=== PATIENT | female | born 1970 | race Two or more races ===

== ENCOUNTER 2022-12-15 08:29 | Outpatient (REF) | payer OTHER, SELFPAY ==
--- NOTE | ~2022-12-15 | XR_ITS ---
EXAMINATION: XR ankle RT min 3V, XR ankle LT min 3V CLINICAL INFORMATION: Reason for Exam M25.571 - Pain in right ankle and joints of right foot COMPARISON: None. TECHNIQUE: AP, lateral, and oblique views of the bilateral ankles XR/XR ankle LT min 3V FINDINGS/IMPRESSION: * No acute fracture or dislocation. * Joint spaces are maintained without significant degenerative change. * No soft tissue abnormality.
--- NOTE | ~2022-12-15 | XR_ITS ---
EXAMINATION: XR ankle RT min 3V, XR ankle LT min 3V CLINICAL INFORMATION: Reason for Exam M25.571 - Pain in right ankle and joints of right foot COMPARISON: None. TECHNIQUE: AP, lateral, and oblique views of the bilateral ankles XR/XR ankle RT min 3V FINDINGS/IMPRESSION: * No acute fracture or dislocation. * Joint spaces are maintained without significant degenerative change. * No soft tissue abnormality.
== END 2022-12-15 08:30 | disposition home or self-care (01) ==
LOC: HO.HMGCX 08:29
PROVIDERS: PCP Internal Medicine; Visit Provider Internal Medicine
DX: M25.571 Pain in right ankle and joints of right foot (principal); M25.572 Pain in left ankle and joints of left foot
CPT/HCPCS: 73610

== ENCOUNTER 2023-06-12 07:43 | Outpatient (REF) | payer OTHER, SELFPAY ==
[2023-06-12 13:55] LABS: MANUAL DIFF FLAG NO
[2023-06-12 14:10] LABS: Basophils Absolute Auto 0.1 X10*3/uL (0.0-0.2); Basophils Percent Auto 0.5 % (0-2); Eosinophils Absolute Auto 0.6 X10*3/uL (0.0-0.4); Eosinophils Percent Auto 6.5 % (0-4); Hematocrit 48.1 % (37.0-47.0); Hemoglobin 15.8 g/dl (12.0-16.0); Imm Gran Abs Auto 0.03 X10*3/uL (0.00-0.03); Imm Gran Pct Auto 0.3 % (0.0-0.4); Lymphocytes Absolute Auto 3.3 X10*3/uL (1.2-4.9); Lymphocytes Percent Auto 34.2 % (20-40); Mean Corpuscular HGB Conc 32.8 g/dl (31.0-35.0); Mean Corpuscular Volume 91.4 fL (80.0-98.0); Mean Platelet Volume 10.7 fL (9.4-12.3); Monocytes Absolute Auto 0.5 X10*3/uL (0.1-1.2); Monocytes Percent Auto 5.1 % (2-11); Neutrophils Absolute Auto 5.1 x10*3/uL (2.0-8.3); Neutrophils Percent Auto 53.4 % (45-73); Platelet Count 264 X10*3/uL (160-400); Red Blood Count 5.26 X10*6/uL (4.20-5.50); Red Cell Distribution Width 13.1 % (11.0-16.0); White Blood Count 9.6 X10*3/uL (4.8-10.8)
[2023-06-12 14:38] LABS: Alanine Aminotransferase 32 U/L (0-31); Albumin Level 4.1 g/dL (3.5-5.0); Alkaline Phosphatase 70 U/L (39-117); Anion Gap 12 (12-20); Aspartate Amino Transferase 20 U/L (5-31); Bilirubin Total 0.3 mg/dL (0.0-1.0); Blood Urea Nitrogen 10 mg/dL (9-16); Calcium 9.6 mg/dL (8.4-10.2); Carbon Dioxide 24 mmol/L (22-29); Chloride 106 mmol/L (96-108); Cholesterol 195 mg/dL; Estimated Glomerular Filt Rate > 60; Glucose Fasting 90 mg/dL (60-99); HDL Cholesterol 36 mg/dL; LDL Cholesterol Calculated 121 mg/dl; Sodium 138 mmol/L (135-145); Total Protein 7.3 g/dL (6.5-8.0); Triglycerides 194 mg/dL
[2023-06-12 14:42] LABS: TSH reflex Free T4 1.33 uIU/mL (0.32-4.0); Vitamin D 25-OH Total 37.1 ng/mL (>30)
== END 2023-06-12 07:44 | disposition home or self-care (01) ==
LOC: HO.HMGCLDS 07:43
PROVIDERS: PCP Internal Medicine; Visit Provider Internal Medicine
DX: Z00.00 Encounter for general adult medical examination without abnormal findings (principal); I10 Essential (primary) hypertension
CPT/HCPCS: 36415; 80053; 80061; 82306; 84443; 85025

== ENCOUNTER 2023-06-15 10:15 | Outpatient (AMB) | payer OTHER, SELFPAY ==
[2023-06-15 10:16] VITALS: BP 128/70; PULSE 85; O2SAT 98; BMI 31.4
--- NOTE | 2023-06-15 10:16 | MHC.PC.OV ---
Vital Signs 06/15/23 10:16 Height 5 ft 1 in Weight 166 lb 4 oz BMI 31.4 BP 128/70 Blood Pressure Location Lt brachial Position Sitting Pulse 85 Pulse Source Pulse Oximeter Pulse Oximetry (%) 98 Oxygen Delivery Method Room Air Intake Visit Reasons: 6 month follow up Allergies No Known Allergies Allergy (Verified 06/15/23 10:16) Medication List - Last Reconciled 06/15/23 by Valeria Horowitz MD ferrous gluconate 324 mg PO QAM fluticasone propionate 50 mcg/actuation 1 spray intranasal DAILY gabapentin 300 - 600 mg PO BEDTIME lisinopril 20 mg PO DAILY Tobacco use date assessed: 06/15/23 Dental Screening Dental Screen Date: 06/15/23 Did you have a dental visit in the last 12 months?: No Did you have a dental problem in the last 6 months where you did not have access to dental care?: No Was dental information given to patient?: No HPI 6 month follow up HPI Details Pt presents for HTN, stable on Lisinopril. Pt c/o chronic bilateral shoulder pain and neck pain and tightness. She tried physical therapy multiple times and had right shoulder surgery by [facility] in the past but never fully recovered. Patient also had multiple cortisone injections in both shoulders without significant relief. She would like to go back to the orthopedics. PFSH Family History Maternal Grandmother Mental health disorder Social History Household Members: Other Household Members Other:: on disability for shoulder injury , lives with a partner, 1 daughter, Housing: Apartment Patient Tobacco Use Status: Current everyday Tobacco user e-Cigarette/Vaping Use: Never Used 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al status: unemployed Cognitive needs: No Hearing needs: No Vision needs: Yes Questionnaire Thrive Questionnaire Date Thrive assessed: 12/15/22 AUDIT C Alcohol Use Questionnaire (AUDIT-C) 1. How often do you have a drink containing alcohol?: Never 3. How often do you have six or more drinks on one occasion?: Never Total Score: 0 Score Reviewed/Action Taken: Yes DORIS-7 AMB Questionnaire DORIS-7 Date DORIS - 7 assessed: 12/15/22 Source: Developed by Drs. Karri Plata, PerlaCarroll Brown and colleagues, with an educational manpreet from [employer]. Review of Systems Const All systems reviewed & are unremarkable except as noted in HPI and below Reports no additional complaints Eyes Reports no additional complaints ENT Reports no additional complaints Card Reports no additional complaints Resp Reports no additional complaints GI Reports no additional complaints Reports no additional complaints Physical exam (Primary Care) Vital Signs: Last Vital Signs Pulse 85 06/15/23 10:16 BP 128/70 06/15/23 10:16 Pulse Ox 98 06/15/23 10:16 Oxygen Delivery Method Room Air 06/15/23 10:16 BMI result Body Mass Index 31.4 Tobacco/Smoking Status: Tobacco use Status Tobacco use date assessed 06/15/23 06/15/23 10:18 Patient Tobacco Use Status Current everyday Tobacco 06/15/23 10:18 e-Cigarette/Vaping Use Never Used 06/15/23 10:18 Thrive Assessment: Date of Thrive Assessment Date Thrive assessed 12/15/22 06/15/23 10:18 Const General: no acute distress HENMT Ears: hearing grossly normal bilaterally Face and sinus: Yes normal facial exam Resp Effort & Inspection: normal respiratory effort Auscultation: clear to auscultation bilaterally Cardio Rhythm: regular rhythm Heart sounds: S1 normal heart sound present and S2 normal heart sound present GI Inspection: Yes normal to inspection Palpation (GI): Soft to palpation Percussion: Yes normal to percussion Auscultation: normal bowel sounds Assessment and Plan Assessment & Plan (1) Carpal tunnel syndrome on both sides: Code(s): G56.03 - Carpal tunnel syndrome, bilateral upper limbs Plan: Follow-up with [facility] (2) Shoulder pain, bilateral: Code(s): M25.511 - Pain in right shoulder; M25.512 - Pain in left shoulder Plan: F/U with [facility] (3) HTN (hypertension): Code(s): I10 - Essential (primary) hypertension Plan: cont Lisinopril Orders: Orders MM screening mammo BI Today Z12.31 - Encounter for screening mammogram for malignant neoplasm of breast Referrals Gastroenterology Referral Z00.00 - Encounter for general adult medical examination without abnormal findings Orthopedics Referral G56.03 - Carpal tunnel syndrome, bilateral upper limbs, M25.511 - Pain in right shoulder, M25.512 - Pain in left shoulder Coding Level of Care Code Est Pt Level 4 (13512) Diagnoses Carpal tunnel syndrome on both sides G56.03 Shoulder pain, bilateral M25.511; M25.512 HTN (hypertension) I10
== END 2023-06-15 10:52 | disposition home or self-care (01) ==
PROVIDERS: PCP Internal Medicine; Visit Provider Internal Medicine
DX: G56.03 Carpal tunnel syndrome, bilateral upper limbs (principal); M25.511 Pain in right shoulder; M25.512 Pain in left shoulder; I10 Essential (primary) hypertension
CPT/HCPCS: 99214

== ENCOUNTER 2023-08-03 06:49 | Outpatient (REF) | payer OTHER, MEDICAID, SELFPAY ==
--- NOTE | ~2023-08-03 | XR_ITS ---
EXAMINATION: XR SHOULDER, RIGHT XR SHOULDER, LEFT CLINICAL INFORMATION: Bilateral shoulder pain. COMPARISON: None. TECHNIQUE: AP, scapular Y, and axillary views of the right and left shoulder. FINDINGS: Right Shoulder: No acute fracture or dislocation. Small acromioclavicular marginal osteophytes. Mild glenohumeral joint space narrowing with tiny marginal osteophytes. Benign-appearing probable degenerative cyst within the proximal humerus. No concerning lytic or blastic osseous lesion. No abnormal soft tissue calcification. Left Shoulder: No acute fracture or dislocation. No significant joint space narrowing or marginal osteophytes. No osseous erosion. Lobulated calcification adjacent to the greater tuberosity measuring up to 1.5 cm, consistent with distal infraspinatus calcific tendinitis. XR/XR shoulder LT min 2V IMPRESSION: RIGHT SHOULDER: Mild glenohumeral and acromioclavicular osteoarthritis. LEFT SHOULDER: Distal infraspinatus calcific tendinitis.
--- NOTE | ~2023-08-03 | XR_ITS ---
EXAMINATION: XR SHOULDER, RIGHT XR SHOULDER, LEFT CLINICAL INFORMATION: Bilateral shoulder pain. COMPARISON: None. TECHNIQUE: AP, scapular Y, and axillary views of the right and left shoulder. FINDINGS: Right Shoulder: No acute fracture or dislocation. Small acromioclavicular marginal osteophytes. Mild glenohumeral joint space narrowing with tiny marginal osteophytes. Benign-appearing probable degenerative cyst within the proximal humerus. No concerning lytic or blastic osseous lesion. No abnormal soft tissue calcification. Left Shoulder: No acute fracture or dislocation. No significant joint space narrowing or marginal osteophytes. No osseous erosion. Lobulated calcification adjacent to the greater tuberosity measuring up to 1.5 cm, consistent with distal infraspinatus calcific tendinitis. XR/XR shoulder RT min 2V IMPRESSION: RIGHT SHOULDER: Mild glenohumeral and acromioclavicular osteoarthritis. LEFT SHOULDER: Distal infraspinatus calcific tendinitis.
== END 2023-08-03 06:50 | disposition home or self-care (01) ==
LOC: HO.HOSX 06:49
PROVIDERS: Visit Provider Physician Assistant
DX: M75.32 Calcific tendinitis of left shoulder (principal); M25.511 Pain in right shoulder
CPT/HCPCS: 20610; 73030; J1040

== ENCOUNTER 2023-08-03 10:51 | Outpatient (AMB) | payer OTHER, MEDICAID, SELFPAY ==
--- NOTE | 2023-08-03 11:14 | A.OFFVIS_ITS ---
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 She states the pain started in 2019. She states the right is worse than the left. She uses both ice and heat to help with the pain but it does not provide relief. She is taking Aleve daily to help with the pain. 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 She states she has bilateral shoulder pain which is worse at her right shoulder and radiates to her neck. Her pain is aggravated with driving, ROM and frequently drops items. She also c/o numbness and tingling in her hands. She finds no relief with ice and heat treatment. She is taking Aleve daily to help with her pain. She has not had any injury in the past. She has a history of right shoulder surgery in 2019 and CTS. She does not have a history of diabetes. [facility] Family History Maternal Grandmother Mental health disorder Social History Household Members: Other Household Members Other:: on disability for shoulder injury , lives with a partner, 1 daughter, Housing: Apartment Patient Tobacco Use Status: Current everyday Tobacco user e-Cigarette/Vaping Use: Never Used 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al status: unemployed Cognitive needs: No Hearing needs: No Vision needs: Yes Review of Systems Const All systems reviewed & are unremarkable except as noted in HPI and below Physical Exam Const General: cooperative, healthy appearing, comfortable, no acute distress, well developed and alert Orientation/consciousness: patient oriented x3 HEENT Head: Yes normal to inspection, Yes normocephalic and Yes atraumatic Eyes General: appearance normal, both eyes and all related structures Resp Effort & Inspection: normal respiratory effort and able to speak in complete sentences Cardio Rate: regular rate Peripheral pulses: Peripheral pulses 2+ throughout GI Palpation (GI): Soft to palpation Skin Lesions: no lesions Rashes: no rashes Neuro General: patient oriented x3 Extrem Other: Left shoulder normal to inspection. Tenderness over the bicipital groove and along the deltoid region of the shoulder. Forward flexion to 175, external rotation to 90, internal rotation to S1. 5/5 RTC strength. Positive Denny and cross body abduction. NVI. Office Procedures Joint Injection/Drain Joint Injection/Drain Primary Site: left shoulder Prep: site was prepped using aseptic technique, ethochloride spray was applied and injection warnings given Injected: 80 mg of, DepoMedrol, with 8 mL of, 1% plain lidocaine and in the subcromial space Approach Used: posterolateral Procedure: The patient tolerated the procedure well and there was some relief with the local anesthesia Coding 13124 - Glenohumeral/Tronchanteric Bursa/Intraarticular Procedure code (CPT) selection complete Results Reviewed Results Reviewed: 08/03/23 11:39 Lidocaine HCl 2 % MPF [Xylocaine 2 % MPF] 5 ml .ROUTE .STK-MED ONE methylPREDNISolone acetate [DEPO-MedroL] 80 mg .ROUTE .STK-MED ONE Xrays were obtained in the office today and personally reviewed by me of both shoulders shoulder calcific tendonitis left and post surgical changes on the right Assessment & Plan Assessment & Plan (1) Calcific tendonitis of left shoulder: Code(s): M75.32 - Calcific tendinitis of left shoulder Plan We discussed options today which include steroid injection. They did consent to move forward with the left shoulder injection, which was tolerated well. I recommended rest, ice and elevation and OTC anti-inflammatories PRN for discomfort. She was also given a referral to physical therapy for her right shoulder. If symptoms persist or worsens over the next 6-8 weeks, patient will contact the office, otherwise follow-up as needed. Orders: Orders XR shoulder LT min 2V Today M25.512 - Pain in left shoulder XR shoulder RT min 2V Today M25.511 - Pain in right shoulder PT Evaluation and Treatment Today M75.32 - Calcific tendinitis of left shoulder Patient Instructions: Scribed for Ta-Colleen Carson PA-C, by dulce maria Bailey scribe, on 08/03/2023 at 11:00 AM Laci GILLESPIE PA-C, have personally reviewed and agree with the information entered by the travis. Coding Level of Care Code New Pt Level 3 (56594) Diagnoses Calcific tendonitis of left shoulder M75.32 CPT Codes Coding - Joint 7: 41022 - Glenohumeral/Tronchanteric Bursa/Intraarticular ([id number])
== END 2023-08-03 11:52 | disposition home or self-care (01) ==
PROVIDERS: PCP Internal Medicine; Visit Provider Physician Assistant
DX: M75.32 Calcific tendinitis of left shoulder (principal)
CPT/HCPCS: 20610; 99204

== ENCOUNTER 2023-08-17 11:29 | Outpatient (AMB) | payer OTHER, MEDICAID, SELFPAY ==
[2023-08-17 11:34] VITALS: BMI 31.4
--- NOTE | 2023-08-17 11:34 | MHC.OFFVIS ---
Intake Vital Signs 08/17/23 11:34 Height 5 ft 1 in Weight 166 lb BMI 31.4 Intake Visit Reasons: ov- Right shoulder MRI review Intake Note: Camila is a 52 year old right hand dominant female who presents today for a follow up of her right shoulder. She had an MRI done with [facility] which is scanned to her chart. States she continues to have pain. Patient mentioned she will be starting P.T for her left shoulder on 08/26/23. Allergies No Known Allergies Allergy (Verified 08/17/23 11:38) HPI ov- Right shoulder MRI review HPI Details Camila is a 52 year old woman who presents for an MRI review of her right shoulder pain. She has a hx of right SAD at [facility] in 2020. She complains of pain with daily activity, as well as limited ROM. Her pain is worse with overhead activities & at night, and she feels limited by this. She says this pain radiates into her neck occasionally and has been present since her surgery. She reports multiple rounds of PT and injections for her right shoulder, which was somewhat helpful. She says her pain is so bad at night that she tends to sleep in her Lazy-boy chair. She finds some relief from NSAIDs and denies any other pain medication. She says she is so limited she has been modifying her activities and getting help from friends and family for some activities, including cooking. She has left calcific tendinitis, received a steroid injection on 08/03/23 by MOLLY Carson, and was sent for PT. She continues to have pain but says her injection was somewhat helpful. She has a hx of carpal tunnel syndrome and reports numbness in her hands. She also complains of numbness in her arms as well. 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 Cognitive needs: No Hearing needs: No Vision needs: Yes Review of Systems Const All systems reviewed & are unremarkable except as noted in HPI and below Physical Exam Vital Signs: BMI result Body Mass Index 31.4 Const General: no acute distress, alert and awake Orientation/consciousness: patient oriented x3 HEENT Head: Yes normocephalic and Yes atraumatic Eyes EOM: EOMs intact bilaterally Resp Effort & Inspection: normal respiratory effort and able to speak in complete sentences Cardio Jugular venous distension: no JVD Skin General skin exam: turgor normal Rashes: no rashes Neuro General: patient oriented x3 Psych Appearance: grossly normal Affect: normal affect Attitude: cooperative Results Reviewed Results Reviewed: I personally reviewed relevant MR images Supraspinatus tendinopathy with linear intrasubstance partial tear Post-op change compatible with interval biceps tenodesis, subacromial decompression/distal clavicular excision and subscapularis repair Assessment & Plan Assessment & Plan (1) History of arthroscopy of right shoulder: Code(s): Z98.890 - Other specified postprocedural states Plan: This is a 52 year old woman with right shoulder pain, with a hx of SAD, DOS: 10/2022 at [facility]. She has pain with daily activity, worse with overhead activity and at night. She says her pain has been present since her surgery, and she found limited relief from PT and injections in the past. I discussed her diagnosis and treatment options. I recommend a right shoulder with possible RTC repair and/or biceps tenodesis. I discussed the risks, benefits, and alternatives including, but not limited to, the risk of pain, infection, stiffness, need for further surgery as well as potential medical complications such as blood clots, pulmonary embolism and cardiac complications. I discussed the recovery timeline and process as well as the importance of PT. Camila is a good candidate for this surgery, and she wishes to proceed with this decision. She will speak with Arlin to schedule this procedure. (2) Calcific tendonitis of left shoulder: Code(s): M75.32 - Calcific tendinitis of left shoulder Plan: Injected on 08/03/23 by MOLLY Carson and sent for PT. Continues to have some pain. Plan Scribed for Terell Galvan MD by Venkatesh Stafford medical genetics director, on 08/17/23 at 11:45 AM, EST. Coding Level of Care Code Est Pt Level 4 (35572) Diagnoses History of arthroscopy of right shoulder Z98.890 Calcific tendonitis of left shoulder M75.32
== END 2023-08-17 11:53 | disposition home or self-care (01) ==
PROVIDERS: PCP Internal Medicine; Visit Provider Orthopaedic Surgery
DX: M25.511 Pain in right shoulder (principal); M75.32 Calcific tendinitis of left shoulder
CPT/HCPCS: 99214

== ENCOUNTER → 2023-08-17 11:29 | Outpatient (BNVA) | payer OTHER, MEDICAID, SELFPAY | PROVIDERS: PCP Internal Medicine; Visit Provider Orthopaedic Surgery | DX: M75.32 Calcific tendinitis of left shoulder (principal); Z98.890 Other specified postprocedural states | CPT/HCPCS: 99212 ==

== ENCOUNTER 2023-09-14 15:00 | Outpatient (RCR) | payer OTHER, MEDICAID, SELFPAY ==
[2023-08-26 08:15] VITALS: BP 131/63; PULSE 75
--- NOTE | 2023-08-26 09:19 | MHC.PT.EP ---
[facility] [place] Office [place] Office [place] Office [address] Cheryl Brito [address] [phone] F: [phone] F: [phone] F: [phone] F: [phone] Physical Therapy Plan of Care Date of Evaluation: 08/26/23 Date of Surgery: NA Diagnosis: Calcific tendinitis of L shoulder Assessment: Camila is a 52 year old female who is referred to PT for calcific tendinitis of L shoulder . She reports of having L shoulder pain for 4 years following a work injury. She injured B shoulder while pulling a heavy box however only her R shoulder pain was addressed. She still has pain in R shoulder and is scheduled for an arthroscopic procedure on 09/16 however she is here for L shoulder pain. On PT examination she presented with TTP over L shoulder anterior and posterior joint line, L UT, L bicep and supra tendon and B medial border of scapula, 6-9/10 pain at rest and with movements, decreased B shoulder ROM, decreased B shoulder and scap strength and altered posture. She lives with her partner and needs assistance for all ADLS due to pain. She is currently unemployed. She would benefit from skilled PT to address the aforementioned impairments and improve tolerance to functional activities. Frequency and Duration: The patient will be seen 2/week for 6 weeks. Short Term Goals: 1. Pt will have 50% decrease in pain which will enable her to sleep through the night in 2 weeks. 2. Pt will be able to move L shoulder through full plane of motion without pain which will enable her to use L UE for dressing in 3 weeks. Artillery Maintenance Supervisor Goals: 1. Pt will demonstrate an increase in muscle strength by 1 grade which will enable her to perform all ADLS using L UE in 5 weeks. 2. Pt will be independent with HEP for symptom management and maintenance following d/c in 6 weeks. Treatment Plan: Modalities to reduce pain, spasms and effusion. Manual therapy to restore motion and function. Therapeutic exercise to improve strength and flexibility. Neuromuscular re-education for posture and balance. Therapeutic activities to return to functional activities of daily living. Electronically signed by: Romelia Santiago PT DPT Please sign and return to therapist. Thank you for your referral.
--- NOTE | 2023-09-23 10:48 | MHC.PT.DC ---
[facility] [place] Office [place] Office [place] Office [address] [phone] F: [phone] F: [phone] F: [phone] F: [phone] Physical Therapy Discharge Report Diagnosis: Calcific tendinitis of L shoulder Date of Surgery: NA Date of Evaluation: 08/26/23 Date of Discharge: 09/23/23 Treatments to Date: 3 Cancellations to Date: 1 No Shows to Date: 1 Discharge Status: Patient Elected to Stop Discharge Summary: Camila completed 3 PT visits. She is being d/c from PT for L shoulder calcific tendinitis as she had rotator cuff repair surgery for R shoulder 1 week back. She is going to start PT for R shoulder next week and is limited in doing exercises for L shoulder at this time. She is therefore d/c from PT. Camila in agreement with this plan. Electronically signed by: Romelia Santiago PT DPT Please sign and return to therapist. Thank you for your referral.
== END 2023-09-23 10:48 | disposition home or self-care (01) ==
LOC: HO.PT 15:00
PROVIDERS: PCP Internal Medicine; Visit Provider Physician Assistant
DX: M75.32 Calcific tendinitis of left shoulder (principal)
CPT/HCPCS: 97110; 97161

== ENCOUNTER 2023-09-16 07:43 | Day surgery (SDC) | payer OTHER, MEDICAID, SELFPAY ==
[2023-09-11 12:58] VITALS: BMI 31.4
--- NOTE | 2023-09-15 09:58 | HO.ANESPROP2 ---
HPI - Anesthesia Eval Consult details Narrative: 52yo F for Right Shoulder Arthroscopy, possible rotator cuff repair, possible bicep tenodesis PMFSH Active Problems Active Problems: All Active Problems (Updated 09/11/23 @ 12:53 by Chandrika Johnson RN) History of arthroscopy of right shoulder (Acute) Calcific tendonitis of left shoulder (Acute) Abnormal mammogram of right breast (Acute) Carpal tunnel syndrome on both sides (Acute) Shoulder pain, bilateral (Acute) Chronic ankle pain, bilateral (Acute) Annual physical exam (Acute) Hx of screening mammography (Acute) Normal pelvic exam (Acute) H/O shoulder surgery (Acute) Restless legs syndrome (RLS) (Acute) HTN (hypertension) (Acute) Past Medical History Medical History Carpal tunnel syndrome RLS (restless legs syndrome) HTN (hypertension) Family History Family History Maternal Grandmother Mental health disorder Surgical History Surgical History (Updated 09/22/23 @ 12:46 by Natividad Morris) History of arthroscopy of right shoulder Social History Social History Household Members: Other Household Members Other:: on disability for shoulder injury , lives with a partner, 1 daughter, Housing: Apartment Patient Tobacco Use Status: Current everyday Tobacco user Cigarettes Per Day: 8 Years Smoked: 20 e-Cigarette/Vaping Use: Never Used 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al status: unemployed 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 Cognitive needs: No Hearing needs: No Vision needs: Yes Meds Allergies Allergy/AdvReac Type Severity Reaction Status Date / Time No Known Allergies Allergy Verified 08/17/23 11:38 Home Medications Medication Instructions Recorded Confirmed Last Taken Type fluticasone propionate 50 1 spray intranasal DAILY 12/15/22 09/11/23 Unknown History mcg/actuation nasal spray,suspension Exam Exam Date and Time: September 15, 2023 0958 Height,Weight and Vital Signs: Height 5 ft 1 in Weight 75.296 kg Pertinent Lab Results Pertinent Lab Results: Laboratory Tests 06/12/23 07:48 WBC 9.6 Hgb 15.8 Hct 48.1 H Plt Count 264 Sodium 138 Potassium 4.0 Chloride 106 Carbon Dioxide 24 BUN 10 Creatinine 0.72 Assessment and Plan Assessment Anesthesia Assessment: Chart Reviewed
[2023-09-16 08:15] VITALS: BP 138/65; PULSE 75; RESP 18; TEMP 36.1; O2SAT 96
[2023-09-16] MEDS: Lactated Ringers 1,000 ML 100 ML IVCONT (08:21)
--- NOTE | 2023-09-16 09:21 | MHC.SHP ---
Pre-Procedural Eval Section A Date of Service: 09/16/23 The patient is an INPATIENT: No Changes since office visit: No Cold of Flu in the past 2 weeks, No New Medical Problems, No Changes in Medication and No Patient answered all questions The History & Physical has been completed within 30 days and I have reviewed it.: Yes Section B Chief Complaint: Calcific tendinitis of left shoulder Allergies: Allergies Allergy/AdvReac Type Severity Reaction Status Date / Time No Known Allergies Allergy Verified 08/17/23 11:38 Plan I have reviewed the history and physical and performed a pertinent physical examination on my patient. No changes have occurred unless specified. Time Spent With Patient Time: Total time managing care of this patient today ____ minutes.
--- NOTE | 2023-09-16 10:46 | PM.OP ---
Brief Operative Note Date of Service: 09/16/23 Pre-op diagnosis: right rtc tear Post-op diagnosis: same Procedure: Right rtc repair Implants: Licea and nephew helacoil x3 Surgeon: Terell Galvan MD Anesthesia: GETA and regional Was an Digital Asset Specialist used for this Procedure?: Yes Digital Asset Specialist: Patience Monge Estimated blood loss (mL): 10 IV fluids (mL): 850 Pathology: none sent Condition: stable Disposition: PACU
[2023-09-16 11:02] VITALS: BP 155/76; PULSE 100; RESP 24; TEMP 36.6; O2SAT 96
[2023-09-16 11:07] VITALS: BP 145/75; PULSE 92; RESP 22; O2SAT 99
[2023-09-16 11:10] VITALS: BP 145/72; PULSE 87; RESP 20; O2SAT 93
[2023-09-16 11:15] VITALS: BP 145/74; PULSE 85; RESP 20; O2SAT 94
[2023-09-16 11:30] VITALS: BP 145/74; PULSE 88; RESP 18; TEMP 36.1; O2SAT 94
--- NOTE | 2023-09-21 09:28 | P.OP_ITS ---
Operative Note Operative Note Date of Service: 09/16/23 Narrative: Date of Service: 09/16/23 Pre-op diagnosis: right rtc tear Post-op diagnosis: same Procedure: Right rtc repair Implants: Licea and nephew helacoil x3 Surgeon: Terell Galvan MD Anesthesia: GETA and regional Was an Can Filling And Closing Machine Tender used for this Procedure?: Yes Can Filling And Closing Machine Tender: Patience Monge Estimated blood loss (mL): 10 IV fluids (mL): 850 Pathology: none sent Condition: stable Disposition: PACU Procedure in detail: Patient was brought to the operating room and placed the the beach chair position. All bony prominences were well padded and the limb was prepped and draped in standard sterile fashion. A time out was called to identify proper site, proper procedure and proper surgeon. IV antibiotics per weight were administered. I began by making a posterolateral stab incision with a 15 blade. A blunt trochar was placed into the glenohumeral joint and I insufflated the joint with saline and a 30 degree arthroscope was placed. I established an outside- in anterior portal just distal to the biceps tendon. I then began my inspection of the glenohumeral joint. There was a degenerative SLAP tear at the biceps anchor ( Type 1). There were minimal cartilage changes at the inferior glenoid without humeral head changes. There was an undersurface RTC tear. The subcapularis was intact. I debrided the loose cartilage of the glenoid and the degenerative labral tearing. I then removed the trochar and entered the subacromial space. A direct lateral portal was then established and I performed a bursectomy. The cuff was then examined. There was a bursal sided tear that was high grade and given the undersurface tearing of the supraspinatus. I debrided the tear and it was essentially full thickness. I placed one medial row double loaded anchors after using a tap just adjacent to the articular cartilage and then brought the suture limbs (4) through the medial cuff. I added two looped sutures and then debrided the bare area down to bleeding bone and, using a cross bridge configuration, brought 3 limbs to each of two lateral 5.0 anchors. This re- approximated the cuff anatomy anatomically. Once I was satisfied with the repair final images were captured and I removed all instrumentation. Portals were closed with nylon. Patient was placed in an abduction sling, extubated and brought to the recovery room in stable condition. There were no known complications.
== END 2023-09-16 12:06 | disposition home or self-care (01) ==
PROVIDERS: PCP Internal Medicine; Visit Provider Orthopaedic Surgery
PROC: (CPT 29805; principal; 2023-09-16 09:40)
DX: M75.31 Calcific tendinitis of right shoulder (principal); I10 Essential (primary) hypertension; F17.200 Nicotine dependence, unspecified, uncomplicated
CPT/HCPCS: 29827; 29822; 29826; C1713; J0131; J0171; J0690; J1100; J2371; J2405; J2795

== ENCOUNTER → 2023-09-16 07:43 | Outpatient (BNV) | payer OTHER, MEDICAID, SELFPAY | PROVIDERS: PCP Internal Medicine; Visit Provider Orthopaedic Surgery | DX: M75.101 Unspecified rotator cuff tear or rupture of right shoulder, not specified as traumatic (principal) | CPT/HCPCS: 29822; 29826; 29827 ==

== ENCOUNTER 2023-09-22 12:23 | Outpatient (AMB) | payer OTHER, MEDICAID, SELFPAY ==
--- NOTE | 2023-09-22 12:24 | A.OFFVIS_ITS ---
Intake Intake Visit Reasons: PO-Rt Shld 09/16 NE Intake Note: Camila is a 52 year old right hand dominant female who presents today for a post op appointment s/p right shlder 09/16/23 NE. Patient is doing well just having some discomfort. Allergies No Known Allergies Allergy (Verified 08/17/23 11:38) HPI PO-Rt Shld 09/16 NE HPI Details 52-year-old right hand dominant female w honorio presents in the office today 6 days status post right rotator cuff repair, which was performed on 09/16/[address] Galvan. [facility] Medical History Carpal tunnel syndrome RLS (restless legs syndrome) HTN (hypertension) Surgical History (Updated 09/22/23 @ 12:46 by Natividad Morris) History of arthroscopy of right shoulder Family History Maternal Grandmother Mental health disorder Social History Household Members: Other Household Members Other:: on disability for shoulder injury , lives with a partner, 1 daughter, Housing: Apartment Patient Tobacco Use Status: Current everyday Tobacco user Cigarettes Per Day: 8 Years Smoked: 20 e-Cigarette/Vaping Use: Never Used 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al status: unemployed 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 No surrounding erythema or drainage. No signs of infection. Sutures intact. Forward flexion and abduction to 45 degrees. External rotation to neutral. NVI. Assessment & Plan Assessment & Plan (1) S/P rotator cuff repair: Comment: right shoulder, 09/16/2023 NE Code(s): Z98.890 - Other specified postprocedural states Plan Ms. Forte is a 52-year-old right hand dominant female who presents in the office today 6 days status post right rotator cuff repair, which was performed on 09/16/[address] Galvan. Sutures were removed and steri-stripes were applied while in the office today. She will be referred to physical therapy to work on right shoulder status post rotator cuff repair with patch. The patient is scheduled to begin physical therapy tomorrow, 09/23/2023, for the left shoulder. However, we will defer treatment for the left shoulder at this time in order for her to move forward with right shoulder treatment. Follow up will be in 4 weeks, or sooner if needed. Patient Instructions: Scribed for Patience Monge PA-C by Natividad Morris medical assembler, on 09/22/2023 at 12:24 pm, EST. Coding Level of Care Code Global (29580) Diagnoses S/P rotator cuff repair Z98.890
== END 2023-09-22 13:03 | disposition home or self-care (01) ==
PROVIDERS: PCP Internal Medicine; Visit Provider Physician Assistant
DX: Z98.890 Other specified postprocedural states (principal)
CPT/HCPCS: 99024

== ENCOUNTER → 2023-09-22 12:23 | Outpatient (BNVA) | payer OTHER, MEDICAID, SELFPAY | PROVIDERS: PCP Internal Medicine; Visit Provider Physician Assistant ==

== ENCOUNTER 2023-11-03 10:00 | Outpatient (AMB) | payer OTHER, MEDICAID, SELFPAY ==
--- NOTE | 2023-11-03 10:11 | A.OFFVIS_ITS ---
Intake Intake Visit Reasons: PO-Rt Shld 09/16 NE Intake Note: Camila is a 53 year old right hand dominant female who presents today for a post op appointment s/p right shoulder 09/16/23 NE. Patient reports she is doing well but a bit sore. Allergies No Known Allergies Allergy (Verified 11/03/23 10:15) HPI PO-Rt Shld 09/16 NE HPI Details Camila is a 53 year old right hand dominant woman who presents S/P right shoulder RTC repair, DOS: 09/16/[address] Galvan. She says she is doing well but has some residual soreness. She is seen today wearing her sling correctly. She has been attending PT as ordered. She complains of some ongoing neck pain which may be related to wearing her sling. [facility] Medical History Carpal tunnel syndrome RLS (restless legs syndrome) HTN (hypertension) Surgical History (Updated 09/22/23 @ 12:46 by Natividad Morris) History of arthroscopy of right shoulder Family History Maternal Grandmother Mental health disorder Social History Household Members: Other Household Members Other:: on disability for shoulder injury , lives with a partner, 1 daughter, Housing: Apartment Patient Tobacco Use Status: Current everyday Tobacco user Cigarettes Per Day: 8 Years Smoked: 20 e-Cigarette/Vaping Use: Never Used 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al status: unemployed 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 Cognitive needs: No Hearing needs: No Vision needs: Yes Review of Systems Const All systems reviewed & are unremarkable except as noted in HPI and below Physical Exam Const General: cooperative, healthy appearing and no acute distress Orientation/consciousness: patient oriented x3 HEENT Head: Yes normocephalic and Yes atraumatic Eyes EOM: EOMs intact bilaterally Resp Effort & Inspection: normal respiratory effort and able to speak in complete sentences Cardio Jugular venous distension: no JVD Rate: regular rate Peripheral pulses: Peripheral pulses 2+ throughout GI Palpation (GI): Soft to palpation Skin General skin exam: turgor normal Lesions: no lesions Rashes: no rashes Neuro General: patient oriented x3 Extrem Other: Right shoulder: Incision site is C/D/I, completely healed with no evidence of infection. No surrounding erythema or edema. Forward flexion to 70 degrees, Abduction to 60 degrees, External rotation to 45 degrees. NVI. Psych Appearance: grossly normal Affect: normal affect Attitude: cooperative Assessment & Plan Assessment & Plan (1) S/P rotator cuff repair: Comment: right shoulder, 09/16/2023 NE Code(s): Z98.890 - Other specified postprocedural states Plan aCmila is a 53 year old right hand dominant woman who presents S/P right shoulder RTC repair, DOS: 09/16/[address] Galvan. She says she is doing well but has some residual soreness. She is seen today wearing her sling correctly. She has been attending PT as ordered. She complains of some ongoing neck pain which may be related to wearing her sling. She will discontinue her sling at this time and continue with Physical therapy as ordered. She is able to resume driving at this time as long as she can demonstrate good control and is not taking any narcotic medication. Follow up will be in [address] Galvan, velmaer prn. Patient Instructions: Scribed for Patience Monge PA-C by Venkatesh Stafford, medical field representative, on 11/03/23 at 10:35 AM EST. Coding Level of Care Code Global (91390) Diagnoses S/P rotator cuff repair Z98.890
== END 2023-11-03 10:47 | disposition home or self-care (01) ==
PROVIDERS: PCP Internal Medicine; Visit Provider Physician Assistant
DX: Z98.890 Other specified postprocedural states (principal)
CPT/HCPCS: 99024

== ENCOUNTER → 2023-11-03 10:00 | Outpatient (BNVA) | payer OTHER, MEDICAID, SELFPAY | PROVIDERS: PCP Internal Medicine; Visit Provider Physician Assistant | DX: Z98.890 Other specified postprocedural states (principal) | CPT/HCPCS: 99212 ==

== ENCOUNTER 2023-11-12 11:00 | Outpatient (RCR) | payer OTHER, MEDICAID, SELFPAY ==
--- NOTE | 2023-09-30 11:05 | MHC.PT.EP ---
[facility] [place] Office [place] Office [place] Office [address] [phone] F: [phone] F: [phone] F: [phone] F: [phone] Physical Therapy Plan of Care Date of Evaluation: 09/30/23 Date of Surgery: 09/16/23 Diagnosis: S/P RIGHT SUPRASPINATUS ROTATOR CUFF REPAIR WITH HEALICOIL 09/16/23 ORTHO F/U ON 10/31/23 Assessment: 52 YO FEMALE REF TO PT S/P Rt ARTHROSCOPIC RTC REPAIR (SUPRASPINATUS) ON 09/16/23 (NE)-> SHE HAS A H/O PREVIOUS Rt RTC REPAIR IN 2019 (OFF-SITE). THE Pt IS Rt HAND DOMINANT AND SHE IS ON DISABILITY FROM HER INITIAL Rt SH INJURY IN 10/2019. SHE HAS POST-OP DISCOMFORT IN Rt SH, LIMITED ROM, DECR POSTURE, AND SCAP/ Rt UE STRENGTH DEFICITS. FUNCTIONALLY, THE Pt IS LIMITED WITH ADLs DUE TO Rt SH POST-OP IMMOBILIZATION. THE Pt IS MOTIVATED FOR HER POST-OP PT AND TO GRADUALLY RESUME HER ADLs. THE Pt IS A GOOD PT CANDIDATE TO GUIDE HER ALONG HER POST-OP Rt RTC REPAIR. Frequency and Duration: The patient will be seen 2 x WK x 10 WKS Short Term Goals: *Pt INDEP SELF-CORRECT POSTURE *DECREASE Rt SH PAIN TO A 2-3/10 *INITIATE AND INCR ROM Rt SH PER ADVANCED CEU PROTOCOL *MAINTAIN INTEG OF Rt RTC REPAIR Halfway Goals: *Pt INDEP W HEP AND SELF-SX MGMT TECHN *Pt GRADUALLY RESUME ADLs (PER PROTOCOL) AND FUNCT INDEP EVIDENT W IMPROVED SPADI SCORE ( AT EVAL 128/130) *Pt DEMON FULL AROM Rt SH *RESTORE Rt SH GIRDLE STRENGTH Treatment Plan: Modalities to reduce pain, spasms and effusion. Manual therapy to restore motion and function. Therapeutic exercise to improve strength and flexibility. Neuromuscular re-education for posture and balance. Therapeutic activities to return to functional activities of daily living. Electronically signed by: MIGUELANGEL RIBEIRO,PT Please sign and return to therapist. Thank you for your referral.
--- NOTE | 2024-01-26 11:55 | MHC.PT.DC ---
[facility] [place] Office [place] Office [place] Office [address] Cheryl Brito [address] [phone] F: [phone] F: [phone] F: [phone] F: [phone] Physical Therapy Discharge Report Diagnosis: S/P RIGHT SUPRASPINATUS ROTATOR CUFF REPAIR WITH HELICOIL 09/16/23 ORTHO F/U ON 10/31/23 Date of Surgery: 09/16/23 Date of Evaluation: 09/30/23 Date of Discharge: 01/26/24 Treatments to Date: 10 Cancellations to Date: 0 No Shows to Date: 0 Discharge Status: Improved Function Patient Elected to Stop Discharge Summary: THE Pt WAS PROGRESSING NICELY IN HER POST -OP COURSE, 8 WKS POST-OP. SHE DISCHARGED HERSELF FROM PT DUE TO LEAVING FOR [place] TO CARE FOR HER MOTHER. SHE IS D/C AT THIS TIME; SHE DID NOT MEET HER PT GOALS. Electronically signed by: MIGUELANGEL RIBEIRO,PT Please sign and return to therapist. Thank you for your referral.
== END 2024-01-26 11:55 | disposition home or self-care (01) ==
LOC: HO.PT 11:00
PROVIDERS: PCP Internal Medicine; Visit Provider Physician Assistant
DX: Z98.890 Other specified postprocedural states (principal)
CPT/HCPCS: 97110; 97140; 97162

== ENCOUNTER 2023-12-14 10:27 | Outpatient (AMB) | payer OTHER, MEDICAID, SELFPAY ==
--- NOTE | 2023-12-14 10:28 | MHC.OFFVIS ---
Intake Intake Visit Reasons: PO-Rt Shld 09/16/23 NE Intake Note: Camila is a 53 year old right hand dominant female who presents today for a post op appointment s/p right shoulder 09/16/23 NE. Patient reports that she is doing well, she does continue to have pain with certain movements. overall has no concerns Allergies No Known Allergies Allergy (Verified 11/03/23 10:15) HPI PO-Rt Shld 09/16/23 NE HPI Details Camila is a 53 year old right hand dominant woman who presents ~3 months S/P right shoulder RTC repair. She says she is doing well, and has been attending PT. She continues to have some pain with certain activities or motions, but overall has no complaints today and is happy with the results of her surgery. [facility] Medical History Carpal tunnel syndrome RLS (restless legs syndrome) HTN (hypertension) Surgical History (Updated 09/22/23 @ 12:46 by Natividad Morris) History of arthroscopy of right shoulder Family History Maternal Grandmother Mental health disorder Social History Household Members: Other Household Members Other:: on disability for shoulder injury , lives with a partner, 1 daughter, Housing: Apartment Patient Tobacco Use Status: Current everyday Tobacco user Cigarettes Per Day: 8 Years Smoked: 20 e-Cigarette/Vaping Use: Never Used 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al status: unemployed 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 Cognitive needs: No Hearing needs: No Vision needs: Yes Review of Systems Const All systems reviewed & are unremarkable except as noted in HPI and below Physical Exam Const General: no acute distress, alert and awake Orientation/consciousness: patient oriented x3 HEENT Head: Yes normocephalic and Yes atraumatic Eyes EOM: EOMs intact bilaterally Resp Effort & Inspection: normal respiratory effort and able to speak in complete sentences Cardio Jugular venous distension: no JVD Skin General skin exam: turgor normal Rashes: no rashes Neuro General: patient oriented x3 Extrem Other: 30/90/130/S1 portals c/d/i 4+/5 EC Psych Appearance: grossly normal Affect: normal affect Attitude: cooperative Assessment & Plan Assessment & Plan (1) S/P rotator cuff repair: Comment: right shoulder, 09/16/2023 NE Code(s): Z98.890 - Other specified postprocedural states Plan: Doing well 3 mo s/p RTC repair No heavy lifting f/u as needed Plan Prepared for Terell Galvan MD by Venkatesh Stafford, medical billing manager, on 12/14/23 at 10:33 AM, EST. Coding Level of Care Code Global (73730) Diagnoses S/P rotator cuff repair Z98.890
== END 2023-12-14 10:49 | disposition home or self-care (01) ==
PROVIDERS: PCP Internal Medicine; Visit Provider Orthopaedic Surgery
DX: Z98.890 Other specified postprocedural states (principal)
CPT/HCPCS: 99024

== ENCOUNTER → 2023-12-14 10:27 | Outpatient (BNVA) | payer OTHER, MEDICAID, SELFPAY | PROVIDERS: PCP Internal Medicine; Visit Provider Orthopaedic Surgery | DX: Z98.890 Other specified postprocedural states (principal) | CPT/HCPCS: 99212 ==

== ENCOUNTER 2023-12-16 10:11 | Outpatient (AMB) | payer OTHER, SELFPAY ==
--- NOTE | 2023-12-16 10:57 | MHC.PC.OV ---
Vital Signs 12/16/23 10:58 Height 5 ft 1 in Weight 174 lb BMI 32.9 BP 118/74 Blood Pressure Location Lt brachial Position Sitting Pulse 83 Pulse Source Pulse Oximeter Pulse Oximetry (%) 97 Oxygen Delivery Method Room Air Intake Visit Reasons: Annual PE Intake Note: Pt is here today for PE. Allergies No Known Allergies Allergy (Verified 12/16/23 11:00) Medication List - Last Reconciled 12/16/23 by Valeria Horowitz MD ferrous gluconate 324 mg PO QAM fluticasone propionate 50 mcg/actuation 1 spray intranasal DAILY gabapentin 600 mg PO BEDTIME lisinopril 20 mg PO DAILY Tobacco use date assessed: 12/16/23 Dental Screening Dental Screen Date: 12/16/23 Did you have a dental visit in the last 12 months?: No Did you have a dental problem in the last 6 months where you did not have access to dental care?: No Was dental information given to patient?: Patient declined HPI Annual PE HPI Details Pt presents for PE. Pt c/o episodes of intermediate lightheadedness when changing change in head position when standing at the sink in the kitchen. patient denies positional vertigo, nausea, vomiting, change in balance, headaches, change in vision. 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 Cognitive needs: No Hearing needs: No Vision needs: Yes Questionnaire Thrive Questionnaire Date Thrive assessed: 12/15/22 I am a: Patient What is your living situation today?: I have a place to live, but I am worried about losing it in the future Within the past 12 months, did the food you bought not last and you didn't have the money to get more?: Sometimes True Within the past 12 months, did you worry whether your food would run out before you got money to buy more?: Sometimes True Please select the resources that you would like help with: None THRIVE Score: 3 AUDIT C Alcohol Use Questionnaire (AUDIT-C) 1. How often do you have a drink containing alcohol?: Never 3. How often do you have six or more drinks on one occasion?: Never Total Score: 0 DORIS-7 AMB Questionnaire DORIS-7 Date DORIS - 7 assessed: 12/15/22 Feeling nervous, anxious, or on edge: 2 = More than half the days Not being able to stop or control worryin = Nearly every day Worrying too much about different things: 3 = Nearly every day Trouble relaxin = More than half the days Being so restless that it is hard to sit still: 2 = More than half the days Becoming easily annoyed or irritable: 2 = More than half the days Feeling afraid as if something awful might happen: 3 = Nearly every day Total DORIS-7 score (0-4 normal; 5-9 mild; 10-14 moderate; 15-21 severe): 17 Source: Developed by Drs. Karri Plata, Perla Xie, Carroll Guevara and colleagues, with an educational manpreet from [employer]. Review of Systems Const All systems reviewed & are unremarkable except as noted in HPI and below Reports no additional complaints Eyes Reports no additional complaints ENT Reports no additional complaints Card Reports no additional complaints Resp Reports no additional complaints GI Reports no additional complaints Reports no additional complaints Physical exam (Primary Care) Vital Signs: Last Vital Signs Pulse 83 12/16/23 10:58 BP 118/74 12/16/23 10:58 Pulse Ox 97 12/16/23 10:58 Oxygen Delivery Method Room Air 12/16/23 10:58 BMI result Body Mass Index 32.9 Tobacco/Smoking Status: Tobacco use Status Tobacco use date assessed 12/16/23 12/16/23 11:03 Patient Tobacco Use Status Former Tobacco user (3 12/16/23 11:03 months ago) e-Cigarette/Vaping Use Never Used 12/16/23 10:57 Thrive Assessment: Date of Thrive Assessment Date Thrive assessed 12/15/22 12/16/23 10:57 Const General: no acute distress HENMT Head: Yes normal to inspection Ears: hearing grossly normal bilaterally General nose exam: Normal external nose present Mouth: Normal oral and palatal mucosa present Throat: Yes posterior oropharynx normal Eyes General: appearance normal, both eyes and all related structures Neck Neck: Yes no lymphadenopathy and Yes supple Chest Breast/axilla inspection: normal inspection of the breasts Breast/axilla palpation: normal palpation of the breasts and normal palpation of the axillae Resp Effort & Inspection: normal respiratory effort Auscultation: clear to auscultation bilaterally Cardio Rhythm: regular rhythm Heart sounds: S1 normal heart sound present and S2 normal heart sound present GI Inspection: Yes normal to inspection Palpation (GI): Soft to palpation Percussion: Yes normal to percussion Auscultation: normal bowel sounds Assessment and Plan Assessment & Plan (1) Annual physical exam: Code(s): Z00.00 - Encounter for general adult medical examination without abnormal findings Plan: Well-balanced diet regular physical activity weight loss discussed with the patient. Patient declined colonoscopy will have Cologuard. She is up-to-date with mammogram and Pap smear was done today. Patient follow-up in 6 months (2) HTN (hypertension): Code(s): I10 - Essential (primary) hypertension Plan: Continue lisinopril (3) Restless legs syndrome (RLS): Comment: f/u [facility] sleep medicinie Code(s): G25.81 - Restless legs syndrome Plan: Patient has been on gabapentin and iron supplement check CBC and iron count Orders: Orders Comprehensive Met. Panel Today I10 - Essential (primary) hypertension IRON PROFILE Today G25.81 - Restless legs syndrome Complete Blood Count Auto Diff Today G25.81 - Restless legs syndrome Pap Smear Today Z00.00 - Encounter for general adult medical examination without abnormal findings Referrals Gastroenterology Referral Z00.00 - Encounter for general adult medical examination without abnormal findings Dermatology Referral Z00.00 - Encounter for general adult medical examination without abnormal findings Coding Level of Care Code Est Pt Prev Care 40-64y(80524) Diagnoses Annual physical exam Z00.00 HTN (hypertension) I10 Restless legs syndrome (RLS) G25.81
[2023-12-16 10:58] VITALS: BP 118/74; PULSE 83; O2SAT 97; BMI 32.9
== END 2023-12-16 11:36 | disposition home or self-care (01) ==
PROVIDERS: PCP Internal Medicine; Visit Provider Internal Medicine
DX: Z00.00 Encounter for general adult medical examination without abnormal findings (principal); I10 Essential (primary) hypertension; G25.81 Restless legs syndrome
CPT/HCPCS: 99396

== ENCOUNTER 2023-12-16 11:39 | Outpatient (REF) | payer OTHER, MEDICAID, SELFPAY ==
[2023-12-16 13:44] LABS: MANUAL DIFF FLAG NO
[2023-12-16 14:10] LABS: Alanine Aminotransferase 32 U/L (0-31); Albumin Level 4.1 g/dL (3.5-5.0); Alkaline Phosphatase 65 U/L (39-117); Anion Gap 10 (12-20); Aspartate Amino Transferase 18 U/L (5-31); Bilirubin Total 0.3 mg/dL (0.0-1.0); Blood Urea Nitrogen 9 mg/dL (9-16); Carbon Dioxide 26 mmol/L (22-29); Chloride 106 mmol/L (96-108); Estimated Glomerular Filt Rate > 60; Glucose Random 98 mg/dL (60-115); Iron 121 mcg/dL (30-160); Percent Iron Saturation 40 % (15-50); Potassium 3.9 mmol/L (3.3-5.1); Sodium 138 mmol/L (135-145); Total Iron Binding Capacity 302 mcg/dL (228-428); Total Protein 7.2 g/dL (6.5-8.0); Unsaturated Iron Binding 181 ug/dL
[2023-12-16 14:16] LABS: Basophils Percent Auto 0.6 % (0-2); Eosinophils Absolute Auto 0.6 X10*3/uL (0.0-0.4); Eosinophils Percent Auto 8.9 % (0-4); Hematocrit 46.4 % (37.0-47.0); Hemoglobin 15.8 g/dl (12.0-16.0); Imm Gran Abs Auto 0.01 X10*3/uL (0.00-0.03); Imm Gran Pct Auto 0.2 % (0.0-0.4); Lymphocytes Absolute Auto 1.8 X10*3/uL (1.2-4.9); Lymphocytes Percent Auto 28.5 % (20-40); Mean Corpuscular HGB Conc 34.1 g/dl (31.0-35.0); Mean Platelet Volume 10.9 fL (9.4-12.3); Monocytes Absolute Auto 0.5 X10*3/uL (0.1-1.2); Monocytes Percent Auto 7.8 % (2-11); Neutrophils Absolute Auto 3.5 x10*3/uL (2.0-8.3); Platelet Count 237 X10*3/uL (160-400); Red Blood Count 5.27 X10*6/uL (4.20-5.50); Red Cell Distribution Width 12.5 % (11.0-16.0); White Blood Count 6.4 X10*3/uL (4.8-10.8)
== END 2023-12-16 11:40 | disposition home or self-care (01) ==
LOC: HO.HMGCLDS 11:39
PROVIDERS: PCP Internal Medicine; Visit Provider Internal Medicine
DX: G25.81 Restless legs syndrome (principal); I10 Essential (primary) hypertension
CPT/HCPCS: 36415; 80053; 83540; 85025

== ENCOUNTER 2023-12-16 11:44 | Outpatient (REF) | payer OTHER, MEDICAID, SELFPAY ==
[2023-12-19 06:43] LABS: HPV mRNA E6/E7 Not Detected (Not Detected)
== END 2023-12-16 11:45 | disposition home or self-care (01) ==
LOC: HO.LNP 11:44
PROVIDERS: Visit Provider Internal Medicine
DX: Z01.419 Encounter for gynecological examination (general) (routine) without abnormal findings (principal); Z11.51 Encounter for screening for human papillomavirus (HPV)
CPT/HCPCS: 87624; 88142

== ENCOUNTER 2024-01-25 12:43 | Outpatient (AMB) | payer OTHER, MEDICAID, SELFPAY ==
--- NOTE | 2024-01-25 12:47 | A.OFFVIS_ITS ---
Intake Intake Visit Reasons: ov- Rt Shld 09/16/23 NE having pain Intake Note: Camila is a 53 year old right hand dominant female who presents today for a follow appointment s/p right shoulder 09/16/23 NE. Patient reports that she has had pain in the anterior aspect of the right shoulder. Her pain also radiates up the neck. Allergies No Known Allergies Allergy (Verified 01/25/24 12:49) HPI ov- Rt Shld 09/16/23 NE having pain HPI Details Camila is a 53 year old right hand dominant woman who presents ~4 1/2 months S/P right shoulder RTC repair. She complains of some pain in the front of her shoulder, which occasionally radiates up into her neck. Her postoperative course was interrupted and she has not been as diligent with PT as she had hoped. There were family issues that forced her to travel. She would like to restart physical therapy. 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 Cognitive needs: No Hearing needs: No Vision needs: Yes Review of Systems Const All systems reviewed & are unremarkable except as noted in HPI and below Physical Exam Const General: no acute distress, alert and awake Orientation/consciousness: patient oriented x3 HEENT Head: Yes normocephalic and Yes atraumatic Eyes EOM: EOMs intact bilaterally Resp Effort & Inspection: normal respiratory effort and able to speak in complete sentences Cardio Jugular venous distension: no JVD Skin General skin exam: turgor normal Rashes: no rashes Neuro General: patient oriented x3 Extrem Other: There is pain with resisted abduction and scapular recruitment in the mid arc of abduction. Her external rotation is 35 degrees. Her portals are clean dry and intact. Psych Appearance: grossly normal Affect: normal affect Attitude: cooperative Assessment & Plan Assessment & Plan (1) S/P rotator cuff repair: Comment: right shoulder, 09/16/2023 NE Code(s): Z98.890 - Other specified postprocedural states Plan: 53-year-old woman now almost 5 months status post right shoulder rotator cuff repair. She has not been doing her physical therapy and this was interrupted postoperatively. Nevertheless she seems to be doing okay. I restarted physical therapy. She will return to see me in 3 months. Plan Prepared for Terell Galvan MD by Venkatesh Stafford, medical officer psychiatry, on 01/25/24 at 12:50 PM, EST. Orders: Orders PT Evaluation and Treatment 01/25/24 Z98.890 - Other specified postprocedural states Coding Level of Care Code Est Pt Level 3 (99069) Diagnoses S/P rotator cuff repair Z98.890
== END 2024-01-25 13:20 | disposition home or self-care (01) ==
PROVIDERS: PCP Internal Medicine; Visit Provider Orthopaedic Surgery
DX: Z47.89 Encounter for other orthopedic aftercare (principal); M75.32 Calcific tendinitis of left shoulder
CPT/HCPCS: 99213

== ENCOUNTER → 2024-01-25 12:43 | Outpatient (BNVA) | payer OTHER, MEDICAID, SELFPAY | PROVIDERS: PCP Internal Medicine; Visit Provider Orthopaedic Surgery | DX: M25.511 Pain in right shoulder (principal); Z98.890 Other specified postprocedural states | CPT/HCPCS: 99212 ==

== ENCOUNTER 2024-02-02 09:07 | Outpatient (AMB) | payer OTHER, MEDICAID, SELFPAY ==
[2024-02-02 09:10] VITALS: BMI 32.9
--- NOTE | 2024-02-02 09:10 | MHC.OFFVIS ---
Intake Vital Signs 02/02/24 09:10 Height 5 ft 1 in Weight 174 lb BMI 32.9 Intake Visit Reasons: new prob- Bilateral hand pain Intake Note: [place] 53 yr old right hand dominant female who presents today for a new problem visit for bilateral hand numbness. States her left hand is numb all the time, however has that comes and goes in her right. Patient reports her numbness is mainly on her palm of the left hand and for her right hand her numbness is on her IF and MF. She states that her numbness started back in 2019. Patient has tried cortisone injections in the past with no relief. Allergies No Known Allergies Allergy (Verified 02/02/24 09:11) HPI new prob- Bilateral hand pain HPI Details Camila is a 53 year old right hand dominant woman who presents with complaints of bilateral hand numbness, L>R. She complains of constant numbness in the thumb, index, and middle fingers bilaterally, with no numbness in the small fingers. She also says her left middle finger occasionally gets stuck down, but this is rare and not bothersome She reports having numbness since 2019, and no relief from steroid injections in the past. She completed a NCS done in 2019, which she brought in today. [facility] Medical History (Updated 02/02/24 @ 09:31 by Venkatesh Stafford) Carpal tunnel syndrome RLS (restless legs syndrome) HTN (hypertension) Surgical History History of arthroscopy of right shoulder Family History Maternal Grandmother Mental health disorder Social History (Updated 02/02/24 @ 09:15 by Nora Salinas) Household Members: Other Household Members Other:: on disability for shoulder injury , lives with a partner, 1 daughter, Housing: Apartment Patient Tobacco Use Status: Former Tobacco user (3 months ago) Cigarettes Per Day: 8 Years Smoked: 20 e-Cigarette/Vaping Use: Never Used 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al status: disabled 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 Cognitive needs: No Hearing needs: No Vision needs: Yes Review of Systems Const All systems reviewed & are unremarkable except as noted in HPI and below Physical Exam Vital Signs: BMI result Body Mass Index 32.9 Const General: cooperative, healthy appearing and no acute distress Orientation/consciousness: patient oriented x3 HEENT Head: Yes normocephalic and Yes atraumatic Eyes EOM: EOMs intact bilaterally Resp Effort & Inspection: normal respiratory effort and able to speak in complete sentences Cardio Jugular venous distension: no JVD Skin General skin exam: turgor normal Rashes: no rashes Neuro General: patient oriented x3 Extrem Other: Evaluation of Bilateral Upper Extremity: The patient is alert, oriented, and in no acute distress Neuro: Dense numbness in the median nerve distribution bilaterally. Normal sensation in the ulnar nerve distribution bilaterally. No thenar or intrinsic wasting Good APB muscle belly firing and good finger cross Vascular: Cap refill brisk ROM: She can make a fist and extend all his digits Skin: No lacerations or abrasions. General: No Ecchymosis. No Erythema or evidence of infection. Bilateral Nerve Conduction Study: Impression: Moderate right carpal tunnel syndrome Mild left carpal tunnel syndrome No evidence of bilateral ulnar neuropathy or cervical radiculopathy 07/28/2019 Chuy Perdomo M.D Please see the scanned report for additional details. Psych Appearance: grossly normal Affect: normal affect Attitude: cooperative Assessment & Plan Assessment & Plan (1) Carpal tunnel syndrome of left wrist: Code(s): G56.02 - Carpal tunnel syndrome, left upper limb (2) Carpal tunnel syndrome of right wrist: Code(s): G56.01 - Carpal tunnel syndrome, right upper limb Plan Assessment & Plan: 1. Left carpal tunnel syndrome, mild With dense numbness 2. Right carpal tunnel syndrome, moderate With dense numbness I educated her about this condition I discussed operative and non-operative treatment options The patient would like to proceed with surgery, beginning with the left hand The risks and benefits of operative treatment were discussed with the patient and the patient wishes to proceed with surgery. These risks include, but are not limited to risk of damage to blood vessels, nerves, tendons, infection, recurrence, incomplete relief of preoperative symptoms, persistent pain, possible need for further surgery and the risks associated with regional blocks and anesthesia. The plan is to take the patient to the operating room sometime in the next few weeks for the following procedures: 1. Left carpal tunnel release, under local All of the preoperative paperwork including the consent was reviewed today. All the patient's questions were answered. The patient understands that they will be contacted by our assistant professor of surgery soon to schedule this procedure She denies Diabetes, blood thinners, asthma, heart, lung, kidney issues We can discuss treatment for her right side when she has recovered. Scribed for Rosalind Thompson MD by Venkatesh Stafford, medical accounts receivable specialist, on 02/02/24 at 9:30 AM, EST. Orders: Orders NE nerve conduction velocity Today R20.0 - Anesthesia of skin, R20.2 - Paresthesia of skin Coding Level of Care Code New Pt Level 4 (16030) Diagnoses Carpal tunnel syndrome of left wrist G56.02 Carpal tunnel syndrome of right wrist G56.01
== END 2024-02-02 09:38 | disposition home or self-care (01) ==
PROVIDERS: PCP Internal Medicine; Visit Provider Orthopaedic Surgery
DX: G56.03 Carpal tunnel syndrome, bilateral upper limbs (principal)
CPT/HCPCS: 99204; 99214

== ENCOUNTER → 2024-02-02 09:07 | Outpatient (BNVA) | payer OTHER, MEDICAID, SELFPAY | PROVIDERS: PCP Internal Medicine; Visit Provider Orthopaedic Surgery | DX: G56.03 Carpal tunnel syndrome, bilateral upper limbs (principal) | CPT/HCPCS: 99202 ==

== ENCOUNTER 2024-02-18 13:03 | Outpatient (REF) | payer OTHER, MEDICAID, SELFPAY ==
--- NOTE | 2024-02-18 13:06 | EMG_ITS ---
Chief complaint: Bilateral hand numbness, left worse than right Reason for referral: Evaluate for Carpal Tunnel Syndrome Referred by: Dr. Thompson Procedure done: Bilateral upper extremities NCS/EMG Precautions and/or limitations: None The limb temperature was monitored continuously and remained between 32-36 degrees C during the performance of the NCS. Nerve Conduction Studies Anti Sensory Summary Table ?Stim Site NR Onset (ms) Norm Onset (ms) Peak (ms) Norm Peak (ms) O-P Amp (?V) Norm O-P Amp Site1 Site2 Delta-0 (ms) Dist (cm) Parish (m/s) Norm Parish (m/s) Left Median Anti Sensory (2nd Digit) Wrist ? 2.9 4.0 <3.6 13.4 >10 Wrist 2nd Digit 2.9 14.0 48 Right Median Anti Sensory (2nd Digit) Wrist ? 3.0 3.7 <3.6 19.5 >10 Wrist 2nd Digit 3.0 14.0 47 Left Ulnar Anti Sensory (5th Digit) Wrist ? 2.1 2.8 <3.7 21.8 >15.0 Wrist 5th Digit 2.1 14.0 67 Right Ulnar Anti Sensory (5th Digit) Wrist ? 1.5 2.8 <3.7 16.1 >15.0 Wrist 5th Digit 1.5 14.0 93 Motor Summary Table ?Stim Site NR Onset (ms) Norm Onset (ms) O-P Amp (mV) Norm O-P Amp iAmp (mV) Amp (1st) (%) Site1 Site2 Delta-0 (ms) Dist (cm) Parish (m/s) Norm Parish (m/s) Left Median Motor (Abd Poll Brev) Wrist ? 4.1 <3.9 4.5 >4.5 5.1 100.0 Elbow Wrist 3.7 20.0 54 >45 Elbow ? 7.8 3.3 4.2 73.3 Right Median Motor (Abd Poll Brev) Wrist ? 3.6 <3.9 7.9 >4.5 9.0 100.0 Elbow Wrist 3.7 18.0 49 >45 Elbow ? 7.3 7.5 8.6 94.9 Left Ulnar Motor (Abd Dig Minimi) Wrist ? 2.6 <3.0 7.3 >5 9.9 100.0 B Elbow Wrist 2.7 16.5 61 >45 B Elbow ? 5.3 8.3 11.5 113.7 A Elbow B Elbow 1.3 10.0 77 >45 A Elbow ? 6.6 7.9 11.0 108.2 Right Ulnar Motor (Abd Dig Minimi) Wrist ? 2.8 <3.0 9.4 >5 11.6 100.0 B Elbow Wrist 2.5 16.0 64 >45 B Elbow ? 5.3 8.6 10.7 91.5 A Elbow B Elbow 1.3 10.0 77 >45 A Elbow ? 6.6 8.0 9.2 85.1 Comparison Summary Table ?Stim Site NR Peak (ms) Norm Peak (ms) P-T Amp (?V) Site1 Site2 Delta-P (ms) Norm Delta (ms) Right Median/Radial Dig I Comparison (Digit 1 - 10cm) Median ? 3.1 <2.9 84.5 Median Radial 0.9 Radial ? 2.2 <2.8 21.9 EMG ?Side Muscle Nerve Root Ins Act Fibs Psw Amp Dur Poly Recrt Int Pat Comment Right 1stDorInt Ulnar C8-T1 Nml Nml Nml Nml Nml 0 Nml Complete Right FlexCarRad Median C6-7 Nml Nml Nml Nml Nml 0 Nml Complete Right Biceps Musculocut C5-6 Nml Nml Nml Nml Nml 0 Nml Complete Right Triceps Radial C6-7-8 Nml Nml Nml Nml Nml 0 Nml Complete Right Deltoid Axillary C5-6 Nml Nml Nml Nml Nml 0 Nml Complete Left 1stDorInt Ulnar C8-T1 Nml Nml Nml Nml Nml 0 Nml Complete Left FlexCarRad Median C6-7 Nml Nml Nml Nml Nml 0 Nml Complete Left Biceps Musculocut C5-6 Nml Nml Nml Nml Nml 0 Nml Complete Left Triceps Radial C6-7-8 Nml Nml Nml Nml Nml 0 Nml Complete Left Deltoid Axillary C5-6 Nml Nml Nml Nml Nml 0 Nml Complete FINDINGS: Left median motor nerve showed prolonged distal latency, normal amplitude and normal conduction velocity. Bilateral median sensory nerves showed prolonged peak latency. Significant interlatency difference seen between right median and radial sensory nerves. All other nerves tested were within normal. Concentric needle EMG was performed in selected muscles of the bilateral upper extremities. Study did not reveal signs of electric abnormalities as shown in the table below. IMPRESSION: 1. This is an abnormal study. 2. There is electrodiagnostic evidence for left moderate-severe and right mild median neuropathy at the wrist, consistent with carpal tunnel syndrome. 3. There is no electrodiagnostic evidence for ulnar neuropathy, brachial plexopathy, or cervical radiculopathy. Thank you for your kind referral. Sandra Roblse MD, JAMILAH Board Certified, [place] Board of [employer] Medicine and Rehabilitation (ABPMR) Board Certified, [place] Board of Electrodiagnostic Medicine (ABEM) CODIN [id number] x 2 MTDD
== END 2024-02-18 13:04 | disposition home or self-care (01) ==
LOC: HO.NEURO 13:03
PROVIDERS: PCP Internal Medicine; Visit Provider Orthopaedic Surgery
DX: R20.0 Anesthesia of skin (principal); R20.2 Paresthesia of skin
CPT/HCPCS: 95886; 95911

== ENCOUNTER → 2024-02-18 13:06 | Outpatient (BNV) | payer OTHER, MEDICAID, SELFPAY | PROVIDERS: PCP Internal Medicine; Visit Provider Physical Medicine & Rehabilitation | DX: G56.03 Carpal tunnel syndrome, bilateral upper limbs (principal); G56.13 Other lesions of median nerve, bilateral upper limbs | CPT/HCPCS: 95886; 95911 ==

== ENCOUNTER 2024-03-04 10:10 | Outpatient (AMB) | payer OTHER, MEDICAID, SELFPAY ==
--- NOTE | 2024-03-04 10:30 | A.OFFVIS_ITS ---
Intake Vital Signs 03/04/24 10:35 Height 5 ft 1 in Weight 173 lb BMI 32.7 Intake Visit Reasons: OV-Rt Shld 09/16/23 NE-follow up Intake Note: Camila is a 53 year old female who presents today for a follow up her right shoulder s/p Right Shoulder RTC Repair 09/16/23. Patient reports she has 7 out 10 pain level, pain increases with activity. She is taking Motrin for pain which gives her mild relief. Allergies No Known Allergies Allergy (Verified 03/04/24 10:37) HPI OV-Rt Shld 09/16/23 NE-follow up HPI Details Camila is a 53 year old female who presents today for a follow up her right shoulder s/p Right Shoulder RTC Repair 09/16/23. Patient reports she has 7 out 10 pain level, pain increases with activity. She is taking Motrin for pain which gives her mild relief. 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 She is improving but still with discomfort. Continue HEP. F/u 3 months. Coding Level of Care Code Est Pt Level 3 (73757) Diagnoses S/P rotator cuff repair Z98.890
[2024-03-04 10:35] VITALS: BMI 32.7
== END 2024-03-04 10:56 | disposition home or self-care (01) ==
PROVIDERS: PCP Internal Medicine; Visit Provider Orthopaedic Surgery
DX: M75.101 Unspecified rotator cuff tear or rupture of right shoulder, not specified as traumatic (principal)
CPT/HCPCS: 99212

== ENCOUNTER → 2024-03-04 10:10 | Outpatient (BNVA) | payer OTHER, MEDICAID, SELFPAY | PROVIDERS: PCP Internal Medicine; Visit Provider Orthopaedic Surgery | DX: Z98.890 Other specified postprocedural states (principal) | CPT/HCPCS: 99212 ==

== ENCOUNTER 2024-04-04 08:04 | Day surgery (SDC) | payer OTHER, SELFPAY ==
[2024-04-04 08:40] VITALS: BP 146/65; PULSE 71
[2024-04-04 08:46] VITALS: BP 146/75; PULSE 71; RESP 18; TEMP 36.3; O2SAT 98; BMI 32.9
--- NOTE | 2024-04-04 09:25 | MHC.SHP ---
Pre-Procedural Eval Section A - 24 Hr Update-Section A only Date of Service: 04/04/24 The patient is an INPATIENT: No Changes since office visit: No Cold of Flu in the past 2 weeks, No New Medical Problems, No Changes in Medication and No Patient answered all questions The patient has been examined within 24 hours of the surgical procedure. The History & Physical has been completed within 30 days and I have reviewed it.: Yes Section B - Complete if H&P > 30 days Chief Complaint: Carpal tunnel syndrome, left upper limb Allergies: Allergies Allergy/AdvReac Type Severity Reaction Status Date / Time No Known Allergies Allergy Verified 03/04/24 10:37 Exam Exam Comment: Left carpal tunnel syndrome Plan Diagnosis/Plan: Unchanged I have reviewed the history and physical and performed a pertinent physical examination on my patient. No changes have occurred unless specified. Time Spent With Patient Time: Total time managing care of this patient today ____ minutes.
--- NOTE | 2024-04-04 09:26 | W.PM.OPN ---
Operative Note Operative Note Date of Service: 04/04/24 Narrative: Preop diagnosis: 1. Left Carpal tunnel syndrome Postop diagnosis: same Procedure: 1. Left Carpal tunnel release Surgeon: Rosalind Thompson MD Anesthesia: local block using 1% lidocaine with epinephrine Findings: Thickened transverse carpal ligament. EBL: Less than 5 mL Specimens: None Complications: None Disposition: Brought to recovery room in stable condition Plan: Follow-up for 10-14 days for wound check and suture removal Indications: The patient is 53 years old, with left carpal tunnel syndrome that has been unresponsive to nonoperative management. The risks and benefits of operative treatment including but not limited to risk of damage to blood vessels, nerves, tendons, infection, persistent pain, persistent symptoms, or possible need for additional surgery were discussed with the patient and the patient wishes to proceed with surgery. Procedure: Once consent was obtained a local block was performed using a combination of 1% lidocaine with epinephrine. The patient was then brought back to the operating suite and placed on the operative table in supine position. The left upper extremity was prepped and draped in a standard surgical fashion. Once assured that we had a good block, a 2.0 cm longitudinal incision was made centered over the carpal tunnel. The incision was made through the skin to the subcutaneous tissues using a #15 blade. Dissection was made down to the level of the transverse carpal ligament with care being taken to protect the palmar cutaneous nerve. Once the transverse carpal ligament was clearly visualized, a longitudinal incision was made in the transverse carpal ligament 1st using a #15 blade, then using tenotomy scissors under direct visualization. Care was taken to look for and protect the motor branch of the median nerve when seen in this area. Once satisfied with our carpal tunnel release the wound was copiously irrigated with normal saline and hemostasis was obtained with a brief period of local pressure. The skin edges were reapproximated with some 5.0 nylon suture material and a sterile dressing was applied. The patient appears to have tolerated the procedure well and with no complications. All digits were well vascularized at the conclusion of the case.
[2024-04-04 10:16] VITALS: BP 136/71; PULSE 75; RESP 16; O2SAT 95
== END 2024-04-04 10:18 | disposition home or self-care (01) ==
PROVIDERS: PCP Internal Medicine; Visit Provider Orthopaedic Surgery
PROC: (CPT 64721; principal; 2024-04-04 08:50)
DX: G56.02 Carpal tunnel syndrome, left upper limb (principal); R20.0 Anesthesia of skin; R20.2 Paresthesia of skin; G25.81 Restless legs syndrome; I10 Essential (primary) hypertension; Z87.891 Personal history of nicotine dependence
CPT/HCPCS: 64721; J0171

== ENCOUNTER → 2024-04-04 08:04 | Outpatient (BNV) | payer OTHER, SELFPAY | PROVIDERS: PCP Internal Medicine; Visit Provider Orthopaedic Surgery | DX: G56.02 Carpal tunnel syndrome, left upper limb (principal) | CPT/HCPCS: 64721 ==

== ENCOUNTER 2024-04-14 12:13 | Outpatient (AMB) | payer OTHER, SELFPAY ==
[2024-04-14 12:22] VITALS: BP 149/79; PULSE 83; BMI 32.5
--- NOTE | 2024-04-14 12:22 | A.OFFVIS_ITS ---
Vital Signs 04/14/24 12:22 Height 5 ft 1 in Weight 171 lb 15.369 oz BMI 32.5 BP 149/79 H Blood Pressure Location Lt brachial Position Sitting Pulse 83 Intake Visit Reasons: Colonoscopy Screening Intake Note: Patient in office today as a new patient for colonoscopy screening. CC: Patient states that about a year ago she began to have trouble with BMs. Per patient she sometimes is constipated and other times diarrhea. She reports that last Thursday she saw blood when she wiped after BM. 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 She has a good appetite Sleeps well- no AMELIA- 31y/o brother- colostopmy- perforated divertic Mother and brother- 50s colon polyps No respiratory or cardiac issue- No N/V/D abdominal pain- fever or chills PFSH Medical History Carpal tunnel syndrome RLS (restless legs syndrome) HTN (hypertension) Surgical History History of arthroscopy of right shoulder Family History Maternal Grandmother Mental health disorder Sister Diverticulitis Brother Colon polyp Brother S/P colostomy History of colostomy reversal Father Lung cancer Liver cancer Cancer of kidney Social History Household Members: Other Household Members Other:: on disability for shoulder injury , lives with a partner, 1 daughter, Housing: Apartment Patient Tobacco Use Status: Former Tobacco user Cigarettes Per Day: 8 Years Smoked: 20 e-Cigarette/Vaping Use: Never Used 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al status: disabled 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 Cognitive needs: No Hearing needs: No Vision needs: Yes Review of Systems Const All systems reviewed & are unremarkable except as noted in HPI and below Card Denies chest pain and Denies dyspnea Resp Denies dyspnea GI Denies abdominal pain, Denies nausea and Denies vomiting Physical Exam Vital Signs: Last Vital Signs Pulse 83 04/14/24 12:22 BP 149/79 H 04/14/24 12:22 BMI result Body Mass Index 32.5 Const General: cooperative, healthy appearing, comfortable and no acute distress Orientation/consciousness: patient oriented x3 Limitations: no limitations Eyes Sclerae: sclerae normal Resp Effort & Inspection: normal respiratory effort and able to speak in complete sentences Auscultation: clear to auscultation bilaterally, no rhonchi and no wheezes Cardio Rate: regular rate Rhythm: regular rhythm Heart sounds: S1 normal heart sound present and S2 normal heart sound present GI Palpation (GI): Soft to palpation and nontender Auscultation: normal bowel sounds Neuro General: patient oriented x3 Extrem General: Yes full ROM Psych Appearance: grossly normal Mental Status: mental status grossly normal Speech and movement: Normal speech and movement present Affect: normal affect Attitude: cooperative Thought process: Normal thought process present Thought content: Normal thought content present Assessment & Plan Assessment & Plan (1) Encounter for screening colonoscopy: Comment: Discussed procedure, rare risks need for escorted due to anesthesia If no polyps, Due to family history may likely follow-up 5 years Code(s): Z12.11 - Encounter for screening for malignant neoplasm of colon Category: Medical Plan: colonoscopy (2) Other family history of colon polyps: Comment: mother and brother-50s Code(s): Z83.718 - Other family history of colon polyps Category: Medical Plan: colon Plan Index screening colonoscopy Orders: Orders Colonoscopy - GI Use Only Today Z12.11 - Encounter for screening for malignant neoplasm of colon Medications: New psyllium husk (Metamucil) mix into at least 8 oz of water or juice before administering 1 tbsp PO DAILY 660 grams 5RF 30 days bisacodyl (Dulcolax (bisacodyl)) Day before procedure @ 12 noon Take 4 tablets by mouth followed by large glass of water 20 mg (4 x 5 mg) PO ONCE PRN 4 tabs 0RF colonoscopy prep 1 day Z12.11 - Encounter for screening for malignant neoplasm of colon polyethylene glycol 3350 (Miralax) Take as directed by mouth the day before your procedure. 238 grams PO ONCE PRN 238 grams 0RF laxative effect 1 day Patient Instructions: 53-year-old female family history of colon polyps Alternating stool pattern-recommend increase fiber Trial of Metamucil index screening colonoscopy MG prep, reviewed, literature given Encouraged to call questions or concerns Coding Level of Care Code New Pt Level 3 (40376) Diagnoses Encounter for screening colonoscopy Z12.11 Other family history of colon polyps Z83.718 Time Spent (min) 30
== END 2024-04-14 13:01 | disposition home or self-care (01) ==
PROVIDERS: PCP Internal Medicine; Visit Provider Physician Assistant
DX: Z12.11 Encounter for screening for malignant neoplasm of colon (principal); Z83.718 Family history of other colon polyps; Z01.818 Encounter for other preprocedural examination
CPT/HCPCS: 99203

== ENCOUNTER → 2024-04-14 12:13 | Outpatient (BNVA) | payer OTHER, SELFPAY | PROVIDERS: PCP Internal Medicine; Visit Provider Physician Assistant | DX: Z12.11 Encounter for screening for malignant neoplasm of colon (principal); Z83.718 Family history of other colon polyps | CPT/HCPCS: 99202 ==

== ENCOUNTER 2024-04-19 12:51 | Outpatient (AMB) | payer MEDICAID, SELFPAY ==
--- NOTE | 2024-04-19 13:12 | A.OFFVIS_ITS ---
Vital Signs 04/19/24 13:13 Height 5 ft 1 in Weight 171 lb BMI 32.3 Intake Visit Reasons: PO LT CTR 04/04/24 AR Intake Note: Camila 53 yr old female presents today for her PO LT CTR 04/04/24 AR. States symptoms has not improved. Patient expresses still having pain in her palm and in her volar aspect of her writs. Sutures removed and steri strips applied. Allergies No Known Allergies Allergy (Verified 04/19/24 13:25) HPI HPI PO LT CTR 04/04/24 AR: Details: Camila is a 53 year old right hand dominant woman who returns S/P left carpal tunnel release, DOS: 04/04/24. She says she continues to have numbness, no change following surgery. She c omplains of pain in her palm & wrist as well. She does say her nighttime symptoms have improved and she is able to sleep more comfortably. She also has dense numbness in the median nerve distribution of her right hand. [facility] Medical History Carpal tunnel syndrome RLS (restless legs syndrome) HTN (hypertension) Surgical History History of arthroscopy of right shoulder Family History Maternal Grandmother Mental health disorder Sister Diverticulitis Brother Colon polyp Brother S/P colostomy History of colostomy reversal Father Lung cancer Liver cancer Cancer of kidney Social History Household Members: Other Household Members Other:: on disability for shoulder injury , lives with a partner, 1 daughter, Housing: Apartment Patient Tobacco Use Status: Former Tobacco user Cigarettes Per Day: 8 Years Smoked: 20 e-Cigarette/Vaping Use: Never Used 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al status: disabled 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 Sutures removed and Steri-Strips applied After working on ROM exercises in clinic, she could make a fist and extend all her digits. Dense numbness in the median nerve distribution. Normal sensation in the ulnar nerve distribution Cap refill is brisk Bilateral Nerve Conduction Study: Impression: Moderate right carpal tunnel syndrome Mild left carpal tunnel syndrome No evidence of bilateral ulnar neuropathy or cervical radiculopathy 07/28/2019 Chuy Perdomo M.D Please see the scanned report for additional details. Psych Appearance: grossly normal Affect: normal affect Attitude: cooperative Assessment & Plan Assessment & Plan (1) Carpal tunnel syndrome of left wrist: Code(s): G56.02 - Carpal tunnel syndrome, left upper limb Category: Medical (2) Carpal tunnel syndrome of right wrist: Code(s): G56.01 - Carpal tunnel syndrome, right upper limb Category: Medical Plan Assessment & Plan: 1. Left carpal tunnel syndrome, S/P release DOS: 04/04/24 Pre-operatively with dense numbness Now with dense numbness, unchanged from prior, but relief from her nighttime symptoms The patient appears to be doing well post-operatively I educated her about the post-operative course I discussed activity modifications, she is to lift nothing heavier than a cellphone for the next two weeks She will perform gentle ROM exercises at home, 20X daily every hour. She should avoid any underwater activities for the next 5 days She should gently massage about the incision site to reduce the risk of hypersensitivity 2. Right carpal tunnel syndrome, moderate With dense numbness I educated her about this condition I discussed operative and non-operative treatment options The patient would like to proceed with surgery The risks and benefits of operative treatment were discussed with the patient and the patient wishes to proceed with surgery. These risks include, but are not limited to risk of damage to blood vessels, nerves, tendons, infection, re currence, incomplete relief of preoperative symptoms, persistent pain, possible need for further surgery and the risks associated with regional blocks and anesthesia. The plan is to take the patient to the operating room sometime in the next few weeks for the following procedures: 1. Right carpal tunnel release, under local All of the preoperative paperwork including the consent was reviewed today. All the patient's questions were answered. The patient understands that they will be contacted by our surgery nurse soon to schedule this procedure She denies Diabetes, blood thinners, asthma, heart, lung, kidney issues Scribed for Rosalind Thompson MD by Venkatesh Stafford, biomedical service engineer, on 04/19/24 at 2:05 PM, EST. Scribe Plan - Not visible on output: Scribed for Rosalind Thompson MD by Venkatesh Stafford biomedical service engineer, on [ ] at [ ], EST. Coding Level of Care Code Est Pt Level 4 (16521) Diagnoses Carpal tunnel syndrome of left wrist G56.02 Carpal tunnel syndrome of right wrist G56.01
[2024-04-19 13:13] VITALS: BMI 32.3
== END 2024-04-19 14:11 | disposition home or self-care (01) ==
PROVIDERS: PCP Internal Medicine; Visit Provider Orthopaedic Surgery
DX: G56.03 Carpal tunnel syndrome, bilateral upper limbs (principal)
CPT/HCPCS: 99024

== ENCOUNTER → 2024-04-19 12:51 | Outpatient (BNVA) | payer OTHER, SELFPAY | PROVIDERS: PCP Internal Medicine; Visit Provider Orthopaedic Surgery | DX: Z47.89 Encounter for other orthopedic aftercare (principal); G56.01 Carpal tunnel syndrome, right upper limb; Z86.69 Personal history of other diseases of the nervous system and sense organs | CPT/HCPCS: 99212 ==

== ENCOUNTER 2024-05-03 09:00 | Outpatient (RCR) | payer MEDICAID, OTHER, SELFPAY ==
--- NOTE | 2024-02-17 10:00 | MHC.PT.EP ---
[facility] [place] Office [place] Office [place] Office [address] Rhonda Brito [address] [phone] F: [phone] F: [phone] F: [phone] F: [phone] Physical Therapy Plan of Care Date of Evaluation: 02/17/24 Date of Surgery: 09/16/23 Diagnosis: Right Rotator Cuff Repair - Resume PT. Large rotator cuff repair, ROM and gentle resistance as tolerated Assessment: Patient is a 53 year old R handed female who presents with s/s consistent with R shoulder R rotator cuff repair, R shoulder pain. She does not work at this time and is severely limited by R shoulder pain, but also L shoulder pain and b/l CTS. Current impairments include pain, posture, ROM, strength, activity tolerance and functional mobility. Functional limitations include decreased ability to reach, lift, sleep, dress, bathe, cook, clean, and perform overhead activities. Patient is motivated with good rehab potential. Skilled PT will address impairments and functional limitations in order to achieve goals. Frequency and Duration: The patient will be seen 2x/week for 5 weeks Short Term Goals: I with HEP -2 weeks ER 45 - 3 weeks Flexion and abd 120 - 3 weeks Shelter Goals: AROM WNL - 6 weeks STrength 4/5 grossly - 6 weeks SPADI 60/130 or better - 6 weeks Able to cook with max pain 2/10 - 6 weeks Treatment Plan: Modalities to reduce pain, spasms and effusion. Manual therapy to restore motion and function. Therapeutic exercise to improve strength and flexibility. Neuromuscular re-education for posture and balance. Therapeutic activities to return to functional activities of daily living. Electronically signed by: Juarez Dillon, PT Please sign and return to therapist. Thank you for your referral.
--- NOTE | 2024-09-01 09:46 | MHC.PT.EP ---
[facility] [place] Office [place] Office [place] Office [address] Rhonda [address]o [address] [phone] F: [phone] F: [phone] F: [phone] F: [phone] Physical Therapy Plan of Care Date of Evaluation: 02/17/24 Date of Surgery: 09/16/23 Diagnosis: Right Rotator Cuff Repair - Resume PT. Large rotator cuff repair, ROM and gentle resistance as tolerated Assessment: Patient is a 53 year old R handed female who presents with s/s consistent with R shoulder R rotator cuff repair, R shoulder pain. She does not work at this time and is severely limited by R shoulder pain, but also L shoulder pain and b/l CTS. Current impairments include pain, posture, ROM, strength, activity tolerance and functional mobility. Functional limitations include decreased ability to reach, lift, sleep, dress, bathe, cook, clean, and perform overhead activities. Patient is motivated with good rehab potential. Skilled PT will address impairments and functional limitations in order to achieve goals. Frequency and Duration: The patient will be seen 2x/week for 5 weeks Short Term Goals: I with HEP -2 weeks ER 45 - 3 weeks Flexion and abd 120 - 3 weeks Mcc Goals: AROM WNL - 6 weeks STrength 4/5 grossly - 6 weeks SPADI 60/130 or better - 6 weeks Able to cook with max pain 2/10 - 6 weeks Treatment Plan: Modalities to reduce pain, spasms and effusion. Manual therapy to restore motion and function. Therapeutic exercise to improve strength and flexibility. Neuromuscular re-education for posture and balance. Therapeutic activities to return to functional activities of daily living. Electronically signed by: Juarez Dillon, PT Please sign and return to therapist. Thank you for your referral.
== END 2024-09-01 09:46 | disposition home or self-care (01) ==
LOC: HO.PTCHIC 09:00
PROVIDERS: PCP Internal Medicine; Visit Provider Orthopaedic Surgery
DX: Z98.890 Other specified postprocedural states (principal)
CPT/HCPCS: 97110; 97140; 97162

== ENCOUNTER 2024-06-16 09:13 | Outpatient (AMB) | payer OTHER, MEDICAID, SELFPAY ==
--- NOTE | 2024-06-16 09:22 | MHC.OFFVIS ---
Intake Visit Reasons: OV-Rt Shld RTC Repair 09/16/23 NE-follow up Intake Note: Camila is a 53 year old female who presents today for a follow up her right shoulder S/P Right Shoulder RTC Repair 09/16/23. Patient reports she is having stabbing pain on the anterior and posterior aspect of her right shoulder that radiates to her collar bone and the posterior aspect of her neck. She expresses she completed PT on May 03, she says it went well but PT told her she needs to work more on her strength. She continues doing home exercises but not as often due to her continued pain. She is taking ibuprofen 3 times a day and expresses mild relief. Allergies No Known Allergies Allergy (Verified 06/16/24 09:27) HPI HPI OV-Rt Shld RTC Repair 09/16/23 NE-follow up: Details: Camila is a 53 year old female who presents today for a follow up her right shoulder S/P Right Shoulder RTC Repair 09/16/23. Patient reports she is having stabbing pain on the anterior and posterior aspect of her right shoulder that radiates to her collar bone and the posterior aspect of her neck. She expresses she completed PT on May 03, she says it went well but PT told her she needs to work more on her strength. She continues doing home exercises but not as often due to her continued pain. She is taking ibuprofen 3 times a day and expresses mild relief. [facility] Medical History Carpal tunnel syndrome RLS (restless legs syndrome) HTN (hypertension) Surgical History History of arthroscopy of right shoulder Family History Maternal Grandmother Mental health disorder Sister Diverticulitis Brother Colon polyp Brother S/P colostomy History of colostomy reversal Father Lung cancer Liver cancer Cancer of kidney Social History Household Members: Other Household Members Other:: on disability for shoulder injury , lives with a partner, 1 daughter, Housing: Apartment Patient Tobacco Use Status: Former Tobacco user Cigarettes Per Day: 8 Years Smoked: 20 e-Cigarette/Vaping Use: Never Used 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al status: disabled 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 Site was prepped using aseptic technique. Patient tolerated the procedure well. Primary Site: left shoulder Approach Used: posterolateral Coding - Large joint Procedure code (CPT) selection complete Assessment & Plan Assessment & Plan (1) S/P rotator cuff repair: Comment: right shoulder, 09/16/2023 NE Code(s): Z98.890 - Other specified postprocedural states Category: Surgical Plan: Progressing slowly but RTC strong Cont HEP F/u 3 mo (2) Calcific tendonitis of left shoulder: Code(s): M75.32 - Calcific tendinitis of left shoulder Category: Medical Plan: Injected left shoulder today. Coding Level of Care Code Est Pt Level 4 (35268) Diagnoses S/P rotator cuff repair Z98.890 Calcific tendonitis of left shoulder M75.32 CPT Codes Coding - Large joint: - Large joint ([id number])
== END 2024-06-16 10:05 | disposition home or self-care (01) ==
PROVIDERS: PCP Internal Medicine; Visit Provider Orthopaedic Surgery
DX: M75.32 Calcific tendinitis of left shoulder (principal); Z98.890 Other specified postprocedural states
CPT/HCPCS: 20610; 99214

== ENCOUNTER → 2024-06-16 09:13 | Outpatient (BNVA) | payer OTHER, SELFPAY | PROVIDERS: PCP Internal Medicine; Visit Provider Orthopaedic Surgery | DX: M75.32 Calcific tendinitis of left shoulder (principal); Z98.890 Other specified postprocedural states | CPT/HCPCS: 20610; 99212; J0665; J1100 ==

== ENCOUNTER 2024-06-17 10:12 | Outpatient (AMB) | payer OTHER, SELFPAY ==
--- NOTE | 2024-06-17 10:24 | A.OFFPC_ITS ---
Vital Signs 06/17/24 10:25 Height 5 ft 1 in Weight 168 lb BMI 31.7 BP 124/76 Blood Pressure Location Lt brachial Position Sitting Pulse 80 Pulse Source Pulse Oximeter Pulse Oximetry (%) 97 Oxygen Delivery Method Room Air Intake Visit Reasons: 6 Month F/U Intake Note: Pt is here today for 6 months follow up visit. Allergies No Known Allergies Allergy (Verified 06/17/24 10:25) Medication List - Last Reconciled 06/17/24 by Valeria Horowitz MD bisacodyl (Dulcolax (bisacodyl)) 20 mg (4 x 5 mg) PO ONCE PRN 1 day gabapentin 600 mg PO BEDTIME ibuprofen 800 mg PO TID PRN lisinopril 20 mg PO DAILY polyethylene glycol 3350 (Miralax) 238 grams PO ONCE PRN 1 day psyllium husk (Metamucil) 1 tbsp PO DAILY 30 days trazodone 50 mg PO BEDTIME PRN Tobacco use date assessed: 06/17/24 Dental Screening Dental Screen Date: 06/17/24 Did you have a dental visit in the last 12 months?: No Did you have a dental problem in the last 6 months where you did not have access to dental care?: No Was dental information given to patient?: Patient declined HPI 6 Month F/U HPI Details Pt presents for the follow-up of hypertension controlled on lisinopril. She complains of chronic generalized body pain neck shoulders and lower back. Patient reports L side back pain since fell down 6 month. The pain is worse when patient is walking or sitting for long time. She occasionally has a pain radiating to left lower extremity. Patient denies weakness or numbness in extremities change in bowel bladder function. Pt c/o feeling depressed and sad for 1 year. She has had financial difficulty because she is not able to work. Patient reports chronic insomnia controlled on trazodone and gabapentin. [facility] Medical History Carpal tunnel syndrome RLS (restless legs syndrome) HTN (hypertension) Surgical History (Updated 06/17/24 @ 10:29 by Gayla Hernandez [facility]) History of carpal tunnel surgery History of arthroscopy of right shoulder Family History Maternal Grandmother Mental health disorder Sister Diverticulitis Brother Colon polyp Brother S/P colostomy History of colostomy reversal Father Lung cancer Liver cancer Cancer of kidney Social History Household Members: Other Household Members Other:: on disability for shoulder injury , lives with a partner, 1 daughter, Housing: Apartment Patient Tobacco Use Status: Former Tobacco user Cigarettes Per Day: 8 Years Smoked: 20 e-Cigarette/Vaping Use: Never Used service: No 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al status: disabled 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 1. Little interest or pleasure in doing things: nearly every day 2. Feeling down, depressed, or hopeless: nearly every day 3. Trouble falling or staying asleep, or sleeping too much: more than half the days 4. Feeling tired or having little energy: nearly every day 5. Poor appetite or overeating: nearly every day 6. Feeling bad about yourself - or that you are a failure or have let yourself or your family down: more than half the days 7. Trouble concentrating on things, such as reading the newspaper or watching television: more than half the days 8. Moving or speaking so slowly that other people could have noticed. Or the opposite - being so fidgety or restless that you have been moving around a lot more than usual: nearly every day 9. Thoughts that you would be better off or of hurting yourself in some way: more than half the days Total score: 23 Depression Screening Interpretation: Positive (Patient is referred to counseling and Zoloft 50 mg will be started) Depression Screening Follow-up: New Medication prescribed and Community Mental Health Worker F/U Depression Screening Done: Yes 78145 - PHQ-9 Billing: Yes Source: Developed by Drs. Karri Plata, Perla Xie, Carroll Guevara and colleagues, with an educational manpreet from [employer]. Thrive Questionnaire Date Thrive assessed: 06/17/24 I am a: Patient What is your living situation today?: I have a steady place to live Within the past 12 months, did the food you bought not last and you didn't have the money to get more?: Sometimes True Within the past 12 months, did you worry whether your food would run out before you got money to buy more?: Often true Do you have trouble paying for medicines?: No Do you have trouble getting transportation to medical appointments?: No Do you have trouble paying your heating and electricity bill?: No Do you have trouble taking care of your child, family member or friend?: No Do you have trouble with day-to-day activities such as bathing, preparing meals, shopping, managing finances, etc.?: Yes Are you currently unemployed and looking for a job?: Yes Are you interested in more education?: No Please select the resources that you would like help with: Housing/Senior Living Currently or been in a relationship where the following occur: I choose not to answer THRIVE Score: 2 AUDIT C Alcohol Use Questionnaire (AUDIT-C) 1. How often do you have a drink containing alcohol?: Never 3. How often do you have six or more drinks on one occasion?: Never Total Score: 0 DORIS-7 AMB Questionnaire DORIS-7 Date DORIS - 7 assessed: 06/17/24 Feeling nervous, anxious, or on edge: 3 = Nearly every day Not being able to stop or control worryin = Nearly every day Worrying too much about different things: 3 = Nearly every day Trouble relaxin = Nearly every day Being so restless that it is hard to sit still: 3 = Nearly every day Becoming easily annoyed or irritable: 1 = Several days Feeling afraid as if something awful might happen: 3 = Nearly every day Total DORIS-7 score (0-4 normal; 5-9 mild; 10-14 moderate; 15-21 severe): 19 Source: Developed by Drs. Karri Plata, Perla Xie, Carroll Guevara and colleagues, with an educational manpreet from [employer]. DORIS-7 Assessment Billing DORIS-7 Assessment Tool: DORIS-7 Assessment 79060 Review of Systems Const All systems reviewed & are unremarkable except as noted in HPI and below Eyes Reports no additional complaints ENT Reports no additional complaints Card Reports no additional complaints Resp Reports no additional complaints GI Reports no additional complaints Reports no additional complaints Physical exam (Primary Care) Vital Signs: Last Vital Signs Pulse 80 06/17/24 10:25 BP 124/76 06/17/24 10:25 Pulse Ox 97 06/17/24 10:25 Oxygen Delivery Method Room Air 06/17/24 10:25 BMI result Body Mass Index 31.7 Tobacco/Smoking Status: Tobacco use Status Tobacco use date assessed 06/17/24 06/17/24 10:32 Patient Tobacco Use Status Former Tobacco user 06/17/24 10:25 e-Cigarette/Vaping Use Never Used 06/17/24 10:25 PHQ-9: PHQ-9 Score PHQ-9: Total score 23 06/17/24 10:32 Depression Screening Interpretation: Positive (Patient is referred to counseling and Zoloft 50 mg will be started) Depression Screening Follow-up: New Medication prescribed and Community Mental Health Worker F/U Thrive Assessment: Date of Thrive Assessment Date Thrive assessed 06/17/24 06/17/24 10:32 Currently or been in a relationship where the following occur: I choose not to answer Const General: no acute distress HENMT Head: Yes normal to inspection Mouth: Normal oral and palatal mucosa present Eyes General: appearance normal, both eyes and all related structures Resp Effort & Inspection: normal respiratory effort Auscultation: clear to auscultation bilaterally Cardio Rhythm: regular rhythm Heart sounds: S1 normal heart sound present and S2 normal heart sound present GI Inspection: Yes normal to inspection Palpation (GI): Soft to palpation Percussion: Yes normal to percussion Auscultation: normal bowel sounds Back/Spine/Pelvis Other: Paraspinal tenderness lower lumbar region left more than right, left lower leg rising 90 degrees bilaterally, dependent reflexes 2+ bilaterally Assessment and Plan Assessment & Plan (1) Lower back pain: Code(s): M54.50 - Low back pain, unspecified Plan: Check x-ray of the lumbar spine and referred to physical therapy (2) HTN (hypertension): Code(s): I10 - Essential (primary) hypertension Plan: Continue lisinopril (3) Annual physical exam: Code(s): Z00.00 - Encounter for general adult medical examination without abnormal findings (4) Anxiety and depression: Code(s): F41.9 - Anxiety disorder, unspecified; F32.A - Depression, unspecified Plan: Patient is referred to counseling and Zoloft 25 mg for 1st week then increase to 50 mg daily will be started. Patient will follow-up in 2 months. She is aware of resources including 24 hour crisis center (5) Chronic pain: Code(s): G89.29 - Other chronic pain Plan: Continue gabapentin, stress management discussed with the patient Orders: Orders Comprehensive Patterson. Panel Fast Today I10 - Essential (primary) hypertension, M54.50 - Low back pain, unspecified, Z00.00 - Encounter for general adult medical examination without abnormal findings Complete Blood Count Auto Diff Today I10 - Essential (primary) hypertension, M54.50 - Low back pain, unspecified, Z00.00 - Encounter for general adult medical examination without abnormal findings XR lumbar spine 2-3V Today I10 - Essential (primary) hypertension, M54.50 - Low back pain, unspecified, Z00.00 - Encounter for general adult medical examination without abnormal findings Lipid Panel Today I10 - Essential (primary) hypertension, M54.50 - Low back pain, unspecified, Z00.00 - Encounter for general adult medical examination without abnormal findings TSH reflex Free T4 Today I10 - Essential (primary) hypertension, M54.50 - Low back pain, unspecified, Z00.00 - Encounter for general adult medical examination without abnormal findings PT Evaluation and Treatment Today M54.50 - Low back pain, unspecified Medications: New sertraline 1/2 tabl for 1 week, then 1 tabl qd 50 mg PO DAILY 30 tabs 1RF Coding Level of Care Code Est Pt Level 4 (63261) Diagnoses Lower back pain M54.50 HTN (hypertension) I10 Annual physical exam Z00.00 Anxiety and depression F41.9; F32.A Chronic pain G89.29 Additional Codes DORIS-7 Assessment Billing - DORIS-7 Assessment Tool: DORIS-7 Assessment 86137 ([id number])
[2024-06-17 10:25] VITALS: BP 124/76; PULSE 80; O2SAT 97; BMI 31.7
== END 2024-06-17 11:45 | disposition home or self-care (01) ==
PROVIDERS: PCP Internal Medicine; Visit Provider Internal Medicine
DX: M54.50 Low back pain, unspecified (principal); I10 Essential (primary) hypertension; F41.9 Anxiety disorder, unspecified; F32.A Depression, unspecified; G89.29 Other chronic pain
CPT/HCPCS: 96127; 99214

== ENCOUNTER 2024-06-17 11:48 | Outpatient (REF) | payer OTHER, SELFPAY ==
--- NOTE | ~2024-06-17 | XR_ITS ---
EXAMINATION: XR LUMBOSACRAL SPINE CLINICAL INFORMATION: Low back pain. COMPARISON: Radiograph lumbar spine 06/21/2021. TECHNIQUE: Three views of the lumbosacral spine. FINDINGS: No evidence of acute compression deformity or subluxation. Mild intervertebral disc height loss of facet arthropathy at L5-S1, increased compared to 2020. SI joints are symmetric. No significant paraspinal soft tissue abnormality. A few pelvic phleboliths are seen. XR/XR lumbar spine 2-3V IMPRESSION: 1. No acute compression deformity or subluxation. 2. Mild lumbar spondylosis at L5-S1, increased compared to 2020.
[2024-06-17 13:07] LABS: MANUAL DIFF FLAG NO
[2024-06-17 13:14] LABS: Basophils Percent Auto 0.4 % (0-2); Eosinophils Absolute Auto 0.3 X10*3/uL (0.0-0.4); Eosinophils Percent Auto 3.3 % (0-4); Hematocrit 47.1 % (37.0-47.0); Hemoglobin 16.2 g/dl (12.0-16.0); Imm Gran Abs Auto 0.03 X10*3/uL (0.00-0.03); Imm Gran Pct Auto 0.3 % (0.0-0.4); Lymphocytes Absolute Auto 3.3 X10*3/uL (1.2-4.9); Lymphocytes Percent Auto 34.3 % (20-40); Mean Corpuscular HGB Conc 34.4 g/dl (31.0-35.0); Mean Corpuscular Hemoglobin 30.7 pg (27.0-33.0); Mean Corpuscular Volume 89.4 fL (80.0-98.0); Mean Platelet Volume 10.2 fL (9.4-12.3); Monocytes Absolute Auto 0.5 X10*3/uL (0.1-1.2); Monocytes Percent Auto 5.4 % (2-11); Neutrophils Absolute Auto 5.3 x10*3/uL (2.0-8.3); Neutrophils Percent Auto 56.3 % (45-73); Platelet Count 261 X10*3/uL (160-400); Red Blood Count 5.27 X10*6/uL (4.20-5.50); Red Cell Distribution Width 12.6 % (11.0-16.0); White Blood Count 9.5 X10*3/uL (4.8-10.8)
[2024-06-17 13:38] LABS: Alanine Aminotransferase 31 U/L (0-31); Albumin Level 4.6 g/dL (3.5-5.0); Alkaline Phosphatase 82 U/L (39-117); Anion Gap 14 (12-20); Aspartate Amino Transferase 19 U/L (5-31); Bilirubin Total 0.3 mg/dL (0.0-1.0); Blood Urea Nitrogen 11 mg/dL (9-16); Calcium 10.1 mg/dL (8.4-10.2); Carbon Dioxide 27 mmol/L (22-29); Chloride 106 mmol/L (96-108); Cholesterol 172 mg/dL (<200); Estimated Glomerular Filt Rate > 60; Glucose Fasting 93 mg/dL (60-99); HDL Cholesterol 35 mg/dL (>40); LDL Cholesterol Calculated 109 mg/dL (<100); Potassium 4.5 mmol/L (3.3-5.1); Sodium 142 mmol/L (135-145); Total Protein 7.7 g/dL (6.5-8.0); Triglycerides 141 mg/dL (<150)
[2024-06-17 13:44] LABS: TSH reflex Free T4 0.44 uIU/mL (0.32-4.0)
== END 2024-06-17 11:49 | disposition home or self-care (01) ==
LOC: HO.HMGCX 11:48
PROVIDERS: PCP Internal Medicine; Visit Provider Internal Medicine
DX: M54.50 Low back pain, unspecified (principal); I10 Essential (primary) hypertension; Z00.00 Encounter for general adult medical examination without abnormal findings
CPT/HCPCS: 36415; 72100; 80053; 80061; 84443; 85025

== ENCOUNTER 2024-06-23 11:13 | Day surgery (SDC) | payer OTHER, SELFPAY ==
[2024-06-23 11:48] VITALS: BMI 31.7
[2024-06-23 11:51] VITALS: BP 120/51; PULSE 88; RESP 16; TEMP 36.6; O2SAT 94
--- NOTE | 2024-06-23 13:29 | MHC.SHP ---
Pre-Procedural Eval Section A - 24 Hr Update-Section A only Date of Service: 06/23/24 The patient is an INPATIENT: No Changes since office visit: No Cold of Flu in the past 2 weeks, No New Medical Problems, No Changes in Medication and No Patient answered all questions The patient has been examined within 24 hours of the surgical procedure. The History & Physical has been completed within 30 days and I have reviewed it.: Yes Section B - Complete if H&P > 30 days Chief Complaint: Carpal tunnel syndrome, right upper limb Allergies: Allergies Allergy/AdvReac Type Severity Reaction Status Date / Time No Known Allergies Allergy Verified 06/17/24 10:25 Plan I have reviewed the history and physical and performed a pertinent physical examination on my patient. No changes have occurred unless specified. Time Spent With Patient Time: Total time managing care of this patient today ____ minutes.
--- NOTE | 2024-06-23 13:30 | W.PM.OPN ---
Operative Note Operative Note Date of Service: 06/23/24 Narrative: Preop diagnosis: 1. Right Carpal tunnel syndrome Postop diagnosis: same Procedure: 1. Right Carpal tunnel release Surgeon: Rosalind Thompson MD Anesthesia: local block using 1% lidocaine with epinephrine Findings: Thickened transverse carpal ligament. EBL: Less than 5 mL Specimens: None Complications: None Disposition: Brought to recovery room in stable condition Plan: Follow-up for 10-14 days for wound check and suture removal Indications: The patient is 53 years old, with right carpal tunnel syndrome that has been unresponsive to nonoperative management. The risks and benefits of operative treatment including but not limited to risk of damage to blood vessels, nerves, tendons, infection, persistent pain, persistent symptoms, or possible need for additional surgery were discussed with the patient and the patient wishes to proceed with surgery. Procedure: Once consent was obtained a local block was performed using a combination of 1% lidocaine with epinephrine. The patient was then brought back to the operating suite and placed on the operative table in supine position. The right upper extremity was prepped and draped in a standard surgical fashion. Once assured that we had a good block, a 2.0 cm longitudinal incision was made centered over the carpal tunnel. The incision was made through the skin to the subcutaneous tissues using a #15 blade. Dissection was made down to the level of the transverse carpal ligament with care being taken to protect the palmar cutaneous nerve. Once the transverse carpal ligament was clearly visualized, a longitudinal incision was made in the transverse carpal ligament 1st using a #15 blade, then using tenotomy scissors under direct visualization. Care was taken to look for and protect the motor branch of the median nerve when seen in this area. Once satisfied with our carpal tunnel release the wound was copiously irrigated with normal saline and hemostasis was obtained with a brief period of local pressure. The skin edges were reapproximated with some 5.0 nylon suture material and a sterile dressing was applied. The patient appears to have tolerated the procedure well and with no complications. All digits were well vascularized at the conclusion of the case.
[2024-06-23 14:12] VITALS: BP 106/62; PULSE 76; RESP 16; O2SAT 95
== END 2024-06-23 14:13 | disposition home or self-care (01) ==
PROVIDERS: PCP Internal Medicine; Visit Provider Orthopaedic Surgery
PROC: (CPT 64721; principal; 2024-06-23 12:50)
DX: G56.01 Carpal tunnel syndrome, right upper limb (principal); R20.0 Anesthesia of skin; I10 Essential (primary) hypertension; G25.81 Restless legs syndrome; Z98.890 Other specified postprocedural states; Z87.891 Personal history of nicotine dependence
CPT/HCPCS: 64721; J0171

== ENCOUNTER → 2024-06-23 11:13 | Outpatient (BNV) | payer OTHER, SELFPAY | PROVIDERS: PCP Internal Medicine; Visit Provider Orthopaedic Surgery | DX: G56.01 Carpal tunnel syndrome, right upper limb (principal) | CPT/HCPCS: 64721 ==

== ENCOUNTER 2024-07-06 14:22 | Outpatient (AMB) | payer MEDICAID, SELFPAY ==
--- NOTE | 2024-07-06 14:33 | MHC.OFFVIS ---
Vital Signs 07/06/24 14:37 Height 5 ft 1 in Weight 168 lb BMI 31.7 Handedness Right Intake Visit Reasons: PO RT CTR 06/23/24 AR Intake Note: Camila is a 53 year old right hand dominant female who presents today post operatively s/p Right Carpal Tunnel Release w/ AR DOS: 06/23/24. Patient expresses her 1st, 2nd, and 3rd digits are currently still numb, her 3rd occasional gets caught and she is unable to straighten unless she massages it. She expresses she has soreness around the incision site and she is covering it up when she leaves the house. She has also refrained from lifting with her right hand. Sutures removed and steri strips have been applied Allergies No Known Allergies Allergy (Verified 07/06/24 14:37) HPI HPI PO RT CTR 06/23/24 AR: Details: Patient is a 53-year-old female who presents for postoperative evaluation of right carpal tunnel release, DOS 06/23/[address] Thompson. The patient reports that she is still experiencing numbness in the median nerve distribution of the right hand, and then she experiences some tightness of the right middle finger, and she states that she occasionally needs to massage the finger to be able to extend it fully. Patient reports that she has been adhering to the 2 lb weight limit given to her postoperatively. No other acute complaints or concerns at this time. [facility] Medical History Carpal tunnel syndrome RLS (restless legs syndrome) HTN (hypertension) Surgical History (Updated 06/17/24 @ 10:29 by Gayla Hernandez [facility]) History of carpal tunnel surgery History of arthroscopy of right shoulder Family History Maternal Grandmother Mental health disorder Sister Diverticulitis Brother Colon polyp Brother S/P colostomy History of colostomy reversal Father Lung cancer Liver cancer Cancer of kidney Social History Household Members: Other Household Members Other:: on disability for shoulder injury , lives with a partner, 1 daughter, Housing: Apartment Patient Tobacco Use Status: Former Tobacco user Cigarettes Per Day: 8 Years Smoked: 20 e-Cigarette/Vaping Use: Never Used service: No 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al status: disabled 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 Normal sensation to all other digits in the right hand today. No thenar or intrinsic wasting. Good APB muscle firing and good finger cross. Vascular: Capillary refill brisk. ROM: Patient can make a fist and extend all their digits. Skin: Well-healing incision site over the right volar wrist Very mild erythema surrounding the sutures. General: No ecchymosis. No evidence of infection. No visible or palpable locking or catching of the right middle finger with multiple testing attempts No tenderness to palpation over the A1 saman of the right middle Assessment & Plan Assessment & Plan (1) Carpal tunnel syndrome of right wrist: Code(s): G56.01 - Carpal tunnel syndrome, right upper limb Category: Medical Plan 1. Right carpal tunnel syndrome status post carpal tunnel release DOS 06/23/2024 Patient is still experiencing dense numbness at this time, densely numb preoperatively Patient is recovering well postoperatively Patient is educated about the typical recovery course Patient is educated that, because she was experiencing dense numbness prior to surgery, there is an increased likelihood that she will not regain normal sensation of the median nerve distribution of her right hand Patient is educated that she may regain some sensation to this area, even if it is not full, but this can take weeks to months. Patient is amenable to this Sutures removed today, Steri-Strips in place Patient is counseled that she can remove the Steri-Strips in 5 days if they have not fallen off on their own, and at that time she can begin submerge in activities such as pools, lakes, or cleaning dishes Patient does not need acute follow-up with us, but can follow-up p.r.n. with any acute concerns. 2. cramping of right middle finger No visible or palpable locking or catching with multiple testing attempts in the office today No tenderness over the A1 saman of the right middle finger At this time, clinical suspicion for trigger finger in the right middle finger is quite low Patient is educated that she should continue with [id number] exercises in order to combat potential stiffness in his finger If patient does notice any visible or palpable locking and catching, and she is educated that she should follow up with us in the office for discussion of further treatment options Patient is amenable to this plan Patient will follow-up p.r.n. with any acute concerns Coding Level of Care Code Global (08931) Diagnoses Carpal tunnel syndrome of right wrist G56.01
[2024-07-06 14:37] VITALS: BMI 31.7
== END 2024-07-06 15:17 | disposition home or self-care (01) ==
PROVIDERS: PCP Internal Medicine
DX: G56.01 Carpal tunnel syndrome, right upper limb (principal)
CPT/HCPCS: 99024

== ENCOUNTER → 2024-07-06 14:22 | Outpatient (BNVA) | payer MEDICAID, SELFPAY | PROVIDERS: PCP Internal Medicine | DX: R20.0 Anesthesia of skin (principal); Z09 Encounter for follow-up examination after completed treatment for conditions other than malignant neoplasm; Z86.69 Personal history of other diseases of the nervous system and sense organs; Z98.890 Other specified postprocedural states | CPT/HCPCS: 99212 ==

== ENCOUNTER 2024-08-19 11:02 | Outpatient (AMB) | payer OTHER, SELFPAY ==
[2024-08-19 11:08] VITALS: BP 120/68; PULSE 88; O2SAT 97; BMI 30.8
--- NOTE | 2024-08-19 11:08 | MHC.PC.OV ---
Vital Signs 08/19/24 11:08 Height 5 ft 1 in Weight 163 lb BMI 30.8 BP 120/68 Blood Pressure Location Lt brachial Position Sitting Pulse 88 Pulse Source Pulse Oximeter Pulse Oximetry (%) 97 Oxygen Delivery Method Room Air Intake Visit Reasons: 2 months follow up Intake Note: Pt is here today for 2 months follow up visit. Allergies No Known Allergies Allergy (Verified 08/19/24 11:23) Tobacco use date assessed: 06/17/24 Dental Screening Dental Screen Date: 06/17/24 HPI 2 months follow up HPI Details Patient presents for the follow-up of hypertension. For chronic anxiety with depression started counseling with the good results. She has been tolerating sertraline well but would like to increase the dose of med. Patient has started physical therapy for chronic sciatica and has been feeling better. She continues to take gabapentin and ibuprofen as needed PFSH Medical History Carpal tunnel syndrome RLS (restless legs syndrome) HTN (hypertension) Surgical History History of carpal tunnel surgery History of arthroscopy of right shoulder Family History Maternal Grandmother Mental health disorder Sister Diverticulitis Brother Colon polyp Brother S/P colostomy History of colostomy reversal Father Lung cancer Liver cancer Cancer of kidney Social History Household Members: Other Household Members Other:: on disability for shoulder injury , lives with a partner, 1 daughter, Housing: Apartment Patient Tobacco Use Status: Former Tobacco user Cigarettes Per Day: 8 Years Smoked: 20 e-Cigarette/Vaping Use: Never Used service: No 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al status: disabled 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 1. Little interest or pleasure in doing things: nearly every day 2. Feeling down, depressed, or hopeless: nearly every day 3. Trouble falling or staying asleep, or sleeping too much: nearly every day 4. Feeling tired or having little energy: more than half the days 5. Poor appetite or overeating: nearly every day 6. Feeling bad about yourself - or that you are a failure or have let yourself or your family down: nearly every day 7. Trouble concentrating on things, such as reading the newspaper or watching television: more than half the days 8. Moving or speaking so slowly that other people could have noticed. Or the opposite - being so fidgety or restless that you have been moving around a lot more than usual: nearly every day 9. Thoughts that you would be better off or of hurting yourself in some way: several days Total score: 23 Depression Screening Interpretation: Positive Depression Screening Done: Yes Source: Developed by Drs. Karri Plata, Perla Xie, Carroll Guevara and colleagues, with an educational manpreet from [employer]. Thrive Questionnaire Date Thrive assessed: 06/10/24 I am a: Patient What is your living situation today?: I have a steady place to live Within the past 12 months, did the food you bought not last and you didn't have the money to get more?: Sometimes True Within the past 12 months, did you worry whether your food would run out before you got money to buy more?: Often true Do you have trouble paying for medicines?: No Do you have trouble getting transportation to medical appointments?: No Do you have trouble paying your heating and electricity bill?: No Do you have trouble taking care of your child, family member or friend?: No Do you have trouble with day-to-day activities such as bathing, preparing meals, shopping, managing finances, etc.?: Yes Are you currently unemployed and looking for a job?: Yes Are you interested in more education?: No Please select the resources that you would like help with: None Currently or been in a relationship where the following occur: I choose not to answer THRIVE Score: 2 AUDIT C Alcohol Use Questionnaire (AUDIT-C) 2. How many drinks containing alcohol do you have on a typical day when you are drinking?: 1 or 2 3. How often do you have six or more drinks on one occasion?: Never Total Score: 0 DORIS-7 AMB Questionnaire DORIS-7 Date DORIS - 7 assessed: 08/19/24 Feeling nervous, anxious, or on edge: 3 = Nearly every day Not being able to stop or control worryin = More than half the days Worrying too much about different things: 2 = More than half the days Trouble relaxin = More than half the days Being so restless that it is hard to sit still: 3 = Nearly every day Becoming easily annoyed or irritable: 2 = More than half the days Feeling afraid as if something awful might happen: 2 = More than half the days Total DORIS-7 score (0-4 normal; 5-9 mild; 10-14 moderate; 15-21 severe): 16 Source: Developed by Drs. Karri Plata, Perla Xie, Carroll Guevara and colleagues, with an educational manpreet from [employer]. Review of Systems Const All systems reviewed & are unremarkable except as noted in HPI and below Eyes Reports no additional complaints ENT Reports no additional complaints Card Reports no additional complaints Resp Reports no additional complaints GI Reports no additional complaints Reports no additional complaints Physical exam (Primary Care) Vital Signs: Last Vital Signs Pulse 88 08/19/24 11:08 BP 120/68 08/19/24 11:08 Pulse Ox 97 08/19/24 11:08 Oxygen Delivery Method Room Air 08/19/24 11:08 BMI result Body Mass Index 30.8 Tobacco/Smoking Status: Tobacco use Status Tobacco use date assessed 06/17/24 08/19/24 11:12 Patient Tobacco Use Status Former Tobacco user 08/19/24 11:12 e-Cigarette/Vaping Use Never Used 08/19/24 11:12 Depression Screening Interpretation: Positive Thrive Assessment: Date of Thrive Assessment Date Thrive assessed 06/10/24 08/19/24 11:12 Currently or been in a relationship where the following occur: I choose not to answer Const General: no acute distress HENMT Mouth: Normal oral and palatal mucosa present Neck Neck: Yes no lymphadenopathy and Yes supple Resp Effort & Inspection: normal respiratory effort Auscultation: clear to auscultation bilaterally Cardio Rhythm: regular rhythm Heart sounds: S1 normal heart sound present and S2 normal heart sound present GI Inspection: Yes normal to inspection Palpation (GI): Soft to palpation Percussion: Yes normal to percussion Assessment and Plan Assessment & Plan (1) Chronic pain: Code(s): G89.29 - Other chronic pain Plan: Continue gabapentin and ibuprofen (2) Anxiety and depression: Code(s): F41.9 - Anxiety disorder, unspecified; F32.A - Depression, unspecified Plan: Continue counseling increase sertraline to 100 mg (3) HTN (hypertension): Code(s): I10 - Essential (primary) hypertension Plan: Continue lisinopril, return for physical in December Medications: New sertraline 100 mg PO DAILY 90 tabs 3RF Discontinued sertraline 1/2 tabl for 1 week, then 1 tabl qd Discontinued Reason: Doctor's Order 50 mg PO DAILY 30 tabs 1RF Coding Level of Care Code Est Pt Level 4 (15014) Diagnoses Chronic pain G89.29 Anxiety and depression F41.9; F32.A HTN (hypertension) I10
== END 2024-08-19 11:55 | disposition home or self-care (01) ==
PROVIDERS: PCP Internal Medicine; Visit Provider Internal Medicine
DX: G89.29 Other chronic pain (principal); F41.9 Anxiety disorder, unspecified; F32.A Depression, unspecified; I10 Essential (primary) hypertension

== ENCOUNTER → 2024-08-19 11:02 | Outpatient (BNVA) | payer OTHER, SELFPAY | PROVIDERS: PCP Internal Medicine; Visit Provider Internal Medicine | DX: G89.29 Other chronic pain (principal); I10 Essential (primary) hypertension; F41.9 Anxiety disorder, unspecified; F32.A Depression, unspecified | CPT/HCPCS: 99212 ==

== ENCOUNTER 2024-09-23 09:00 | Outpatient (RCR) | payer OTHER, SELFPAY ==
--- NOTE | 2024-07-29 11:14 | MHC.PT.EP ---
[facility] [place] Office [place] Office [place] Office [address] Cheryl Brito [address] [phone] F: [phone] F: [phone] F: [phone] F: [phone] Physical Therapy Plan of Care Date of Evaluation: 07/29/24 Date of Surgery: Diagnosis: low back pain Assessment: Patient is a 53 year old R handed female who presents with s/s consistent with low back pain. She does not currently work but does enjoy staying active. She has multiple locations of pain that impact her function currently. Patient past medical history incudes carpal tunnel surgery b/l, rotator cuff surgery. Current impairments include pain, posture, ROM, flexibility, strength, activity tolerance and functional mobility. Functional limitations include decreased ability to walk, stand, transfer, negotiate stairs, bend, lift, carry, push and pull. Patient is motivated with good rehab potential. Skilled PT will address impairments and functional limitations in order to achieve goals. Frequency and Duration: The patient will be seen 2x/week for 5 weeks Short Term Goals: I with HEP - 2 weeks AROM rotation 50% b/l - 3 weeks TTP piriformis absent - 3 weeks Correction Goals: s/s centralized - 5 weeks Max pain with ADLs 2/10 - 5 weeks Oswestry 30% or better - 5 weeks Hip strength 4/5 grossly - 5 weeks Treatment Plan: Modalities to reduce pain, spasms and effusion. Manual therapy to restore motion and function. Therapeutic exercise to improve strength and flexibility. Neuromuscular re-education for posture and balance. Therapeutic activities to return to functional activities of daily living. Electronically signed by: Juarez Dillon, PT Please sign and return to therapist. Thank you for your referral.
--- NOTE | 2024-12-21 09:17 | MHC.PT.DC ---
[facility] [place] Office [place] Office [place] Office [address] Cheryl Brito [address] [phone] F: [phone] F: [phone] F: [phone] F: [phone] Physical Therapy Discharge Report Diagnosis: low back pain Date of Surgery: Date of Evaluation: 07/29/24 Date of Discharge: 09/23/24 Treatments to Date: 14 Cancellations to Date: No Shows to Date: Discharge Status: Independent with HEP Discharge Summary: 09/23/24: we reviewed HeP and I encouraged pt to continue with pain free portion of HEP. however, pt has been unable to find sustained relief from s/s. we will d/c to HEP at this time. 09/20/24: pt s/s stable. responds well to manual intervention. reviewed HEP. we will plan to d/c to HEP Nv. 09/16/24: pt progressing slowly. comes in with significant pain each visit. unsure if she has been able to utilize HEP to manage s/s. Pt notes multiple locations of pain that all have been impacting functional mobility and likely have an impact on ceiling for functional improvement. 09/06; Pt I with HEP and feels stretches loosen the muscles. Pt wishes to cont due to feeling relief and progressing with decreased sensirtity, tightness and pain. 09/01; Pt has 2 remaining visits before DC. Pt noted decreased hip pain after stretches. 08/31/24: responding well with LAD. continue to progress as tolerated with strength and ROM to manage s/s. updated HEP as needed. 08/26/24: added LAD to manage R LE discomfort. good response. demo of stair LAD and encouraged to try at home to manage groin/hip pain. 08/18/24: pt is having reduced s/s at end of PT and for sometime after but often returns with painful gait and s/s returned. 08/16/: pt with multi-location pain today. we were able to complete above program without adverse reactions and slight reduction in low back discomfort. 08/11; Pt fatigued after hip abd in s/l. Pt SI improving. 08/09/24: pt progressing slowly. sore over weekend but tolerable. continued with therex and STM for R piriformis and glute discomfort. assess response and progress as tolerated. 08/04; Py sarum R rot. Hip weakness. TP tender with STM R glut, piriformis muscles. Patient is a 53 year old R handed female who presents with s/s consistent with low back pain. She does not currently work but does enjoy staying active. She has multiple locations of pain that impact her function currently. Patient past medical history incudes carpal tunnel surgery b/l, rotator cuff surgery. Current impairments include pain, posture, ROM, flexibility, strength, activity tolerance and functional mobility. Functional limitations include decreased ability to walk, stand, transfer, negotiate stairs, bend, lift, carry, push and pull. Patient is motivated with good rehab potential. Skilled PT will address impairments and functional limitations in order to achieve goals. Electronically signed by: Juarez Dillon, PT Please sign and return to therapist. Thank you for your referral.
== END 2024-12-21 09:17 | disposition home or self-care (01) ==
LOC: HO.PTCHIC 09:00
PROVIDERS: PCP Internal Medicine; Visit Provider Internal Medicine
DX: M54.50 Low back pain, unspecified (principal)
CPT/HCPCS: 97110; 97140; 97162

== ENCOUNTER 2024-09-30 10:38 | Outpatient (AMB) | payer OTHER, SELFPAY ==
--- NOTE | 2024-09-30 10:46 | A.OFFVIS_ITS ---
Vital Signs 09/30/24 10:52 Height 5 ft 1 in Weight 163 lb BMI 30.8 Intake Visit Reasons: OV-Rt Shld 09/16/23 NE-follow up Intake Note: Camila a 53 year old male who presents today for a follow up of right shoulder s/p right shoulder on 09/16/23 NE. Patient reports pain in her shoulder that radiates into her neck. Limited ROM and no strength in her hands with gripping items. She feels electrical shock with coughing in her neck. She finished PT for lower back. States having an electrical shock in her feet making it difficult for stair use. Allergies No Known Allergies Allergy (Verified 09/30/24 11:03) Medication List - Last Reconciled 10/03/24 by Laci Carson PA-C bisacodyl (Dulcolax (bisacodyl)) 20 mg (4 x 5 mg) PO ONCE PRN 1 day gabapentin 600 mg PO BEDTIME ibuprofen 800 mg PO TID PRN lisinopril 20 mg PO DAILY polyethylene glycol 3350 (Miralax) 238 grams PO ONCE PRN 1 day psyllium husk (Metamucil) 1 tbsp PO DAILY 30 days sertraline 100 mg PO DAILY trazodone 50 mg PO BEDTIME PRN HPI HPI OV-Rt Shld 09/16/23 NE-follow up: Details: 53-year-old female who returns to the office today for a follow-up of right shoulder , 09/16/[address] Galvan. She continues to have pain and electrical shock sensation in her shoulder that radiates into her neck. Her pain is aggravated with raising her arm. She also experiences limited ROM and weakness in her hand with gripping items. She feels electrical shock sensation in her neck with coughing. She has completed physical therapy for her lower back. [facility] Medical History Carpal tunnel syndrome RLS (restless legs syndrome) HTN (hypertension) Surgical History History of carpal tunnel surgery History of arthroscopy of right shoulder Family History Maternal Grandmother Mental health disorder Sister Diverticulitis Brother Colon polyp Brother S/P colostomy History of colostomy reversal Father Lung cancer Liver cancer Cancer of kidney Social History Household Members: Other Household Members Other:: on disability for shoulder injury , lives with a partner, 1 daughter, Housing: Apartment Patient Tobacco Use Status: Former Tobacco user Cigarettes Per Day: 8 Years Smoked: 20 e-Cigarette/Vaping Use: Never Used service: No 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al status: disabled 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 Tenderness over the bicipital groove and along the deltoid region of the shoulder. Forward flexion to 100, external rotation to 90, internal rotation to S1. Pain with RTC strength. Negative Denny and cross body abduction. NVI. ? Assessment & Plan Assessment & Plan (1) History of arthroscopy of right shoulder: Code(s): Z98.890 - Other specified postprocedural states Category: Surgical (2) Myofascial pain on right side: Code(s): M79.18 - Myalgia, other site Category: Medical Plan We discussed options today which include continued therapy exercises and referral to physiatry for further evaluation of her surgical discomfort. I did entertain the option of repeat MRI of the right shoulder which she would like to hold off at this time. If she has concerns she can contact us to discuss this further, otherwise follow-up as needed for right shoulder. Patient Instructions: Scribed for Laci Carson PA-C, by Abhinav Morales esthetician and manager medical spa, on 09/30/2024 at 10:45 AM EST.? I, Laci Carson PA-C, have personally reviewed and agree with the information entered by the scribe. Coding Level of Care Code Est Pt Level 3 (39160) Complex EM visit Add On G2211 Diagnoses History of arthroscopy of right shoulder Z98.890 Myofascial pain on right side M79.18
[2024-09-30 10:52] VITALS: BMI 30.8
== END 2024-09-30 11:47 | disposition home or self-care (01) ==
PROVIDERS: PCP Internal Medicine; Visit Provider Physician Assistant
DX: M25.511 Pain in right shoulder (principal); M79.18 Myalgia, other site
CPT/HCPCS: 99213; G2211

== ENCOUNTER → 2024-09-30 10:38 | Outpatient (BNVA) | payer OTHER, SELFPAY | PROVIDERS: PCP Internal Medicine; Visit Provider Physician Assistant | DX: M79.18 Myalgia, other site (principal); Z98.890 Other specified postprocedural states | CPT/HCPCS: 99212 ==

== ENCOUNTER 2024-10-07 11:43 | Day surgery (SDC) | payer OTHER, SELFPAY ==
[2024-10-05 10:50] VITALS: BMI 32.3
--- NOTE | 2024-10-05 14:20 | P.CONAN_ITS ---
Documented by User: Areli Catalan NP 10/05/24 14:20 HPI - Anesthesia Eval Consult details Narrative: 53yo F for Colonoscopy PMFSH Active Problems Active Problems: All Active Problems Myofascial pain on right side (Acute) Osteoarthritis (Acute) Chronic pain (Acute) Anxiety and depression (Acute) Lower back pain (Acute) Other family history of colon polyps (Acute) Encounter for screening colonoscopy (Acute) Carpal tunnel syndrome of right wrist (Acute) Carpal tunnel syndrome of left wrist (Acute) S/P rotator cuff repair (Acute) History of arthroscopy of right shoulder (Acute) Calcific tendonitis of left shoulder (Acute) Abnormal mammogram of right breast (Acute) Carpal tunnel syndrome on both sides (Acute) Shoulder pain, bilateral (Acute) Chronic ankle pain, bilateral (Acute) Annual physical exam (Acute) Hx of screening mammography (Acute) Normal pelvic exam (Acute) H/O shoulder surgery (Acute) Restless legs syndrome (RLS) (Acute) HTN (hypertension) (Acute) Past Medical History Medical History Carpal tunnel syndrome RLS (restless legs syndrome) HTN (hypertension) Family History Family History Maternal Grandmother Mental health disorder Sister Diverticulitis Brother Colon polyp Brother S/P colostomy History of colostomy reversal Father Lung cancer Liver cancer Cancer of kidney Surgical History Surgical History History of carpal tunnel surgery History of arthroscopy of right shoulder Social History Social History Household Members: Other Household Members Other:: on disability for shoulder injury , lives with a partner, 1 daughter, Housing: Apartment Are you a primary companion caregiver to a significant other at home: No Patient Tobacco Use Status: Former Tobacco user Cigarettes Per Day: 8 Years Smoked: 20 e-Cigarette/Vaping Use: Never Used Use of substances other than those prescribed or required for medical reasons: No Have you been hit, kicked, punched, or otherwise hurt by someone within the past year? 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 Cognitive needs: No Hearing needs: No Vision needs: Yes Meds Allergies Allergy/AdvReac Type Severity Reaction Status Date / Time No Known Allergies Allergy Verified 09/30/24 11:03 Home Medications ?Medication ?Instructions ?Recorded ?Confirmed ?Last Taken ?Type gabapentin 600 mg tablet 600 mg PO BEDTIME 12/16/23 10/03/24 Unknown History trazodone 50 mg tablet 50 mg PO BEDTIME PRN 03/04/24 10/03/24 Unknown History Exam Height,Weight and Vital Signs: Height 5 ft 1 in Weight 77.564 kg Assessment and Plan Assessment Anesthesia Assessment: Chart Reviewed Documented by User: Jolly Jimenez MD 10/07/24 13:10 [facility] Past Medical History Medical History Carpal tunnel syndrome RLS (restless legs syndrome) HTN (hypertension) Family History Family History Maternal Grandmother Mental health disorder Sister Diverticulitis Brother Colon polyp Brother S/P colostomy History of colostomy reversal Father Lung cancer Liver cancer Cancer of kidney Surgical History Surgical History History of carpal tunnel surgery History of arthroscopy of right shoulder History of Problems with Anesthesia: No Social History Social History Household Members: Other Household Members Other:: on disability for shoulder injury , lives with a partner, 1 daughter, Housing: Apartment Are you a primary companion caregiver to a significant other at home: No Patient Tobacco Use Status: Former Tobacco user Cigarettes Per Day: 8 Years Smoked: 20 e-Cigarette/Vaping Use: Never Used Use of substances other than those prescribed or required for medical reasons: No Have you been hit, kicked, punched, or otherwise hurt by someone within the past year? 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 Cognitive needs: No Hearing needs: No Vision needs: Yes Meds Allergies Allergy/AdvReac Type Severity Reaction Status Date / Time No Known Allergies Allergy Verified 09/30/24 11:03 Home Medications ?Medication ?Instructions ?Recorded ?Confirmed ?Last Taken ?Type gabapentin 600 mg tablet 600 mg PO BEDTIME 12/16/23 10/03/24 Unknown History trazodone 50 mg tablet 50 mg PO BEDTIME PRN 03/04/24 10/03/24 Unknown History Exam Airway Mallampati Class: II TM Dist: >3cm Neck ROM: Full Denture: Upper and Lower Loose/Missing/Broken Teeth: Yes, Upper and Lower Heart: RRR Lungs: CTA Assessment and Plan Assessment Anesthesia Assessment: Anesthesia Plan Discussed Final Anesthetic Review History of Problems with Anesthesia: No NPO: Yes ASA Class: I, II, III, IV, V, and Emergency Final Preanesthetic Review: Meds/Allgs Chart Reviewed, Consent Obtained/Reviewed and Anes Risks/Benef Reviewed Patient Risk: Low Procedure Risk: Low Anesthetic Plan Anesthetic Plan: MAC: Disposition: Standard PACU
--- NOTE | 2024-10-07 11:13 | MHC.SHP ---
Pre-Procedural Eval Section A - 24 Hr Update-Section A only Date of Service: 10/07/24 The patient is an INPATIENT: No The patient has been examined within 24 hours of the surgical procedure. The History & Physical has been completed within 30 days and I have reviewed it.: No Section B - Complete if H&P > 30 days Chief Complaint: Colon cancer screening Relevant Family History (Specify if Yes): Yes Relevant Social History: Tobacco Use (Former smoker) Present Medications: see Short Stay Collaborative assessment Medical History: Significant History (Carpal tunnel syndrome RLS (restless legs syndrome) HTN (hypertension)) History of Previous Operations: Relevant previous surgery/procedure and date(s) (History of arthroscopy of right shoulder) Allergies: Allergies Allergy/AdvReac Type Severity Reaction Status Date / Time No Known Allergies Allergy Verified 09/30/24 11:03 Review of Systems Sugical H&P ROS: Negative: Constitution, Cardiovascular, Respiratory and Gastrointestinal Exam Surgical H&P Exam: Normal: Heart, Normal: Lungs, Normal: Extremities and Normal: Abdomen Plan Diagnosis/Plan: Unchanged I have reviewed the history and physical and performed a pertinent physical examination on my patient. No changes have occurred unless specified. Time Spent With Patient Time: Total time managing care of this patient today ____ minutes.
[2024-10-07 11:53] VITALS: BMI 29.5
[2024-10-07 12:18] VITALS: BP 124/71; PULSE 86; RESP 16; TEMP 35.8; O2SAT 97
[2024-10-07] MEDS: Lactated Ringers 1,000 ML 100 ML IVCONT (12:27)
--- NOTE | 2024-10-07 13:18 | P.OPN-COLO_ITS ---
Colonoscopy Operative Note Operative Note Date of Service: 10/07/24 Narrative: COLONOSCOPY TILL CECUM WITH BIOPSIES AND SNARE POLYPECTOMY Pre-op diagnosis: Colon cancer screening (first colonoscopy), family hx of colon polyps Post-op diagnosis:? Colon polyps, Diverticulosis, hemorrhoids Endoscopist:? Angelic Rogers MD Anesthesia:?MAC Consent: Indications for the procedure and potential complications of bleeding, perforation, reaction to medications and missed diagnosis were discussed with the patient and informed consent was obtained. Instrument: Olympus PCF H 190 L variable stiffness pediatric colonoscope Monitoring: Vital signs and clinical assessment, intermittent blood pressure monitoring, continuous EKG monitoring, Pulse oximetry and Carbon Dioxide monitoring were done throughout the procedure. Please see anesthesia flowsheet. Colon withdrawl time was 22 minutes. Procedure: The patient was placed in the left lateral decubitis position and pre-procedure medications were administered. After a digital rectal examination of the ano-rectum, the video colonoscope was inserted into the rectum and advanced through the colon to the cecum. The colonoscope was slowly withdrawn in a retrograde panoramic fashion and the colon mucosa was carefully examined including a retroflexed view of the rectum. Findings and interventions are described below. Procedure Difficulty: without difficulty Findings: Terminal Ileum: Not evaluated Cecum: Normal Ascending Colon: Normal Transverse Colon: Normal Descending Colon: Moderate diverticulosis Sigmoid Colon: A 7-8 mm diminutive appearing - removed with a cold snare. Patchy erythema in the distal sigmoid colon in an area of diverticulosis - random biopsies were obtained Rectum: A 4-5 mm diminutive appearing polyp - biopsy Ano-rectum: Moderate internal hemorrhoids Colon preparation: Good after copious irrigation. [place] Bowel Preparation Scale Right colon; 2 Transverse colon: 2 Left colon; 2 (0 = Unprepared colon segment with mucosa not seen due to solid stool that cannot be cleared. 1 = Portion of mucosa of the colon segment seen, but other areas of the colon segment not well seen due to staining, residual stool and/or opaque liquid. 2 = Minor amount of residual staining, small fragments of stool and/or opaque liquid, but mucosa of colon segment seen well. 3 = Entire mucosa of colon segment seen well with no residual staining, small fragments of stool or opaque liquid) Impression and Post Procedure Diagnosis: Colonoscopy Findings: Two small polyps were removed Moderate diverticulosis seen in the left colon Moderate hemorrhoids on retroflexed exam. Plan: Pt has a FU appointment on 12/29/[address] Rogers Repeat Colonoscopy in 3-5 years if polyps are adenomatous and due to family hx of colon polyps. Above findings were reviewed with the patient and relevant handouts were given and the discharge area. BIOPSIES SHOWED: A. Colon, sigmoid, polypectomy: Inflammatory polyp. B. Colon, sigmoid, biopsy: Colonic mucosa with mild expansion of lamina propria chronic inflammatory cells, vascular congestion, focal hemosiderin deposition and focally denuded surface epithelium. See comment. C. Rectum, polypectomy: Hyperplastic mucosal polyp. Comment (B): The findings are nonspecific and may be sequelae of prior injury; please correlate with clinical and colonoscopic findings. Letter sent advising repeat colon in 5 yrs Pt was placed on the colonoscopy recall list.
[2024-10-07 13:20] VITALS: BP 79/44; PULSE 90; RESP 12; TEMP 36.1; O2SAT 97
[2024-10-07 13:25] VITALS: BP 92/47; PULSE 84; RESP 20; O2SAT 97
[2024-10-07 13:35] VITALS: BP 122/56; PULSE 82; RESP 20; O2SAT 96
[2024-10-07 13:47] VITALS: BP 117/56; PULSE 77; RESP 16; TEMP 36.3; O2SAT 100
== END 2024-10-07 14:00 | disposition home or self-care (01) ==
PROVIDERS: PCP Internal Medicine; Visit Provider Internal Medicine Gastroenterology
PROC: 0DJD8ZZ Inspection of Lower Intestinal Tract, Via Natural or Artificial Opening Endoscopic (ICD-10-PCS; CPT 45378; principal; 2024-10-07 12:50)
DX: Z12.11 Encounter for screening for malignant neoplasm of colon (principal); Z83.718 Family history of other colon polyps; K51.40 Inflammatory polyps of colon without complications; K62.1 Rectal polyp; K57.30 Diverticulosis of large intestine without perforation or abscess without bleeding; I10 Essential (primary) hypertension; G25.81 Restless legs syndrome; Z79.1 Long term (current) use of non-steroidal anti-inflammatories (NSAID); Z79.899 Other long term (current) drug therapy; Z87.891 Personal history of nicotine dependence
CPT/HCPCS: 45385; 45380; 88305; J2003; J2704

== ENCOUNTER → 2024-10-07 11:43 | Outpatient (BNV) | payer OTHER, SELFPAY | PROVIDERS: PCP Internal Medicine; Visit Provider Internal Medicine Gastroenterology | DX: Z12.11 Encounter for screening for malignant neoplasm of colon (principal); Z83.719 Family history of colon polyps, unspecified; K63.5 Polyp of colon; K57.90 Diverticulosis of intestine, part unspecified, without perforation or abscess without bleeding; K62.1 Rectal polyp | CPT/HCPCS: 45380; 45385 ==

== ENCOUNTER 2024-11-24 08:36 | Outpatient (AMB) | payer OTHER, SELFPAY ==
--- NOTE | 2024-11-24 08:38 | A.OFFVIS_ITS ---
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 Patient reports ongoing neck pain for about for 5 years. Hx of PT and Chiropractor with no relief. She states that her pain is worse when she looks to the right and she notices some lights in her eyes, also when she moves her head to quick she tends to get dizzy. Patient mentions she has tried ibuprofen 800mg and gabapentin with no relief. Allergies No Known Allergies Allergy (Verified 11/24/24 08:44) Medication List - Last Reconciled 11/24/24 by Sandra Robles MD gabapentin 600 mg PO BEDTIME ibuprofen 800 mg PO TID PRN lisinopril 20 mg PO DAILY psyllium husk (Metamucil) 1 tbsp PO DAILY 30 days sertraline 100 mg PO DAILY trazodone 50 mg PO BEDTIME PRN HPI Comments Details: I've met her before for EMG last January, now s/p bilateral CTR. She also follows with ortho for shoulder pain, s/p right shoulder on 09/16/23 and also left in the past. Here today for chronic neck pain. Usually right lateral going up to temporal, comes with headache. Worse with car ride, comes with nausea and gastric upset. EVery time looking or bending down. Denies vertigo. When she shaves armpit and look towards that, she would see lights . When she looks back to the rear while driving, she sees light . MRI 2018 - right C5-6 disc protrusion and left C4-5 foraminal narrowing reported (patient showed me image of report on her phone). She brought record from [facility] - diagnosis of fibromyalgia mentioned. Treatment done so far: PT (2020) and chiropractdor Ibuprofen 800mg TID Gabapentin 600mg TID No injections yet She also mentions chronic electric shocks on legs/ankles when she walks. Sometimes leg gets numb. [facility] Medical History Carpal tunnel syndrome RLS (restless legs syndrome) HTN (hypertension) Surgical History History of carpal tunnel surgery History of arthroscopy of right shoulder Family History Maternal Grandmother Mental health disorder Sister Diverticulitis Brother Colon polyp Brother S/P colostomy History of colostomy reversal Father Lung cancer Liver cancer Cancer of kidney Social History Household Members: Other Household Members Other:: on disability for shoulder injury , lives with a partner, 1 daughter, Housing: Apartment Are you a primary health care social worker to a significant other at home: No Patient Tobacco Use Status: Former Tobacco user Cigarettes Per Day: 8 Years Smoked: 20 e-Cigarette/Vaping Use: Never Used service: No 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al status: disabled 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 Patient was appropriately conversant and oriented. Good historian. MSK: Inspection reveals appropriate head and neck positioning. Focal tenderness with trigger points in right upper trapezius, tightness on left upper trapezius, tenderness on right splenius and cervical paraspinals. Cervical ROM was full. Spurling's sign negative. Bilateral shoulder, elbow and wrist ROM WNL. No ligamentous laxity or crepitance. No increased effusion. No specific abnormalities or instability found on inspection and palpation of the spine and extremities. Negative Denny sign. Strength is 5/5 in all muscle groups tested. No increased tone noted. Neurological: Neurologic examination of the upper and lower extremities was nonfocal with intact sensation, muscle stretch reflexes and without focal motor deficits . Lopez?s negative bilaterally. Babinski was down going bilaterally. Clonus was negative. Gait is non-antalgic without loss of balance. Results Reviewed Results Reviewed: I reviewed records from the following: As above Assessment & Plan Assessment & Plan (1) Neck pain: Code(s): M54.2 - Cervicalgia Category: Medical (2) Cervicogenic headache: Code(s): G44.86 - Cervicogenic headache Category: Medical Plan Suspect cervicogenic headaches, coming from myofascial pain, upper trapezius and cervical paraspinals. No signs of cervical radiculopathy or myelopathy on exam. We talked about treatment options including trigger point injections and/or physical therapy. Patient is eager to return to physical therapy, order placed. Trigger point injections we will also be scheduled. If after trigger point injections and myofascial tension is released, but patient continues to have headache, differential diagnosis of migraine as possible. Possible referral to Neurology. Patient has other symptoms affecting lower extremities which I do not think is cervical myelopathy. We will they both more time next visit to further evaluate. She also has chronic lower back pain. History of fibromyalgia. Assessment and plan discussed with patient, and patient was agreeable. All questions were answered thoroughly. Sandra Robles MD, JAMILAH Board Certified, [employer] and [employer] (ABPMR) Board Certified, [employer] Electro[employer]ostic [employer] (ABEM) Orders: Orders PT Evaluation and Treatment Today G44.86 - Cervicogenic headache, M54.2 - Cervicalgia Coding Level of Care Code Est Pt Level 4 (24060) Diagnoses Neck pain M54.2 Cervicogenic headache G44.86
== END 2024-11-24 09:11 | disposition home or self-care (01) ==
PROVIDERS: PCP Internal Medicine; Visit Provider Physical Medicine & Rehabilitation
DX: M54.2 Cervicalgia (principal); G44.86 Cervicogenic headache
CPT/HCPCS: 99213

== ENCOUNTER → 2024-11-24 08:36 | Outpatient (BNVA) | payer OTHER, SELFPAY | PROVIDERS: PCP Internal Medicine; Visit Provider Physical Medicine & Rehabilitation | DX: M54.2 Cervicalgia (principal); G44.86 Cervicogenic headache | CPT/HCPCS: 99212 ==

== ENCOUNTER 2024-12-29 12:56 | Outpatient (REF) | payer OTHER, SELFPAY ==
--- OUTSIDE RECORDS SUMMARY | 2024-12-29 13:52 | XMS_ITS | Clinical Summary ---
Author Organization [facility] Address [address] [place] [address] Care Team Providers Care Administrative Support Associate Name Role Phone Thomas Cardoza Primary Care Provider [phone] Source Comments PLEASE NOTE, if this patient is a minor, it may be UNLAWFUL to discuss sensitive information that is contained in these records (such as FAMILY PLANNING, MENTAL HEALTH or SUBSTANCE ABUSE) with the minor patient's parent or other person without the patient's specific authorization.[facility] Allergies No known active allergies Medications gabapentin (NEURONTIN) 300 mg capsule 2 Active ferrous gluconate (FERGON) 324 mg (38 mg iron) tabletIndications :Low hemoglobin Take 1 Tablet by mouth once daily with breakfast 60 Tablet 2 2 Active fluticasone propionate (FLONASE) 50 mcg/actuation nasal sprayIndications: Nasal congestion Place 1 [place] in both nostrils once daily 16 g 2 2 Active lisinopriL 20 mg tabletIndications :Essential hypertension TAKE 1 TABLET BY MOUTH EVERY DAY 30 Tablet 5 3 Active Active Problems Problem Noted Date Diagnosed Date Spinal stenosis of cervical region Reactive depression Insomnia Full dentures Chronic pain of both shoulders Carpal tunnel syndrome, bilateral Resolved Problems Problem Noted Date Diagnosed Date Resolved Date Viral infection 10/27/2019 06/03/2021 Immunizations Name Administration Dates Next Due Flu, Preservative Free 10/12/2020 PFIZER COVID VACCINE, PURPLE CAP, 12+ ,03/19/2021,02/25/2021,02/25 PNEUMOCOCCAL POLYSACCHARIDE PPV23 07/05/2021 TDAP 02/18/2022 ZOSTER VACCINE, RECOMBINANT (SHINGRIX) Family History Medical History Relation Name Comments Hypertension Brother 1 older brother Liver disease Father Lung Cancer Father Atrial fibrillation Mother Hypertension Mother Relation Name Status Comments Brother 1 older brother Alive Brother 2 younger brother Alive Father Mother Alive Sister Alive Social History Tobacco Use Types Packs/Day Years Used Date Smoking Tobacco: Every Day Cigarettes Smokeless Tobacco: Never Tobacco Cessation:Ready to Q uit: No; Counseling Given: Yes Comments:7 cigs per day Alcohol Use Standard Drinks/Week Comments Never 0 (1 standard drink = 0.6 oz pur e alcohol) Social Connections Answer Date Recorded Connectedness 0 02/18/2022 Financial Resource Strain Answer Date R ecorded Financial Resource Strain 0 2021 Stress Answer Date Recorded Stress 0 02/18/2022 Physical Activity Answer Date Recorded Physical Activity 0 06/03/2021 Food Insecurity Answer Date Recorded Food 0 02/18/2022 Transportation Needs Answer Date Record ed Transportation 0 02/18/2022 Housing Stability Answer Date Recorded Housing 0 02/18/2022 Safety and Environment Answer Date Stefano rded Safety 0 02/18/2022 Utilities Answer Date Recorded Utilities 0 02/18/2022 Employment Answer Date Recorded Stress 0 08/01/2021 Comments No Sex and Gender Information Value Date Recorded Sex Assigned at Female 08/01/2021 9:55 AM PDT Legal Sex Female 9:55 AM PDT Gender Identity Female 08/01/2021 9:55 AM PDT Sexual Orientation Straight 06/03/2021 1: 18 PM PDT Last Filed Vital Signs Vital Sign Reading Time Taken Comments Blood Pressure 136/72 03/18/2022 1:10 PM EDT Pulse 73 03/18/2022 1:10 PM EDT Temperature 36.9 ??C (98.5 ??F) 03/18/2022 1:10 PM ED T Respiratory Rate 18 03/18/2022 1:10 PM EDT Oxygen Saturation 97% 03/18/2022 1:10 PM EDT Inhaled Oxygen Concentration - - Weight 76.2 kg (168 lb) 03/18/2022 1:10 PM EDT Height 154.9 cm (5' 1 ) 03/18/2022 1:10 PM EDT Body Mass Index 31.74 03/18/2022 1:10 PM EDT Plan of Treatment Health Maintenance Due Date Last Done Comments HPV Screening 1971 Imm-Hepatitis B (1 of 3 - 19 + 3-dose series) 1990 CT Colonography 2016 Colonoscopy 2016 Colorectal Cancer Screening 2016 FIT/gFOBT 2016 Fecal DNA 2016 Flexible Sigmoidoscopy 2016 Imm-Zoster, Recombinant (2 of 2) 04/15/2022 02/19/20 22 Depression Monitoring 05/21/2022 02/18/2022, 021 Annual Preventive Care Visit 06/03/2022 06/03/2021 Imm-Pneumococcal (2 of 2 - PCV) 07/05/2022 Tobacco Screening 07/05/2022 07/05/2021 Tobacco Cessation Counseling (#1) 02/18/2023 021 Breast Cancer Screening (Mammogram) 02/28/2023 02/28/2022 Hypertension Screening (#1) 03/18/2023 Diabetes Screening 06/11/2024 06/11/2021, 06/11/2021 [id number] ( season) 2024 09/19/2021, 03/19/2021, 03/19/2021, Additional history exists Imm-Influenza (#1) 2024 10/12/2020 Alcohol and Drug Screen 11/23/2024 02/18/2022, 06/03 Pap Smear 03/18/2025 03/18/2022 Lipid Screening 06/11/2026 06/11/2021, 09/19/2020 Cervical Cancer Screening 03/18/2027 Pap + HPV 03/18/2027 03/18/2022 Imm-DTaP/Tdap/Td (2 - Td or Tdap) 02/19/2032 022 HIV Screening Completed 06/11/2021 Hepatitis C Screening Completed 06/11/2021 Cervical Ablation/Cold-Knife Conization Discontinued Cervical Cryotherapy Discontinued Colposcopy Discontinued Endometrial Biopsy Discontinued Excision/Leep Discontinued HPV Genotyping Discontinued Vaginal Pap Discontinued Vulvoscopy Discontinued Procedures Procedure Name Priority Date/Time Associated Diagnosis Comments THIN PREP IMAGE PAP + HPV RNA E6/E7 W/RFLX HPV 16, 18/45 Routine 03/18/2022 1:58 PM EDT Encounter for Papanicolaou smear for cervical cancer screening REFERRAL FOR MAMMOGRAM Routine 02/28/2022 3:00 AM EDT Encounter for screening mammogram for malignant neoplasm of breast HIV 1/2 AG & AB W/RFLX (4TH GEN) Routine 06/11/2021 10:44 AM EDT Routine adult health maintenance HEPATITIS C AB W/RFLX HCV RNA, QT, RT PCR Routine 06/11/2021 10:44 AM EDT Routine adult health maintenance COMPREHENSIVE METABOLIC PANEL Routine 06/11/2021 10:44 AM EDT Routine adult health maintenance LIPID PANEL Routine 06/11/2021 10:44 AM EDT Routine adult health maintenance from Last 3 Months or Most Recently Relevant to Health Maintenance Results * THIN PREP IMAGE PAP + HPV RNA E6/E7 W/RFLX HPV 16, 18/45 (03/18/2022 1:58 PM EDT) CLINICAL INFORMATION See Note [facility] Comment:None given LMP See Note [facility] Companion Comment:[id number] PREV. PAP [facility] PREV. BX See Note [facility] Comment:NONE GIVEN SOURCE See Note [facility] Comment:Cervix, Endocervix STATEMENT OF ADEQUACY See Note [facility] Comment: Satisfactory for evaluation. Endocervical/transformation zone component present. INTERPRETATION/RESU LT See Note [facility] Comment:Negative for intraep ithelial lesion or malignancy. COMMENT See Note [facility] Comment: This Pap test has been evaluated with computer assisted technology. MATERIALS HANDLING COORDINATOR See Note [facility] QUALIA (formerly known as [employer]) Comment: SL, CT(ASCP) CT screening location: [address] ??[address] COMMENT [facility]ie [facility] HPV MRNA E6/E7 Not Detected Not Detected [facility] Comment: Methodology: Exchange Mechanic-Mediated Amplification This assay detects E6/E7 viral messenger RNA (mRNA) from 14 high-risk HPV types (16,18,31,33,35,39,45,51,52,56,58,59,66,68). The analytical performance characteristics of this assay have been determined by [employer]. The modifications have not been cleared or approved by the FDA. This assay has been validated pursuant to the CLIA regulations and is used for clinical purposes. For additional information, please refer to http://education.[employer]/faq/ZZB686y4 (This link if provided for information/ educational purposes only.) Swab Cervix uteri structure / Unknown 03/18/2022 1:58 PM EDT 03/19/2022 7:25 AM EDT Narrative [facility] - 03/21/2022 2:21 PM EDT EXPLANATORY NOTE: The Pap is a screening test for cervical cancer. It is not a diagnostic test and is subject to false negative and false positive results. It is most reliable when a satisfactory sample, regularly obtained, is submitted with relevant clinical findings and history, and when the Pap result is evaluated along with historic and current clinical information. us Ning Navarrete PA-C LAB - NO BLOOD DRAW Final Re sult [facility] [address] [address], [facility] [address] [address] * REFERRAL FOR MAMMOGRAM (02/28/2022 3:00 AM EDT) 02/28/2022 3:00 AM EDT us Thomas BARNES IM RFL MAMMO Edited Result - Final * HEPATITIS C AB W/RFLX HCV RNA, QT, RT PCR (06/11/2021 10:44 AM EDT) HEPATITIS C ANTIBODY NON-REACT RADHA NON-REACT RADHA [facility] SIGNAL TO CUT-OFF 0.01 <1.00 [facility] Comment: HCV antibody was non-reactive. There is no laboratory evidence of HCV infection. In most cases, no further action is required. However, if recent HCV exposure is suspected, a test for HCV RNA (test code 20811) is suggested. For additional information please refer to http://[employer]/faq/ATM69g5 (This link is being provided for informational/ educational purposes only.) Blood Blood / Unknown 06/11/2021 1 0:44 AM EDT 06/11/2021 10:44 AM EDT Narrative [facility] - 06/12/2021 11:29 AM EDT FASTING:YES Thomas BARNES LAB - BLOOD DRAW Edited Result - Final [facility] [address] [address], [facility] [address] [address] * HIV 1/2 AG & AB W/RFLX (4TH GEN) (06/11/2021 10:44 AM EDT) HIV AG/AB, 4TH GEN NON-REAC TIVE NON-REAC TIVE [facility] Comment: HIV-1 antigen and HIV-1/HIV-2 antibodies were not detected. There is no laboratory evidence of HIV infection. PLEASE NOTE: This information has been disclosed to you from records whose confidentiality may be protected by state law. ??If your state requires such protection, then the state law prohibits you from making any further disclosure of the information without the specific written consent of the person to whom it pertains, or as otherwise permitted by law. A general authorization for the release of medical or other information is NOT sufficient for this purpose. ?? For additional information please refer to http://[employer].[facility]/faq/UJY844 (This link is being provided for informational/ educational purposes only.) The performance of this assay has not been clinically validated in patients less than 2 years old. Blood Blood / Unknown 06/11/2021 1 0:44 AM EDT 06/11/2021 10:44 AM EDT Narrative [employer] [facility] - 06/12/2021 11:29 AM EDT FASTING:YES us Thomas BARNES LAB - BLOOD DRAW Final Result Performing Organization Address City/[facility]/ZIP Co de Phone Number [facility] [address] [address], [facility] [address] [address] * (ABNORMAL) LIPID PANEL (06/11/2021 10:44 AM EDT) [facility] Signature CHOLESTEROL, TOTAL 175 <200 mg/dL [facility] HDL CHOLESTEROL 44 > OR = 40 mg/dL [facility] TRIGLYCERIDES 123 <150 mg/dL [facility] LDL-CHOLESTEROL 108(H) 99 mg/dL (calc) [facility] Comment: Reference range: <100 Desirable range <100 mg/dL for primary prevention; ?? <70 mg/dL for patients with CHD or diabetic patients with > or = 2 CHD risk factors. LDL-C is now calculated using the Mitchell-Julio calculation, which is a validated novel method providing better accuracy than the Friedewald equation in the estimation of LDL-C. Mitchell SS et al. AMR. 2013;310(19): 3132-3484 (http://education.[employer]/faq/ICH031) CHOL/HDLC RATIO 4.0 <5.0 (calc) [facility] NON-HDL CHOLESTEROL 131(H) <130 mg/dL (calc) [facility] Comment: For patients with diabetes plus 1 major ASCVD risk factor, treating to a non-HDL-C goal of <100 mg/dL (LDL-C of <70 mg/dL) is considered a therapeutic option. Blood Blood / Unknown 06/11/2021 1 0:44 AM EDT 06/11/2021 10:44 AM EDT Narrative [facility] [facility] - 06/12/2021 11:29 AM EDT FASTING:YES us Thomas BARNES LAB - BLOOD DRAW Final Result [employer] [facility] [address] [address], [facility] [address] [address] * (ABNORMAL) COMPREHENSIVE METABOLIC PANEL (06/11/2021 10:44 AM EDT) GLUCOSE 78 65 - 99 mg/dL [facility] Comment: ?Fasting reference interval UREA NITROGEN (BUN) 11 7 - 25 mg/dL [facility] CREATININE (blood) 0.57(L) 0.60 - 1.35 mg/dL [facility] GFR ESTIMATED 121 > OR = 60 mL/min/1. 73m2 [facility] EGFR 140 > OR = 60 mL/min/1. 73m2 [facility] BUN/CREATININE RATIO 19 6 - 22 (calc) [facility] SODIUM 138 135 - 146 mmol/L [facility] POTASSIUM 4.4 3.5 - 5.3 mmol/L [facility] CHLORIDE 108 98 - 110 mmol/L [facility] CARBON DIOXIDE 23 20 - 32 mmol/L [facility] CALCIUM 8.9 8.6 - 10.3 mg/dL [facility] PROTEIN, TOTAL 6.7 6.1 - 8.1 g/dL [facility] ALBUMIN 4.1 3.6 - 5.1 g/dL [facility] GLOBULIN 2.6 1.9 - 3.7 g/dL (calc) [facility] ALBUMIN/GLOBULI N RATIO 1.6 1.0 - 2.5 (calc) [facility] BILIRUBIN, TOTAL 0.3 0.2 - 1.2 mg/dL [facility] ALKALINE PHOSPHATASE 81 36 - 130 U/L [facility] AST 12 10 - 40 U/L [facility] ALT 18 9 - 46 U/L [facility] Blood Blood / Unknown 06/11/2021 1 0:44 AM EDT 06/11/2021 10:44 AM EDT Narrative [facility] - 06/12/2021 11:29 AM EDT FASTING:YES Thomas BARNES LAB - BLOOD DRAW Edited Result - Final [facility] 200 [facility] [address] [place] [address], [facility] 200 [facility] [address] [address] from Last 3 Months or Most Recently Relevant to Health Maintenance Insurance [employer] Care Teams Administrative Support Associate Relationship Specialty Start Date End Date Thomas Cardoza PA [address] [place] [address] PCP - General FAMILY MEDICINE PA 11/12/21
--- OUTSIDE RECORDS SUMMARY | 2024-12-29 13:52 | XMS_ITS | Clinical Summary ---
Author Organization [facility] Address [address] [place] [address] Care Team Providers Care Linen Worker Name Role Phone Silvestre Espino Primary Care Provider [phone] Allergies No known active allergies Medications Medication Sig Dispensed Refills Start Date End Date Status traZODone (DESYREL) 50 mg tabletIndications:Ins omnia, unspecified type TAKE 1/2 TABLETS BY MOUTH EVERY NIGHT AT BEDTIME AND IF NOT HELPING, TAKE 1/2 TABLET MORE 30 tablet 1 11/19/2020 Active meloxicam (MOBIC) 15 mg tabletIndications:Chr onic pain of both shoulders TAKE 1 TABLET(15 MG) BY MOUTH 1 TIME EACH DAY 30 tablet 2 12/21/2020 Active Active Problems Problem Noted Date Diagnosed Date Viral illness 10/27/2019 Immunizations Name Administration Dates Next Due Influenza, trivalent (IIV3), split virus (single-dose) PF 10/12/2020 Family History Medical History Relation Comments Cancer Father Heart disease Maternal Grandfather Asthma Mother Hyperlipidemia Mother Hypertension Mother Heart disease Mother's Brother Relation Status Comments Father Maternal Grandfather Maternal Grandmother Mother Alive Mother's Brother Social History Tobacco Use Types Packs/Day Years Used Date Smoking Tobacco: Every Day Cigarettes Smokeless Tobacco: Never Tobacco Cessation:Ready to Q uit: No; Counseling Given: Yes Alcohol Use Standard Drinks/Week Comments Not Currently 0 (1 standard drink = 0.6 oz pur e alcohol) PHQ-2 Answer Date Recorded Patient Health Questionnaire-2 Score 2 10/12/2020 Sex and Gender Information Value Date Recorded Sex Assigned at Not on file Gender Identity Not on file Sexual Orientation Not on file Last Filed Vital Signs Vital Sign Reading Time Taken Comments Blood Pressure 140/81 10/12/2020 9:38 AM EST Pulse 83 10/12/2020 9:38 AM EST Temperature 36.9 ??C (98.4 ??F) 10/12/2020 9:38 AM ES T Respiratory Rate 16 10/12/2020 9:38 AM EST Oxygen Saturation 98% 10/12/2020 9:38 AM EST Inhaled Oxygen Concentration - - Weight 76.6 kg (168 lb 12.8 oz) 10/12/2020 9:38 AM EST Height 154.9 cm (5' 1 ) 10/27/2019 9:28 AM EST Body Mass Index 31.89 10/27/2019 9:28 AM EST Plan of Treatment Health Maintenance Due Date Last Done Comments CT Colonography 1971 Cologuard 1971 Colonoscopy 1971 Colorectal Cancer Screening 1971 FOBT/FIT 1971 Hepatitis C Screening 1971 Sigmoidoscopy 1971 PHQ-9 Depression Screen 1983 Complete Annual HRA 1989 DORIS-7 Anxiety Screen 1989 DTaP,Tdap,and Td Vaccines (1 - Tdap) 1990 Mammogram 01/14/2021 01/14/2019, 01/14/2019 Zoster Vaccines (1 of 2) 2021 Annual Preventive Exam 06/03/2022 , 09/19/2020, 09/19/2020 Cervical Cancer Screening (Pap/HPV) 01/11/202401/11 COVID-19 Vaccine ( season) 2024 Influenza Vaccine (#1) 2024 10/12/2020 RSV Vaccine (SCDM) (1 - 1-do se 75+ series) 2046 Care Teams Linen Worker Relationship Specialty Start Date End Date Silvestre Espino PA [address] [place] [id number] PCP - General Family Medicine 10/27/19
[2024-12-29 14:01] LABS: MANUAL DIFF FLAG NO
[2024-12-29 14:12] LABS: Basophils Absolute Auto 0.1 X10*3/uL (0.0-0.2); Basophils Percent Auto 0.7 % (0-2); Eosinophils Absolute Auto 0.4 X10*3/uL (0.0-0.4); Eosinophils Percent Auto 5.1 % (0-4); Hematocrit 45.8 % (37.0-47.0); Hemoglobin 15.4 g/dl (12.0-16.0); Imm Gran Abs Auto 0.03 X10*3/uL (0.00-0.03); Imm Gran Pct Auto 0.4 % (0.0-0.4); Lymphocytes Absolute Auto 2.1 X10*3/uL (1.2-4.9); Lymphocytes Percent Auto 24.8 % (20-40); Mean Corpuscular HGB Conc 33.6 g/dl (31.0-35.0); Mean Corpuscular Hemoglobin 29.1 pg (27.0-33.0); Mean Corpuscular Volume 86.6 fL (80.0-98.0); Mean Platelet Volume 9.8 fL (9.4-12.3); Monocytes Absolute Auto 0.4 X10*3/uL (0.1-1.2); Monocytes Percent Auto 5.1 % (2-11); Neutrophils Absolute Auto 5.4 x10*3/uL (2.0-8.3); Neutrophils Percent Auto 63.9 % (45-73); Platelet Count 249 X10*3/uL (160-400); Red Blood Count 5.29 X10*6/uL (4.20-5.50); Red Cell Distribution Width 13.3 % (11.0-16.0); White Blood Count 8.4 X10*3/uL (4.8-10.8)
[2024-12-29 14:39] LABS: Alanine Aminotransferase 25 U/L (0-31); Albumin Level 4.2 g/dL (3.5-5.0); Alkaline Phosphatase 88 U/L (39-117); Aspartate Amino Transferase 21 U/L (5-31); Bilirubin Direct < 0.2 mg/dL (0.0-0.5); Bilirubin Total 0.2 mg/dL (0.0-1.0); Lipase 37 U/L (8-78); Total Protein 7.5 g/dL (6.5-8.0)
== END 2024-12-29 12:57 | disposition home or self-care (01) ==
LOC: HO.LAB 12:56
PROVIDERS: PCP Internal Medicine; Visit Provider Internal Medicine Gastroenterology
DX: R10.11 Right upper quadrant pain (principal); Z87.19 Personal history of other diseases of the digestive system; Z98.0 Intestinal bypass and anastomosis status
CPT/HCPCS: 36415; 80076; 83690; 85025; 99212

== ENCOUNTER 2024-12-30 08:21 | Outpatient (AMB) | payer OTHER, SELFPAY ==
--- OUTSIDE RECORDS SUMMARY | 2024-12-30 08:42 | XMS_ITS | Clinical Summary ---
Author Organization [facility] Address [address] [place] [address] Care Team Providers Care Aviation Ordnance Officer Name Role Phone Silvestre Espino Primary Care Provider Allergies No known active allergies Medications Medication [...] 1-do se 75+ series) 2046 Care Teams Aviation Ordnance Officer Relationship Specialty Start Date End Date Silvestre Espino PA [address] [place] [id number] PCP - General Family Medicine 10/27/19
--- OUTSIDE RECORDS SUMMARY | 2024-12-30 08:42 | XMS_ITS | Clinical Summary ---
Author Organization [facility] Address [address] [place] [address] Care Team Providers Care Crutcher Helper Name Role Phone Thomas Cardoza Primary Care Provider [phone] Source Comments PLEASE NOTE, if this patient [...] mcg/actuation nasal sprayIndications: Nasal congestion Place 1 [place] in both nostrils once daily 16 g [...] (#1) 03/18/2023 Diabetes Screening 06/11/2024 06/11/2021, 06/11/2021 [id number] ( season) 2024 09/19/2021, 03/19/2021, 03/19/2021, Additional [...] 1:58 PM EDT) CLINICAL INFORMATION See Note [facility] Comment:None given LMP See Note [facility] Comment:[id number] PREV. PAP [facility] PREV. BX See Note [facility] Comment:NONE GIVEN SOURCE See Note [facility] Comment:Cervix, Endocervix STATEMENT OF ADEQUACY See Note [facility] Comment: Satisfactory for evaluation. Endocervical/transformation zone component present. INTERPRETATION/RESU LT See Note [facility] Comment:Negative for intraep ithelial lesion or malignancy. COMMENT See Note [facility] Comment: This Pap test has been evaluated with computer assisted technology. GAME TRAPPER See Note [facility] Comment: SL, CT(ASCP) CT screening location: [address] ??[address] COMMENT [facility] HPV MRNA E6/E7 Not Detected Not Detected [facility] Comment: Methodology: Spray Machine Loader-Mediated Amplification This assay detects E6/E7 viral messenger RNA (mRNA) from 14 high-risk HPV types (16,18,31,33,35,39,45,51,52,56,58,59,66,68). The analytical performance characteristics of this assay have been determined by [employer]. The modifications have not been cleared or approved by the FDA. This assay has been validated pursuant to the CLIA regulations and is used for clinical purposes. For additional information, please refer to http://education.Greenphire/faq/KUL718l2 (This link if provided for information/ educational purposes only.) Swab Cervix uteri structure / Unknown 03/18/2022 1:58 PM EDT 03/19/2022 7:25 AM EDT Narrative [facility] - 03/21/2022 2:21 PM EDT EXPLANATORY NOTE: [...] - NO BLOOD DRAW Final Re sult [facility] [address] [address], [facility] [address] [address] * REFERRAL FOR MAMMOGRAM (02/28/2022 3:00 AM EDT) 02/28/2022 3:00 AM EDT us Thomas BARNES IM RFL MAMMO Edited Result - Final * HEPATITIS C AB W/RFLX HCV RNA, QT, RT PCR (06/11/2021 10:44 AM EDT) HEPATITIS C ANTIBODY NON-REACT RADHA NON-REACT RADHA [facility] SIGNAL TO CUT-OFF 0.01 <1.00 [facility] Comment: HCV antibody was non-reactive. There is no laboratory evidence of HCV infection. In most cases, no further action is required. However, if recent HCV exposure is suspected, a test for HCV RNA (test code 75199) is suggested. For additional information please refer to http://[employer].Greenphire/faq/NXV38x6 (This link is being provided for informational/ educational purposes only.) Blood Blood / Unknown 06/11/2021 1 0:44 AM EDT 06/11/2021 10:44 AM EDT Narrative [facility] - 06/12/2021 11:29 AM EDT FASTING:YES Thomas BARNES LAB - BLOOD DRAW Edited Result - Final [facility] [address] [address], [facility] [address] [address] * HIV 1/2 AG & AB W/RFLX (4TH GEN) (06/11/2021 10:44 AM EDT) HIV AG/AB, 4TH GEN NON-REAC TIVE NON-REAC TIVE [facility] Comment: HIV-1 antigen and HIV-1/HIV-2 antibodies were [...] ?? For additional information please refer to http://[employer].Sleep Number.MadeiraMadeira/faq/QCY490 (This link is being provided for informational/ educational purposes only.) The performance of this assay has not been clinically validated in patients less than 2 years old. Blood Blood / Unknown 06/11/2021 1 0:44 AM EDT 06/11/2021 10:44 AM EDT Narrative [facility] - 06/12/2021 11:29 AM EDT FASTING:YES us Thomas BARNES [facility] - BLOOD DRAW Final Result Performing Organization Address City/[facility]/ZIP Co de Phone Number [facility] [address] [address], [facility] [address] [address] * (ABNORMAL) LIPID PANEL (06/11/2021 10:44 AM EDT) [facility] Signature CHOLESTEROL, TOTAL 175 <200 mg/dL [facility] HDL CHOLESTEROL 44 > OR = 40 mg/dL [facility] TRIGLYCERIDES 123 <150 mg/dL [facility] LDL-CHOLESTEROL 108(H) 99 mg/dL (calc) [facility] Comment: Reference range: <100 Desirable range <100 mg/dL for primary prevention; ?? <70 mg/dL for patients with CHD or diabetic patients with > or = 2 CHD risk factors. LDL-C is now calculated using the Mitchell-Julio calculation, which is a validated novel method providing better accuracy than the Friedewald equation in the estimation of LDL-C. Mitchell SS et al. MAR. 2013;310(19): 5202-8588 (http://education.dianboom/faq/MUM083) CHOL/HDLC RATIO 4.0 <5.0 (calc) [facility] NON-HDL CHOLESTEROL 131(H) <130 mg/dL (calc) [facility] Comment: For patients with diabetes plus 1 major ASCVD risk factor, treating to a non-HDL-C goal of <100 mg/dL (LDL-C of <70 mg/dL) is considered a therapeutic option. Blood Blood / Unknown 06/11/2021 1 0:44 AM EDT 06/11/2021 10:44 AM EDT Narrative [facility] - 06/12/2021 11:29 AM EDT FASTING:YES us Thomas BARNES [facility] - BLOOD DRAW Final Result [facility] [address] [address], [facility] [address] [address] * (ABNORMAL) COMPREHENSIVE METABOLIC PANEL (06/11/2021 10:44 AM EDT) GLUCOSE 78 65 - 99 mg/dL [facility] Comment: ?Fasting reference interval UREA NITROGEN (BUN) 11 7 - 25 mg/dL [facility] CREATININE (blood) 0.57(L) 0.60 - 1.35 mg/dL [facility] GFR ESTIMATED 121 > OR = 60 mL/min/1. 73m2 [facility] EGFR 140 > OR = 60 mL/min/1. 73m2 [facility] BUN/CREATININE RATIO 19 6 - 22 (calc) [facility] SODIUM 138 135 - 146 mmol/L [facility] POTASSIUM 4.4 3.5 - 5.3 mmol/L [facility] CHLORIDE 108 98 - 110 mmol/L [facility] CARBON DIOXIDE 23 20 - 32 mmol/L [facility] CALCIUM 8.9 8.6 - 10.3 mg/dL [facility] PROTEIN, TOTAL 6.7 6.1 - 8.1 g/dL [facility] ALBUMIN 4.1 3.6 - 5.1 g/dL [facility] GLOBULIN 2.6 1.9 - 3.7 g/dL (calc) [facility] ALBUMIN/GLOBULI N RATIO 1.6 1.0 - 2.5 (calc) [facility] BILIRUBIN, TOTAL 0.3 0.2 - 1.2 mg/dL [facility] ALKALINE PHOSPHATASE 81 36 - 130 U/L [facility] AST 12 10 - 40 U/L [facility] ALT 18 9 - 46 U/L [facility] Blood Blood / Unknown 06/11/2021 1 0:44 AM EDT 06/11/2021 10:44 AM EDT Narrative [facility] - 06/12/2021 11:29 AM EDT FASTING:YES Thomas [facility]ARNES [facility] - BLOOD DRAW Edited Result - Final [facility] [address] [facility] [address] [place] [address], [facility] 200 [facility] [address] [address] from Last 3 Months or Most Recently Relevant to Health Maintenance Insurance [employer] Care Teams Crutcher Helper Relationship Specialty Start Date End Date Thomas Cardoza PA [address] [place] [address] PCP - General [facility] 11/12/21
--- NOTE | 2024-12-30 08:46 | MHC.OFFVIS ---
Intake Visit Reasons: INJ- Trigger point injection #1 Intake Note: Camila is a 54 year old female who presents today for a trigger point injection #1 of upper trapezius and cervical paraspinals Allergies No Known Allergies Allergy (Verified 12/30/24 08:46) HPI Comments Details: Not a lot of change since last visit. Still right-sided pain. [facility] Medical History (Updated 12/29/24 @ 13:28 by Angelic Rogers MD) Carpal tunnel syndrome RLS (restless legs syndrome) HTN (hypertension) Surgical History Hx of colonoscopy History of carpal tunnel surgery History of arthroscopy of right shoulder Family History Maternal Grandmother Mental health disorder Sister Diverticulitis Brother Colon polyp Brother S/P colostomy History of colostomy reversal Father Lung cancer Liver cancer Cancer of kidney Social History Household Members: Other Household Members Other:: on disability for shoulder injury , lives with a partner, 1 daughter, Housing: Apartment Are you a primary wound care center consultant to a significant other at home: No Patient Tobacco Use Status: Former Tobacco user Cigarettes Per Day: 8 Years Smoked: 20 e-Cigarette/Vaping Use: Never Used service: No 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al status: disabled 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 Consent obtained. Trigger points palpated on right upper trapezius. Needling performed with gauge 27 needle, subsequently injecting 1 ml of 2% Lidocaine., total of 2 mL for 2 sites. Patient tolerated procedure well. Post-injection instructions given. [id number]-[id number] Point Injection 1 or 2 sites All charges added?: Procedure code (CPT) selection complete Assessment & Plan Assessment & Plan (1) Cervicogenic headache: Code(s): G44.86 - Cervicogenic headache Category: Medical (2) Myofascial pain on right side: Code(s): M79.18 - Myalgia, other site Category: Medical Plan Next injection next week. Assessment and plan discussed with patient, and patient was agreeable. All questions were answered thoroughly. Sandra Robles MD, JAMILAH Board Certified, [place] Board [employer] Medicine and Rehabilitation (ABPMR) Board Certified, [place] Board of Electrodiagnostic Medicine (ABEM) Orders: Orders AMB Trigger Point Injection Today M79.18 - Myalgia, other site Coding Level of Care Code Procedure Only Diagnoses Cervicogenic headache G44.86 Myofascial pain on right side M79.18 CPT Codes Therapeutic Injection - Ther Injection 1: 23173-Zablozg Point Injection 1 or 2 sites ([id number])
== END 2024-12-30 09:05 | disposition home or self-care (01) ==
PROVIDERS: PCP Internal Medicine; Visit Provider Physical Medicine & Rehabilitation
DX: G44.86 Cervicogenic headache (principal); M79.18 Myalgia, other site
CPT/HCPCS: 20552

== ENCOUNTER 2024-12-30 09:12 | Outpatient (REF) | END 2024-12-30 09:13 | disposition home or self-care (01) | LOC: HO.US 09:12 | DX: R10.11 Right upper quadrant pain (principal) ==

== ENCOUNTER 2024-12-30 13:01 | Outpatient (AMB) | payer OTHER, SELFPAY ==
[2024-12-30 13:18] VITALS: BP 118/70; PULSE 94; RESP 20; TEMP 36.7; O2SAT 95; BMI 31.4
--- NOTE | 2024-12-30 13:18 | MHC.PC.OV ---
Vital Signs 12/30/24 13:18 Height 5 ft 1 in Weight 166 lb BMI 31.4 BP 118/70 Blood Pressure Location Lt brachial Position Sitting Respiration 20 Pulse 94 Pulse Source Pulse Oximeter Temp 98.0 F Temp Source Oral Pulse Oximetry (%) 95 Oxygen Delivery Method Room Air Intake Visit Reasons: Annual PE Intake Note: Pt is here today for PE. Allergies No Known Allergies Allergy (Verified 12/30/24 13:18) Medication List - Last Reconciled 12/30/24 by Valeria Horowitz MD gabapentin 900 mg PO BEDTIME ibuprofen 800 mg PO TID PRN lisinopril 20 mg PO DAILY omeprazole 20 mg PO DAILY 30 days psyllium husk (Metamucil) 1 tbsp PO DAILY 30 days sertraline 100 mg PO DAILY trazodone 50 mg PO BEDTIME PRN Tobacco use date assessed: 12/30/24 Dental Screening Dental Screen Date: 12/30/24 Did you have a dental visit in the last 12 months?: No Did you have a dental problem in the last 6 months where you did not have access to dental care?: No Was dental information given to patient?: Patient declined HPI Annual PE HPI Details Pt presents for PE PFSH Medical History (Updated 12/30/24 @ 13:54 by Valeria Horowitz MD) Carpal tunnel syndrome RLS (restless legs syndrome) HTN (hypertension) Surgical History (Updated 12/30/24 @ 13:52 by Valeria Horowitz MD) Hx of colonoscopy History of carpal tunnel surgery History of arthroscopy of right shoulder Family History Maternal Grandmother Mental health disorder Sister Diverticulitis Brother Colon polyp Brother S/P colostomy History of colostomy reversal Father Lung cancer Liver cancer Cancer of kidney Social History Household Members: Other Household Members Other:: on disability for shoulder injury , lives with a partner, 1 daughter, Housing: Apartment Are you a primary child care aide to a significant other at home: No Patient Tobacco Use Status: Former Tobacco user Cigarettes Per Day: 8 Years Smoked: 20 e-Cigarette/Vaping Use: Never Used service: No 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al status: disabled 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 1. Little interest or pleasure in doing things: more than half the days 2. Feeling down, depressed, or hopeless: nearly every day 3. Trouble falling or staying asleep, or sleeping too much: nearly every day 4. Feeling tired or having little energy: nearly every day 5. Poor appetite or overeating: nearly every day 6. Feeling bad about yourself - or that you are a failure or have let yourself or your family down: more than half the days 7. Trouble concentrating on things, such as reading the newspaper or watching television: more than half the days 8. Moving or speaking so slowly that other people could have noticed. Or the opposite - being so fidgety or restless that you have been moving around a lot more than usual: nearly every day 9. Thoughts that you would be better off or of hurting yourself in some way: not at all Total score: 21 Depression Screening Interpretation: Positive (Patient is established with therapist waiting for new psychiatrist, change sertraline to Cymbalta 12/2024) Depression Screening Follow-up: Existing condition, In treatment and Change in Medication Depression Screening Done: Yes 97549 - PHQ-9 Billing: Yes Source: Developed by Drs. Karri Plata, Perla Xie, Carroll Guevara and colleagues, with an educational manpreet from [employer]. Thrive Questionnaire Date Thrive assessed: 12/30/24 I am a: Patient What is your living situation today?: I have a steady place to live Within the past 12 months, did the food you bought not last and you didn't have the money to get more?: Often true Within the past 12 months, did you worry whether your food would run out before you got money to buy more?: Often true Do you have trouble paying for medicines?: No Do you have trouble getting transportation to medical appointments?: No Do you have trouble paying your heating and electricity bill?: I choose not to answer this question Do you have trouble taking care of your child, family member or friend?: No Do you have trouble with day-to-day activities such as bathing, preparing meals, shopping, managing finances, etc.?: Yes Are you currently unemployed and looking for a job?: No Are you interested in more education?: No Please select the resources that you would like help with: None Currently or been in a relationship where the following occur: No concerns reported THRIVE Score: 2 AUDIT C Alcohol Use Questionnaire (AUDIT-C) 1. How often do you have a drink containing alcohol?: Never 3. How often do you have six or more drinks on one occasion?: Never Total Score: 0 DORIS-7 AMB Questionnaire DORIS-7 Date DORIS - 7 assessed: 12/30/24 Feeling nervous, anxious, or on edge: 3 = Nearly every day Not being able to stop or control worryin = More than half the days Worrying too much about different things: 3 = Nearly every day Trouble relaxin = Nearly every day Being so restless that it is hard to sit still: 2 = More than half the days Becoming easily annoyed or irritable: 2 = More than half the days Feeling afraid as if something awful might happen: 3 = Nearly every day Total DORIS-7 score (0-4 normal; 5-9 mild; 10-14 moderate; 15-21 severe): 18 Source: Developed by Drs. Karri Plata, Perla Xie, Carroll Guevara and colleagues, with an educational manpreet from [employer]. DORIS-7 Assessment Billing DORIS-7 Assessment Tool: DORIS-7 Assessment 05764 Review of Systems Const All systems reviewed & are unremarkable except as noted in HPI and below Eyes Reports no additional complaints ENT Reports no additional complaints Card Reports no additional complaints Resp Reports no additional complaints GI Reports no additional complaints Reports no additional complaints Musc Reports no additional complaints Physical exam (Primary Care) Vital Signs: Last Vital Signs Temp 98.0 F 12/30/24 13:18 Pulse 94 12/30/24 13:18 Resp 20 12/30/24 13:18 BP 118/70 12/30/24 13:18 Pulse Ox 95 12/30/24 13:18 Oxygen Delivery Method Room Air 12/30/24 13:18 BMI result Body Mass Index 31.4 Tobacco/Smoking Status: Tobacco use Status Tobacco use date assessed 12/30/24 12/30/24 13:26 Patient Tobacco Use Status Former Tobacco user 12/30/24 13:26 e-Cigarette/Vaping Use Never Used 12/30/24 13:26 PHQ-9: PHQ-9 Score PHQ-9: Total score 21 12/30/24 13:26 Depression Screening Interpretation: Positive (Patient is established with therapist waiting for new psychiatrist, change sertraline to Cymbalta 12/2024) Depression Screening Follow-up: Existing condition, In treatment and Change in Medication Thrive Assessment: Date of Thrive Assessment Date Thrive assessed 12/30/24 12/30/24 13:26 Currently or been in a relationship where the following occur: No concerns reported Const General: no acute distress HENMT Head: Yes normal to inspection Ears: hearing grossly normal bilaterally Face and sinus: Yes normal facial exam Mouth: Normal oral and palatal mucosa present Eyes General: appearance normal, both eyes and all related structures Neck Neck: Yes supple Resp Effort & Inspection: normal respiratory effort Auscultation: clear to auscultation bilaterally Cardio Rhythm: regular rhythm Heart sounds: S1 normal heart sound present and S2 normal heart sound present GI Inspection: Yes normal to inspection Palpation (GI): Soft to palpation Percussion: Yes normal to percussion Auscultation: normal bowel sounds Coding Level of Care Code Est Pt Prev Care 40-64y(20924) Diagnoses Hx of colonoscopy Z98.890 Anxiety and depression F41.9; F32.A Normal Pap smear Z12.4 Fibromyalgia syndrome M79.7 Annual physical exam Z00.00 Hx of screening mammography Z92.89 HTN (hypertension) I10 Additional Codes DORIS-7 Assessment Billing - DORIS-7 Assessment Tool: DORIS-7 Assessment 32369 ([id number]) PHQ-9 - 28990 - PHQ-9 Billing: Yes ([id number]) Assessment & Plan Assessment & Plan (1) Hx of colonoscopy: Comment: Dr. Rogers, 2 polyps no TA Code(s): Z98.890 - Other specified postprocedural states Category: Surgical Plan: Established with GI (2) Anxiety and depression: Comment: Established with a counselor and waiting for Psychiatry evaluation Code(s): F41.9 - Anxiety disorder, unspecified; F32.A - Depression, unspecified Category: Medical Plan: Patient will taper off Zoloft and will start Cymbalta 20 mg twice a day for the depression anxiety and fibromyalgia. Patient will continue trazodone and will follow-up with therapist and psychiatrist (3) Normal Pap smear: Comment: 11/2023 negative HPV Code(s): Z12.4 - Encounter for screening for malignant neoplasm of cervix Category: Medical Plan: Up-to-date with the Pap (4) Fibromyalgia syndrome: Comment: evaluated by Dr. Starr ATC recommended Cybalta but will not treat pt 10/2024 Code(s): M79.7 - Fibromyalgia Category: Medical Plan: Start Cymbalta as above (5) Annual physical exam: Code(s): Z00.00 - Encounter for general adult medical examination without abnormal findings Category: Medical Plan: Well-balanced diet regular physical activity discussed with the patient she has mammogram at [facility] and is up-to-date with the Pap smear and colonoscopy (6) Hx of screening mammography: Comment: [facility] 06/2024 Code(s): Z92.89 - Personal history of other medical treatment Category: Medical Plan: Established with [facility] (7) HTN (hypertension): Code(s): I10 - Essential (primary) hypertension Category: Medical Plan: Continue lisinopril Medications: New duloxetine (Cymbalta) 20 mg PO BID 180 caps 0RF Discontinued sertraline Discontinued Reason: Doctor's Order 100 mg PO DAILY 90 tabs 3RF
--- OUTSIDE RECORDS SUMMARY | 2024-12-30 13:37 | XMS_ITS | Clinical Summary ---
Author Organization [facility] Address [address] [place] [address] Care Team Providers Care Gang Drill Operator Name Role Phone Silvestre Espino Primary Care Provider [phone] Allergies No known active allergies Medications Medication [...] 1-do se 75+ series) 2046 Care Teams Gang Drill Operator Relationship Specialty Start Date End Date Silvestre Espino PA [address] [place] [id number] PCP - General Family Medicine 10/27/19
--- OUTSIDE RECORDS SUMMARY | 2024-12-30 13:37 | XMS_ITS | Clinical Summary ---
Author Organization [facility] Address [address] [place] [address] Care Team Providers Care International Exchange Coordinator Name Role Phone Thomas Cardoza Primary Care Provider [phone] Source Comments PLEASE NOTE, if this patient [...] mcg/actuation nasal sprayIndications: Nasal congestion Place 1 [place] in both nostrils once daily 16 g [...] (#1) 03/18/2023 Diabetes Screening 06/11/2024 06/11/2021, 06/11/2021 [id number] ( season) 2024 09/19/2021, 03/19/2021, 03/19/2021, Additional [...] 1:58 PM EDT) CLINICAL INFORMATION See Note [employer] Comment:None given LMP See Note [employer] Comment:[id number] PREV. PAP [employer] PREV. BX See Note [employer] Comment:NONE GIVEN SOURCE See Note [employer] Comment:Cervix, Endocervix STATEMENT OF ADEQUACY See Note [employer] Comment: Satisfactory for evaluation. Endocervical/transformation zone component present. INTERPRETATION/RESU LT See Note [employer] Comment:Negative for intraep ithelial lesion or malignancy. COMMENT See Note [employer] Comment: This Pap test has been evaluated with computer assisted technology. PERSONAL PROTECTION SPECIALIST See Note [facility] Comment: SL, CT(ASCP) CT screening location: [address] ??[address] COMMENT [employer] HPV MRNA E6/E7 Not Detected Not Detected [employer] Comment: Methodology: Warehouse Representative-Mediated Amplification This assay detects E6/E7 viral messenger RNA (mRNA) from 14 high-risk HPV types (16,18,31,33,35,39,45,51,52,56,58,59,66,68). The analytical performance characteristics of this assay have been determined by [employer]. The modifications have not been cleared or approved by the FDA. This assay has been validated pursuant to the CLIA regulations and is used for clinical purposes. For additional information, please refer to http://education.US [employer]./faq/ZZM794o1 (This link if provided for information/ educational purposes only.) Swab Cervix uteri structure / Unknown 03/18/2022 1:58 PM EDT 03/19/2022 7:25 AM EDT Narrative [employer] - 03/21/2022 2:21 PM EDT EXPLANATORY NOTE: [...] - NO BLOOD DRAW Final Re sult [facility] [address] [address], [facility] [address] [address] * REFERRAL FOR MAMMOGRAM (02/28/2022 3:00 AM EDT) 02/28/2022 3:00 AM EDT us Thomas BARNES IM RFL MAMMO Edited Result - Final * HEPATITIS C AB W/RFLX HCV RNA, QT, RT PCR (06/11/2021 10:44 AM EDT) HEPATITIS C ANTIBODY NON-REACT RADHA NON-REACT RADHA [employer] SIGNAL TO CUT-OFF 0.01 <1.00 [employer] Comment: HCV antibody was non-reactive. There is no laboratory evidence of HCV infection. In most cases, no further action is required. However, if recent HCV exposure is suspected, a test for HCV RNA (test code 53463) is suggested. For additional information please refer to http://Dynadmic.[employer]./faq/CJT09b8 (This link is being provided for informational/ educational purposes only.) Blood Blood / Unknown 06/11/2021 1 0:44 AM EDT 06/11/2021 10:44 AM EDT Narrative [employer] [facility] - 06/12/2021 11:29 AM EDT FASTING:YES Thomas BARNES LAB - BLOOD DRAW Edited Result - Final [employer] [address] [address], [facility] [address],[place] [address] * HIV 1/2 AG & AB W/RFLX (4TH GEN) (06/11/2021 10:44 AM EDT) HIV AG/AB, 4TH GEN NON-REAC TIVE NON-REAC TIVE [employer] Comment: HIV-1 antigen and HIV-1/HIV-2 antibodies were [...] ?? For additional information please refer to http://Dynadmic.Trampoline Systems.1Energy Systems/faq/SMX896 (This link is being provided for informational/ educational purposes only.) The performance of this assay has not been clinically validated in patients less than 2 years old. Blood Blood / Unknown 06/11/2021 1 0:44 AM EDT 06/11/2021 10:44 AM EDT Narrative [employer] [facility] - 06/12/2021 11:29 AM EDT FASTING:YES us Thomas BARNES LAB - BLOOD DRAW Final Result Performing Organization Address City/[facility]/ZIP Co de Phone Number [facility] [address] [address], [facility] [address],[place] [address] * (ABNORMAL) LIPID PANEL (06/11/2021 10:44 AM EDT) [facility] Signature CHOLESTEROL, TOTAL 175 <200 mg/dL [facility] HDL CHOLESTEROL 44 > OR = 40 mg/dL [facility] [employer] TRIGLYCERIDES 123 <150 mg/dL [facility] LDL-CHOLESTEROL 108(H) 99 mg/dL (calc) [facility] Comment: Reference range: <100 Desirable range <100 mg/dL for primary prevention; ?? <70 mg/dL for patients with CHD or diabetic patients with > or = 2 CHD risk factors. LDL-C is now calculated using the Mitchell-Julio calculation, which is a validated novel method providing better accuracy than the Friedewald equation in the estimation of LDL-C. Mitchell SS et al. MAR. 2013;310(19): 6756-6722 (http://education.Grid2020/faq/QIK123) CHOL/HDLC RATIO 4.0 <5.0 (calc) [employer] [facility] NON-HDL CHOLESTEROL 131(H) <130 mg/dL (calc) [facility] Comment: For patients with diabetes plus 1 major ASCVD risk factor, treating to a non-HDL-C goal of <100 mg/dL (LDL-C of <70 mg/dL) is considered a therapeutic option. Blood Blood / Unknown 06/11/2021 1 0:44 AM EDT 06/11/2021 10:44 AM EDT Narrative [employer] [facility] - 06/12/2021 11:29 AM EDT FASTING:YES us Thomas BARNES LAB - BLOOD DRAW Final Result [employer] [facility] [address] [address], [facility] [address],[place] [address] * (ABNORMAL) COMPREHENSIVE METABOLIC PANEL (06/11/2021 10:44 AM EDT) GLUCOSE 78 65 - 99 mg/dL [facility] Comment: ?Fasting reference interval UREA NITROGEN (BUN) 11 7 - 25 mg/dL [facility] CREATININE (blood) 0.57(L) 0.60 - 1.35 mg/dL [facility] GFR ESTIMATED 121 > OR = 60 mL/min/1. 73m2 [facility] EGFR 140 > OR = 60 mL/min/1. 73m2 [facility] BUN/CREATININE RATIO 19 6 - 22 (calc) [facility] SODIUM 138 135 - 146 mmol/L [facility] POTASSIUM 4.4 3.5 - 5.3 mmol/L [facility] CHLORIDE 108 98 - 110 mmol/L [facility] CARBON DIOXIDE 23 20 - 32 mmol/L [facility] CALCIUM 8.9 8.6 - 10.3 mg/dL [facility] PROTEIN, TOTAL 6.7 6.1 - 8.1 g/dL [facility] ALBUMIN 4.1 3.6 - 5.1 g/dL [facility] GLOBULIN 2.6 1.9 - 3.7 g/dL (calc) [facility] ALBUMIN/GLOBULI N RATIO 1.6 1.0 - 2.5 (calc) [facility] BILIRUBIN, TOTAL 0.3 0.2 - 1.2 mg/dL [facility] ALKALINE PHOSPHATASE 81 36 - 130 U/L [facility] AST 12 10 - 40 U/L [facility] ALT 18 9 - 46 U/L [facility] Blood Blood / Unknown 06/11/2021 1 0:44 AM EDT 06/11/2021 10:44 AM EDT Narrative [employer] [facility] - 06/12/2021 11:29 AM EDT FASTING:YES Thomas BARNES LAB - BLOOD DRAW Edited Result - Final [facility] 200 [facility] [address] [place] [address], [employer] [facility] 200 [facility] [address],[place] [address] from Last 3 Months or Most Recently Relevant to Health Maintenance Insurance [employer] Care Teams International Exchange Coordinator Relationship Specialty Start Date End Date Thomas Cadroza PA [address] [place] [address] PCP - General FAMILY MEDICINE PA 11/12/21
== END 2024-12-30 13:55 | disposition home or self-care (01) ==
PROVIDERS: PCP Internal Medicine; Visit Provider Internal Medicine
DX: Z00.00 Encounter for general adult medical examination without abnormal findings (principal); Z98.890 Other specified postprocedural states; F41.9 Anxiety disorder, unspecified; F32.A Depression, unspecified; Z12.4 Encounter for screening for malignant neoplasm of cervix; M79.7 Fibromyalgia; Z92.89 Personal history of other medical treatment; I10 Essential (primary) hypertension

== ENCOUNTER 2025-01-17 08:52 | Outpatient (REF) | payer OTHER, SELFPAY ==
--- NOTE | ~2025-01-17 | XR_ITS ---
EXAMINATION: XR HIP 2 OR MORE VIEWS RIGHT, XR HIP 2 OR MORE VIEWS LEFT HISTORY: M25.551 - Pain in right hip COMPARISON: There are no prior studies for comparison. FINDINGS: Two views of each hip are submitted. Osseous mineralization is normal. There is no fracture or dislocation. The joint space is maintained. There is mild sclerosis of the iliac sides of the bilateral sacroiliac joints. The soft tissues are unremarkable. XR/XR hip LT min 2V IMPRESSION: Mild sclerosis of the iliac sides of the bilateral sacroiliac joints. Otherwise unremarkable examination of the bilateral hips. Electronically signed by: Karri Moran MD 01/18/2025 07:25 AM JAIME
--- NOTE | ~2025-01-17 | XR_ITS ---
EXAMINATION: XR HIP 2 OR MORE VIEWS RIGHT, XR HIP 2 OR MORE VIEWS LEFT HISTORY: M25.551 - Pain in right hip COMPARISON: There are no prior studies for comparison. FINDINGS: Two views of each hip are submitted. Osseous mineralization is normal. There is no fracture or dislocation. The joint space is maintained. There is mild sclerosis of the iliac sides of the bilateral sacroiliac joints. The soft tissues are unremarkable. XR/XR hip RT min 2V IMPRESSION: Mild sclerosis of the iliac sides of the bilateral sacroiliac joints. Otherwise unremarkable examination of the bilateral hips. Electronically signed by: Karri Moran MD 01/18/2025 07:25 AM JAIME
--- OUTSIDE RECORDS SUMMARY | 2025-01-17 10:26 | XMS_ITS | Clinical Summary ---
Author Organization [facility] Address [address] [place] [address] Care Team Providers Care Chemical Operations Specialist Name Role Phone Thomas Cardoza Primary Care Provider [phone] Source Comments PLEASE NOTE, if this patient [...] mcg/actuation nasal sprayIndications: Nasal congestion Place 1 [place] in both nostrils once daily 16 g [...] (#1) 03/18/2023 Diabetes Screening 06/11/2024 06/11/2021, 06/11/2021 [id number] ( season) 2024 09/19/2021, 03/19/2021, 03/19/2021, Additional [...] 1:58 PM EDT) CLINICAL INFORMATION See Note [employer] Comment:None given LMP See Note [employer] Comment:[id number] PREV. PAP [employer] PREV. BX See Note [employer] Comment:NONE GIVEN SOURCE See Note [employer] Comment:Cervix, Endocervix STATEMENT OF ADEQUACY See Note [employer] Comment: Satisfactory for evaluation. Endocervical/transformation zone component present. INTERPRETATION/RESU LT See Note [employer] Comment:Negative for intraep ithelial lesion or malignancy. COMMENT See Note [employer] Comment: This Pap test has been evaluated with computer assisted technology. MEDICAL RECORD RETRIEVAL SPECIALIST See Note [facility] [employer] Comment: SL, CT(ASCP) CT screening location: [address] ??[address] COMMENT [employer] HPV MRNA E6/E7 Not Detected Not Detected [employer] Comment: Methodology: Bricklayer Helper-Mediated Amplification This assay detects E6/E7 viral messenger RNA (mRNA) from 14 high-risk HPV types (16,18,31,33,35,39,45,51,52,56,58,59,66,68). The analytical performance characteristics of this assay have been determined by [employer]. The modifications have not been cleared or approved by the FDA. This assay has been validated pursuant to the CLIA regulations and is used for clinical purposes. For additional information, please refer to http://education.Unbound/faq/NFH356v8 (This link if provided for information/ educational purposes only.) Swab Cervix uteri structure / Unknown 03/18/2022 1:58 PM EDT 03/19/2022 7:25 AM EDT Narrative [facility] - 03/21/2022 2:21 PM EDT EXPLANATORY NOTE: [...] - NO BLOOD DRAW Final Re sult [facility] [address] [address], [facility] [address] [address] * REFERRAL FOR MAMMOGRAM (02/28/2022 3:00 AM EDT) 02/28/2022 3:00 AM EDT us Thomas BARNES IM RFL MAMMO Edited Result - Final * HEPATITIS C AB W/RFLX HCV RNA, QT, RT PCR (06/11/2021 10:44 AM EDT) HEPATITIS C ANTIBODY NON-REACT RADHA NON-REACT RADHA [employer] SIGNAL TO CUT-OFF 0.01 <1.00 [employer] Comment: HCV antibody was non-reactive. There is no laboratory evidence of HCV infection. In most cases, no further action is required. However, if recent HCV exposure is suspected, a test for HCV RNA (test code 76836) is suggested. For additional information please refer to http://Baokim.Unbound/faq/HJP69v7 (This link is being provided for informational/ educational purposes only.) Blood Blood / Unknown 06/11/2021 1 0:44 AM EDT 06/11/2021 10:44 AM EDT Narrative [facility] - 06/12/2021 11:29 AM EDT FASTING:YES Thomas BARNES LAB - BLOOD DRAW Edited Result - Final [facility] [address] [address], [facility] [address],[place] [address] * HIV 1/2 AG & AB W/RFLX (4TH GEN) (06/11/2021 10:44 AM EDT) HIV AG/AB, 4TH GEN NON-REAC TIVE NON-REAC TIVE [employer] Comment: HIV-1 antigen and HIV-1/HIV-2 antibodies were [...] ?? For additional information please refer to http://Baokim.Dizmo.Nubleer Media/faq/FQH765 (This link is being provided for informational/ educational purposes only.) The performance of this assay has not been clinically validated in patients less than 2 years old. Blood Blood / Unknown 06/11/2021 1 0:44 AM EDT 06/11/2021 10:44 AM EDT Narrative [facility] - 06/12/2021 11:29 AM EDT FASTING:YES us Thomas BARNES LAB - BLOOD DRAW Final Result Performing Organization Address City/[facility]/ZIP Co de Phone Number [facility] [address] [address], [facility] [address],[place] [address] * (ABNORMAL) LIPID PANEL (06/11/2021 10:44 AM EDT) [facility] Signature CHOLESTEROL, TOTAL 175 <200 mg/dL [facility] HDL CHOLESTEROL 44 > OR = 40 mg/dL [facility] TRIGLYCERIDES 123 <150 mg/dL [facility] LDL-CHOLESTEROL 108(H) 99 mg/dL (calc) [facility] Comment: Reference range: <100 Desirable range <100 mg/dL for primary prevention; ?? <70 mg/dL for patients with CHD or diabetic patients with > or = 2 CHD risk factors. LDL-C is now calculated using the Mitchell-Julio calculation, which is a validated novel method providing better accuracy than the Friedewald equation in the estimation of LDL-C. Mitchell SS et al. MAR. 2013;310(19): 2807-6874 (http://education.GoldenSUN/faq/HTS614) CHOL/HDLC RATIO 4.0 <5.0 (calc) [facility] NON-HDL CHOLESTEROL 131(H) <130 mg/dL (calc) [facility] Comment: For patients with diabetes plus 1 major ASCVD risk factor, treating to a non-HDL-C goal of <100 mg/dL (LDL-C of <70 mg/dL) is considered a therapeutic option. Blood Blood / Unknown 06/11/2021 1 0:44 AM EDT 06/11/2021 10:44 AM EDT Narrative [facility] - 06/12/2021 11:29 AM EDT FASTING:YES us Thomas BARNES LAB - BLOOD DRAW Final Result [facility] [address] [address], [facility] [address],[place] [address] * (ABNORMAL) COMPREHENSIVE METABOLIC PANEL (06/11/2021 10:44 AM EDT) GLUCOSE 78 65 - 99 mg/dL [facility] Comment: ?Fasting reference interval UREA NITROGEN (BUN) 11 7 - 25 mg/dL [facility] CREATININE (blood) 0.57(L) 0.60 - 1.35 mg/dL [facility] GFR ESTIMATED 121 > OR = 60 mL/min/1. 73m2 [facility] EGFR 140 > OR = 60 mL/min/1. 73m2 [facility] BUN/CREATININE RATIO 19 6 - 22 (calc) [facility] SODIUM 138 135 - 146 mmol/L [facility] POTASSIUM 4.4 3.5 - 5.3 mmol/L [facility] CHLORIDE 108 98 - 110 mmol/L [facility] CARBON DIOXIDE 23 20 - 32 mmol/L [facility] CALCIUM 8.9 8.6 - 10.3 mg/dL [facility] PROTEIN, TOTAL 6.7 6.1 - 8.1 g/dL [facility] ALBUMIN 4.1 3.6 - 5.1 g/dL [facility] GLOBULIN 2.6 1.9 - 3.7 g/dL (calc) [facility] ALBUMIN/GLOBULI N RATIO 1.6 1.0 - 2.5 (calc) [facility] BILIRUBIN, TOTAL 0.3 0.2 - 1.2 mg/dL [facility] ALKALINE PHOSPHATASE 81 36 - 130 U/L [facility] AST 12 10 - 40 U/L [facility] ALT 18 9 - 46 U/L [facility] Blood Blood / Unknown 06/11/2021 1 0:44 AM EDT 06/11/2021 10:44 AM EDT Narrative [facility] - 06/12/2021 11:29 AM EDT FASTING:YES Thomas BARNES LAB - BLOOD DRAW Edited Result - Final [facility] 200 [facility] [address] [place] [address], [facility] 200 [facility] [address],[place] [address] from Last 3 Months or Most Recently Relevant to Health Maintenance Insurance [employer] Care Teams Chemical Operations Specialist Relationship Specialty Start Date End Date Thomas Cardoza PA [address] [place] [address] PCP - General FAMILY MEDICINE PA 11/12/21
--- OUTSIDE RECORDS SUMMARY | 2025-01-17 10:26 | XMS_ITS | Clinical Summary ---
Author Organization [facility] Address [address] [place] [address] Care Team Providers Care Magistrate Name Role Phone Silvestre Espino Primary Care Provider [phone] Allergies No known active allergies Medications traZODone [...] 75+ series) 2046 Insurance [employer] Care Teams Magistrate Relationship Specialty Start Date End Date Silvestre Espino PA [address] [place] [address] PCP - General Family Medicine 10/27/19
== END 2025-01-17 08:53 | disposition home or self-care (01) ==
LOC: HO.HOSX 08:52
PROVIDERS: PCP Internal Medicine; Visit Provider Physical Medicine & Rehabilitation
DX: M25.551 Pain in right hip (principal); M47.816 Spondylosis without myelopathy or radiculopathy, lumbar region; M54.16 Radiculopathy, lumbar region; M16.12 Unilateral primary osteoarthritis, left hip; R20.0 Anesthesia of skin
CPT/HCPCS: 73502; 99212

== ENCOUNTER 2025-01-17 08:52 | Outpatient (AMB) | payer OTHER, SELFPAY ==
--- NOTE | 2025-01-17 08:58 | A.OFFVIS_ITS ---
Vital Signs 01/17/25 09:04 Height 5 ft 1 in Intake Visit Reasons: New prob- B/L leg numbness Intake Note: [place] 54 yr old female presents today for a new problem visit for bilateral leg pain. State she is having numbness in her lower extremity since 2021. She denies injury. Both sides feel the same. Patient has tried ice, heat stretching, exercise with no improvement. She has not yet tried physical therapy. She has not had an EMG. Degreasing Wheel Operator Required: No Allergies No Known Allergies Allergy (Verified 01/17/25 09:03) Medication List - Last Reconciled 01/17/25 by Jazmyn Collins, RN duloxetine (Cymbalta) 20 mg PO BID gabapentin 900 mg PO BEDTIME ibuprofen 800 mg PO TID PRN lisinopril 20 mg PO DAILY omeprazole 20 mg PO DAILY 30 days psyllium husk (Metamucil) 1 tbsp PO DAILY 30 days trazodone 50 mg PO BEDTIME PRN HPI Comments Details: I've seen Camila for cervicalgia/myofascial pain. Here to discuss a different problem. Back pain for 2 years, without inciting injury. Midline/sacral/coccyx area, radating down to left thigh (left worse than right). Electrical shock on left lower leg and ankle. Both legs get stuck when walking and stairs. Both feet numbness, left worse than right. Non diabetic. Admits to groin pain with flexion of hips/legs. No bladder/bowel incontinence. Frequency urinary at night. Previous lumbar xrays 2023 as below. Treatment done so far: Chiropractor 2020 PT for lower back July-September 2024 Continued home exercises taught by PT [facility] Medical History (Updated 01/17/25 @ 09:24 by Sandra Robles MD) Carpal tunnel syndrome RLS (restless legs syndrome) HTN (hypertension) Surgical History (Updated 12/30/24 @ 13:52 by Valeria Horowitz MD) Hx of colonoscopy History of carpal tunnel surgery History of arthroscopy of right shoulder Family History Maternal Grandmother Mental health disorder Sister Diverticulitis Brother Colon polyp Brother S/P colostomy History of colostomy reversal Father Lung cancer Liver cancer Cancer of kidney Social History Household Members: Other Household Members Other:: on disability for shoulder injury , lives with a partner, 1 daughter, Housing: Apartment Are you a primary senior caregiver to a significant other at home: No Patient Tobacco Use Status: Former Tobacco user Cigarettes Per Day: 8 Years Smoked: 20 e-Cigarette/Vaping Use: Never Used service: No 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al status: disabled 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 Patient was appropriately conversant and oriented. Good historian. MSK: No specific abnormalities found on inspection of the spine and all extremities. No pain with palpation over the lumbar area. Tender on both SI joints. GT nontender. Lumbar ROM was full. Bilateral hip, knee and ankle ROM WNL. No ligamentous laxity or crepitance. No increased effusion. Slump sit positive left. FABERE test positive hip pain bilateral. Strength is 5/5 in all muscle groups tested. No increased tone noted. Neurological: Neurologic examination of the upper and lower extremities was nonfocal with intact sensation, muscle stretch reflexes and without focal motor deficits . Lopez?s negative bilaterally. Babinski was down going bilaterally. Clonus was negative. Gait is non-antalgic without loss of balance. Results Reviewed Results Reviewed: I independently reviewed the results of the following: Decreased disc space L5-S1 on lumbar x-ray done few months ago. Ordering Physician: Valeria Horowitz MD Date of Service: 06/17/24 Procedure(s): XR lumbar spine 2-3V Accession Number(s): [id number] cc: Valeria Horowitz MD~ EXAMINATION: XR LUMBOSACRAL SPINE CLINICAL INFORMATION: Low back pain. COMPARISON: Radiograph lumbar spine 06/21/2021. TECHNIQUE: Three views of the lumbosacral spine. FINDINGS: No evidence of acute compression deformity or subluxation. Mild intervertebral disc height loss of facet arthropathy at L5-S1, increased compared to 2020. SI joints are symmetric. No significant paraspinal soft tissue abnormality. A few pelvic phleboliths are seen. XR/XR lumbar spine 2-3V IMPRESSION: 1. No acute compression deformity or subluxation. 2. Mild lumbar spondylosis at L5-S1, increased compared to 2020. Assessment & Plan Assessment & Plan (1) Lumbar spondylosis: Code(s): M47.816 - Spondylosis without myelopathy or radiculopathy, lumbar region Category: Medical (2) Lumbar radiculitis: Code(s): M54.16 - Radiculopathy, lumbar region Category: Medical (3) Bilateral leg numbness: Code(s): R20.0 - Anesthesia of skin Category: Medical (4) Lumbar spondylosis: Code(s): M47.816 - Spondylosis without myelopathy or radiculopathy, lumbar region Category: Medical (5) Lumbar radiculitis: Code(s): M54.16 - Radiculopathy, lumbar region Category: Medical Plan Chronic lower back pain with possibly left side radiculopathy symptoms. Patient had undergone adequate conservative management including 3 months of physical therapy less than 6 months ago without improvement of condition. It would be reasonable to obtain further imaging such as MRI. An MRI would help rule out any serious condition, guide treatment and assess prognosis for recovery. Specifically ruling out L5-S1 lumbar stenosis or nerve impingement. Additional workup ordered: Hip x-rays to rule out hip DJD. EMG to rule out neuropathy versus radiculopathy. Assessment and plan discussed with patient, and patient was agreeable. All questions were answered thoroughly. Follow up after MRI for review. Sandra Robles MD, JAMILAH Board Certified, [place] Board of Physical Medicine and Rehabilitation (ABPMR) Board Certified, [place] Board of Electrodiagnostic Medicine (ABEM) Orders: Orders XR hip RT min 2V Today M25.551 - Pain in right hip, M47.816 - Spondylosis without myelopathy or radiculopathy, lumbar region, M54.16 - Radiculopathy, lumbar region MR lumbar spine wo con Today M47.816 - Spondylosis without myelopathy or radiculopathy, lumbar region, M54.16 - Radiculopathy, lumbar region, R20.0 - Anesthesia of skin NE electromyogram (EMG) Today M47.816 - Spondylosis without myelopathy or radiculopathy, lumbar region, M54.16 - Radiculopathy, lumbar region NE nerve conduction velocity Today M47.816 - Spondylosis without myelopathy or radiculopathy, lumbar region, M54.16 - Radiculopathy, lumbar region, R20.0 - Anesthesia of skin XR hip LT min 2V Today M16.12 - Unilateral primary osteoarthritis, left hip, M47.816 - Spondylosis without myelopathy or radiculopathy, lumbar region, M54.16 - Radiculopathy, lumbar region Coding Level of Care Code Est Pt Level 4 (41534) Diagnoses Lumbar spondylosis M47.816 Lumbar radiculitis M54.16 Bilateral leg numbness R20.0
--- OUTSIDE RECORDS SUMMARY | 2025-01-17 09:32 | XMS_ITS | Clinical Summary ---
Author Organization [facility] Address [address] [place] [address] Care Team Providers Care Issuing Operator Name Role Phone Thomas Cardoza Primary Care Provider [phone] Source Comments PLEASE NOTE, if this patient [...] mcg/actuation nasal sprayIndications: Nasal congestion Place 1 [place] in both nostrils once daily 16 g [...] (#1) 03/18/2023 Diabetes Screening 06/11/2024 06/11/2021, 06/11/2021 [id number] ( season) 2024 09/19/2021, 03/19/2021, 03/19/2021, Additional [...] 1:58 PM EDT) CLINICAL INFORMATION See Note [employer] Comment:None given LMP See Note [employer] Comment:[id number] PREV. PAP [employer] PREV. BX See Note [employer] Comment:NONE GIVEN SOURCE See Note [employer] Comment:Cervix, Endocervix STATEMENT OF ADEQUACY See Note [employer] Comment: Satisfactory for evaluation. Endocervical/transformation zone component present. INTERPRETATION/RESU LT See Note [employer] Comment:Negative for intraep ithelial lesion or malignancy. COMMENT See Note [employer] Comment: This Pap test has been evaluated with computer assisted technology. PLANNER/SCHEDULER See Note [facility] Comment: SL, CT(ASCP) CT screening location: [address] ??[address] COMMENT [employer] HPV MRNA E6/E7 Not Detected Not Detected [employer] Comment: Methodology: Beer Cooler-Mediated Amplification This assay detects E6/E7 viral messenger RNA (mRNA) from 14 high-risk HPV types (16,18,31,33,35,39,45,51,52,56,58,59,66,68). The analytical performance characteristics of this assay have been determined by [employer]. The modifications have not been cleared or approved by the FDA. This assay has been validated pursuant to the CLIA regulations and is used for clinical purposes. For additional information, please refer to http://education.On Center Software/faq/MIP638r9 (This link if provided for information/ educational purposes only.) Swab Cervix uteri structure / Unknown 03/18/2022 1:58 PM EDT 03/19/2022 7:25 AM EDT Narrative [employer] - 03/21/2022 2:21 PM EDT EXPLANATORY NOTE: [...] - NO BLOOD DRAW Final Re sult [facility] [address] [address], [facility] [address] [address] * REFERRAL FOR MAMMOGRAM (02/28/2022 3:00 AM EDT) 02/28/2022 3:00 AM EDT us Thomas BARNES IM RFL MAMMO Edited Result - Final * HEPATITIS C AB W/RFLX HCV RNA, QT, RT PCR (06/11/2021 10:44 AM EDT) HEPATITIS C ANTIBODY NON-REACT RADHA NON-REACT RADHA [employer] SIGNAL TO CUT-OFF 0.01 <1.00 [employer] Comment: HCV antibody was non-reactive. There is no laboratory evidence of HCV infection. In most cases, no further action is required. However, if recent HCV exposure is suspected, a test for HCV RNA (test code 44553) is suggested. For additional information please refer to http://Think Through Learning.[employer] Center [employer]/faq/NML51b3 (This link is being provided for informational/ educational purposes only.) Blood Blood / Unknown 06/11/2021 1 0:44 AM EDT 06/11/2021 10:44 AM EDT Narrative [facility] - 06/12/2021 11:29 AM EDT FASTING:YES Thomas BARNES LAB - BLOOD DRAW Edited Result - Final [employer] [address] [address], [facility] [address] [address] * HIV 1/2 AG & AB W/RFLX (4TH GEN) (06/11/2021 10:44 AM EDT) HIV AG/AB, 4TH GEN NON-REAC TIVE NON-REAC TIVE [employer] Comment: HIV-1 antigen and HIV-1/HIV-2 antibodies were [...] ?? For additional information please refer to http://Think Through Learning.Gehry Technologies.TrackBill/faq/BQB399 (This link is being provided for informational/ educational purposes only.) The performance of this assay has not been clinically validated in patients less than 2 years old. Blood Blood / Unknown 06/11/2021 1 0:44 AM EDT 06/11/2021 10:44 AM EDT Narrative [facility] - 06/12/2021 11:29 AM EDT FASTING:YES us Thomas BARNES LAB - BLOOD DRAW Final Result Performing Organization Address City/[facility] [address]/ZIP Co de Phone Number [facility] [address] [address], [facility] [address] [address] * (ABNORMAL) LIPID PANEL (06/11/2021 10:44 AM EDT) [facility] Signature CHOLESTEROL, TOTAL 175 <200 mg/dL [facility] HDL CHOLESTEROL 44 > OR = 40 mg/dL [facility] TRIGLYCERIDES 123 <150 mg/dL [facility] LDL-CHOLESTEROL 108(H) 99 mg/dL (calc) [facility] Comment: Reference range: <100 Desirable range <100 mg/dL for primary prevention; ?? <70 mg/dL for patients with CHD or diabetic patients with > or = 2 CHD risk factors. LDL-C is now calculated using the Mitchell-Julio calculation, which is a validated novel method providing better accuracy than the Friedewald equation in the estimation of LDL-C. Mitchell SS et al. MAR. 2013;310(19): 4244-7559 (http://education.Run2Sport/faq/VIF502) CHOL/HDLC RATIO 4.0 <5.0 (calc) [facility] NON-HDL CHOLESTEROL 131(H) <130 mg/dL (calc) [facility] Comment: For patients with diabetes plus 1 major ASCVD risk factor, treating to a non-HDL-C goal of <100 mg/dL (LDL-C of <70 mg/dL) is considered a therapeutic option. Blood Blood / Unknown 06/11/2021 1 0:44 AM EDT 06/11/2021 10:44 AM EDT Narrative [facility] - 06/12/2021 11:29 AM EDT FASTING:YES us Thomas BARNES LAB - BLOOD DRAW Final Result [facility] [address] [address], [facility] [address],[place] [address] * (ABNORMAL) COMPREHENSIVE METABOLIC PANEL (06/11/2021 10:44 AM EDT) GLUCOSE 78 65 - 99 mg/dL [facility] Comment: ?Fasting reference interval UREA NITROGEN (BUN) 11 7 - 25 mg/dL [facility] CREATININE (blood) 0.57(L) 0.60 - 1.35 mg/dL [facility] GFR ESTIMATED 121 > OR = 60 mL/min/1. 73m2 [facility] EGFR 140 > OR = 60 mL/min/1. 73m2 [facility] BUN/CREATININE RATIO 19 6 - 22 (calc) [facility] SODIUM 138 135 - 146 mmol/L [facility] POTASSIUM 4.4 3.5 - 5.3 mmol/L [facility] CHLORIDE 108 98 - 110 mmol/L [facility] CARBON DIOXIDE 23 20 - 32 mmol/L [facility] CALCIUM 8.9 8.6 - 10.3 mg/dL [facility] PROTEIN, TOTAL 6.7 6.1 - 8.1 g/dL [facility] ALBUMIN 4.1 3.6 - 5.1 g/dL [facility] GLOBULIN 2.6 1.9 - 3.7 g/dL (calc) [facility] ALBUMIN/GLOBULI N RATIO 1.6 1.0 - 2.5 (calc) [facility] BILIRUBIN, TOTAL 0.3 0.2 - 1.2 mg/dL [facility] ALKALINE PHOSPHATASE 81 36 - 130 U/L [facility] AST 12 10 - 40 U/L [facility] ALT 18 9 - 46 U/L [facility] Blood Blood / Unknown 06/11/2021 1 0:44 AM EDT 06/11/2021 10:44 AM EDT Narrative [facility] - 06/12/2021 11:29 AM EDT FASTING:YES Thomas BARNES LAB - BLOOD DRAW Edited Result - Final [facility] 200 [facility] [address] [place] [address], [employer] [facility] 200 [facility] [address] [address] from Last 3 Months or Most Recently Relevant to Health Maintenance Insurance [employer] Care Teams Issuing Operator Relationship Specialty Start Date End Date Thomas Cardoza PA [address] [place] [address] PCP - General FAMILY MEDICINE PA 11/12/21
--- OUTSIDE RECORDS SUMMARY | 2025-01-17 09:32 | XMS_ITS | Clinical Summary ---
Author Organization [facility] Address [address] [place] [address] Care Team Providers Care Loftsman Name Role Phone Silvestre Espino Primary Care Provider [phone] Allergies No known active allergies Medications traZODone (DESYREL) 50 mg tabletIndication s:Insomnia, unspecified type TAKE 1/2 TABLETS BY MOUTH EVERY NIGHT AT BEDTIME AND IF NOT HELPING, TAKE 1/2 TABLET MORE 30 tablet 1 11/19/2020 Active meloxicam (MOBIC) 15 mg tabletIndication s:Chronic pain of both shoulders TAKE 1 TABLET(15 [...] Recorded Patient Health Questionnaire-2 Score 2 10/12/2020 Comments Unknown Sex and Gender Information Value Date Recorded Sex Assigned at Not on file Legal Sex Female 1:27 PM MST Gender Identity Not on file Sexual Orientation [...] DTaP,Tdap,and Td Vaccines (1 - Tdap) 1990 Pneumococcal Vaccine: 50+ Ye ars (1 of 2 - PCV) 1990 Mammogram 01/14/2021 01/14/2019, 01/14/2019 Zoster Vaccines (1 of 2) 2021 Annual Preventive Exam 06/03/2022 , 09/19/2020, 09/19/2020 Cervical Cancer Screening (Pap/HPV) 01/11/202401/11 COVID-19 Vaccine ( - season) 2024 Influenza Vaccine (#1) 2024 10/12/2020 RSV Vaccine (SCDM) (1 - 1-do se 75+ series) 2046 Insurance [employer] Care Teams Loftsman Relationship Specialty Start Date End Date Silvestre Espino PA [address] [place] [id number] PCP - General Family Medicine 10/27/19
== END 2025-01-17 09:35 | disposition home or self-care (01) ==
PROVIDERS: PCP Internal Medicine; Visit Provider Physical Medicine & Rehabilitation
DX: M47.816 Spondylosis without myelopathy or radiculopathy, lumbar region (principal); M54.16 Radiculopathy, lumbar region; R20.0 Anesthesia of skin
CPT/HCPCS: 99214

== ENCOUNTER → 2025-01-17 09:24 | Outpatient (BNV) | payer OTHER, SELFPAY | PROVIDERS: PCP Internal Medicine; Visit Provider Radiology Diagnostic Radiology | DX: M25.551 Pain in right hip (principal) | CPT/HCPCS: 73502 ==

== ENCOUNTER 2025-01-20 08:51 | Outpatient (AMB) | payer OTHER, SELFPAY ==
[2025-01-20 09:04] VITALS: BMI 31.4
--- NOTE | 2025-01-20 09:04 | A.OFFVIS_ITS ---
Vital Signs 01/20/25 09:04 Height 5 ft 1 in Weight 166 lb BMI 31.4 Intake Visit Reasons: trigger point inj #2 Intake Note: Camila is a 54 year old female who presents today for a trigger point injection #2 of upper trapezius. Guest Services Attendant Required: No Allergies No Known Allergies Allergy (Verified 01/20/25 09:08) HPI Comments Details: Good results from 1st trigger point injection. [facility] Medical History (Updated 01/17/25 @ 09:24 by Sandra Robles MD) Carpal tunnel syndrome RLS (restless legs syndrome) HTN (hypertension) Surgical History Hx of colonoscopy History of carpal tunnel surgery History of arthroscopy of right shoulder Family History Maternal Grandmother Mental health disorder Sister Diverticulitis Brother Colon polyp Brother S/P colostomy History of colostomy reversal Father Lung cancer Liver cancer Cancer of kidney Social History Household Members: Other Household Members Other:: on disability for shoulder injury , lives with a partner, 1 daughter, Housing: Apartment Are you a primary geriatric care manager to a significant other at home: No Patient Tobacco Use Status: Former Tobacco user Cigarettes Per Day: 8 Years Smoked: 20 e-Cigarette/Vaping Use: Never Used service: No 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al status: disabled 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 Consent obtained. Two trigger points palpated on right upper trapezius. Needling performed with gauge 27 needle, subsequently injecting 1 ml of 2% Lidocaine., total of 2 mL. Patient tolerated procedure well. Post-injection instructions given. [id number] Point Injection 1 or 2 sites All charges added?: Procedure code (CPT) selection complete Assessment & Plan Assessment & Plan (1) Cervicogenic headache: Code(s): G44.86 - Cervicogenic headache Category: Medical (2) Myofascial pain on right side: Code(s): M79.18 - Myalgia, other site Category: Medical Plan Pain and headache improving since 1st injection. Patient tolerated procedure today. Third injection to be scheduled. Assessment and plan discussed with patient, and patient was agreeable. All questions were answered thoroughly. Sandra Robles MD, JAMILAH Board Certified, [place] Board of Physical Medicine and Rehabilitation (ABPMR) Board Certified, [place] Board of Electrodiagnostic Medicine (ABEM) Orders: Orders AMB Trigger Point Injection Today M79.18 - Myalgia, other site Coding Level of Care Code Procedure Only Diagnoses Cervicogenic headache G44.86 Myofascial pain on right side M79.18 CPT Codes Therapeutic Injection - Ther Injection 1: [id number] Point Injection 1 or 2 sites ([id number])
--- OUTSIDE RECORDS SUMMARY | 2025-01-20 09:13 | XMS_ITS | Clinical Summary ---
Author Organization [facility] Address [address] [place] [address] Care Team Providers Care Director Financial Planning Name Role Phone Thomas Cardoza Primary Care Provider [phone] Source Comments PLEASE NOTE, if this patient [...] mcg/actuation nasal sprayIndications: Nasal congestion Place 1 [place] in both nostrils once daily 16 g [...] (#1) 03/18/2023 Diabetes Screening 06/11/2024 06/11/2021, 06/11/2021 [id number] ( season) 2024 09/19/2021, 03/19/2021, 03/19/2021, Additional [...] 1:58 PM EDT) CLINICAL INFORMATION See Note [employer] Comment:None given LMP See Note [employer] Comment:[id number] PREV. PAP [employer] [employer] PREV. BX See Note [employer] Comment:NONE GIVEN SOURCE See Note [employer] Comment:Cervix, Endocervix STATEMENT OF ADEQUACY See Note [employer] Comment: Satisfactory for evaluation. Endocervical/transformation zone component present. INTERPRETATION/RESU LT See Note [employer] Comment:Negative for intraep ithelial lesion or malignancy. COMMENT See Note [employer] [employer] Comment: This Pap test has been evaluated with computer assisted technology. QUARRYMAN See Note [facility] [employer] Comment: SL, CT(ASCP) CT screening location: [address] ??[address] COMMENT [facility] HPV MRNA E6/E7 Not Detected Not Detected [facility] Comment: Methodology: Animal Daycare Provider-Mediated Amplification This assay detects E6/E7 viral messenger RNA (mRNA) from 14 high-risk HPV types (16,18,31,33,35,39,45,51,52,56,58,59,66,68). The analytical performance characteristics of this assay have been determined by [employer]. The modifications have not been cleared or approved by the FDA. This assay has been validated pursuant to the CLIA regulations and is used for clinical purposes. For additional information, please refer to http://education.Soundsupply/faq/ELK885n9 (This link if provided for information/ educational purposes only.) Swab Cervix uteri structure / Unknown 03/18/2022 1:58 PM EDT 03/19/2022 7:25 AM EDT Narrative [facility] - 03/21/2022 2:21 PM EDT EXPLANATORY NOTE: [...] - NO BLOOD DRAW Final Re sult [facility] [address] [address], [facility] [address],[place] [address] * REFERRAL FOR MAMMOGRAM (02/28/2022 3:00 AM EDT) 02/28/2022 3:00 AM EDT us Thomas BARNES IM RFL MAMMO Edited Result - Final * HEPATITIS C AB W/RFLX HCV RNA, QT, RT PCR (06/11/2021 10:44 AM EDT) HEPATITIS C ANTIBODY NON-REACT RADHA NON-REACT RADHA [facility] SIGNAL TO CUT-OFF 0.01 <1.00 [facility] Comment: HCV antibody was non-reactive. There is no laboratory evidence of HCV infection. In most cases, no further action is required. However, if recent HCV exposure is suspected, a test for HCV RNA (test code 49246) is suggested. For additional information please refer to http://Tamir Biotechnology.Soundsupply/faq/GSG65f5 (This link is being provided for informational/ educational purposes only.) Blood Blood / Unknown 06/11/2021 1 0:44 AM EDT 06/11/2021 10:44 AM EDT Narrative [facility] - 06/12/2021 11:29 AM EDT FASTING:YES Thomas BARNES LAB - BLOOD DRAW Edited Result - Final [facility] [address] [address], [facility] [address],[place] [address] * HIV 1/2 AG & AB W/RFLX (4TH GEN) (06/11/2021 10:44 AM EDT) HIV AG/AB, 4TH GEN NON-REAC TIVE NON-REAC TIVE [facility] Comment: HIV-1 antigen and HIV-1/HIV-2 antibodies were [...] ?? For additional information please refer to http://Tamir Biotechnology.Applauze.Jymob/faq/EDJ270 (This link is being provided for informational/ educational purposes only.) The performance of this assay has not been clinically validated in patients less than 2 years old. Blood Blood / Unknown 06/11/2021 1 0:44 AM EDT 06/11/2021 10:44 AM EDT Narrative [facility] - 06/12/2021 11:29 AM EDT FASTING:YES us Thomas BARNES LAB - BLOOD DRAW Final Result Performing Organization Address City/[facility]/ZIP Co de Phone Number [facility] [address] [address], [facility] [address],[place] [address] * (ABNORMAL) LIPID PANEL (06/11/2021 10:44 AM EDT) [facility] Signature CHOLESTEROL, TOTAL 175 <200 mg/dL [facility] HDL CHOLESTEROL 44 > OR = 40 mg/dL [facility] TRIGLYCERIDES 123 <150 mg/dL [facility] LDL-CHOLESTEROL 108(H) 99 mg/dL (calc) [facility] Comment: Reference range: <100 Desirable range <100 mg/dL for primary prevention; ?? <70 mg/dL for patients with CHD or diabetic patients with > or = 2 CHD risk factors. LDL-C is now calculated using the Mitchell-Julio calculation, which is a validated novel method providing better accuracy than the Friedewald equation in the estimation of LDL-C. Mitchell SS et al. MAR. 2013;310(19): 2123-3170 (http://education.Unravel Data Systems/faq/VVW914) CHOL/HDLC RATIO 4.0 <5.0 (calc) [employer] [facility] NON-HDL CHOLESTEROL 131(H) <130 mg/dL (calc) [facility] Comment: For patients with diabetes plus 1 major ASCVD risk factor, treating to a non-HDL-C goal of <100 mg/dL (LDL-C of <70 mg/dL) is considered a therapeutic option. Blood Blood / Unknown 06/11/2021 1 0:44 AM EDT 06/11/2021 10:44 AM EDT Narrative [facility] - 06/12/2021 11:29 AM EDT FASTING:YES us Thomas BARNES LAB - BLOOD DRAW Final Result [facility] [address] [address], [facility] [address],[place] [address] * (ABNORMAL) COMPREHENSIVE METABOLIC PANEL (06/11/2021 10:44 AM EDT) GLUCOSE 78 65 - 99 mg/dL [facility] Comment: ?Fasting reference interval UREA NITROGEN (BUN) 11 7 - 25 mg/dL [facility] CREATININE (blood) 0.57(L) 0.60 - 1.35 mg/dL [facility] GFR ESTIMATED 121 > OR = 60 mL/min/1. 73m2 [facility] EGFR 140 > OR = 60 mL/min/1. 73m2 [facility] BUN/CREATININE RATIO 19 6 - 22 (calc) [facility] SODIUM 138 135 - 146 mmol/L [facility] POTASSIUM 4.4 3.5 - 5.3 mmol/L [facility] CHLORIDE 108 98 - 110 mmol/L [facility] CARBON DIOXIDE 23 20 - 32 mmol/L [facility] CALCIUM 8.9 8.6 - 10.3 mg/dL [facility] PROTEIN, TOTAL 6.7 6.1 - 8.1 g/dL [facility] ALBUMIN 4.1 3.6 - 5.1 g/dL [facility] GLOBULIN 2.6 1.9 - 3.7 g/dL (calc) [facility] ALBUMIN/GLOBULI N RATIO 1.6 1.0 - 2.5 (calc) [facility] BILIRUBIN, TOTAL 0.3 0.2 - 1.2 mg/dL [facility] ALKALINE PHOSPHATASE 81 36 - 130 U/L [facility] AST 12 10 - 40 U/L [facility] ALT 18 9 - 46 U/L [facility] Blood Blood / Unknown 06/11/2021 1 0:44 AM EDT 06/11/2021 10:44 AM EDT Narrative [facility] - 06/12/2021 11:29 AM EDT FASTING:YES Thomas BARNES LAB - BLOOD DRAW Edited Result - Final [facility] 200 [facility] [address] [place] [address], [facility] 200 [facility] [address],[place] [address] from Last 3 Months or Most Recently Relevant to Health Maintenance Insurance [employer] Care Teams Director Financial Planning Relationship Specialty Start Date End Date Thomas Cardoza PA [address] [place] [address] PCP - General FAMILY MEDICINE PA 11/12/21
--- OUTSIDE RECORDS SUMMARY | 2025-01-20 09:13 | XMS_ITS | Clinical Summary ---
Author Organization [facility] Address [address] [place] [address] Care Team Providers Care Cut And Cover Line Worker Name Role Phone Silvestre Espino Primary Care Provider [phone] Allergies No known active allergies Medications traZODone [...] 75+ series) 2046 Insurance [employer] Care Teams Cut And Cover Line Worker Relationship Specialty Start Date End Date Silvestre Espino PA [address] [place] [address] PCP - General Family Medicine 10/27/19
== END 2025-01-20 09:16 | disposition home or self-care (01) ==
PROVIDERS: PCP Internal Medicine; Visit Provider Physical Medicine & Rehabilitation
DX: G44.86 Cervicogenic headache (principal); M79.18 Myalgia, other site; M79.605 Pain in left leg; M54.50 Low back pain, unspecified
CPT/HCPCS: 20552; 95886; 95909

== ENCOUNTER 2025-01-20 15:07 | Outpatient (REF) | payer OTHER, SELFPAY ==
--- NOTE | 2025-01-20 15:10 | EMG_ITS ---
Chief complaint: Lower back pain, radiating left more than right leg Reason for referral: Evaluate for radiculopathy Procedure done: Bilateral lower extremity NCS/EMG Precautions and/or limitations: None The limb temperature was monitored continuously and remained between 32-36 degrees C during the performance of the NCS. Nerve Conduction Studies Anti Sensory Summary Table ?Stim Site NR Onset (ms) Norm Onset (ms) Peak (ms) Norm Peak (ms) O-P Amp (?V) Norm O-P Amp Site1 Site2 Delta-0 (ms) Dist (cm) Parish (m/s) Norm Parish (m/s) Left Sural Anti Sensory (Lat Mall) Calf ? 3.4 3.9 <4.0 16.2 >5.0 Calf Lat Mall 3.4 14.0 41 Right Sural Anti Sensory (Lat Mall) Calf ? 2.5 3.6 <4.0 16.9 >5.0 Calf Lat Mall 2.5 14.0 56 Motor Summary Table ?Stim Site NR Onset (ms) Norm Onset (ms) O-P Amp (mV) Norm O-P Amp iAmp (mV) Amp (1st) (%) Site1 Site2 Delta-0 (ms) Dist (cm) Parish (m/s) Norm Parish (m/s) Left Peroneal Motor (Ext Dig Brev) Ankle ? 4.4 <4.0 5.8 >2.5 8.3 100.0 Ankle Ext Dig Brev 4.4 0.0 B Fib ? 10.6 5.6 7.9 96.6 B Fib Ankle 6.2 29.5 48 >40 Poplt ? 11.1 5.8 8.0 100.0 Poplt B Fib 0.5 3.5 70 >40 Right Peroneal Motor (Ext Dig Brev) Ankle ? 3.8 <4.0 6.3 >2.5 8.0 100.0 Ankle Ext Dig Brev 3.8 0.0 B Fib ? 10.7 6.0 7.6 95.2 B Fib Ankle 6.9 31.0 45 >40 Poplt ? 11.3 5.9 7.6 93.7 Poplt B Fib 0.6 4.0 67 >40 Left Tibial Motor (Abd Millard Brev) Ankle ? 3.9 <5 4.3 >2.5 6.7 100.0 Ankle Abd Millard Brev 3.9 0.0 Knee ? 12.8 14.3 17.2 332.6 Knee Ankle 8.9 34.0 38 >40 Right Tibial Motor (Abd Millard Brev) Ankle ? 4.7 <5 8.9 >2.5 13.2 100.0 Ankle Abd Millard Brev 4.7 0.0 Knee ? 11.2 7.7 11.2 86.5 Knee Ankle 6.5 33.0 51 >40 EMG ?Side Muscle Nerve Root Ins Act Fibs Psw Amp Dur Poly Recrt Int Pat Comment Left AbdHallucis MedPlantar S1-2 Nml Nml Nml Nml Nml 0 Nml Complete Left AntTibialis Dp Br Peron L4-5 Nml Nml Nml Nml Nml 0 Nml Complete Left PostTibialis Tibial L5, S1 Nml Nml Nml Nml Nml 0 Nml Complete Left MedGastroc Tibial S1-2 Nml Nml Nml Nml Nml 0 Nml Complete Left VastusMed Femoral L2-4 Nml Nml Nml Nml Nml 0 Nml Complete Paraspinal EMG ?Side Muscle Nerve Root Ins Act Fibs Psw Comment Left Lumbar Upper Rami Nml Nml Nml Left Lumbar Mid Rami Nml Nml Nml Left Lumbar Lower Rami Nml Nml Nml FINDINGS: Left peroneal nerve showed prolonged distal latency, normal amplitude and normal conduction velocity. No conduction block across fibular neck. Left tibial nerve showed normal distal latency, smaller amplitude distally and slow conduction velocity. All other nerves tested were within normal. Concentric needle EMG was performed in selected muscles of the left lower extremity and lumbar paraspinals. Study did not reveal signs of electric abnormalities as shown in the table above. IMPRESSION: 1. Can not completely rule out a left L5-S1 radiculopathy. 2. There is no electrodiagnostic evidence for peripheral neuropathy. CLINICAL COMMENT: Patient is scheduled for lumbar MRI tomorrow. Thank you for your kind referral. Sandra Robles MD, JAMILAH Board Certified, [place] Board of Physical Medicine and Rehabilitation (ABPMR) Board Certified, [place] Board of Electrodiagnostic Medicine (ABEM) CODIN [address] MTDD
--- OUTSIDE RECORDS SUMMARY | 2025-01-20 17:16 | XMS_ITS | Clinical Summary ---
Author Organization [facility] Address [address] [place] [address] Care Team Providers Care Wood Stock Blank Handler Name Role Phone Silvestre Espino Primary Care Provider [phone] Allergies No known active allergies Medications traZODone [...] 75+ series) 2046 Insurance [employer] Care Teams Wood Stock Blank Handler Relationship Specialty Start Date End Date Silvestre Espino PA [address] [place] [id number] PCP - General Family Medicine 10/27/19
--- OUTSIDE RECORDS SUMMARY | 2025-01-20 17:16 | XMS_ITS | Clinical Summary ---
Author Organization [facility] Address [address] [place] [address] Care Team Providers Care Marriage Therapist Name Role Phone Thomas Cardoza Primary Care Provider [phone] Source Comments PLEASE NOTE, if this patient [...] mcg/actuation nasal sprayIndications: Nasal congestion Place 1 Excello in both nostrils once daily 16 g [...] (#1) 03/18/2023 Diabetes Screening 06/11/2024 06/11/2021, 06/11/2021 [id number] ( season) 2024 09/19/2021, 03/19/2021, 03/19/2021, Additional [...] 1:58 PM EDT) CLINICAL INFORMATION See Note [facility] Comment:None given LMP See Note [facility] Comment:[id number] PREV. PAP [facility] PREV. BX See Note [facility] Comment:NONE GIVEN SOURCE See Note [facility] Comment:Cervix, Endocervix STATEMENT OF ADEQUACY See Note [facility] Comment: Satisfactory for evaluation. Endocervical/transformation zone component present. INTERPRETATION/RESU LT See Note [facility] Comment:Negative for intraep ithelial lesion or malignancy. COMMENT See Note [facility] Comment: This Pap test has been evaluated with computer assisted technology. PHARMACIST TECHNICIAN See Note [facility] [employer] Comment: SL, CT(ASCP) CT screening location: [address] ??[address] COMMENT [facility] HPV MRNA E6/E7 Not Detected Not Detected [facility] Comment: Methodology: [employer]-Mediated Amplification This assay detects E6/E7 viral messenger RNA (mRNA) from 14 high-risk HPV types (16,18,31,33,35,39,45,51,52,56,58,59,66,68). The analytical performance characteristics of this assay have been determined by [employer]. The modifications have not been cleared or approved by the FDA. This assay has been validated pursuant to the CLIA regulations and is used for clinical purposes. For additional information, please refer to http://education.CASTT/faq/AAE605e2 (This link if provided for information/ educational purposes only.) Swab Cervix uteri structure / Unknown 03/18/2022 1:58 PM EDT 03/19/2022 7:25 AM EDT Narrative [facility] - 03/21/2022 2:21 PM EDT EXPLANATORY NOTE: [...] - NO BLOOD DRAW Final Re sult [facility] [address] [address], [facility] [address] [address] * REFERRAL FOR MAMMOGRAM (02/28/2022 3:00 AM EDT) 02/28/2022 3:00 AM EDT us Thomas BARNES IM RFL MAMMO Edited Result - Final * HEPATITIS C AB W/RFLX HCV RNA, QT, RT PCR (06/11/2021 10:44 AM EDT) HEPATITIS C ANTIBODY NON-REACT RADHA NON-REACT RADHA [facility] SIGNAL TO CUT-OFF 0.01 <1.00 [facility] Comment: HCV antibody was non-reactive. There is no laboratory evidence of HCV infection. In most cases, no further action is required. However, if recent HCV exposure is suspected, a test for HCV RNA (test code 94704) is suggested. For additional information please refer to http://CatchThatBus.CASTT/faq/OJJ78e0 (This link is being provided for informational/ educational purposes only.) Blood Blood / Unknown 06/11/2021 1 0:44 AM EDT 06/11/2021 10:44 AM EDT Narrative [facility] - 06/12/2021 11:29 AM EDT FASTING:YES Thomas BARNES LAB - BLOOD DRAW Edited Result - Final [facility] [address] [address], [facility] [address] [address] * HIV 1/2 AG & AB W/RFLX (4TH GEN) (06/11/2021 10:44 AM EDT) HIV AG/AB, 4TH GEN NON-REAC TIVE NON-REAC TIVE [facility] Comment: HIV-1 antigen and HIV-1/HIV-2 antibodies were [...] ?? For additional information please refer to http://CatchThatBus.Suda.[facility]/faq/QKX665 (This link is being provided for informational/ educational purposes only.) The performance of this assay has not been clinically validated in patients less than 2 years old. Blood Blood / Unknown 06/11/2021 1 0:44 AM EDT 06/11/2021 10:44 AM EDT Narrative [facility] - 06/12/2021 11:29 AM EDT FASTING:YES us Thomas BARNES LAB - BLOOD DRAW Final Result Performing Organization Address City/[facility]/ZIP Co de Phone Number [facility] [employer] [facility] [address] [address], [facility] [address] [address] * (ABNORMAL) LIPID PANEL (06/11/2021 10:44 AM EDT) [facility] Signature CHOLESTEROL, TOTAL 175 <200 mg/dL [facility] HDL CHOLESTEROL 44 > OR = 40 mg/dL [facility] TRIGLYCERIDES 123 <150 mg/dL [facility] LDL-CHOLESTEROL 108(H) 99 mg/dL (calc) [facility] Comment: Reference range: <100 Desirable range <100 mg/dL for primary prevention; ?? <70 mg/dL for patients with CHD or diabetic patients with > or = 2 CHD risk factors. LDL-C is now calculated using the Mitchell-Julio calculation, which is a validated novel method providing better accuracy than the Friedewald equation in the estimation of LDL-C. Mitchell SS et al. MAR. 2013;310(19): 9788-3198 (http://education.HighGround/faq/EEK677) CHOL/HDLC RATIO 4.0 <5.0 (calc) [facility] NON-HDL CHOLESTEROL 131(H) <130 mg/dL (calc) [facility] Comment: For patients with diabetes plus 1 major ASCVD risk factor, treating to a non-HDL-C goal of <100 mg/dL (LDL-C of <70 mg/dL) is considered a therapeutic option. Blood Blood / Unknown 06/11/2021 1 0:44 AM EDT 06/11/2021 10:44 AM EDT Narrative [facility] - 06/12/2021 11:29 AM EDT FASTING:YES us Thomas BARNES LAB - BLOOD DRAW Final Result [facility] [address] [address], [facility] [address] [address] * (ABNORMAL) COMPREHENSIVE METABOLIC PANEL (06/11/2021 10:44 AM EDT) GLUCOSE 78 65 - 99 mg/dL [facility] Comment: ?Fasting reference interval UREA NITROGEN (BUN) 11 7 - 25 mg/dL [facility] CREATININE (blood) 0.57(L) 0.60 - 1.35 mg/dL [facility] GFR ESTIMATED 121 > OR = 60 mL/min/1. 73m2 [facility] EGFR 140 > OR = 60 mL/min/1. 73m2 [facility] BUN/CREATININE RATIO 19 6 - 22 (calc) [facility] SODIUM 138 135 - 146 mmol/L [facility] POTASSIUM 4.4 3.5 - 5.3 mmol/L [facility] CHLORIDE 108 98 - 110 mmol/L [facility] CARBON DIOXIDE 23 20 - 32 mmol/L [facility] CALCIUM 8.9 8.6 - 10.3 mg/dL [facility] PROTEIN, TOTAL 6.7 6.1 - 8.1 g/dL [facility] ALBUMIN 4.1 3.6 - 5.1 g/dL [facility] GLOBULIN 2.6 1.9 - 3.7 g/dL (calc) [facility] ALBUMIN/GLOBULI N RATIO 1.6 1.0 - 2.5 (calc) [facility] BILIRUBIN, TOTAL 0.3 0.2 - 1.2 mg/dL [facility] ALKALINE PHOSPHATASE 81 36 - 130 U/L [facility] AST 12 10 - 40 U/L [facility] ALT 18 9 - 46 U/L [facility] Blood Blood / Unknown 06/11/2021 1 0:44 AM EDT 06/11/2021 10:44 AM EDT Narrative [facility] - 06/12/2021 11:29 AM EDT FASTING:YES Thomas BARNES LAB - BLOOD DRAW Edited Result - Final [facility] 200 [facility] [address] [place] [address], [facility] 200 [facility] [address] [address] from Last 3 Months or Most Recently Relevant to Health Maintenance Insurance [employer] Care Teams Marriage Therapist Relationship Specialty Start Date End Date Thomas Cardoza PA [address] [place] [address] PCP - General FAMILY MEDICINE PA 11/12/21
== END 2025-01-20 15:08 | disposition home or self-care (01) ==
LOC: HO.NEURO 15:07
PROVIDERS: PCP Internal Medicine; Visit Provider Physical Medicine & Rehabilitation
DX: M47.816 Spondylosis without myelopathy or radiculopathy, lumbar region (principal); M54.16 Radiculopathy, lumbar region; R20.0 Anesthesia of skin
CPT/HCPCS: 95886; 95909

== ENCOUNTER 2025-01-21 19:17 | Outpatient (REF) | payer OTHER, SELFPAY ==
--- NOTE | ~2025-01-21 | MR_ITS ---
.EXAMINATION: MR LUMBAR SPINE WITHOUT CONTRAST CLINICAL INFORMATION: Radiculopathy, lumbar region. COMPARISON: None available. TECHNIQUE: MRI of the lumbar spine was obtained using routine sequences without contrast. FINDINGS: Last rib-bearing vertebra labeled T12. Bone marrow inhomogeneity. No bone marrow STIR signal abnormality. Disc desiccation at L4-5 and L5-S1. Hyperintense T2 signal in the posterior intervertebral discs L4-5 and L5-S1 likely annular fissure. There is normal alignment. Conus medullaris ends at superior endplate of L1 with normal signal. T12-L1: No disc herniation. No neuroforamina stenosis. L1-2: Broad-based disc bulging. No central spinal canal or neuroforamina stenosis. L2-3: No disc bulging. No compression upon neural elements. L3-4: Broad-based disc bulging. Facet joint hypertrophy. Reduced diameter of the neural foramina. No central spinal canal stenosis. L4-5: Broad-based central disc herniation and facet joint hypertrophy encroaching the L5 nerve root on the lateral recesses causing bilateral neuroforamina stenosis encroaching the L4 exiting nerve roots. Hypertrophy of the ligamentum flavum. Reduced AP diameter of the thecal sac. L5-S1: Central herniated disc abutting the S1 nerve roots on the lateral recesses. Facet joint hypertrophy. Bilateral neuroforamina narrowing encroaching the L4 exiting nerve roots. Fatty atrophy of the lumbar muscles at L5-S1. No prevertebral compartment hematoma, mass or fluid collection. 3 cm exophytic cystic lesion in the parapelvic left kidney. 5.5 cm hypointense T2 STIR and isointense T1 lesion in the uterus.. MR/MR lumbar spine wo con IMPRESSION: Central broad-based disc herniation herniated disc at L4-5 and spondylosis encroaching the L5 and L4 nerve roots. Central disc herniation L5-S1 encroaching the S1 nerve roots and to a lesser extent L5 secondary to spondylosis of the facet joints. 3 cm cyst, left kidney. Bone marrow inhomogeneity suggesting osteopenia versus osteoporosis versus calcium metabolic disorder. Probable 5.5 cm uterine fibroid. Electronically signed by: Warren Vinson MD 01/23/2025 11:20 AM [facility]
== END 2025-01-21 19:18 | disposition home or self-care (01) ==
LOC: HO.MRI 19:17
PROVIDERS: PCP Internal Medicine; Visit Provider Physical Medicine & Rehabilitation
DX: M54.16 Radiculopathy, lumbar region (principal); M47.816 Spondylosis without myelopathy or radiculopathy, lumbar region; R20.0 Anesthesia of skin
CPT/HCPCS: 72148

== ENCOUNTER → 2025-01-21 19:28 | Outpatient (BNV) | payer OTHER, SELFPAY | PROVIDERS: PCP Internal Medicine; Visit Provider Radiology Diagnostic Radiology | DX: M51.26 Other intervertebral disc displacement, lumbar region (principal); M47.816 Spondylosis without myelopathy or radiculopathy, lumbar region; M51.27 Other intervertebral disc displacement, lumbosacral region | CPT/HCPCS: 72148 ==

== ENCOUNTER 2025-01-25 11:00 | Outpatient (RCR) | payer OTHER, SELFPAY ==
--- NOTE | 2024-12-20 14:18 | MHC.PT.EP ---
[facility] [place] Office [place] Office [place] Office [address] Cheryl Brito [address] [phone] F: [phone] F: [phone] F: [phone] F: [phone] Physical Therapy Plan of Care Date of Evaluation: 12/20/24 Date of Surgery: Diagnosis: cervicalgia Assessment: Patient is a 54 year old R handed male who presents with s/s consistent with cervicalgia, neck pain. She is disabled and is fairly sedentary during the day but wants to be more active if her body allows. Patient past medical history includes rotator cuff surgery, carpal tunnel surgery on both sides and she notes she has fibromyalgia as well. Current impairments include pain, posture, ROM, strength, activity tolerance and functional mobility. Functional limitations include decreased ability to drive, turn head, sleep, lift, carry, push, and pull. Patient is motivated with good rehab potential. Skilled PT will address impairments and functional limitations in order to achieve goals. Frequency and Duration: The patient will be seen 2x/week for 5 weeks Short Term Goals: I with HEP -2 weeks Max pain with ADLs 4/10 - 3 weeks AROM rotation to 60 b/l - 3 weeks [employer] Goals: NPDI 30% or better - 5 weeks AROM rotation 64 degrees b/l - 5 weeks Max pain with ADLs 2/10 - 5 weeks Treatment Plan: Modalities to reduce pain, spasms and effusion. Manual therapy to restore motion and function. Therapeutic exercise to improve strength and flexibility. Neuromuscular re-education for posture and balance. Therapeutic activities to return to functional activities of daily living. Electronically signed by: Juarez Dillon, PT Please sign and return to therapist. Thank you for your referral.
--- NOTE | 2025-06-02 06:43 | MHC.PT.DC ---
[facility] [place] Office [place] Office [place] Office [address] Cheryl Brito [address] [phone] F: [phone] F: [phone] F: [phone] F: [phone] Physical Therapy Discharge Report Diagnosis: cervicalgia Date of Surgery: Date of Evaluation: 12/20/24 Date of Discharge: Treatments to Date: 6 Cancellations to Date: No Shows to Date: Discharge Status: Recommend MD Follow-up Discharge Summary: 01/25/25: pt activity tolerance is improving but slowly. limited by pain often and comfortable postures continue to be limited. 01/18/25: we are typically able to reduce s/s in PT. however, pt typically returns with increased tissue tension and ROLDAN. 01/12/25: pt limited by ROLDAN. she has low activity tolerance and multiple location limitations making progress complicated at this time. 01/02/25: progressing with skilled PT for posture, ROM, reducing pain. assess response and progress as tolerated. 12/27/24: added postural ex today which patient noted it just hurt. When asked if it was related to normal muscle utilization she did not answer. We will attempt to progress as tolerated. Patient is a 54 year old R handed male who presents with s/s consistent with cervicalgia, neck pain. She is disabled and is fairly sedentary during the day but wants to be more active if her body allows. Patient past medical history includes rotator cuff surgery, carpal tunnel surgery on both sides and she notes she has fibromyalgia as well. Current impairments include pain, posture, ROM, strength, activity tolerance and functional mobility. Functional limitations include decreased ability to drive, turn head, sleep, lift, carry, push, and pull. Patient is motivated with good rehab potential. Skilled PT will address impairments and functional limitations in order to achieve goals. Electronically signed by: Juarez Dillon, PT Please sign and return to therapist. Thank you for your referral.
== END 2025-06-02 06:43 | disposition home or self-care (01) ==
LOC: HO.PTCHIC 11:00
PROVIDERS: PCP Internal Medicine; Visit Provider Physical Medicine & Rehabilitation
DX: M54.2 Cervicalgia (principal); G44.86 Cervicogenic headache
CPT/HCPCS: 97110; 97140; 97162

== ENCOUNTER 2025-01-26 11:18 | Outpatient (AMB) | payer OTHER, SELFPAY ==
--- NOTE | 2025-01-26 11:25 | MHC.OFFVIS ---
Vital Signs 01/26/25 11:26 Height 5 ft 1 in Weight 166 lb BMI 31.4 Intake Visit Reasons: OV f/u & Trigger point Inj Intake Note: Camila is a 54 year old female who presents today for a follow and trigger point injection #3 of upper trapezius. Allergies No Known Allergies Allergy (Verified 01/26/25 11:32) Medication List - Last Reconciled 01/26/25 by Sandra Robles MD duloxetine (Cymbalta) 20 mg PO BID gabapentin 900 mg PO BEDTIME ibuprofen 800 mg PO TID PRN lisinopril 20 mg PO DAILY omeprazole 20 mg PO DAILY 30 days psyllium husk (Metamucil) 1 tbsp PO DAILY 30 days trazodone 50 mg PO BEDTIME PRN HPI Comments Details: I've seen Camila for cervicalgia/myofascial pain. Here for 3rd trigger point injection to trapezius. We are also going to discuss lumbar MRI findings. Back pain for 2 years, without inciting injury. Midline/sacral/coccyx area, radiating to legs, shifts in severity, sometimes left sometimes right. Electrical shock on left lower leg and ankle. Both legs get stuck when walking and stairs. Both feet numbness, left worse than right. Non diabetic. Admits to groin pain with flexion of hips/legs. No bladder/bowel incontinence. Frequency urinary at night. Treatment done so far: Chiropractor 2020 PT for lower back July-September 2024, 14 sessions. Ongoing PT now for cervicalgia/neck pain. [facility] Medical History (Updated 01/26/25 @ 11:48 by Sandra Robles MD) Carpal tunnel syndrome RLS (restless legs syndrome) HTN (hypertension) Surgical History Hx of colonoscopy History of carpal tunnel surgery History of arthroscopy of right shoulder Family History Maternal Grandmother Mental health disorder Sister Diverticulitis Brother Colon polyp Brother S/P colostomy History of colostomy reversal Father Lung cancer Liver cancer Cancer of kidney Social History Household Members: Other Household Members Other:: on disability for shoulder injury , lives with a partner, 1 daughter, Housing: Apartment Are you a primary day care attendant to a significant other at home: No Patient Tobacco Use Status: Former Tobacco user Cigarettes Per Day: 8 Years Smoked: 20 e-Cigarette/Vaping Use: Never Used service: No 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al status: disabled 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 Patient was appropriately conversant and oriented. Good historian. MSK: No specific abnormalities found on inspection of the spine and all extremities. Right upper trapezius improved but more trigger points on left now. No pain with palpation over the lumbar area. Tender on both SI joints. GT nontender. Lumbar ROM was full. Bilateral hip, knee and ankle ROM WNL. No ligamentous laxity or crepitance. No increased effusion. Slump sit positive left. FABERE test positive hip pain bilateral. Strength is 5/5 in all muscle groups tested. No increased tone noted. Neurological: Neurologic examination of the upper and lower extremities was nonfocal with intact sensation, muscle stretch reflexes and without focal motor deficits . Lopez?s negative bilaterally. Babinski was down going bilaterally. Clonus was negative. Gait is antalgic without loss of balance. Office Procedures Therapeutic Injection Therapeutic Injection Details: Trigger point injection, bilateral upper trapezius. Consent obtained. Trigger points palpated on left upper trapezius. Less tender in right upper trapezius. Needling performed with gauge 27 needle, subsequently injecting 1 ml of 2% Lidocaine., total of 3 mL divided into 3 sites. Patient tolerated procedure well. Post-injection instructions given. [id number] Point Injection 3 or more All charges added?: Procedure code (CPT) selection complete Results Reviewed Results Reviewed: Ordering Physician: Sandra Jacques Date of Service: 01/21/25 Procedure(s): MR lumbar spine wo con Accession Number(s): [id number] cc: Valeria Horowitz MD; Sandra Jacques~ .EXAMINATION: MR LUMBAR SPINE WITHOUT CONTRAST CLINICAL INFORMATION: Radiculopathy, lumbar region. COMPARISON: None available. TECHNIQUE: MRI of the lumbar spine was obtained using routine sequences without contrast. FINDINGS: Last rib-bearing vertebra labeled T12. Bone marrow inhomogeneity. No bone marrow STIR signal abnormality. Disc desiccation at L4-5 and L5-S1. Hyperintense T2 signal in the posterior intervertebral discs L4-5 and L5-S1 likely annular fissure. There is normal alignment. Conus medullaris ends at superior endplate of L1 with normal signal. T12-L1: No disc herniation. No neuroforamina stenosis. L1-2: Broad-based disc bulging. No central spinal canal or neuroforamina stenosis. L2-3: No disc bulging. No compression upon neural elements. L3-4: Broad-based disc bulging. Facet joint hypertrophy. Reduced diameter of the neural foramina. No central spinal canal stenosis. L4-5: Broad-based central disc herniation and facet joint hypertrophy encroaching the L5 nerve root on the lateral recesses causing bilateral neuroforamina stenosis encroaching the L4 exiting nerve roots. Hypertrophy of the ligamentum flavum. Reduced AP diameter of the thecal sac. L5-S1: Central herniated disc abutting the S1 nerve roots on the lateral recesses. Facet joint hypertrophy. Bilateral neuroforamina narrowing encroaching the L4 exiting nerve roots. Fatty atrophy of the lumbar muscles at L5-S1. No prevertebral compartment hematoma, mass or fluid collection. 3 cm exophytic cystic lesion in the parapelvic left kidney. 5.5 cm hypointense T2 STIR and isointense T1 lesion in the uterus.. MR/MR lumbar spine wo con IMPRESSION: Central broad-based disc herniation herniated disc at L4-5 and spondylosis encroaching the L5 and L4 nerve roots. Central disc herniation L5-S1 encroaching the S1 nerve roots and to a lesser extent L5 secondary to spondylosis of the facet joints. 3 cm cyst, left kidney. Bone marrow inhomogeneity suggesting osteopenia versus osteoporosis versus calcium metabolic disorder. Probable 5.5 cm uterine fibroid. Electronically signed by: Warren Vinson MD 01/23/2025 11:20 AM EST Ordering Physician: Valeria Horowitz MD Date of Service: 06/17/24 Procedure(s): XR lumbar spine 2-3V Accession Number(s): [id number] cc: Valeria Horowitz MD~ EXAMINATION: XR LUMBOSACRAL SPINE CLINICAL INFORMATION: Low back pain. COMPARISON: Radiograph lumbar spine 06/21/2021. TECHNIQUE: Three views of the lumbosacral spine. FINDINGS: No evidence of acute compression deformity or subluxation. Mild intervertebral disc height loss of facet arthropathy at L5-S1, increased compared to 2020. SI joints are symmetric. No significant paraspinal soft tissue abnormality. A few pelvic phleboliths are seen. XR/XR lumbar spine 2-3V IMPRESSION: 1. No acute compression deformity or subluxation. 2. Mild lumbar spondylosis at L5-S1, increased compared to 2020. Assessment & Plan Assessment & Plan (1) Lumbar disc herniation: Code(s): M51.26 - Other intervertebral disc displacement, lumbar region Category: Medical (2) Lumbar radiculitis: Code(s): M54.16 - Radiculopathy, lumbar region Category: Medical (3) Myofascial pain: Code(s): M79.18 - Myalgia, other site Category: Medical Plan 1. lumbar MRI shows central disc herniation at L4-5 and L5-S1. Reviewed images with patient. Would recommend trial of lumbar epidural injection, L5-S1, interlaminar. Will need to refer patient to Pain Management for procedure. Patient eager to proceed. 2. Tolerated trigger point injection today. Right upper trapezius improved. Injection to left upper trapezius today and another one scheduled for next week. To discuss incident findings on MRI with patient when I see her again. Assessment and plan discussed with patient, and patient was agreeable. All questions were answered thoroughly. Sandra Robles MD, JAMILAH Board Certified, [place] [employer] and Rehabilitation (ABPMR) Board Certified, [place] Board of Electrodiagnostic Medicine (ABEM) Orders: Orders AMB Trigger Point Injection Today M79.18 - Myalgia, other site Referrals Pain Management Referral M51.26 - Other intervertebral disc displacement, lumbar region, M54.16 - Radiculopathy, lumbar region, M79.18 - Myalgia, other site Coding Level of Care Code Est Pt Level 4 (62678) Diagnoses Lumbar disc herniation M51.26 Lumbar radiculitis M54.16 Myofascial pain M79.18 CPT Codes Therapeutic Injection - Ther Injection 2: [id number] Point Injection 3 or more ([id number])
[2025-01-26 11:26] VITALS: BMI 31.4
--- OUTSIDE RECORDS SUMMARY | 2025-01-26 13:54 | XMS_ITS | Clinical Summary ---
Author Organization [facility] Address [address] [place] [address] Care Team Providers Care Pattern Cleaner Name Role Phone Silvestre Espino Primary Care Provider [phone] Allergies No known active allergies Medications traZODone [...] 75+ series) 2046 Insurance [employer] Care Teams Pattern Cleaner Relationship Specialty Start Date End Date Silvestre Espino PA [address] [place] [address] PCP - General Family Medicine 10/27/19
--- OUTSIDE RECORDS SUMMARY | 2025-01-26 13:54 | XMS_ITS | Clinical Summary ---
Author Organization [facility] Address [address] [place] [address] Care Team Providers Care General Adjuster Name Role Phone Thomas Cardoza Primary Care Provider [phone] Source Comments PLEASE NOTE, if this patient [...] mcg/actuation nasal sprayIndications: Nasal congestion Place 1 [place] in both nostrils once daily 16 g [...] (#1) 03/18/2023 Diabetes Screening 06/11/2024 06/11/2021, 06/11/2021 [id number] ( season) 2024 09/19/2021, 03/19/2021, 03/19/2021, Additional [...] 1:58 PM EDT) CLINICAL INFORMATION See Note [facility] Comment:None given LMP See Note [facility] Comment:[id number] PREV. PAP [facility] PREV. BX See Note [facility] Comment:NONE GIVEN SOURCE See Note [facility] Comment:Cervix, Endocervix STATEMENT OF ADEQUACY See Note [facility] Comment: Satisfactory for evaluation. Endocervical/transformation zone component present. INTERPRETATION/RESU LT See Note [facility] Comment:Negative for intraep ithelial lesion or malignancy. COMMENT See Note [facility] Comment: This Pap test has been evaluated with computer assisted technology. ESTIMATOR AND DRAFTER See Note [facility]LY [facility], [facility] [employer] Comment: SL, CT(ASCP) CT screening location: [address] ??[address] COMMENT [facility] HPV MRNA E6/E7 Not Detected Not Detected [facility] Comment: Methodology: Precipitator Supervisor-Mediated Amplification This assay detects E6/E7 viral messenger RNA (mRNA) from 14 high-risk HPV types (16,18,31,33,35,39,45,51,52,56,58,59,66,68). The analytical performance characteristics of this assay have been determined by [employer]. The modifications have not been cleared or approved by the FDA. This assay has been validated pursuant to the CLIA regulations and is used for clinical purposes. For additional information, please refer to http://education.Five Delta/faq/PMZ265h9 (This link if provided for information/ educational purposes only.) Swab Cervix uteri structure / Unknown 03/18/2022 1:58 PM EDT 03/19/2022 7:25 AM EDT Narrative [facility] - 03/21/2022 2:21 PM EDT EXPLANATORY NOTE: [...] - NO BLOOD DRAW Final Re sult [facility] [address] [address], [facility] [address] [address] * REFERRAL FOR MAMMOGRAM (02/28/2022 3:00 AM EDT) 02/28/2022 3:00 AM EDT us Thomas BARNES IM RFL MAMMO Edited Result - Final * HEPATITIS C AB W/RFLX HCV RNA, QT, RT PCR (06/11/2021 10:44 AM EDT) HEPATITIS C ANTIBODY NON-REACT RADHA NON-REACT RADHA [facility] SIGNAL TO CUT-OFF 0.01 <1.00 [employer] Comment: HCV antibody was non-reactive. There is no laboratory evidence of HCV infection. In most cases, no further action is required. However, if recent HCV exposure is suspected, a test for HCV RNA (test code 31315) is suggested. For additional information please refer to http://SeeChange [employer].Five Delta/faq/RWQ40z4 (This link is being provided for informational/ educational purposes only.) Blood Blood / Unknown 06/11/2021 1 0:44 AM EDT 06/11/2021 10:44 AM EDT Narrative [facility] - 06/12/2021 11:29 AM EDT FASTING:YES Thomas BARNES LAB - BLOOD DRAW Edited Result - Final [facility] [address] [address], [facility] [address],[place] [address] * HIV 1/2 AG & AB W/RFLX (4TH GEN) (06/11/2021 10:44 AM EDT) HIV AG/AB, 4TH GEN NON-REAC TIVE NON-REAC TIVE [facility] Comment: HIV-1 antigen and HIV-1/HIV-2 antibodies were [...] ?? For additional information please refer to http://[facility].[place].Divas Diamond/faq/FNC803 (This link is being provided for informational/ educational purposes only.) The performance of this assay has not been clinically validated in patients less than 2 years old. Blood Blood / Unknown 06/11/2021 1 0:44 AM EDT 06/11/2021 10:44 AM EDT Narrative [facility] - 06/12/2021 11:29 AM EDT FASTING:YES us Thomas BARNES LAB - BLOOD DRAW Final Result Performing Organization Address City/[facility]/ZIP Co de Phone Number [facility] [address] [address], [facility] [address],[place] [address] * (ABNORMAL) LIPID PANEL (06/11/2021 10:44 AM EDT) [facility] Signature CHOLESTEROL, TOTAL 175 <200 mg/dL [facility] HDL CHOLESTEROL 44 > OR = 40 mg/dL [facility] TRIGLYCERIDES 123 <150 mg/dL [facility] LDL-CHOLESTEROL 108(H) 99 mg/dL (calc) [facility] Comment: Reference range: <100 Desirable range <100 mg/dL for primary prevention; ?? <70 mg/dL for patients with CHD or diabetic patients with > or = 2 CHD risk factors. LDL-C is now calculated using the Mitchell-Julio calculation, which is a validated novel method providing better accuracy than the Friedewald equation in the estimation of LDL-C. Mitchell SS et al. MAR. 2013;310(19): 2997-4434 (http://education.EZprints.com/faq/LUU958) CHOL/HDLC RATIO 4.0 <5.0 (calc) [facility] NON-HDL CHOLESTEROL 131(H) <130 mg/dL (calc) [facility] Comment: For patients with diabetes plus 1 major ASCVD risk factor, treating to a non-HDL-C goal of <100 mg/dL (LDL-C of <70 mg/dL) is considered a therapeutic option. Blood Blood / Unknown 06/11/2021 1 0:44 AM EDT 06/11/2021 10:44 AM EDT Narrative [facility] - 06/12/2021 11:29 AM EDT FASTING:YES us Thomas BARNES LAB - BLOOD DRAW Final Result [facility] [address] [address], [facility] [address],[place] [address] * (ABNORMAL) COMPREHENSIVE METABOLIC PANEL (06/11/2021 10:44 AM EDT) GLUCOSE 78 65 - 99 mg/dL [facility] Comment: ?Fasting reference interval UREA NITROGEN (BUN) 11 7 - 25 mg/dL [facility] CREATININE (blood) 0.57(L) 0.60 - 1.35 mg/dL [facility] GFR ESTIMATED 121 > OR = 60 mL/min/1. 73m2 [facility] EGFR 140 > OR = 60 mL/min/1. 73m2 [facility] BUN/CREATININE RATIO 19 6 - 22 (calc) [facility] SODIUM 138 135 - 146 mmol/L [facility] POTASSIUM 4.4 3.5 - 5.3 mmol/L [facility] CHLORIDE 108 98 - 110 mmol/L [facility] CARBON DIOXIDE 23 20 - 32 mmol/L [facility] CALCIUM 8.9 8.6 - 10.3 mg/dL [facility] PROTEIN, TOTAL 6.7 6.1 - 8.1 g/dL [facility] ALBUMIN 4.1 3.6 - 5.1 g/dL [facility] GLOBULIN 2.6 1.9 - 3.7 g/dL (calc) [facility] ALBUMIN/GLOBULI N RATIO 1.6 1.0 - 2.5 (calc) [facility] BILIRUBIN, TOTAL 0.3 0.2 - 1.2 mg/dL [facility] ALKALINE PHOSPHATASE 81 36 - 130 U/L [facility] AST 12 10 - 40 U/L [facility] ALT 18 9 - 46 U/L [facility] Blood Blood / Unknown 06/11/2021 1 0:44 AM EDT 06/11/2021 10:44 AM EDT Narrative [facility] - 06/12/2021 11:29 AM EDT FASTING:YES Thomas BARNES LAB - BLOOD DRAW Edited Result - Final [facility] 200 [facility] [address] [place] [address], [facility] 200 [facility] [address],[place] [address] from Last 3 Months or Most Recently Relevant to Health Maintenance Insurance [employer] Care Teams General Adjuster Relationship Specialty Start Date End Date Thomas Cardoza PA [address] [place] [address] PCP - General FAMILY MEDICINE PA 11/12/21
== END 2025-01-26 12:18 | disposition home or self-care (01) ==
PROVIDERS: PCP Internal Medicine; Visit Provider Physical Medicine & Rehabilitation
DX: M51.26 Other intervertebral disc displacement, lumbar region (principal); M54.16 Radiculopathy, lumbar region; G44.86 Cervicogenic headache; M79.18 Myalgia, other site
CPT/HCPCS: 20553; 99214

== ENCOUNTER → 2025-01-26 11:18 | Outpatient (BNVA) | payer OTHER, SELFPAY | PROVIDERS: PCP Internal Medicine; Visit Provider Physical Medicine & Rehabilitation | DX: M51.26 Other intervertebral disc displacement, lumbar region (principal); M54.16 Radiculopathy, lumbar region; M79.18 Myalgia, other site; Z71.2 Person consulting for explanation of examination or test findings | CPT/HCPCS: 20553; 99212; J2003 ==

== ENCOUNTER 2025-02-03 12:17 | Outpatient (AMB) | payer OTHER, SELFPAY ==
--- NOTE | 2025-02-03 12:19 | A.OFFVIS_ITS ---
Vital Signs 02/03/25 12:20 Height 5 ft 1 in Weight 166 lb BMI 31.4 Intake Visit Reasons: OV-Trigger point injection Intake Note: Camila 54 yr old female presents today for trigger injection to left upper trapezius 01/26/25 follow up visit. Allergies No Known Allergies Allergy (Verified 02/03/25 12:20) Medication List - Last Reconciled 02/03/25 by Sandra Robles MD duloxetine (Cymbalta) 20 mg PO BID gabapentin 900 mg PO BEDTIME ibuprofen 800 mg PO TID PRN lisinopril 20 mg PO DAILY omeprazole 20 mg PO DAILY 30 days psyllium husk (Metamucil) 1 tbsp PO DAILY 30 days trazodone 50 mg PO BEDTIME PRN PFSH Medical History (Updated 01/26/25 @ 11:48 by Sandra Robles MD) Carpal tunnel syndrome RLS (restless legs syndrome) HTN (hypertension) Surgical History Hx of colonoscopy History of carpal tunnel surgery History of arthroscopy of right shoulder Family History Maternal Grandmother Mental health disorder Sister Diverticulitis Brother Colon polyp Brother S/P colostomy History of colostomy reversal Father Lung cancer Liver cancer Cancer of kidney Social History Household Members: Other Household Members Other:: on disability for shoulder injury , lives with a partner, 1 daughter, Housing: Apartment Are you a primary home care and home health aides teacher to a significant other at home: No Patient Tobacco Use Status: Former Tobacco user Cigarettes Per Day: 8 Years Smoked: 20 e-Cigarette/Vaping Use: Never Used service: No 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al status: disabled 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 Consent obtained. Trigger points palpated on upper trapezius. Needling performed with gauge 27 needle, subsequently injecting 1 ml of 2% Lidocaine each into 3 sites, total of 3 mL. Patient tolerated procedure well. Post-injection instructions given. 64394-Cnhtceh Point Injection 3 or more All charges added?: Procedure code (CPT) selection complete Assessment & Plan Assessment & Plan (1) Myofascial pain: Code(s): M79.18 - Myalgia, other site Category: Medical Plan Tolerated trigger point injection today. Assessment and plan discussed with patient, and patient was agreeable. All questions were answered thoroughly. Follow up 6 weeks. Sandra Robles MD, JAMILAH Board Certified, [place] Board of Physical Medicine and Rehabilitation (ABPMR) Board Certified, [place] Board of Electrodiagnostic Medicine (ABEM) Orders: Orders AMB Trigger Point Injection Today M79.18 - Myalgia, other site Coding Level of Care Code Procedure Only Diagnoses Myofascial pain M79.18 CPT Codes Therapeutic Injection - Ther Injection 2: 52383-Cnyvtbw Point Injection 3 or more ([id number])
[2025-02-03 12:20] VITALS: BMI 31.4
--- OUTSIDE RECORDS SUMMARY | 2025-02-03 13:54 | XMS_ITS | Clinical Summary ---
Author Organization [facility] Address [address] [place] [address] Care Team Providers Care Poultry Scientist Name Role Phone Silvestre Espino Primary Care Provider [phone] Allergies No known active allergies Medications traZODone [...] 75+ series) 2046 Insurance [employer] Care Teams Poultry Scientist Relationship Specialty Start Date End Date Silvestre Espino PA [address] [place] [address] PCP - General Family Medicine 10/27/19
--- OUTSIDE RECORDS SUMMARY | 2025-02-03 13:54 | XMS_ITS | Clinical Summary ---
Author Organization [facility] Address [address] [place] [address] Care Team Providers Care Newspaper Copy Editor Name Role Phone Thomas Cardoza Primary Care Provider [phone] Source Comments PLEASE NOTE, if this patient [...] mcg/actuation nasal sprayIndications: Nasal congestion Place 1 Bud in both nostrils once daily 16 g [...] (#1) 03/18/2023 Diabetes Screening 06/11/2024 06/11/2021, 06/11/2021 [id number] ( season) 2024 09/19/2021, 03/19/2021, 03/19/2021, Additional [...] 1:58 PM EDT) CLINICAL INFORMATION See Note [facility] Comment:None given LMP See Note [facility] Comment:[id number] PREV. PAP [facility] PREV. BX See Note [facility] Comment:NONE GIVEN SOURCE See Note [facility] Comment:Cervix, Endocervix STATEMENT OF ADEQUACY See Note [facility] Comment: Satisfactory for evaluation. Endocervical/transformation zone component present. INTERPRETATION/RESU LT See Note [facility] Comment:Negative for intraep ithelial lesion or malignancy. COMMENT See Note [facility] Comment: This Pap test has been evaluated with computer assisted technology. DAY HABILITATION SUPERVISOR See Note [facility] Comment: SL, CT(ASCP) CT screening location: [address] ??[address] COMMENT [facility] HPV MRNA E6/E7 Not Detected Not Detected [facility] Comment: Methodology: Industrial Maintenance Repairer Helper-Mediated Amplification This assay detects E6/E7 viral messenger RNA (mRNA) from 14 high-risk HPV types (16,18,31,33,35,39,45,51,52,56,58,59,66,68). The analytical performance characteristics of this assay have been determined by [employer]. The modifications have not been cleared or approved by the FDA. This assay has been validated pursuant to the CLIA regulations and is used for clinical purposes. For additional information, please refer to http://education.Alces Technology/faq/HJJ435w3 (This link if provided for information/ educational purposes only.) Swab Cervix uteri structure / Unknown 03/18/2022 1:58 PM EDT 03/19/2022 7:25 AM EDT Narrative [facility] - 03/21/2022 2:21 PM EDT EXPLANATORY NOTE: [...] - NO BLOOD DRAW Final Re sult [facility] [address] [address], [facility] [address] [address] * REFERRAL FOR MAMMOGRAM (02/28/2022 3:00 AM EDT) 02/28/2022 3:00 AM EDT us Thomas BARNES IM RFL MAMMO Edited Result - Final * HEPATITIS C AB W/RFLX HCV RNA, QT, RT PCR (06/11/2021 10:44 AM EDT) HEPATITIS C ANTIBODY NON-REACT RADHA NON-REACT RADHA [facility] SIGNAL TO CUT-OFF 0.01 <1.00 [facility] Comment: HCV antibody was non-reactive. There is no laboratory evidence of HCV infection. In most cases, no further action is required. However, if recent HCV exposure is suspected, a test for HCV RNA (test code 85143) is suggested. For additional information please refer to http://[employer].Alces Technology/faq/ECM75o3 (This link is being provided for informational/ educational purposes only.) Blood Blood / Unknown 06/11/2021 1 0:44 AM EDT 06/11/2021 10:44 AM EDT Narrative [facility] ([place]) [facility] - 06/12/2021 11:29 AM EDT FASTING:YES Thomas BARNES LAB - BLOOD DRAW Edited Result - Final [facility] [address] [address], [facility] [address] [address] * HIV 1/2 AG & AB W/RFLX (4TH GEN) (06/11/2021 10:44 AM EDT) HIV AG/AB, 4TH GEN NON-REAC TIVE NON-REAC TIVE [facility] Comment: HIV-1 antigen and HIV-1/HIV-2 antibodies were [...] ?? For additional information please refer to http://[employer].nediyor.com.[employer]rapeutics/faq/HJP313 (This link is being provided for informational/ educational purposes only.) The performance of this assay has not been clinically validated in patients less than 2 years old. Blood Blood / Unknown 06/11/2021 1 0:44 AM EDT 06/11/2021 10:44 AM EDT Narrative [facility] ([place] - 06/12/2021 11:29 AM EDT FASTING:YES us Thomas BARNES LAB - BLOOD DRAW Final Result Performing Organization Address City/[facility]/ZIP Co de Phone Number [facility] [address] [address], [facility] [address] [address] * (ABNORMAL) LIPID PANEL (06/11/2021 10:44 AM EDT) [facility] Signature CHOLESTEROL, TOTAL 175 <200 mg/dL [facility] HDL CHOLESTEROL 44 > OR = 40 mg/dL [facility] TRIGLYCERIDES 123 <150 mg/dL [facility] LDL-CHOLESTEROL 108(H) 99 mg/dL (calc) [facility] Comment: Reference range: <100 Desirable range <100 mg/dL for primary prevention; ?? <70 mg/dL for patients with CHD or diabetic patients with > or = 2 CHD risk factors. LDL-C is now calculated using the Mitchell-Julio calculation, which is a validated novel method providing better accuracy than the Friedewald equation in the estimation of LDL-C. Mitchell SS et al. MAR. 2013;310(19): 7217-8756 (http://education.ShowNearby/faq/GMQ549) CHOL/HDLC RATIO 4.0 <5.0 (calc) [facility] NON-HDL CHOLESTEROL 131(H) <130 mg/dL (calc) [facility] Comment: For patients with diabetes plus 1 major ASCVD risk factor, treating to a non-HDL-C goal of <100 mg/dL (LDL-C of <70 mg/dL) is considered a therapeutic option. Blood Blood / Unknown 06/11/2021 1 0:44 AM EDT 06/11/2021 10:44 AM EDT Narrative [facility] ([place] - 06/12/2021 11:29 AM EDT FASTING:YES us Thomas BARNES LAB - BLOOD DRAW Final Result [facility] [address] [address], [facility] [address] [address] * (ABNORMAL) COMPREHENSIVE METABOLIC PANEL (06/11/2021 10:44 AM EDT) GLUCOSE 78 65 - 99 mg/dL [facility] Comment: ?Fasting reference interval UREA NITROGEN (BUN) 11 7 - 25 mg/dL [facility] CREATININE (blood) 0.57(L) 0.60 - 1.35 mg/dL [facility] GFR ESTIMATED 121 > OR = 60 mL/min/1. 73m2 [facility] EGFR 140 > OR = 60 mL/min/1. 73m2 [facility] BUN/CREATININE RATIO 19 6 - 22 (calc) [facility] SODIUM 138 135 - 146 mmol/L [facility] POTASSIUM 4.4 3.5 - 5.3 mmol/L [facility] CHLORIDE 108 98 - 110 mmol/L [facility] CARBON DIOXIDE 23 20 - 32 mmol/L [facility] CALCIUM 8.9 8.6 - 10.3 mg/dL [facility] PROTEIN, TOTAL 6.7 6.1 - 8.1 g/dL [facility] ALBUMIN 4.1 3.6 - 5.1 g/dL [facility] GLOBULIN 2.6 1.9 - 3.7 g/dL (calc) [facility] ALBUMIN/GLOBULI N RATIO 1.6 1.0 - 2.5 (calc) [facility] BILIRUBIN, TOTAL 0.3 0.2 - 1.2 mg/dL [facility] ALKALINE PHOSPHATASE 81 36 - 130 U/L [facility] AST 12 10 - 40 U/L [facility] ALT 18 9 - 46 U/L [facility] Blood Blood / Unknown 06/11/2021 1 0:44 AM EDT 06/11/2021 10:44 AM EDT Narrative [facility] ([place]) [facility] - 06/12/2021 11:29 AM EDT FASTING:YES Thomas BARNES LAB - BLOOD DRAW Edited Result - Final [facility] 200 [facility] [address] [place] [address], [facility] 200 [facility] [address],[place] [address] from Last 3 Months or Most Recently Relevant to Health Maintenance Insurance [employer] Care Teams Newspaper Copy Editor Relationship Specialty Start Date End Date Thomas Cardoza PA [address] [place] [address] PCP - General FAMILY MEDICINE PA 11/12/21
== END 2025-02-03 12:24 | disposition home or self-care (01) ==
LOC: HO.HOS 12:17
PROVIDERS: PCP Internal Medicine; Visit Provider Physical Medicine & Rehabilitation
DX: M51.26 Other intervertebral disc displacement, lumbar region (principal); M54.16 Radiculopathy, lumbar region; G44.86 Cervicogenic headache; M79.18 Myalgia, other site
CPT/HCPCS: 20553

== ENCOUNTER → 2025-02-03 12:17 | Outpatient (BNVA) | payer OTHER, SELFPAY | PROVIDERS: PCP Internal Medicine; Visit Provider Physical Medicine & Rehabilitation | DX: M79.18 Myalgia, other site (principal) | CPT/HCPCS: 20553; J2003 ==

== ENCOUNTER 2025-03-07 14:42 | Outpatient (AMB) | payer MEDICAID, SELFPAY ==
--- NOTE | 2025-03-07 14:43 | MHC.OFFVIS ---
Intake Visit Reasons: OV f/u -Trigger point injection Trapezius 02/03/25 Intake Note: Camila is a 54 year old female presents today for a 6 week follow up from her trigger injection to left upper trapezius on 02/03/25. Patient reports the same amount of pain. She also reports that she has been seeing stars in her vision when she turns her head certain ways. Straight Edger Required: No Allergies No Known Allergies Allergy (Verified 03/07/25 14:48) Medication List - Last Reconciled 03/07/25 by Jazmyn Garcia, RN duloxetine (Cymbalta) 20 mg PO BID gabapentin 900 mg PO BEDTIME ibuprofen 800 mg PO TID PRN lisinopril 20 mg PO DAILY omeprazole 20 mg PO DAILY 30 days psyllium husk (Metamucil) 1 tbsp PO DAILY 30 days trazodone 50 mg PO BEDTIME PRN HPI Comments Details: I've seen Camila for cervicalgia/myofascial pain. We've tried trigger point injections without relief though. Still more left sided, radiate to left upper arm. Not to fingers. Hand numbness bilateral at night. EMG BUE 01/2024 showed bilateral CTS, already s/p CTR by Dr. Thompson. Been going to PT for neck pain, last visit was January 2025. It was temporary relief only. Last cervical MRI 2018, external, was told to have C3-4 and C5-6 bulging disk. As for lumbar MRI findings. She will follow up with PCP Dr. Horowitz. She also scheduled for L5-S1 KAREL with Pain Management. [facility] Medical History (Updated 03/07/25 @ 15:13 by Sandra Robles MD) Carpal tunnel syndrome RLS (restless legs syndrome) HTN (hypertension) Surgical History Hx of colonoscopy History of carpal tunnel surgery History of arthroscopy of right shoulder Family History Maternal Grandmother Mental health disorder Sister Diverticulitis Brother Colon polyp Brother S/P colostomy History of colostomy reversal Father Lung cancer Liver cancer Cancer of kidney Social History Household Members: Other Household Members Other:: on disability for shoulder injury , lives with a partner, 1 daughter, Housing: Apartment Are you a primary resident care coordinator to a significant other at home: No Patient Tobacco Use Status: Former Tobacco user Cigarettes Per Day: 8 Years Smoked: 20 e-Cigarette/Vaping Use: Never Used service: No 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al status: disabled 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 Patient was appropriately conversant and oriented. Good historian. MSK: No specific abnormalities found on inspection of the spine and all extremities. Cervical range of motion still appears intact. Negative Spurling sign. Neurological: Neurologic examination of the upper and lower extremities was nonfocal with intact sensation, muscle stretch reflexes and without focal motor deficits . Lopez?s negative bilaterally. Gait is antalgic without loss of balance. More limp on right side. Results Reviewed Results Reviewed: Previous cervical imaging done at the outside facility, probably as long as 2019. Assessment & Plan Assessment & Plan (1) Myofascial pain: Code(s): M79.18 - Myalgia, other site Category: Medical (2) Cervical radiculitis: Code(s): M54.12 - Radiculopathy, cervical region Category: Medical Plan Patient continues to have neck pain, left-sided, despite PT and trigger point injections. Patient had undergone adequate conservative management including [PT] without improvement of condition. It would be reasonable to obtain further imaging such as MRI. An MRI would help rule out any serious condition, guide treatment and assess prognosis for recovery. Specifically ruling out left-sided C5-6 disc herniation or foraminal narrowing. Assessment and plan discussed with patient, and patient was agreeable. All questions were answered thoroughly. Follow up after MRI, after injection from pain management for lumbar, after PCP appointment, around 2nd or 3rd week of March. Sandra Robles MD, JAMILAH Board Certified, [place] Board of Physical Medicine and Rehabilitation (ABPMR) Board Certified, [place] Board of Electrodiagnostic Medicine (ABEM) Orders: Orders MR cervical spine wo con Today M54.12 - Radiculopathy, cervical region Coding Level of Care Code Est Pt Level 4 (38936) Diagnoses Myofascial pain M79.18 Cervical radiculitis M54.12
--- OUTSIDE RECORDS SUMMARY | 2025-03-07 17:57 | XMS_ITS | Clinical Summary ---
Author Organization [facility] Address [address] [place] [address] Care Team Providers Care Budget And Policy Analyst Name Role Phone Thomas Cardoza Primary Care Provider [phone] Source Comments PLEASE NOTE, if this patient [...] mcg/actuation nasal sprayIndications: Nasal congestion Place 1 [place] in both nostrils once daily 16 g [...] Resolved Date Viral infection 10/27/2019 06/03/2021 Immunizations Immunization Administration Dates Next Due Flu, Preservative Free [...] Health Maintenance Due Date Last Done Comments Anxiety Screening 1970 HPV Screening 1970 Imm-Hepatitis B (1 of [...] Screening (#1) 03/18/2023 Diabetes Screening 06/11/2024 06/11/2021, 0 06/11/2021, 09/19/2020 [id number] ( season) 2024 09/19/2021, 03/19/2021, 03/19/2021, Additional [...] 1:58 PM EDT) CLINICAL INFORMATION See Note [facility] Comment:None given LMP See Note [facility] Comment:[id number] PREV. PAP [facility] PREV. BX See Note [facility] Comment:NONE GIVEN SOURCE See Note [facility] Comment:Cervix, Endocervix STATEMENT OF ADEQUACY See Note [facility] Comment: Satisfactory for evaluation. Endocervical/transformation zone component present. INTERPRETATION/RESU LT See Note [facility] Comment:Negative for intraep ithelial lesion or malignancy. COMMENT See Note [facility] Comment: This Pap test has been evaluated with computer assisted technology. NAIL ASSEMBLY MACHINE OPERATOR See Note [employer] Comment: SL, CT(ASCP) CT screening location: [address] ??[address] COMMENT [facility] HPV MRNA E6/E7 Not Detected Not Detected [facility] Comment: Methodology: Industrial Workers-Mediated Amplification This assay detects E6/E7 viral messenger RNA (mRNA) from 14 high-risk HPV types (16,18,31,33,35,39,45,51,52,56,58,59,66,68). The analytical performance characteristics of this assay have been determined by [employer]. The modifications have not been cleared or approved by the FDA. This assay has been validated pursuant to the CLIA regulations and is used for clinical purposes. For additional information, please refer to http://education.XGraph/faq/XNH514o7 (This link if provided for information/ educational purposes only.) Swab Cervix uteri structure / Unknown 03/18/2022 1:58 PM EDT 03/19/2022 7:25 AM EDT Narrative [facility] - 03/21/2022 2:21 PM EDT EXPLANATORY NOTE: [...] along with historic and current clinical information. Ning Navarrete PA-C LAB - NO BLOOD DRAW Final Re sult [facility] [address] [address], [facility] [address] [address] * REFERRAL FOR MAMMOGRAM (02/28/2022 3:00 AM EDT) 02/28/2022 3:00 AM EDT us Thomas SOLIS RFL MAMMO Edited Result - Final * HEPATITIS C AB W/RFLX HCV RNA, QT, RT PCR (06/11/2021 10:44 AM EDT) HEPATITIS C ANTIBODY NON-REACT RADHA NON-REACT RADHA [facility] SIGNAL TO CUT-OFF 0.01 <1.00 [facility] Comment: HCV antibody was non-reactive. There is no laboratory evidence of HCV infection. In most cases, no further action is required. However, if recent HCV exposure is suspected, a test for HCV RNA (test code 37854) is suggested. For additional information please refer to http://AVST.XGraph/faq/WSI13u8 (This link is being provided for informational/ educational purposes only.) Blood Blood / Unknown 06/11/2021 1 0:44 AM EDT 06/11/2021 10:44 AM EDT Narrative [facility] - 06/12/2021 11:29 AM EDT FASTING:YES us Thomas BARNES LAB - BLOOD DRAW Edited Result - Final [facility] [address] [address], [facility] [address] [address] * HIV 1/2 AG & AB W/RFLX (4TH GEN) (06/11/2021 10:44 AM EDT) HIV AG/AB, 4TH GEN NON-REAC TIVE NON-REAC TIVE [facility] Comment: HIV-1 antigen and HIV-1/HIV-2 antibodies were [...] ?? For additional information please refer to http://AVST.XGraph/faq/SVK116 (This link is being provided for informational/ educational purposes only.) The performance of this assay has not been clinically validated in patients less than 2 years old. Blood Blood / Unknown 06/11/2021 1 0:44 AM EDT 06/11/2021 10:44 AM EDT Narrative [facility] - 06/12/2021 11:29 AM EDT FASTING:YES us Thomas BARNES LAB - BLOOD DRAW Final Result [facility] [address] [address], [facility] [address] [address] * (ABNORMAL) LIPID PANEL (06/11/2021 10:44 AM EDT) [facility] Signature CHOLESTEROL, TOTAL 175 <200 mg/dL [facility] HDL CHOLESTEROL 44 > OR = 40 mg/dL [facility] TRIGLYCERIDES 123 <150 mg/dL [facility] LDL-CHOLESTEROL 108(H) 99 mg/dL (calc) [facility] Comment: Reference range: <100 Desirable range <100 mg/dL for primary prevention; ?? <70 mg/dL for patients with CHD or diabetic patients with > or = 2 CHD risk factors. LDL-C is now calculated using the Mitchell-Julio calculation, which is a validated novel method providing better accuracy than the Friedewald equation in the estimation of LDL-C. Mitchell SS et al. MAR. 2013;310(19): 7469-0726 (http://education.[employer]/faq/HQX500) CHOL/HDLC RATIO 4.0 <5.0 (calc) [facility] NON-HDL CHOLESTEROL 131(H) <130 mg/dL (calc) [facility] Comment: For patients with diabetes plus 1 major ASCVD risk factor, treating to a non-HDL-C goal of <100 mg/dL (LDL-C of <70 mg/dL) is considered a therapeutic option. Blood Blood / Unknown 06/11/2021 1 0:44 AM EDT 06/11/2021 10:44 AM EDT Narrative [facility] - 06/12/2021 11:29 AM EDT FASTING:YES us Thomas BARNES LAB - BLOOD DRAW Final Result [facility] [address] [address], [facility] [address] [address] * (ABNORMAL) COMPREHENSIVE METABOLIC PANEL (06/11/2021 10:44 AM EDT) GLUCOSE 78 65 - 99 mg/dL [facility] Comment: ?Fasting reference interval UREA NITROGEN (BUN) 11 7 - 25 mg/dL [facility] CREATININE (blood) 0.57(L) 0.60 - 1.35 mg/dL [facility] GFR ESTIMATED 121 > OR = 60 mL/min/1. 73m2 [facility] EGFR 140 > OR = 60 mL/min/1. 73m2 [facility] BUN/CREATININE RATIO 19 6 - 22 (calc) [facility] SODIUM 138 135 - 146 mmol/L [facility] POTASSIUM 4.4 3.5 - 5.3 mmol/L [facility] CHLORIDE 108 98 - 110 mmol/L [facility] CARBON DIOXIDE 23 20 - 32 mmol/L [facility] CALCIUM 8.9 8.6 - 10.3 mg/dL [facility] PROTEIN, TOTAL 6.7 6.1 - 8.1 g/dL [facility] ALBUMIN 4.1 3.6 - 5.1 g/dL [facility] GLOBULIN 2.6 1.9 - 3.7 g/dL (calc) [facility] ALBUMIN/GLOBULI N RATIO 1.6 1.0 - 2.5 (calc) [facility] BILIRUBIN, TOTAL 0.3 0.2 - 1.2 mg/dL [facility] ALKALINE PHOSPHATASE 81 36 - 130 U/L [facility] AST 12 10 - 40 U/L [facility] ALT 18 9 - 46 U/L [facility] Blood Blood / Unknown 06/11/2021 1 0:44 AM EDT 06/11/2021 10:44 AM EDT Narrative [facility] - 06/12/2021 11:29 AM EDT FASTING:YES Thomas BARNES LAB - BLOOD DRAW Edited Result - Final [facility] 200 [facility] [address] [place] [address], [facility] [address],[place] [address] from Last 3 Months or Most Recently Relevant to Health Maintenance Insurance [employer] Care Teams Budget And Policy Analyst Relationship Specialty Start Date End Date Thomas Cardoza PA [address] [place] [address] PCP - General FAMILY MEDICINE, [place] 11/12/21
--- OUTSIDE RECORDS SUMMARY | 2025-03-07 17:57 | XMS_ITS | Clinical Summary ---
Author Organization [facility] Address [address] [place] [address] Care Team Providers Care Maritime Officer Name Role Phone Silvestre Espino Primary Care Provider Allergies No known active allergies Medications traZODone [...] Vaccine ( - season) 2024 Influenza Vaccine (Season Ended) 2025 10/12/20 20 RSV Vaccine (SCDM) (1 - 1-do se 75+ series) 2046 Insurance [employer] Care Teams Maritime Officer Relationship Specialty Start Date End Date Silvestre Espino PA [address] [place] [id number] PCP - General Family Medicine 10/27/19
== END 2025-03-07 15:53 | disposition home or self-care (01) ==
LOC: HO.HOS 14:42
PROVIDERS: PCP Internal Medicine; Visit Provider Physical Medicine & Rehabilitation
DX: M54.12 Radiculopathy, cervical region (principal); M79.18 Myalgia, other site
CPT/HCPCS: 99214

== ENCOUNTER → 2025-03-07 14:42 | Outpatient (BNVA) | payer MEDICAID, SELFPAY | PROVIDERS: PCP Internal Medicine; Visit Provider Physical Medicine & Rehabilitation | DX: M79.18 Myalgia, other site (principal); M54.12 Radiculopathy, cervical region | CPT/HCPCS: 99212 ==

== ENCOUNTER → 2025-03-15 18:27 | Outpatient (BNV) | payer MEDICARE, MEDICAID, SELFPAY | PROVIDERS: PCP Internal Medicine; Visit Provider Radiology Diagnostic Radiology | DX: M54.12 Radiculopathy, cervical region (principal) | CPT/HCPCS: 72141 ==

== ENCOUNTER 2025-03-15 18:29 | Outpatient (REF) | payer MEDICARE, MEDICAID, SELFPAY ==
--- NOTE | ~2025-03-15 | MR_ITS ---
CLINICAL HISTORY: M54.12 - Radiculopathy, cervical region --- Additional Notes or Special Instruction s: evaluate for left sided narrowing or disc herniation MR of the cervical spine without contrast. COMPARISON: None FINDINGS: Grade 1 anterolisthesis of C4 on C5, degenerative. Vertebral heights are maintained. Marrow signal is benign. Visualized posterior fossa is normal. No abnormal signal within the normal caliber cervical spinal cord. No syringomyelia or cervical epidural fluid collection. C2-C3: No significant neuroforaminal narrowing or spinal canal stenosis. C3-C4: No significant neuroforaminal narrowing or spinal canal stenosis. C4-C5: Mild posterior disc bulge indents the anterior subarachnoid space but does not abut or deform the cord. Mild uncovertebral joint hypertrophy. Moderate to severe left neural foraminal narrowing. Mild right neural foraminal narrowing. C5-C6: Mild posterior disc bulge indents the anterior subarachnoid space but does not abut or deform the cord. No significant neural foraminal narrowing. C6-C7: Mild posterior disc bulge indents the anterior subarachnoid space but does not abut or deform the cord. No significant neural foraminal narrowing. Visualized paraspinal soft tissues are unremarkable. IMPRESSION: 1. No evidence of acute injury to the cervical spine. 2. Grade 1 anterolisthesis of C4 on C5, degenerative. 3. Mild mid to lower cervical spondylosis with neural foraminal narrowing most pronounced on the left at C4-5. This document has been electronically signed by: Lester Valencia MD on 03/17/2025 16:20:37
--- OUTSIDE RECORDS SUMMARY | 2025-03-15 18:48 | XMS_ITS | Clinical Summary ---
Author Organization [facility] Address [address] [place] [address] Care Team Providers Care Card Feeder Name Role Phone Silvestre Espino Primary Care Provider [phone] Allergies No known active allergies Medications traZODone [...] 75+ series) 2046 Insurance [employer] Care Teams Card Feeder Relationship Specialty Start Date End Date Silvestre Espino PA [address] [place] [id number] PCP - General Family Medicine 10/27/19
--- OUTSIDE RECORDS SUMMARY | 2025-03-15 18:48 | XMS_ITS | Clinical Summary ---
Author Organization [facility] Address [address] [place] [address] Care Team Providers Care Accounting File Clerk Name Role Phone Thomas Cardoza Primary Care Provider [phone] Source Comments PLEASE NOTE, if this patient [...] mcg/actuation nasal sprayIndications: Nasal congestion Place 1 [place] in both nostrils once daily 16 g [...] Diabetes Screening 06/11/2024 06/11/2021, 0 06/11/2021, 09/19/2020 [id number]-71 ( season) 2024 09/19/2021, 03/19/2021, 03/19/2021, Additional [...] 1:58 PM EDT) CLINICAL INFORMATION See Note [employer] Comment:None given LMP See Note [employer] Comment:[id number] PREV. PAP [facility] PREV. BX See Note [employer] Comment:NONE GIVEN SOURCE See Note [employer] Comment:Cervix, Endocervix STATEMENT OF ADEQUACY See Note [employer] Comment: Satisfactory for evaluation. Endocervical/transformation zone component present. INTERPRETATION/RESU LT See Note [employer] Comment:Negative for intraep ithelial lesion or malignancy. COMMENT See Note [employer] Comment: This Pap test has been evaluated with computer assisted technology. FOUNTAIN SUPERVISOR See Note [email or web address] Comment: SL, CT(ASCP) CT screening location: [address] ??[address] COMMENT [facility] HPV MRNA E6/E7 Not Detected Not Detected [facility] Comment: Methodology: Franchise Broker-Mediated Amplification This assay detects E6/E7 viral messenger RNA (mRNA) from 14 high-risk HPV types (16,18,31,33,35,39,45,51,52,56,58,59,66,68). The analytical performance characteristics of this assay have been determined by [employer]. The modifications have not been cleared or approved by the FDA. This assay has been validated pursuant to the CLIA regulations and is used for clinical purposes. For additional information, please refer to http://education.Gig[employer]ared/faq/LCK142g5 (This link if provided for information/ educational purposes only.) Swab Cervix uteri structure / Unknown 03/18/2022 1:58 PM EDT 03/19/2022 7:25 AM EDT Narrative [facility] - 03/21/2022 2:21 PM EDT EXPLANATORY NOTE: [...] - NO BLOOD DRAW Final Re sult [facility] [address] [address], [facility] [address] [address] * REFERRAL FOR MAMMOGRAM (02/28/2022 3:00 AM EDT) 02/28/2022 3:00 AM EDT us Thomas SOLIS RFL MAMMO Edited Result - Final * HEPATITIS C AB W/RFLX HCV RNA, QT, RT PCR (06/11/2021 10:44 AM EDT) HEPATITIS C ANTIBODY NON-REACT RADHA NON-REACT RADHA [email or web address] SIGNAL TO CUT-OFF 0.01 <1.00 [facility] Comment: HCV antibody was non-reactive. There is no laboratory evidence of HCV infection. In most cases, no further action is required. However, if recent HCV exposure is suspected, a test for HCV RNA (test code 05756) is suggested. For additional information please refer to http://[employer]/faq/WWA30d5 (This link is being provided for informational/ educational purposes only.) Blood Blood / Unknown 06/11/2021 1 0:44 AM EDT 06/11/2021 10:44 AM EDT Narrative [facility] - 06/12/2021 11:29 AM EDT FASTING:YES us Thomas BARNES LAB - BLOOD DRAW Edited Result - Final [facility] [address] [address], [email or web address] [address] [address] * HIV 1/2 AG & AB W/RFLX (4TH GEN) (06/11/2021 10:44 AM EDT) HIV AG/AB, 4TH GEN NON-REAC TIVE NON-REAC TIVE [facility] Comment: HIV-1 antigen and HIV-1/HIV-2 antibodies were [...] ?? For additional information please refer to http://[employer].G[employer]/faq/MNV590 (This link is being provided for informational/ educational purposes only.) The performance of this assay has not been clinically validated in patients less than 2 years old. Blood Blood / Unknown 06/11/2021 1 0:44 AM EDT 06/11/2021 10:44 AM EDT Narrative [facility] - 06/12/2021 11:29 AM EDT FASTING:YES us Thomas BARNES LAB - BLOOD DRAW Final Result [facility] [address] [address], [facility] [address],[place] [address] * (ABNORMAL) LIPID PANEL (06/11/2021 10:44 AM EDT) [facility] Signature CHOLESTEROL, TOTAL 175 <200 mg/dL [facility] HDL CHOLESTEROL 44 > OR = 40 mg/dL [facility] TRIGLYCERIDES 123 <150 mg/dL [facility] LDL-CHOLESTEROL 108(H) 99 mg/dL (calc) [facility] Comment: Reference range: <100 Desirable range <100 mg/dL for primary prevention; ?? <70 mg/dL for patients with CHD or diabetic patients with > or = 2 CHD risk factors. LDL-C is now calculated using the Mitchell-Julio calculation, which is a validated novel method providing better accuracy than the Friedewald equation in the estimation of LDL-C. Mitchell SS et al. MAR. 2013;310(19): 0276-2594 (http://education.[employer]/faq/PFX247) CHOL/HDLC RATIO 4.0 <5.0 (calc) [facility] NON-HDL CHOLESTEROL 131(H) <130 mg/dL (calc) [facility] Comment: For patients with diabetes plus 1 major ASCVD risk factor, treating to a non-HDL-C goal of <100 mg/dL (LDL-C of <70 mg/dL) is considered a therapeutic option. Blood Blood / Unknown 06/11/2021 1 0:44 AM EDT 06/11/2021 10:44 AM EDT Narrative [facility] - 06/12/2021 11:29 AM EDT FASTING:YES us Thomas BARNES LAB - BLOOD DRAW Final Result [facility] [address] [address], [facility] [address],[place] [address] * (ABNORMAL) COMPREHENSIVE METABOLIC PANEL (06/11/2021 10:44 AM EDT) GLUCOSE 78 65 - 99 mg/dL [facility] Comment: ?Fasting reference interval UREA NITROGEN (BUN) 11 7 - 25 mg/dL [facility] CREATININE (blood) 0.57(L) 0.60 - 1.35 mg/dL [facility] GFR ESTIMATED 121 > OR = 60 mL/min/1. 73m2 [facility] EGFR 140 > OR = 60 mL/min/1. 73m2 [facility] BUN/CREATININE RATIO 19 6 - 22 (calc) [facility] SODIUM 138 135 - 146 mmol/L [facility] POTASSIUM 4.4 3.5 - 5.3 mmol/L [facility] CHLORIDE 108 98 - 110 mmol/L [facility] CARBON DIOXIDE 23 20 - 32 mmol/L [facility] CALCIUM 8.9 8.6 - 10.3 mg/dL [facility] PROTEIN, TOTAL 6.7 6.1 - 8.1 g/dL [facility] ALBUMIN 4.1 3.6 - 5.1 g/dL [facility] GLOBULIN 2.6 1.9 - 3.7 g/dL (calc) [facility] ALBUMIN/GLOBULI N RATIO 1.6 1.0 - 2.5 (calc) [facility] BILIRUBIN, TOTAL 0.3 0.2 - 1.2 mg/dL [facility] ALKALINE PHOSPHATASE 81 36 - 130 U/L [facility] AST 12 10 - 40 U/L [facility] ALT 18 9 - 46 U/L [facility] Blood Blood / Unknown 06/11/2021 1 0:44 AM EDT 06/11/2021 10:44 AM EDT Narrative [facility] - 06/12/2021 11:29 AM EDT FASTING:YES Thomas BARNES LAB - BLOOD DRAW Edited Result - Final [facility] 200 [facility] [address] [place] [address], [facility] [address],[place] [address] from Last 3 Months or Most Recently Relevant to Health Maintenance Insurance [employer] Care Teams Accounting File Clerk Relationship Specialty Start Date End Date Thomas Cardoza PA [address] [place] [address] PCP - General FAMILY MEDICINE, [place] 11/12/21
== END 2025-03-15 18:30 | disposition home or self-care (01) ==
LOC: HO.MRI 18:29
PROVIDERS: PCP Internal Medicine; Visit Provider Physical Medicine & Rehabilitation
DX: M54.12 Radiculopathy, cervical region (principal)
CPT/HCPCS: 72141

== ENCOUNTER 2025-03-21 06:06 | Outpatient (REF) | payer MEDICARE, MEDICAID, SELFPAY ==
--- NOTE | ~2025-03-21 | FL_ITS ---
EXAMINATION: FL GUIDANCE ONLY HISTORY: M51.26 - Other intervertebral disc displacement, lumbar region COMPARISON: None available. TECHNIQUE: Fluoroscopy time: 0.2 minutes. Cumulative Dose: 4.72 mGy. DAP: 0.0479 mGym2 Images: 3. FINDINGS: Images demonstrate a needle at the L5-S1 level. FL/FL guidance in treatment room IMPRESSION: Fluoroscopy during procedure. Please see procedure report for additional information. Electronically signed by: Karri Moran MD 03/22/2025 01:06 PM EDT
--- OUTSIDE RECORDS SUMMARY | 2025-03-21 06:10 | XMS_ITS | Clinical Summary ---
Author Organization [facility] [place] [facility] Address [address] [place] [address] Care Team Providers Care Medical Billing And Coding Specialist Name Role Phone Silvestre Espino Primary Care Provider [phone] Allergies No known active allergies Medications traZODone [...] 75+ series) 2046 Insurance [employer] Care Teams Medical Billing And Coding Specialist Relationship Specialty Start Date End Date Silvestre Espino PA [address] [place] [id number] PCP - General Family Medicine 10/27/19
--- OUTSIDE RECORDS SUMMARY | 2025-03-21 06:10 | XMS_ITS | Clinical Summary ---
Author Organization [facility] Address [address] [place] [address] Care Team Providers Care Gun Stock Maker Name Role Phone Thomas Cardoza Primary Care Provider [phone] Source Comments PLEASE NOTE, if this patient [...] mcg/actuation nasal sprayIndications: Nasal congestion Place 1 [place] in both nostrils once daily 16 g [...] Diabetes Screening 06/11/2024 06/11/2021, 0 06/11/2021, 09/19/2020 [id number] ( season) 2024 09/19/2021, 03/19/2021, 03/19/2021, Additional [...] 1:58 PM EDT) CLINICAL INFORMATION See Note Busuu Comment:None given LMP See Note Busuu Comment:[id number] PREV. PAP Busuu PREV. BX See Note Busuu Comment:NONE GIVEN SOURCE See Note Busuu Comment:Cervix, Endocervix STATEMENT OF ADEQUACY See Note Busuu Comment: Satisfactory for evaluation. Endocervical/transformation zone component present. INTERPRETATION/RESU LT See Note Busuu Comment:Negative for intraep ithelial lesion or malignancy. COMMENT See Note Busuu Comment: This Pap test has been evaluated with computer assisted technology. MANAGER CONVENTION See Note Punchey Comment: SL, CT(ASCP) CT screening location: [address] ??[address] COMMENT Busuu HPV MRNA E6/E7 Not Detected Not Detected Busuu Comment: Methodology: Room Cleaner-Mediated Amplification This assay detects E6/E7 viral messenger RNA (mRNA) from 14 high-risk HPV types (16,18,31,33,35,39,45,51,52,56,58,59,66,68). The analytical performance characteristics of this assay have been determined by [employer]. The modifications have not been cleared or approved by the FDA. This assay has been validated pursuant to the CLIA regulations and is used for clinical purposes. For additional information, please refer to http://education.[employer]/faq/LMO113z3 (This link if provided for information/ educational purposes only.) Swab Cervix uteri structure / Unknown 03/18/2022 1:58 PM EDT 03/19/2022 7:25 AM EDT Narrative [facility] - 03/21/2022 2:21 PM EDT EXPLANATORY [...] - NO BLOOD DRAW Final Re sult [facility] ? [address] [address], [facility] ? [address] [address] * REFERRAL FOR MAMMOGRAM (02/28/2022 3:00 AM EDT) 02/28/2022 3:00 AM EDT us Thomas SOLIS RFL MAMMO Edited Result - Final * HEPATITIS C AB W/RFLX HCV RNA, QT, RT PCR (06/11/2021 10:44 AM EDT) HEPATITIS C ANTIBODY NON-REACT RADHA NON-REACT RADHA [facility] SIGNAL TO CUT-OFF 0.01 <1.00 Busuu Comment: HCV antibody was non-reactive. There is no laboratory evidence of HCV infection. In most cases, no further action is required. However, if recent HCV exposure is suspected, a test for HCV RNA (test code 56871) is suggested. For additional information please refer to http://Reclamador.[employer]/faq/XDH76z9 (This link is being provided for informational/ educational purposes only.) Blood Blood / Unknown 06/11/2021 1 0:44 AM EDT 06/11/2021 10:44 AM EDT Narrative [facility] - 06/12/2021 11:29 AM EDT FASTING:YES us Thomas [facility] - BLOOD DRAW Edited Result - Final [facility] [address] [address], [employer] [address] [address] * HIV 1/2 AG & AB W/RFLX (4TH GEN) (06/11/2021 10:44 AM EDT) HIV AG/AB, 4TH GEN NON-REAC TIVE NON-REAC TIVE Busuu Comment: HIV-1 antigen and HIV-1/HIV-2 antibodies were [...] ?? For additional information please refer to http://Reclamador.[employer]/faq/XSW617 (This link is being provided for informational/ educational purposes only.) The performance of this assay has not been clinically validated in patients less than 2 years old. Blood Blood / Unknown 06/11/2021 1 0:44 AM EDT 06/11/2021 10:44 AM EDT Narrative [facility] - 06/12/2021 11:29 AM EDT FASTING:YES us Thomas [facility] - BLOOD DRAW Final Result [facility] [address] [address], [facility] ? [facility] [address],[place] [address] * (ABNORMAL) LIPID PANEL (06/11/2021 10:44 AM EDT) [facility] Signature CHOLESTEROL, TOTAL 175 <200 mg/dL [facility] HDL CHOLESTEROL 44 > OR = 40 mg/dL [facility] TRIGLYCERIDES 123 <150 mg/dL [facility] LDL-CHOLESTEROL 108(H) 99 mg/dL (calc) [facility] Comment: Reference range: <100 Desirable range <100 mg/dL for primary prevention; ?? <70 mg/dL for patients with CHD or diabetic patients with > or = 2 CHD risk factors. LDL-C is now calculated using the Mitchell-Julio calculation, which is a validated novel method providing better accuracy than the Friedewald equation in the estimation of LDL-C. Mitchell SS et al. MAR. 2013;310(19): 5696-4661 (http://education.Rabixo/faq/YGG230) CHOL/HDLC RATIO 4.0 <5.0 (calc) [facility] NON-HDL CHOLESTEROL 131(H) <130 mg/dL (calc) [facility] Comment: For patients with diabetes plus 1 major ASCVD risk factor, treating to a non-HDL-C goal of <100 mg/dL (LDL-C of <70 mg/dL) is considered a therapeutic option. Blood Blood / Unknown 06/11/2021 1 0:44 AM EDT 06/11/2021 10:44 AM EDT Narrative [facility] - 06/12/2021 11:29 AM EDT FASTING:YES us Thomas [facility] - BLOOD DRAW Final Result [facility] [address] [address], [facility] [address],[place] [address] * (ABNORMAL) COMPREHENSIVE METABOLIC PANEL (06/11/2021 10:44 AM EDT) GLUCOSE 78 65 - 99 mg/dL [facility] Comment: ?Fasting reference interval UREA NITROGEN (BUN) 11 7 - 25 mg/dL [facility] CREATININE (blood) 0.57(L) 0.60 - 1.35 mg/dL [facility] GFR ESTIMATED 121 > OR = 60 mL/min/1. 73m2 [facility] EGFR 140 > OR = 60 mL/min/1. 73m2 [facility] BUN/CREATININE RATIO 19 6 - 22 (calc) [facility] SODIUM 138 135 - 146 mmol/L [facility] POTASSIUM 4.4 3.5 - 5.3 mmol/L [facility] CHLORIDE 108 98 - 110 mmol/L [facility] CARBON DIOXIDE 23 20 - 32 mmol/L [facility] CALCIUM 8.9 8.6 - 10.3 mg/dL [facility] PROTEIN, TOTAL 6.7 6.1 - 8.1 g/dL [facility] ALBUMIN 4.1 3.6 - 5.1 g/dL [facility] GLOBULIN 2.6 1.9 - 3.7 g/dL (calc) [facility] ALBUMIN/GLOBULI N RATIO 1.6 1.0 - 2.5 (calc) [facility] BILIRUBIN, TOTAL 0.3 0.2 - 1.2 mg/dL [facility] ALKALINE PHOSPHATASE 81 36 - 130 U/L [facility] AST 12 10 - 40 U/L [facility] ALT 18 9 - 46 U/L [facility] Blood Blood / Unknown 06/11/2021 1 0:44 AM EDT 06/11/2021 10:44 AM EDT Narrative [facility] - 06/12/2021 11:29 AM EDT FASTING:YES Thomas [facility] - BLOOD DRAW Edited Result - Final [facility] 200 [facility] [address] [place] [address], [facility] [address],[place] [address] from Last 3 Months or Most Recently Relevant to Health Maintenance Insurance [employer] Care Teams Gun Stock Maker Relationship Specialty Start Date End Date Thomas Cardoza PA [address] [place] [address] PCP - General FAMILY MEDICINE, [place] 11/12/21
== END 2025-03-21 06:07 | disposition home or self-care (01) ==
LOC: CF 06:06
PROVIDERS: Visit Provider Anesthesiology
DX: M54.16 Radiculopathy, lumbar region (principal)
CPT/HCPCS: 62321; 62323; J2003; J3301; Q9967

== ENCOUNTER 2025-03-21 07:31 | Outpatient (AMB) | payer MEDICARE, MEDICAID, SELFPAY ==
--- OUTSIDE RECORDS SUMMARY | 2025-03-21 07:34 | XMS_ITS | Clinical Summary ---
Author Organization [facility] Address [address] [place] [address] Care Team Providers Care Tunnel Kiln Repairer Name Role Phone Silvestre Espino Primary Care Provider [phone] Allergies No known active allergies Medications traZODone [...] 75+ series) 2046 Insurance [employer] Care Teams Tunnel Kiln Repairer Relationship Specialty Start Date End Date Silvestre Espino PA [address] [place] [id number] PCP - General Family Medicine 10/27/19
--- OUTSIDE RECORDS SUMMARY | 2025-03-21 07:34 | XMS_ITS | Clinical Summary ---
Author Organization [facility] Address [address] [place] [address] Care Team Providers Care Supervisor Roving Department Name Role Phone Thomas Cardoza Primary Care Provider [phone] Source Comments PLEASE NOTE, if this patient [...] mcg/actuation nasal sprayIndications: Nasal congestion Place 1 [place] Line in both nostrils once daily 16 g [...] Diabetes Screening 06/11/2024 06/11/2021, 0 06/11/2021, 09/19/2020 [id number] ( season) 2024 09/19/2021, 03/19/2021, 03/19/2021, Additional [...] 1:58 PM EDT) CLINICAL INFORMATION See Note Axial Exchange Comment:None given LMP See Note Axial Exchange Comment:[id number] PREV. PAP [facility] PREV. BX See Note Axial Exchange Comment:NONE GIVEN SOURCE See Note Axial Exchange Comment:Cervix, Endocervix STATEMENT OF ADEQUACY See Note Axial Exchange Comment: Satisfactory for evaluation. Endocervical/transformation zone component present. INTERPRETATION/RESU LT See Note Axial Exchange Comment:Negative for intraep ithelial lesion or malignancy. COMMENT See Note Axial Exchange Comment: This Pap test has been evaluated with computer assisted technology. HAWK MISSILE SYSTEM CREWMEMBER See Note Wee Web Comment: SL, CT(ASCP) CT screening location: [address] ??[address] COMMENT [facility] HPV MRNA E6/E7 Not Detected Not Detected [facility] Comment: Methodology: Web Marketing Analyst-Mediated Amplification This assay detects E6/E7 viral messenger RNA (mRNA) from 14 high-risk HPV types (16,18,31,33,35,39,45,51,52,56,58,59,66,68). The analytical performance characteristics of this assay have been determined by [employer]. The modifications have not been cleared or approved by the FDA. This assay has been validated pursuant to the CLIA regulations and is used for clinical purposes. For additional information, please refer to http://education.[employer]/faq/ZAA981t9 (This link if provided for information/ educational purposes only.) Swab Cervix uteri structure / Unknown 03/18/2022 1:58 PM EDT 03/19/2022 7:25 AM EDT Narrative [facility] - 03/21/2022 2:21 PM EDT EXPLANATORY NOTE: [...] - NO BLOOD DRAW Final Re sult [facility] [address] [address], [facility] [address] [address] * REFERRAL FOR MAMMOGRAM (02/28/2022 3:00 AM EDT) 02/28/2022 3:00 AM EDT us Thomas SOLIS RFL MAMMO Edited Result - Final * HEPATITIS C AB W/RFLX HCV RNA, QT, RT PCR (06/11/2021 10:44 AM EDT) HEPATITIS C ANTIBODY NON-REACT RADHA NON-REACT RADHA [facility] SIGNAL TO CUT-OFF 0.01 <1.00 [facility] Comment: HCV antibody was non-reactive. There is no laboratory evidence of HCV infection. In most cases, no further action is required. However, if recent HCV exposure is suspected, a test for HCV RNA (test code 78230) is suggested. For additional information please refer to http://[employer]/faq/UXR63t7 (This link is being provided for informational/ educational purposes only.) Blood Blood / Unknown 06/11/2021 1 0:44 AM EDT 06/11/2021 10:44 AM EDT Narrative [facility] - 06/12/2021 11:29 AM EDT FASTING:YES us Thoams [facility] - BLOOD DRAW Edited Result - Final [facility] [address] [address], [facility] [address] [address] * HIV 1/2 AG & AB W/RFLX (4TH GEN) (06/11/2021 10:44 AM EDT) HIV AG/AB, 4TH GEN NON-REAC TIVE NON-REAC TIVE [facility] Comment: HIV-1 antigen and HIV-1/HIV-2 antibodies were [...] ?? For additional information please refer to http://[employer]/faq/VUP974 (This link is being provided for informational/ educational purposes only.) The performance of this assay has not been clinically validated in patients less than 2 years old. Blood Blood / Unknown 06/11/2021 1 0:44 AM EDT 06/11/2021 10:44 AM EDT Narrative [facility] - 06/12/2021 11:29 AM EDT FASTING:YES us Thomas [facility] - BLOOD DRAW Final Result [facility] [address] [address], [facility] [address] [address] * (ABNORMAL) LIPID PANEL (06/11/2021 10:44 AM EDT) [facility] Signature CHOLESTEROL, TOTAL 175 <200 mg/dL [facility] HDL CHOLESTEROL 44 > OR = 40 mg/dL [facility] TRIGLYCERIDES 123 <150 mg/dL [facility] LDL-CHOLESTEROL 108(H) 99 mg/dL (calc) [facility] Comment: Reference range: <100 [...] LDL-C. Mitchell SS et al. MAR. 2013;310(19): 4125-2238 (http://education.[employer]orious/faq/NDG680) CHOL/HDLC RATIO 4.0 <5.0 (calc) [facility] NON-HDL CHOLESTEROL 131(H) <130 mg/dL (calc) [facility] Comment: For patients with diabetes plus 1 major ASCVD risk factor, treating to a non-HDL-C goal of <100 mg/dL (LDL-C of <70 mg/dL) is considered a therapeutic option. Blood Blood / Unknown 06/11/2021 1 0:44 AM EDT 06/11/2021 10:44 AM EDT Narrative [facility] - 06/12/2021 11:29 AM EDT FASTING:YES us Thomas [facility] - BLOOD DRAW Final Result [facility] [address] [address], [facility] [address] [address] * (ABNORMAL) COMPREHENSIVE METABOLIC PANEL (06/11/2021 10:44 AM EDT) GLUCOSE 78 65 - 99 mg/dL [facility] Comment: ?Fasting reference interval UREA NITROGEN (BUN) 11 7 - 25 mg/dL [facility] CREATININE (blood) 0.57(L) 0.60 - 1.35 mg/dL [facility] GFR ESTIMATED 121 > OR = 60 mL/min/1. 73m2 [facility] EGFR 140 > OR = 60 mL/min/1. 73m2 [facility] BUN/CREATININE RATIO 19 6 - 22 (calc) [facility] SODIUM 138 135 - 146 mmol/L [facility] POTASSIUM 4.4 3.5 - 5.3 mmol/L [facility] CHLORIDE 108 98 - 110 mmol/L [facility] CARBON DIOXIDE 23 20 - 32 mmol/L [facility] CALCIUM 8.9 8.6 - 10.3 mg/dL [facility] PROTEIN, TOTAL 6.7 6.1 - 8.1 g/dL [facility] ALBUMIN 4.1 3.6 - 5.1 g/dL [facility] GLOBULIN 2.6 1.9 - 3.7 g/dL (calc) [facility] ALBUMIN/GLOBULI N RATIO 1.6 1.0 - 2.5 (calc) [facility] BILIRUBIN, TOTAL 0.3 0.2 - 1.2 mg/dL [facility] ALKALINE PHOSPHATASE 81 36 - 130 U/L [facility] AST 12 10 - 40 U/L [facility] ALT 18 9 - 46 U/L [facility] Blood Blood / Unknown 06/11/2021 1 0:44 AM EDT 06/11/2021 10:44 AM EDT Narrative [facility] - 06/12/2021 11:29 AM EDT FASTING:YES Thomas [facility] - BLOOD DRAW Edited Result - Final [facility] 200 [facility] [address] [place] [address], [facility] [address],[place] [address] from Last 3 Months or Most Recently Relevant to Health Maintenance Insurance [employer] Care Teams Supervisor Roving Department Relationship Specialty Start Date End Date Thomas Cardoza PA [address] [place] [address] PCP - General FAMILY MEDICINE, PA 11/12/21
[2025-03-21 07:40] VITALS: BP 130/76; PULSE 78; RESP 16; O2SAT 97
--- NOTE | 2025-03-21 07:40 | MHC.OFFVIS ---
Vital Signs 03/21/25 07:40 03/21/25 08:04 BP 130/76 130/76 Blood Pressure Location Lt brachial Lt brachial Position Sitting Sitting Respiration 16 16 Pulse 78 73 Pulse Source Pulse Oximeter Pulse Oximeter Pulse Oximetry (%) 97 96 Oxygen Delivery Method Room Air Room Air Intake Visit Reasons: INTERLAMINAR L5, SI KAREL Passenger Booking Clerk Required: No Allergies No Known Allergies Allergy (Verified 03/21/25 07:40) Medication List - Last Reconciled 03/21/25 by Elsy Paulino LPN duloxetine (Cymbalta) 20 mg PO BID gabapentin 900 mg PO BEDTIME ibuprofen 800 mg PO TID PRN lisinopril 20 mg PO DAILY omeprazole 20 mg PO DAILY 30 days psyllium husk (Metamucil) 1 tbsp PO DAILY 30 days trazodone 50 mg PO BEDTIME PRN PFSH Medical History (Updated 03/21/25 @ 08:07 by Troy Nichole MD) Carpal tunnel syndrome RLS (restless legs syndrome) HTN (hypertension) Surgical History Hx of colonoscopy History of carpal tunnel surgery History of arthroscopy of right shoulder Family History Maternal Grandmother Mental health disorder Sister Diverticulitis Brother Colon polyp Brother S/P colostomy History of colostomy reversal Father Lung cancer Liver cancer Cancer of kidney Social History Household Members: Other Household Members Other:: on disability for shoulder injury , lives with a partner, 1 daughter, Housing: Apartment Are you a primary zoo caretaker to a significant other at home: No Patient Tobacco Use Status: Former Tobacco user Cigarettes Per Day: 8 Years Smoked: 20 e-Cigarette/Vaping Use: Never Used service: No 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al status: disabled 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 After explaining informed consent about the risks and benefits of the procedure including risk of bleeding infection peripheral nerve damage spinal cord damage and headache the patient was taken to the operating room and positioned prone on operating table. The lower back and upper buttocks were prepped with ChloraPrep and draped with sterile utility towels. Time-out was performed delineating name and date of of the patient nature of the procedure laterality of the procedure and allergies of the patient. C-arm was brought over the operating field and picture of the L5 and S1 vertebra were delineated on the screen. Uriarte view was obtained delineating sq picture of right S1 lamina. After that in the projection of top most right lamina as close to the spinous process of S1 as possible to the skin injection of the local anesthetic 1% was performed forming skin wheal. After that 20 gauge epidural needle was inserted through the skin wheal and advanced to were the epidural space under anterior posterior and lateral views intermittently. Loss of resistance to air technique was used to detect the epidural space. When loss of resistance was felt injection of the contrast was performed delineating lateral epidurogram. After that injection of the lidocaine preservative-free 1% mixed with Kenalog 40 mg was performed into the needle. The patient tolerated procedure well. The needle was withdrawn and sterile Band-Aid was applied. She was taken outside of the operating room to recovery where she recovered uneventfully. Orders: Orders FL guidance in treatment room Today M51.26 - Other intervertebral disc displacement, lumbar region Coding Level of Care Code Procedure Only Diagnoses Radiculopathy, lumbar region M54.16
[2025-03-21 08:04] VITALS: BP 130/76; PULSE 73; RESP 16; O2SAT 96
== END 2025-03-21 08:05 | disposition home or self-care (01) ==
LOC: HO.PMCPRC 07:31
PROVIDERS: PCP Internal Medicine; Visit Provider Anesthesiology
DX: M54.16 Radiculopathy, lumbar region (principal)
CPT/HCPCS: 62321

== ENCOUNTER 2025-03-28 10:59 | Outpatient (AMB) | payer MEDICARE, SELFPAY ==
[2025-03-28 11:08] VITALS: BP 126/70; PULSE 88; RESP 18; TEMP 36.8; O2SAT 99; BMI 31.9
--- NOTE | 2025-03-28 11:08 | A.OFFPC_ITS ---
Vital Signs 03/28/25 11:08 Height 5 ft 1 in Weight 169 lb BMI 31.9 BP 126/70 Blood Pressure Location Rt brachial Position Sitting Respiration 18 Pulse 88 Pulse Source Pulse Oximeter Temp 98.2 F Temp Source Oral Pulse Oximetry (%) 99 Oxygen Delivery Method Room Air Intake Visit Reasons: 3m follow up Intake Note: Pt is here today for 3 months follow up visit. Allergies No Known Allergies Allergy (Verified 03/28/25 11:09) Medication List - Last Reconciled 03/28/25 by Valeria Horowitz MD duloxetine (Cymbalta) 60 mg PO DAILY gabapentin 900 mg PO BEDTIME ibuprofen 800 mg PO TID PRN lisinopril 20 mg PO DAILY omeprazole 20 mg PO DAILY 30 days psyllium husk (Metamucil) 1 tbsp PO DAILY 30 days trazodone 100 mg PO BEDTIME PRN Tobacco use date assessed: 03/28/25 Dental Screening Dental Screen Date: 12/30/24 HPI 3m follow up HPI Details PATIENT PRESENTS FOR THE FOLLOW-UP. HYPERTENSION IS CONTROLLED ON LISINOPRIL. PATIENT HAS BEEN SEEN PSYCHIATRIST AND THERAPIST AND CYMBALTA DOSE WAS INCREASED TO 60 MG A DAY. PATIENT IS FEELING BETTER. She is established with pain management for chronic neck and lower back pain and has been getting cortisone injections and trying physical therapy. Lumbar spine MRI showed renal cyst and question of fibroid. [facility] Medical History (Updated 03/28/25 @ 11:54 by Valeria Horowitz MD) Carpal tunnel syndrome RLS (restless legs syndrome) HTN (hypertension) Surgical History Hx of colonoscopy History of carpal tunnel surgery History of arthroscopy of right shoulder Family History Maternal Grandmother Mental health disorder Sister Diverticulitis Brother Colon polyp Brother S/P colostomy History of colostomy reversal Father Lung cancer Liver cancer Cancer of kidney Social History Household Members: Other Household Members Other:: on disability for shoulder injury , lives with a partner, 1 daughter, Housing: Apartment Are you a primary neonatal intensive care nurse to a significant other at home: No Patient Tobacco Use Status: Former Tobacco user Cigarettes Per Day: 8 Years Smoked: 20 e-Cigarette/Vaping Use: Never Used service: No 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al status: disabled 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 1. Little interest or pleasure in doing things: several days 2. Feeling down, depressed, or hopeless: more than half the days 3. Trouble falling or staying asleep, or sleeping too much: nearly every day 4. Feeling tired or having little energy: nearly every day 5. Poor appetite or overeating: nearly every day 6. Feeling bad about yourself - or that you are a failure or have let yourself or your family down: more than half the days 7. Trouble concentrating on things, such as reading the newspaper or watching television: nearly every day 8. Moving or speaking so slowly that other people could have noticed. Or the opposite - being so fidgety or restless that you have been moving around a lot more than usual: nearly every day 9. Thoughts that you would be better off or of hurting yourself in some way: not at all Total score: 20 Depression Screening Interpretation: Positive (Patient is established with a psychiatrist and counselor) Depression Screening Follow-up: Existing condition and In treatment Depression Screening Done: Yes 10086 - PHQ-9 Billing: Yes Source: Developed by Drs. Karri Plata, Perla Xie, Carroll Guevara and colleagues, with an educational manpreet from [email or web address]. Thrive Questionnaire Date Thrive assessed: 12/23/24 I am a: Patient What is your living situation today?: I have a steady place to live Within the past 12 months, did the food you bought not last and you didn't have the money to get more?: Often true Within the past 12 months, did you worry whether your food would run out before you got money to buy more?: Often true Do you have trouble paying for medicines?: No Do you have trouble getting transportation to medical appointments?: No Do you have trouble paying your heating and electricity bill?: I choose not to answer this question Do you have trouble taking care of your child, family member or friend?: No Do you have trouble with day-to-day activities such as bathing, preparing meals, shopping, managing finances, etc.?: Yes Are you currently unemployed and looking for a job?: No Are you interested in more education?: No Please select the resources that you would like help with: None Currently or been in a relationship where the following occur: No concerns reported THRIVE Score: 2 AUDIT C Alcohol Use Questionnaire (AUDIT-C) 2. How many drinks containing alcohol do you have on a typical day when you are drinking?: 1 or 2 3. How often do you have six or more drinks on one occasion?: Never Total Score: 0 DORIS-7 AMB Questionnaire DORIS-7 Date DORIS - 7 assessed: 03/28/25 Feeling nervous, anxious, or on edge: 3 = Nearly every day Not being able to stop or control worryin = Nearly every day Worrying too much about different things: 3 = Nearly every day Trouble relaxin = More than half the days Being so restless that it is hard to sit still: 3 = Nearly every day Becoming easily annoyed or irritable: 3 = Nearly every day Feeling afraid as if something awful might happen: 3 = Nearly every day Total DORIS-7 score (0-4 normal; 5-9 mild; 10-14 moderate; 15-21 severe): 20 Source: Developed by Drs. Karri Plata, Perla Xie, Carroll Guevara and colleagues, with an educational manpreet from [email or web address]. DORIS-7 Assessment Billing DORIS-7 Assessment Tool: DORIS-7 Assessment 61242 Review of Systems Const All systems reviewed & are unremarkable except as noted in HPI and below Eyes Reports no additional complaints ENT Reports no additional complaints Card Reports no additional complaints Resp Reports no additional complaints GI Reports no additional complaints Reports no additional complaints Physical exam (Primary Care) Vital Signs: Last Vital Signs Temp 98.2 F 03/28/25 11:08 Pulse 88 03/28/25 11:08 Resp 18 03/28/25 11:08 BP 126/70 03/28/25 11:08 Pulse Ox 99 03/28/25 11:08 Oxygen Delivery Method Room Air 03/28/25 11:08 BMI result Body Mass Index 31.9 Tobacco/Smoking Status: Tobacco use Status Tobacco use date assessed 03/28/25 03/28/25 11:15 Patient Tobacco Use Status Former Tobacco user 03/28/25 11:15 e-Cigarette/Vaping Use Never Used 03/28/25 11:15 Depression Screening Interpretation: Positive (Patient is established with a psychiatrist and counselor) Depression Screening Follow-up: Existing condition and In treatment Thrive Assessment: Date of Thrive Assessment Date Thrive assessed 12/23/24 03/28/25 11:15 Currently or been in a relationship where the following occur: No concerns reported Const General: no acute distress HENMT Head: Yes normal to inspection Neck Neck: Yes supple Resp Effort & Inspection: normal respiratory effort Auscultation: clear to auscultation bilaterally Cardio Rhythm: regular rhythm Heart sounds: S1 normal heart sound present and S2 normal heart sound present Coding Level of Care Code Est Pt Level 4 (14344) Diagnoses Renal cyst N28.1 Uterine fibroid D25.9 HTN (hypertension) I10 Anxiety and depression F41.9; F32.A Additional Codes DORIS-7 Assessment Billing - DORIS-7 Assessment Tool: DORIS-7 Assessment 75306 ([id number]) PHQ-9 - 23129 - PHQ-9 Billing: Yes ([id number]) Assessment & Plan Assessment & Plan (1) Renal cyst: Comment: L kidney 3 cm cyst on MRI 01/2025 Code(s): N28.1 - Cyst of kidney, acquired Category: Medical Plan: Obtain renal ultrasound to evaluate (2) Uterine fibroid: Comment: 5.5 cm fibroid on MR of L spine Code(s): D25.9 - Leiomyoma of uterus, unspecified Category: Medical Plan: Obtain pelvic ultrasound (3) HTN (hypertension): Code(s): I10 - Essential (primary) hypertension Category: Medical Plan: Continue Lisinopril (4) Anxiety and depression: Comment: Established with a counselor and Psychiatry Code(s): F41.9 - Anxiety disorder, unspecified; F32.A - Depression, unspecified Category: Medical Plan: Continue Cymbalta follow-up with the Psychiatry and counselor Orders: Orders Lipid Panel 6 Months E55.9 - Vitamin D deficiency, unspecified, I10 - Essential (primary) hypertension, Z00.00 - Encounter for general adult medical examination without abnormal findings Complete Blood Count Auto Diff 6 Months E55.9 - Vitamin D deficiency, unspecified, I10 - Essential (primary) hypertension, Z00.00 - Encounter for general adult medical examination without abnormal findings Vitamin D 25-OH Total 6 Months E55.9 - Vitamin D deficiency, unspecified, I10 - Essential (primary) hypertension, Z00.00 - Encounter for general adult medical examination without abnormal findings US renal BI Today N28.1 - Cyst of kidney, acquired US pelvic and transvaginal Today D25.9 - Leiomyoma of uterus, unspecified Comprehensive [place]. Panel Fast 6 Months E55.9 - Vitamin D deficiency, unspecified, I10 - Essential (primary) hypertension, Z00.00 - Encounter for general adult medical examination without abnormal findings TSH reflex Free T4 6 Months E55.9 - Vitamin D deficiency, unspecified, I10 - Essential (primary) hypertension, Z00.00 - Encounter for general adult medical examination without abnormal findings Medications: Changed From duloxetine (Cymbalta) 20 mg PO BID 180 caps 0RF To duloxetine (Cymbalta) 60 mg PO DAILY
--- OUTSIDE RECORDS SUMMARY | 2025-03-28 12:43 | XMS_ITS | Clinical Summary ---
Author Organization [facility] Address [address] [place] [address] Care Team Providers Care Credit Representative Name Role Phone Thomas Cardoza Primary Care Provider [phone] Source Comments PLEASE NOTE, if this patient [...] mcg/actuation nasal sprayIndications: Nasal congestion Place 1 [place] in both nostrils once daily 16 g [...] PURPLE CAP, 12+ ,03/19/2021,02/25/2021,02/25 PNEUMOCOCCAL POLYSACCHARIDE PPV23 (Pneumovax 23) 07/05/2021 TDAP 02/18/2022 ZOSTER VACCINE, RECOMBINANT (SHINGRIX) [...] Diabetes Screening 06/11/2024 06/11/2021, 0 06/11/2021, 09/19/2020 [id number] ( season) 2024 09/19/2021, 03/19/2021, 03/19/2021, Additional [...] 1:58 PM EDT) CLINICAL INFORMATION See Note [facility] Comment:None given LMP See Note [facility] Comment:[id number] PREV. PAP [facility] PREV. BX See Note [facility] Comment:NONE GIVEN SOURCE See Note [facility] Comment:Cervix, Endocervix STATEMENT OF ADEQUACY See Note [facility] Comment: Satisfactory for evaluation. Endocervical/transformation zone component present. INTERPRETATION/RESU LT See Note [facility] Comment:Negative for intraep ithelial lesion or malignancy. COMMENT See Note [facility] Comment: This Pap test has been evaluated with computer assisted technology. FRONT LOADER RESIDENTIAL DRIVER See Note Fyber Comment: SL, CT(ASCP) CT screening location: [address] ??[address] COMMENT [facility] HPV MRNA E6/E7 Not Detected Not Detected [facility] Comment: Methodology: Regenerator Operator-Mediated Amplification This assay detects E6/E7 viral messenger RNA (mRNA) from 14 high-risk HPV types (16,18,31,33,35,39,45,51,52,56,58,59,66,68). The analytical performance characteristics of this assay have been determined by [employer]. The modifications have not been cleared or approved by the FDA. This assay has been validated pursuant to the CLIA regulations and is used for clinical purposes. For additional information, please refer to http://education.Art.com/faq/BCP637u4 (This link if provided for information/ educational purposes only.) Swab Cervix uteri structure / Unknown 03/18/2022 1:58 PM EDT 03/19/2022 7:25 AM EDT Narrative [facility] - 03/21/2022 2:21 PM EDT EXPLANATORY [...] - NO BLOOD DRAW Final Re sult [employer] [address] [address], [employer] [address] [address] * REFERRAL FOR MAMMOGRAM (02/28/2022 3:00 AM EDT) 02/28/2022 3:00 AM EDT us Thomas BARNES IMG RFL MAMMO Edited Result - Final * HEPATITIS C AB W/RFLX HCV RNA, QT, RT PCR (06/11/2021 10:44 AM EDT) HEPATITIS C ANTIBODY NON-REACT RADHA NON-REACT RADHA [facility] SIGNAL TO CUT-OFF 0.01 <1.00 [facility] Comment: HCV antibody was non-reactive. There is no laboratory evidence of HCV infection. In most cases, no further action is required. However, if recent HCV exposure is suspected, a test for HCV RNA (test code 11103) is suggested. For additional information please refer to http://[employer].Art.com/faq/YCT80r7 (This link is being provided for informational/ educational purposes only.) Blood Blood / Unknown 06/11/2021 1 0:44 AM EDT 06/11/2021 10:44 AM EDT Narrative [facility] - 06/12/2021 11:29 AM EDT FASTING:YES Thomas BARNES LAB - BLOOD DRAW Edited Result - Final [facility] [address] [address], [facility] [address] [address] * HIV 1/2 AG & AB W/RFLX (4TH GEN) (06/11/2021 10:44 AM EDT) HIV AG/AB, 4TH GEN NON-REAC TIVE NON-REAC TIVE [facility] Comment: HIV-1 antigen and HIV-1/HIV-2 antibodies were [...] ?? For additional information please refer to http://[employer].Art.com/faq/JSN361 (This link is being provided for informational/ educational purposes only.) The performance of this assay has not been clinically validated in patients less than 2 years old. Blood Blood / Unknown 06/11/2021 1 0:44 AM EDT 06/11/2021 10:44 AM EDT Narrative [facility] - 06/12/2021 11:29 AM EDT FASTING:YES us Thomas BARNES LAB - BLOOD DRAW Final Result [facility] [address] [address], [employer] [facility] [address] [address] * (ABNORMAL) LIPID PANEL (06/11/2021 10:44 AM EDT) [facility] Signature CHOLESTEROL, TOTAL 175 <200 mg/dL [facility] HDL CHOLESTEROL 44 > OR = 40 mg/dL [facility] TRIGLYCERIDES 123 <150 mg/dL [facility] LDL-CHOLESTEROL 108(H) 99 mg/dL (calc) [facility] Comment: Reference range: <100 Desirable range <100 mg/dL for primary prevention; ?? <70 mg/dL for patients with CHD or diabetic patients with > or = 2 CHD risk factors. LDL-C is now calculated using the Mitchell-Julio calculation, which is a validated novel method providing better accuracy than the Friedewald equation in the estimation of LDL-C. Mitchell SS et al. MAR. 2013;310(19): 4253-5493 (http://education.Livefyre/faq/GQU602) CHOL/HDLC RATIO 4.0 <5.0 (calc) [facility] NON-HDL CHOLESTEROL 131(H) <130 mg/dL (calc) [facility] Comment: For patients with diabetes plus 1 major ASCVD risk factor, treating to a non-HDL-C goal of <100 mg/dL (LDL-C of <70 mg/dL) is considered a therapeutic option. Blood Blood / Unknown 06/11/2021 1 0:44 AM EDT 06/11/2021 10:44 AM EDT Narrative [facility] - 06/12/2021 11:29 AM EDT FASTING:YES us Thomas BARNES LAB - BLOOD DRAW Final Result [facility] [address] [address], [employer] [facility] [address] [address] * (ABNORMAL) COMPREHENSIVE METABOLIC PANEL (06/11/2021 10:44 AM EDT) GLUCOSE 78 65 - 99 mg/dL [facility] Comment: ?Fasting reference interval UREA NITROGEN (BUN) 11 7 - 25 mg/dL [facility] CREATININE (blood) 0.57(L) 0.60 - 1.35 mg/dL [facility] GFR ESTIMATED 121 > OR = 60 mL/min/1. 73m2 [facility] EGFR 140 > OR = 60 mL/min/1. 73m2 [facility] BUN/CREATININE RATIO 19 6 - 22 (calc) [facility] SODIUM 138 135 - 146 mmol/L [facility] POTASSIUM 4.4 3.5 - 5.3 mmol/L [facility] CHLORIDE 108 98 - 110 mmol/L [facility] CARBON DIOXIDE 23 20 - 32 mmol/L [facility] CALCIUM 8.9 8.6 - 10.3 mg/dL [facility] PROTEIN, TOTAL 6.7 6.1 - 8.1 g/dL [facility] ALBUMIN 4.1 3.6 - 5.1 g/dL [facility] GLOBULIN 2.6 1.9 - 3.7 g/dL (calc) [facility] ALBUMIN/GLOBULI N RATIO 1.6 1.0 - 2.5 (calc) [facility] BILIRUBIN, TOTAL 0.3 0.2 - 1.2 mg/dL [facility] ALKALINE PHOSPHATASE 81 36 - 130 U/L [facility] AST 12 10 - 40 U/L [facility] ALT 18 9 - 46 U/L [facility] Blood Blood / Unknown 06/11/2021 1 0:44 AM EDT 06/11/2021 10:44 AM EDT Narrative [facility] - 06/12/2021 11:29 AM EDT FASTING:YES us Thomas BARNES LAB - BLOOD DRAW Edited Result - Final [facility] [address] [address], [facility] [address] [address] from Last 3 Months or Most Recently Relevant to Health Maintenance Insurance [employer] Care Teams Credit Representative Relationship Specialty Start Date End Date Thomas Cardoza PA [address] [place] [id number] PCP - General FAMILY MEDICINE, [place] 11/12/21
--- OUTSIDE RECORDS SUMMARY | 2025-03-28 12:43 | XMS_ITS | Clinical Summary ---
Author Organization [facility] Address [address] [place] [address] Care Team Providers Care Purchasing Manager/Sales Name Role Phone Silvestre Espino Primary Care Provider [phone] Allergies No known active allergies Medications traZODone [...] 75+ series) 2046 Insurance [employer] Care Teams Purchasing Manager/Sales Relationship Specialty Start Date End Date Silvestre Espino PA [address] [place] [id number] PCP - General Family Medicine 10/27/19
== END 2025-03-28 11:48 | disposition home or self-care (01) ==
LOC: HO.HMCC 11:00
PROVIDERS: PCP Internal Medicine; Visit Provider Internal Medicine
DX: N28.1 Cyst of kidney, acquired (principal); D25.9 Leiomyoma of uterus, unspecified; I10 Essential (primary) hypertension; F41.9 Anxiety disorder, unspecified; F32.A Depression, unspecified

== ENCOUNTER → 2025-03-28 10:59 | Outpatient (BNVA) | payer MEDICARE, MEDICAID, SELFPAY | PROVIDERS: PCP Internal Medicine; Visit Provider Internal Medicine | DX: N28.1 Cyst of kidney, acquired (principal); D25.9 Leiomyoma of uterus, unspecified; I10 Essential (primary) hypertension; F41.9 Anxiety disorder, unspecified; F32.A Depression, unspecified | CPT/HCPCS: 96127; 99212 ==

== ENCOUNTER 2025-04-26 10:29 | Outpatient (AMB) | payer MEDICARE, MEDICAID, SELFPAY ==
--- NOTE | 2025-04-26 10:31 | MHC.OFFVIS ---
Vital Signs 04/26/25 10:33 Weight 170 lb BP 154/73 H Blood Pressure Location Rt brachial Position Sitting Respiration 18 Pulse 93 Pulse Source Pulse Oximeter Pulse Oximetry (%) 99 Oxygen Delivery Method Room Air Intake Visit Reasons: INTERLAMINAR L5, S1 KAREL/03/21/25 Insurance Administrator Required: No Allergies No Known Allergies Allergy (Verified 04/26/25 10:34) HPI Comments Details: Camila is very pleasant 54 years old female who presents in my office with complains on axial back pain without radiation into bilateral lower extremities as well as pain in the electric shock-like sensation in bilateral anterior shins. She reports that prolonged sitting aggravate her pain. Valsalva maneuver aggravates her pain coughing and sneezing aggravate her pain. She reports that application of the heat or cold does not affects her pain. Because of her pain she can not sleep normally can not do activities of daily living can not take care of herself can not function normally she is on permanent disability. She reports that her pain started in 2018 when she was doing heavy lifting at her work. She is taking ibuprofen 800 mg and gabapentin 900 mg q.h.s. and it helps her to sleep little bit better however she still feels a lot of pain. She tried physical therapy last time in September 2024 and reported no results from physical therapy. She has an MRI performed on the lumbar spine which is dictated in below. Received interlaminar L5-S1 epidural steroid injection by me on recommendation of Dr. Jacques. Unfortunately the pain relief lasted only 5 days. She reported that her mobility was not improved. Her past medical history significant for hypertension and obesity. Her past surgical history significant for right shoulder surgeries and carpal tunnel release bilaterally. She admits smoking 2 cigarettes a day, denies drinking alcohol, drinks coffee and caffeinated beverages and she denies recreational drugs. [facility] Medical History (Updated 04/26/25 @ 11:04 by Troy Nichole MD) Carpal tunnel syndrome RLS (restless legs syndrome) HTN (hypertension) Surgical History Hx of colonoscopy History of carpal tunnel surgery History of arthroscopy of right shoulder Family History Maternal Grandmother Mental health disorder Sister Diverticulitis Brother Colon polyp Brother S/P colostomy History of colostomy reversal Father Lung cancer Liver cancer Cancer of kidney Social History Household Members: Other Household Members Other:: on disability for shoulder injury , lives with a partner, 1 daughter, Housing: Apartment Are you a primary home care specialist to a significant other at home: No Patient Tobacco Use Status: Former Tobacco user Cigarettes Per Day: 8 Years Smoked: 20 e-Cigarette/Vaping Use: Never Used service: No 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al status: disabled 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 Cognitive needs: No Hearing needs: No Vision needs: Yes Review of Systems Const All systems reviewed & are unremarkable except as noted in HPI and below Eyes Reports no additional complaints ENT Reports no additional complaints and Reports Normal hearing present Card Reports no additional complaints Resp Reports no additional complaints GI Reports no additional complaints Reports no additional complaints Neuro Reports Normal hearing present, Denies Abnormal speech present, Denies confusion and Denies Sensory deficit (Neuro) Psych Denies confusion Physical Exam Vital Signs: Last Vital Signs Pulse 93 04/26/25 10:33 Resp 18 04/26/25 10:33 BP 154/73 H 04/26/25 10:33 Pulse Ox 99 04/26/25 10:33 Oxygen Delivery Method Room Air 04/26/25 10:33 Const General: no acute distress; No confusion Nutritional Appearance: obese morbidly obese Orientation/consciousness: patient oriented x3 and No confusion Eyes General: appearance normal, both eyes and all related structures Pupils: Equal, round and reactive pupils present EOM: EOMs intact bilaterally Neck Neck: Yes full ROM Chest Chest palpation & inspection: normal inspection of the chest Resp Effort & Inspection: normal respiratory effort, able to speak in complete sentences, normal respiratory pattern, no audible wheezes and no cough Cardio Jugular venous distension: no JVD GI Inspection: Yes normal to inspection Back/Spine/Pelvis Other: Exhibit normal strength of bilateral lower extremity able to stand on bilateral tiptoes in bilateral heels without difficulty. Flexing forward and flexing backwards both aggravate her pain however flexing backwards aggravate her pain more than flexing forward. Valsalva maneuver positive for pain increase. SLR is positive bilaterally. Rafael test is positive bilaterally. Pelvic compression test positive bilaterally. Pelvic distraction test is positive bilaterally. Fourteen finger test is positive bilaterally. Neuro General: patient oriented x3, gait normal and No confusion Cranial nerves: Yes CN's II-XII intact bilaterally, Yes Equal, round and reactive pupils present, Yes Normal hearing present and Yes Ability to bilaterally elevate shoulders present Speech: No Abnormal speech present Gait exam (Neuro): Normal gait present Motor exam (neuro): 5/5 motor strength present throughout Sensory Exam: No Sensory deficit (Neuro) Extrem General: No pedal edema Psych Speech and movement: Normal speech and movement present Affect: normal affect Attitude: cooperative Thought process: Normal thought process present Thought content: Normal thought content present Insight: Good insight present (Psych) Judgement: Good judgement present (Psych) Results Reviewed Results Reviewed: Ordering Physician: Sandra Jacques Date of Service: 01/21/25 Procedure(s): MR lumbar spine wo con Accession Number(s): [id number] cc: Valeria Horowitz MD; Sandra Jacques~ .EXAMINATION: MR LUMBAR SPINE WITHOUT CONTRAST CLINICAL INFORMATION: Radiculopathy, lumbar region. COMPARISON: None available. TECHNIQUE: MRI of the lumbar spine was obtained using routine sequences without contrast. FINDINGS: Last rib-bearing vertebra labeled T12. Bone marrow inhomogeneity. No bone marrow STIR signal abnormality. Disc desiccation at L4-5 and L5-S1. Hyperintense T2 signal in the posterior intervertebral discs L4-5 and L5-S1 likely annular fissure. There is normal alignment. Conus medullaris ends at superior endplate of L1 with normal signal. T12-L1: No disc herniation. No neuroforamina stenosis. L1-2: Broad-based disc bulging. No central spinal canal or neuroforamina stenosis. L2-3: No disc bulging. No compression upon neural elements. L3-4: Broad-based disc bulging. Facet joint hypertrophy. Reduced diameter of the neural foramina. No central spinal canal stenosis. L4-5: Broad-based central disc herniation and facet joint hypertrophy encroaching the L5 nerve root on the lateral recesses causing bilateral neuroforamina stenosis encroaching the L4 exiting nerve roots. Hypertrophy of the ligamentum flavum. Reduced AP diameter of the thecal sac. L5-S1: Central herniated disc abutting the S1 nerve roots on the lateral recesses. Facet joint hypertrophy. Bilateral neuroforamina narrowing encroaching the L4 exiting nerve roots. Fatty atrophy of the lumbar muscles at L5-S1. No prevertebral compartment hematoma, mass or fluid collection. 3 cm exophytic cystic lesion in the parapelvic left kidney. 5.5 cm hypointense T2 STIR and isointense T1 lesion in the uterus.. MR/MR lumbar spine wo con IMPRESSION: Central broad-based disc herniation herniated disc at L4-5 and spondylosis encroaching the L5 and L4 nerve roots. Central disc herniation L5-S1 encroaching the S1 nerve roots and to a lesser extent L5 secondary to spondylosis of the facet joints. 3 cm cyst, left kidney. Bone marrow inhomogeneity suggesting osteopenia versus osteoporosis versus calcium metabolic disorder. Probable 5.5 cm uterine fibroid. Electronically signed by: Warren Vinson MD 01/23/2025 11:20 AM EST Ordering Physician: Valeria Horowitz MD Date of Service: 06/17/24 Procedure(s): XR lumbar spine 2-3V Accession Number(s): [id number] cc: Valeria Horowitz MD~ EXAMINATION: XR LUMBOSACRAL SPINE CLINICAL INFORMATION: Low back pain. COMPARISON: Radiograph lumbar spine 06/21/2021. TECHNIQUE: Three views of the lumbosacral spine. FINDINGS: No evidence of acute compression deformity or subluxation. Mild intervertebral disc height loss of facet arthropathy at L5-S1, increased compared to 2020. SI joints are symmetric. No significant paraspinal soft tissue abnormality. A few pelvic phleboliths are seen. XR/XR lumbar spine 2-3V IMPRESSION: 1. No acute compression deformity or subluxation. 2. Mild lumbar spondylosis at L5-S1, increased compared to 2020. Assessment & Plan Assessment & Plan (1) Sacroiliitis: Code(s): M46.1 - Sacroiliitis, not elsewhere classified Category: Medical (2) Pain of both sacroiliac joints: Code(s): M53.3 - Sacrococcygeal disorders, not elsewhere classified Category: Medical (3) Spondylosis of lumbar region without myelopathy or radiculopathy: Code(s): M47.816 - Spondylosis without myelopathy or radiculopathy, lumbar region Category: Medical (4) Facet arthropathy, lumbar: Code(s): M47.816 - Spondylosis without myelopathy or radiculopathy, lumbar region Category: Medical (5) Disc degeneration, lumbar: Code(s): M51.369 - Other intervertebral disc degeneration, lumbar region without mention of lumbar back pain or lower extremity pain Category: Medical Plan The pain of this patient is most likely multifactorial, there is an element of radiculopathy, however her pain improvement lasted only 5 days. On the physical exam attention was attracted to the fact that all sacroiliac joint tests are positive for bilateral examination. The patient exhausted conservative and interventional pain management modalities she is taking maximum dose of ibuprofen and maximum dose of gabapentin without improvement, she had physical therapy without improvement, she reports her pain today 09/01. Interventional interlaminar L5-S1 epidural steroid injection resulted in no pain improvement. I offered today the patient to perform bilateral diagnostic sacroiliac joint injection to reject or support my suspicion that the patient is suffering from bilateral sacroiliitis. I also will prescribe her tizanidine 2 mg t.i.d. to help her pain, as well as to improve y her asleep. Medications: New tizanidine 2 mg PO TID 30 days PRN 90 tabs 8RF muscle spasticity Patient Instructions: I here by testify that I spent 45 minutes in conversation with this patient as well as planning her care and organizing this note. Coding Level of Care Code New Pt Level 4 (51989) Diagnoses Sacroiliitis M46.1 Pain of both sacroiliac joints M53.3 Spondylosis of lumbar region without myelopathy or radiculopathy M47.816 Facet arthropathy, lumbar M47.816 Disc degeneration, lumbar M51.369
[2025-04-26 10:33] VITALS: BP 154/73; PULSE 93; RESP 18; O2SAT 99
== END 2025-04-26 10:53 | disposition home or self-care (01) ==
LOC: HO.PMC 10:30
PROVIDERS: PCP Internal Medicine; Visit Provider Anesthesiology
DX: M46.1 Sacroiliitis, not elsewhere classified (principal); M53.3 Sacrococcygeal disorders, not elsewhere classified; M47.816 Spondylosis without myelopathy or radiculopathy, lumbar region; M51.369 Other intervertebral disc degeneration, lumbar region without mention of lumbar back pain or lower extremity pain
CPT/HCPCS: 99214

== ENCOUNTER → 2025-04-26 10:29 | Outpatient (BNVA) | payer MEDICARE, MEDICAID, SELFPAY | PROVIDERS: PCP Internal Medicine; Visit Provider Anesthesiology | DX: M46.1 Sacroiliitis, not elsewhere classified (principal); M53.3 Sacrococcygeal disorders, not elsewhere classified; M47.816 Spondylosis without myelopathy or radiculopathy, lumbar region; M51.369 Other intervertebral disc degeneration, lumbar region without mention of lumbar back pain or lower extremity pain | CPT/HCPCS: 99212 ==

== ENCOUNTER 2025-05-19 13:11 | Outpatient (REF) | payer MEDICARE, MEDICAID, SELFPAY ==
--- NOTE | ~2025-05-19 | US_ITS ---
EXAMINATION: US PELVIS CLINICAL INFORMATION: Linear myelopathy uterus. LMP one year ago. COMPARISON: MRI of lumbar spine 01/21/2025. TECHNIQUE: Ultrasound of the pelvis is performed using both transabdominal and transvaginal transducers along with Doppler. Transvaginal imaging is performed due to inadequate visualization transabdominally. FINDINGS: Uterus: The uterus is anteverted, anteflexed and bulky and measures 10.7 x 6.9 x 7.5. The double wall endometrial thickness is 0.3 cm. There are few cystic areas visualized. There are nabothian cysts and calcifications well and lower cervix. The uterus is smooth in contour and has normal myometrial echogenicity. There is an echogenic lesion with calcification measuring 5.6 x 4.8 x by 5.3 cm. Adnexa: Both ovaries are visualized. There is normal color flow to the adnexa. There is no ovarian torsion. There is no pelvic ascites or fluid collection. Right ovary measures 1 view 1.9 x 2.1 cm. Volume 6.9 mL. It appears unremarkable. Left ovary measures 4.5 x 2.2 x 3.0 cm cm. Volume 15.6 mL. There is a small anechoic cyst measuring 2.1 x 2.1 by 2.4 cm. There is no free fluid in the cul-de-sac US/US pelvic and transvaginal IMPRESSION: Simple cyst left ovary measuring 3.1 cm. Nabothian cyst with calcifications. Large uterine fibroid concordant with MRI findings. Electronically signed by: Jose Avery MD 05/19/2025 03:34 PM EDT
--- NOTE | ~2025-05-19 | US_ITS ---
EXAMINATION: US RETROPERITONEAL LIMITED (RENAL ONLY) CLINICAL INFORMATION: Acquired cyst of kidney. COMPARISON: Abdominal ultrasound 12/30/2024. TECHNIQUE: Real-time imaging of the kidneys. FINDINGS: RIGHT KIDNEY: 4.9 x 5.0 x 11.4 cm (SAG x AP x TRV). The kidney is normal in size, contour, and echogenicity. Renal cortical thickness is normal. No calculi or focal parenchymal lesions. No hydronephrosis. LEFT KIDNEY: 4.6 x 5.3 x 11.7 cm (SAG x AP x TRV). The kidney is normal in size, contour, and echogenicity. Renal cortical thickness is normal. No calculi or suspicious focal parenchymal lesions. No hydronephrosis. Midpole simple parapelvic cyst present measuring 3.0 x 2.8 x 3.0 cm. US/US renal BI IMPRESSION: 1. Normal-appearing kidneys aside from a simple left pole cyst. Electronically signed by: Rolando Hagen MD 05/19/2025 02:51 PM EDT
== END 2025-05-19 13:12 | disposition home or self-care (01) ==
LOC: HO.US 13:11
PROVIDERS: PCP Internal Medicine; Visit Provider Internal Medicine
DX: D25.9 Leiomyoma of uterus, unspecified (principal); N28.1 Cyst of kidney, acquired
CPT/HCPCS: 76775; 76830; 76856

== ENCOUNTER → 2025-05-19 13:13 | Outpatient (BNV) | payer MEDICARE, MEDICAID, SELFPAY | PROVIDERS: PCP Internal Medicine; Visit Provider Radiology Diagnostic Radiology | DX: N83.292 Other ovarian cyst, left side (principal) | CPT/HCPCS: 76830; 76856 ==

== ENCOUNTER 2025-06-06 06:27 | Outpatient (REF) | payer MEDICARE, MEDICAID, SELFPAY ==
--- NOTE | ~2025-06-06 | FL_ITS ---
EXAMINATION: FL GUIDANCE ONLY HISTORY: M53.3 - Sacrococcygeal disorders, not elsewhere classified COMPARISON: None available. TECHNIQUE: Fluoroscopy time: 0.2 minutes. Cumulative Dose: 2.61 mGy. DAP: 0.0257 mGym2 Images: 2. FINDINGS: Fluoroscopic spot films of the pelvis demonstrate needles and contrast material in the regions of the bilateral sacroiliac joints. FL/FL guidance in treatment room IMPRESSION: Fluoroscopy during procedure. Please see procedure report for additional information. Electronically signed by: Karri Moran MD 06/07/2025 08:36 AM EDT
--- OUTSIDE RECORDS SUMMARY | 2025-06-06 06:29 | XMS_ITS | Clinical Summary ---
Author Organization [facility] Address [address] [place] [address] Care Team Providers Care Sandblasting Supervisor Name Role Phone Silvestre Espino Primary Care Provider [phone] Allergies No known active allergies Medications traZODone [...] Date Diagnosed Date Viral illness 10/27/2019 Immunizations Immunization Administration Dates Next Due Influenza, trivalent (IIV3), [...] 83 10/12/2020 9:38 AM EST Temperature 36.9 C (98.4 F) 10/12/2020 9:38 AM EST Respiratory Rate 16 10/12/2020 9:38 AM EST [...] Screening (Pap/HPV) 01/11/202401/11 COVID-19 Vaccine ( - 2023- season) 2024 Influenza Vaccine (#1) 2025 10/12/2020 RSV Vaccine (SCDM) (1 - 1-do se 75+ series) 2046 Insurance [employer] Care Teams Sandblasting Supervisor Relationship Specialty Start Date End Date Silvestre Espino PA [address] [place] [id number] PCP - General Family Medicine 10/27/19
--- OUTSIDE RECORDS SUMMARY | 2025-06-06 06:29 | XMS_ITS | Clinical Summary ---
Author Organization [facility] Address [address] [place] [address] Care Team Providers Care Engineering Specialist Technician Name Role Phone Thomas Cardoza Primary Care Provider [phone] Source Comments PLEASE NOTE, if this patient [...] mcg/actuation nasal sprayIndications: Nasal congestion Place 1 [place] in both nostrils once daily 16 g [...] 73 03/18/2022 1:10 PM EDT Temperature 36.9 C (98.5 F) 03/18/2022 1:10 PM EDT Respiratory Rate 18 03/18/2022 1:10 PM EDT [...] 22 Depression Monitoring 05/21/2022 02/18/2022, 021 Annual Wellness (Adult): Indicated (All Coverage) 06/03/2022 06/03/2021 Imm-Pneumococcal 50+ (2 of 2 - PCV) 07/05/2022 07/05/2021 Tobacco Screening 07/05/2022 07/05/2021 Tobacco Cessation Counseling (#1) 02/18/2023 021 Breast Cancer Screening (Mammogram) 02/28/2023 02/28/2022 Hypertension Screening (#1) 03/18/2023 Diabetes Screening 06/11/2024 06/11/2021, 0 06/11/2021, 09/19/2020 [id number] ( season) 2024 09/19/2021, 03/19/2021, 03/19/2021, Additional history exists Alcohol and Drug Screen 11/23/2024 02/18/2022, 06/03 Pap Smear 03/18/2025 03/18/2022 Imm-Influenza (#1) 2025 10/12/2020 Lipid Screening 06/11/2026 06/11/2021, 09/19/2020 Cervical Cancer [...] 1:58 PM EDT) CLINICAL INFORMATION See Note [facility] Comment:None given LMP See Note [facility] Comment:[id number] PREV. PAP [facility] PREV. BX See Note [facility] Comment:NONE GIVEN SOURCE See Note [facility] Comment:Cervix, Endocervix STATEMENT OF ADEQUACY See Note [facility] Comment: Satisfactory for evaluation. Endocervical/transformation zone component present. INTERPRETATION/RESU LT See Note [facility] Comment:Negative for intraep ithelial lesion or malignancy. COMMENT See Note [facility] Comment: This Pap test has been evaluated with computer assisted technology. ULTIMATE HOOPS SCOREBOARD OPERATOR See Note [employer] Comment: SL, CT(ASCP) CT screening location: [place] [address] COMMENT [facility] HPV MRNA E6/E7 Not Detected Not Detected [facility] Comment: Methodology: Material Spreader-Mediated Amplification This assay detects E6/E7 viral messenger RNA (mRNA) from 14 high-risk HPV types (16,18,31,33,35,39,45,51,52,56,58,59,66,68). The analytical performance characteristics of this assay have been determined by [employer]. The modifications have not been cleared or approved by the FDA. This assay has been validated pursuant to the CLIA regulations and is used for clinical purposes. For additional information, please refer to http://education.DealCloud/faq/RGW969z4 (This link if provided for information/ educational purposes only.) Swab Cervix uteri structure / Unknown 03/18/2022 1:58 PM EDT 03/19/2022 7:25 AM EDT Narrative [facility] - 03/21/2022 2:21 PM EDT EXPLANATORY NOTE: [...] information. us Ning Navarrete PA-C LAB - PATHOLOGY AND CYTOLOGY AMBULATORY Final Result [facility] [address] [address], [facility] [address] [address] * REFERRAL FOR MAMMOGRAM SCREENING (02/28/2022 3:00 AM EDT) 02/28/2022 3:00 AM EDT us Thomas BARNES Guzman RFL MAMMO Edited Result - Final * HEPATITIS C AB W/RFLX HCV RNA, QT, RT PCR (06/11/2021 10:44 AM EDT) HEPATITIS C ANTIBODY NON-REACT RADHA NON-REACT RADHA [facility] SIGNAL TO CUT-OFF 0.01 <1.00 [facility] Comment: HCV antibody was non-reactive. There is no laboratory evidence of HCV infection. In most cases, no further action is required. However, if recent HCV exposure is suspected, a test for HCV RNA (test code 98119) is suggested. For additional information please refer to http://Monitor110.DealCloud/faq/GFC65e3 (This link is being provided for informational/ educational purposes only.) Blood Blood / Unknown 06/11/2021 1 0:44 AM EDT 06/11/2021 10:44 AM EDT Narrative [facility] - 06/12/2021 11:29 AM EDT FASTING:YES Thomas BARNES LAB - BLOOD DRAW Edited Result - Final [facility] [address] [address], [facility] [address] [address] * HIV 1/2 AG & AB W/RFLX (4TH GEN) (06/11/2021 10:44 AM EDT) HIV AG/AB, 4TH GEN NON-REAC TIVE NON-REAC TIVE [facility] Comment: HIV-1 antigen and HIV-1/HIV-2 antibodies were not detected. There is no laboratory evidence of HIV infection. PLEASE NOTE: This information has been disclosed to you from records whose confidentiality may be protected by state law. If your state requires such protection, then the state law prohibits you from making any further disclosure of the information without the specific written consent of the person to whom it pertains, or as otherwise permitted by law. A general authorization for the release of medical or other information is NOT sufficient for this purpose. For additional information please refer to http://Monitor110.DealCloud/faq/QPV159 (This link is being provided for informational/ educational purposes only.) The performance of this assay has not been clinically validated in patients less than 2 years old. Blood Blood / Unknown 06/11/2021 1 0:44 AM EDT 06/11/2021 10:44 AM EDT Narrative [facility] - 06/12/2021 11:29 AM EDT FASTING:YES us Thomas BARNES LAB - BLOOD DRAW Final Result [facility] [address] [address], [facility] [address] [address] * (ABNORMAL) LIPID PANEL (06/11/2021 10:44 AM EDT) [facility] CHOLESTEROL, TOTAL 175 <200 mg/dL [facility] HDL CHOLESTEROL 44 > OR = 40 mg/dL [facility] TRIGLYCERIDES 123 <150 mg/dL [facility] LDL-CHOLESTEROL 108(H) 99 mg/dL (calc) [facility] Comment: Reference range: <100 Desirable range <100 mg/dL for primary prevention; <70 mg/dL for patients with CHD or diabetic patients with > or = 2 CHD risk factors. LDL-C is now calculated using the Mitchell-Julio calculation, which is a validated novel method providing better accuracy than the Friedewald equation in the estimation of LDL-C. Mitchell SS et al. MAR. 2013;310(19): 4732-3605 (http://education.BoardProspects/faq/ZOH910) CHOL/HDLC RATIO 4.0 <5.0 (calc) [facility] NON-HDL CHOLESTEROL 131(H) <130 mg/dL (calc) [facility] Comment: For patients with diabetes plus 1 major ASCVD risk factor, treating to a non-HDL-C goal of <100 mg/dL (LDL-C of <70 mg/dL) is considered a therapeutic option. Blood Blood / Unknown 06/11/2021 1 0:44 AM EDT 06/11/2021 10:44 AM EDT Narrative [facility] - 06/12/2021 11:29 AM EDT FASTING:YES us Thomas BARNES LAB - BLOOD DRAW Final Result [facility] [address] [address], [facility] [address],[place] [address] * (ABNORMAL) COMPREHENSIVE METABOLIC PANEL (06/11/2021 10:44 AM EDT) GLUCOSE 78 65 - 99 mg/dL [facility] Comment: Fasting reference interval UREA NITROGEN (BUN) 11 7 - 25 mg/dL [facility] CREATININE (blood) 0.57(L) 0.60 - 1.35 mg/dL [facility] GFR ESTIMATED 121 > OR = 60 mL/min/1. 73m2 [facility] EGFR 140 > OR = 60 mL/min/1. 73m2 [facility] BUN/CREATININE RATIO 19 6 - 22 (calc) [facility] SODIUM 138 135 - 146 mmol/L [facility] POTASSIUM 4.4 3.5 - 5.3 mmol/L [facility] CHLORIDE 108 98 - 110 mmol/L [facility] CARBON DIOXIDE 23 20 - 32 mmol/L [facility] CALCIUM 8.9 8.6 - 10.3 mg/dL [facility] PROTEIN, TOTAL 6.7 6.1 - 8.1 g/dL [facility] ALBUMIN 4.1 3.6 - 5.1 g/dL [facility] GLOBULIN 2.6 1.9 - 3.7 g/dL (calc) [facility] ALBUMIN/GLOBULI N RATIO 1.6 1.0 - 2.5 (calc) [facility] BILIRUBIN, TOTAL 0.3 0.2 - 1.2 mg/dL [facility] ALKALINE PHOSPHATASE 81 36 - 130 U/L [facility] AST 12 10 - 40 U/L [facility] ALT 18 9 - 46 U/L [facility] Blood Blood / Unknown 06/11/2021 1 0:44 AM EDT 06/11/2021 10:44 AM EDT Narrative [facility] - 06/12/2021 11:29 AM EDT FASTING:YES Thomas BARNES LAB - BLOOD DRAW Edited Result - Final [facility] 200 [facility] [address] [place] [address], [facility] [address],[place] [address] from Last 3 Months or Most Recently Relevant to Health Maintenance Insurance [employer] Care Teams Engineering Specialist Technician Relationship Specialty Start Date End Date Thomas Cardoza PA [address] [place] [address] PCP - General [facility], [place] 11/12/21
== END 2025-06-06 06:28 | disposition home or self-care (01) ==
LOC: CF 06:27
PROVIDERS: Visit Provider Anesthesiology
DX: M46.1 Sacroiliitis, not elsewhere classified (principal); M53.3 Sacrococcygeal disorders, not elsewhere classified
CPT/HCPCS: 27096; J2003; J2795; Q9967

== ENCOUNTER 2025-06-06 14:51 | Outpatient (AMB) | payer MEDICARE, MEDICAID, SELFPAY ==
[2025-06-06 15:00] VITALS: BP 126/66; PULSE 91; RESP 18; O2SAT 97; BMI 32.1
--- NOTE | 2025-06-06 15:00 | A.OFFVIS_ITS ---
Vital Signs 06/06/25 15:00 Height 5 ft 1 in Weight 170 lb BMI 32.1 BP 126/66 Blood Pressure Location Lt brachial Position Sitting Respiration 18 Pulse 91 Pulse Source Pulse Oximeter Pulse Oximetry (%) 97 Oxygen Delivery Method Room Air Intake Visit Reasons: BILATERAL DIAGNOSTIC SIJ INJECTIONS Miner Helper Required: No Allergies No Known Allergies Allergy (Verified 04/26/25 10:34) [facility] Medical History (Updated 05/22/25 @ 15:54 by Valeria Horowitz MD) Carpal tunnel syndrome RLS (restless legs syndrome) HTN (hypertension) Surgical History Hx of colonoscopy History of carpal tunnel surgery History of arthroscopy of right shoulder Family History Maternal Grandmother Mental health disorder Sister Diverticulitis Brother Colon polyp Brother S/P colostomy History of colostomy reversal Father Lung cancer Liver cancer Cancer of kidney Social History Household Members: Other Household Members Other:: on disability for shoulder injury , lives with a partner, 1 daughter, Housing: Apartment Are you a primary clinical manager home care to a significant other at home: No Patient Tobacco Use Status: Former Tobacco user Cigarettes Per Day: 8 Years Smoked: 20 e-Cigarette/Vaping Use: Never Used service: No 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al status: disabled 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 Cognitive needs: No Hearing needs: No Vision needs: Yes Physical Exam Vital Signs: Last Vital Signs Pulse 91 06/06/25 15:00 Resp 18 06/06/25 15:00 BP 126/66 06/06/25 15:00 Pulse Ox 97 06/06/25 15:00 Oxygen Delivery Method Room Air 06/06/25 15:00 BMI result Body Mass Index 32.1 Assessment & Plan Assessment & Plan (1) Sacroiliitis: Code(s): M46.1 - Sacroiliitis, not elsewhere classified Category: Medical (2) Pain of both sacroiliac joints: Code(s): M53.3 - Sacrococcygeal disorders, not elsewhere classified Category: Medical Plan Bilateral diagnostic sacroiliac joint injection Informed consent was explained thoroughly to the patient.? All questions about benefits and risks for the procedure were answered. Patient came to the operating room and was positioned prone on the operating table with the pillow under the abdomen. The lower back and buttocks of the patient were prepped with ChloraPrep prepped and draped with sterile utility towels.? Sterilely draped C-arm was brought over the operating field and sq picture of patient's pelvis was demonstrated on the screen.? For the right joint tilting C-arm contralateral to the site of the joint the most posterior portion of the joints was superimposed with anterior silhouette of the joint.? Skin was injected in the projection of the joint slightly medial to the location of the joint with 25 gauge 1/2 inch needle using local lidocaine 2% . After that 22 gauge 3 and 1/2 inch needle was driven to the right joint in tunnel vision fashion.? When needle entered the joint capsule injection of the contrast was performed demonstrating intra-articular and minimally periarticular spread of the contrast.? After that 5 cc. of ropivacaine 0.5% was injected in the joint. After that procedure was repeated on the left side in mirroring fashion. Upon completion of the injections the needle was removed and Band-Aid was applied.? Upon completion of the injection patient was taken outside of the operating room to the recovery room where recovered uneventfully. Orders: Orders FL guidance in treatment room Today M53.3 - Sacrococcygeal disorders, not elsewhere classified Coding Level of Care Code Procedure Only Diagnoses Sacroiliitis M46.1 Pain of both sacroiliac joints M53.3
--- OUTSIDE RECORDS SUMMARY | 2025-06-06 16:12 | XMS_ITS | Clinical Summary ---
Author Organization [facility] Address [address] [place] [address] Care Team Providers Care Survey Engineer Name Role Phone Thomas Cardoza Primary Care Provider [phone] Source Comments PLEASE NOTE, if this patient [...] mcg/actuation nasal sprayIndications: Nasal congestion Place 1 [place] in both nostrils once daily 16 g [...] Diabetes Screening 06/11/2024 06/11/2021, 0 06/11/2021, 09/19/2020 [id number] ( season) 2024 09/19/2021, 03/19/2021, 03/19/2021, Additional [...] 1:58 PM EDT) CLINICAL INFORMATION See Note [facility] Comment:None given LMP See Note [facility] Comment:[id number] PREV. PAP [facility] PREV. BX See Note [facility] Comment:NONE GIVEN SOURCE See Note [facility] Comment:Cervix, Endocervix STATEMENT OF ADEQUACY See Note [facility] Comment: Satisfactory for evaluation. Endocervical/transformation zone component present. INTERPRETATION/RESU LT See Note [facility] Comment:Negative for intraep ithelial lesion or malignancy. COMMENT See Note [facility] Comment: This Pap test has been evaluated with computer assisted technology. STACKER OPERATOR See Note [employer] Comment: SL, CT(ASCP) CT screening location: [place] [address] COMMENT [facility] HPV MRNA E6/E7 Not Detected Not Detected [facility] Comment: Methodology: Cartography Technician-Mediated Amplification This assay detects E6/E7 viral messenger RNA (mRNA) from 14 high-risk HPV types (16,18,31,33,35,39,45,51,52,56,58,59,66,68). The analytical performance characteristics of this assay have been determined by [employer]. The modifications have not been cleared or approved by the FDA. This assay has been validated pursuant to the CLIA regulations and is used for clinical purposes. For additional information, please refer to http://education.Quick Heal Technologies/faq/RJK652x7 (This link if provided for information/ educational purposes only.) Swab Cervix uteri structure / Unknown 03/18/2022 1:58 PM EDT 03/19/2022 7:25 AM EDT Narrative [facility] - 03/21/2022 2:21 PM EDT EXPLANATORY NOTE: [...] - PATHOLOGY AND CYTOLOGY AMBULATORY Final Result [facility] [address] [address], [facility] [address] [address] * REFERRAL FOR MAMMOGRAM SCREENING (02/28/2022 3:00 AM EDT) 02/28/2022 3:00 AM EDT us Thomas BARNES Guzman RFL MAMMO Edited Result - Final * HEPATITIS C AB W/RFLX HCV RNA, QT, RT PCR (06/11/2021 10:44 AM EDT) HEPATITIS C ANTIBODY NON-REACT RADHA NON-REACT RADHA [facility] SIGNAL TO CUT-OFF 0.01 <1.00 [facility] Comment: HCV antibody was non-reactive. There is no laboratory evidence of HCV infection. In most cases, no further action is required. However, if recent HCV exposure is suspected, a test for HCV RNA (test code 72162) is suggested. For additional information please refer to http://Uromedica.[employer] Technologies/faq/SSI16s0 (This link is being provided for informational/ educational purposes only.) Blood Blood / Unknown 06/11/2021 1 0:44 AM EDT 06/11/2021 10:44 AM EDT Narrative [facility] - 06/12/2021 11:29 AM EDT FASTING:YES Thomas BARNES LAB - BLOOD DRAW Edited Result - Final [facility] [address] [address], [facility] [address] [address] * HIV 1/2 AG & AB W/RFLX (4TH GEN) (06/11/2021 10:44 AM EDT) HIV AG/AB, 4TH GEN NON-REAC TIVE NON-REAC TIVE [facility] Comment: HIV-1 antigen and HIV-1/HIV-2 antibodies were [...] purpose. For additional information please refer to http://Uromedica.[employer]/faq/XES140 (This link is being provided for informational/ educational purposes only.) The performance of this assay has not been clinically validated in patients less than 2 years old. Blood Blood / Unknown 06/11/2021 1 0:44 AM EDT 06/11/2021 10:44 AM EDT Narrative [facility] - 06/12/2021 11:29 AM EDT FASTING:YES us Thomas BARNES LAB - BLOOD DRAW Final Result [facility] [address] [address], [facility] [address] [address] * (ABNORMAL) LIPID PANEL (06/11/2021 10:44 AM EDT) [facility] CHOLESTEROL, TOTAL 175 <200 mg/dL [facility] HDL CHOLESTEROL 44 > OR = 40 mg/dL [facility] TRIGLYCERIDES 123 <150 mg/dL [facility] LDL-CHOLESTEROL 108(H) 99 mg/dL (calc) [facility] Comment: Reference range: <100 Desirable range <100 mg/dL for primary prevention; <70 mg/dL for patients with CHD or diabetic patients with > or = 2 CHD risk factors. LDL-C is now calculated using the Mitchell-Julio calculation, which is a validated novel method providing better accuracy than the Friedewald equation in the estimation of LDL-C. Mitchell SS et al. MAR. 2013;310(19): 3695-3718 (http://education.Huggler.com/faq/RGE653) CHOL/HDLC RATIO 4.0 <5.0 (calc) [facility] NON-HDL CHOLESTEROL 131(H) <130 mg/dL (calc) [facility] Comment: For patients with diabetes plus 1 major ASCVD risk factor, treating to a non-HDL-C goal of <100 mg/dL (LDL-C of <70 mg/dL) is considered a therapeutic option. Blood Blood / Unknown 06/11/2021 1 0:44 AM EDT 06/11/2021 10:44 AM EDT Narrative [facility] - 06/12/2021 11:29 AM EDT FASTING:YES us Thomas BARNES LAB - BLOOD DRAW Final Result [facility] [address] [address], [facility] [address] [address] * (ABNORMAL) COMPREHENSIVE METABOLIC PANEL (06/11/2021 10:44 AM EDT) GLUCOSE 78 65 - 99 mg/dL [facility] Comment: Fasting reference interval UREA NITROGEN (BUN) 11 7 - 25 mg/dL [facility] CREATININE (blood) 0.57(L) 0.60 - 1.35 mg/dL [facility] GFR ESTIMATED 121 > OR = 60 mL/min/1. 73m2 [facility] EGFR 140 > OR = 60 mL/min/1. 73m2 [facility] BUN/CREATININE RATIO 19 6 - 22 (calc) [facility] SODIUM 138 135 - 146 mmol/L [facility] POTASSIUM 4.4 3.5 - 5.3 mmol/L [facility] CHLORIDE 108 98 - 110 mmol/L [facility] CARBON DIOXIDE 23 20 - 32 mmol/L [facility] CALCIUM 8.9 8.6 - 10.3 mg/dL [facility] PROTEIN, TOTAL 6.7 6.1 - 8.1 g/dL [facility] ALBUMIN 4.1 3.6 - 5.1 g/dL [facility] GLOBULIN 2.6 1.9 - 3.7 g/dL (calc) [facility] ALBUMIN/GLOBULI N RATIO 1.6 1.0 - 2.5 (calc) [facility] BILIRUBIN, TOTAL 0.3 0.2 - 1.2 mg/dL [facility] ALKALINE PHOSPHATASE 81 36 - 130 U/L [facility] AST 12 10 - 40 U/L [facility] ALT 18 9 - 46 U/L [facility] Blood Blood / Unknown 06/11/2021 1 0:44 AM EDT 06/11/2021 10:44 AM EDT Narrative [facility] - 06/12/2021 11:29 AM EDT FASTING:YES Thomas BARNES LAB - BLOOD DRAW Edited Result - Final [facility] 200 [facility] [address] [place] [address], [facility] [address],[place] [address] from Last 3 Months or Most Recently Relevant to Health Maintenance Insurance [employer] Care Teams Survey Engineer Relationship Specialty Start Date End Date Thomas Cardoza PA [address] [place] [address] PCP - General FAMILY MEDICINE, [place] 11/12/21"
== END 2025-06-06 15:18 | disposition home or self-care (01) ==
LOC: HO.PMCPRC 14:51
PROVIDERS: PCP Internal Medicine; Visit Provider Anesthesiology
DX: M46.1 Sacroiliitis, not elsewhere classified (principal); M53.3 Sacrococcygeal disorders, not elsewhere classified
CPT/HCPCS: 27096

== ENCOUNTER 2025-06-08 13:57 | Outpatient (AMB) | payer MEDICARE, MEDICAID, SELFPAY ==
[2025-06-08 14:19] VITALS: BP 120/59; PULSE 78; RESP 18; O2SAT 98; BMI 32.1
--- NOTE | 2025-06-08 14:19 | A.OFFVIS_ITS ---
Vital Signs 06/08/25 14:19 Height 5 ft 1 in Weight 170 lb BMI 32.1 BP 120/59 L Blood Pressure Location Rt brachial Position Sitting Respiration 18 Pulse 78 Pulse Source Pulse Oximeter Pulse Oximetry (%) 98 Oxygen Delivery Method Room Air Intake Visit Reasons: S/P BILATERAL DIAGNOSTIC SIJ INJECTIONS 06/06/25 Custom Protection Officer Required: No Allergies No Known Allergies Allergy (Verified 06/08/25 14:17) HPI Comments Details: Camila is back in my office after diagnostic bilateral sacroiliac joint injection. She reports no pain for the 1st 2 hours after procedure only. She reports that she was not very active at that time and her pain usually is very low when she is not active. However when she started to move on 3rd 4th 5th and 6 hour she reported pain 5 to 8/10. Therefore I can not consider sacroiliac joints as her pain generators. I offered her to perform bilateral diagnostic medial branch block L3, L4, dorsal ramus L5 bilateral. I explained the nature of the procedure to the patient. I will see the patient in the office after the procedure. Meanwhile she complains on pain in the coccygeal area. She reports vague history of coccygeal trauma. I will send her for x-ray of the pelvis with diagnosis of coccydynia. I will see this patient after July 14, she reports that her goes for surgery and she will not be available with us before that. Prior: very pleasant 54 years old female who presents in my office with complains on axial back pain without radiation into bilateral lower extremities as well as pain in the electric shock-like sensation in bilateral anterior shins. She reports that prolonged sitting aggravate her pain. Valsalva maneuver aggravates her pain coughing and sneezing aggravate her pain. She reports that application of the heat or cold does not affects her pain. Because of her pain she can not sleep normally can not do activities of daily living can not take care of herself can not function normally she is on permanent disability. She reports that her pain started in 2018 when she was doing heavy lifting at her work. She is taking ibuprofen 800 mg and gabapentin 900 mg q.h.s. and it helps her to sleep little bit better however she still feels a lot of pain. She tried physical therapy last time in September 2024 and reported no results from physical therapy. She has an MRI performed on the lumbar spine which is dictated in below. Received interlaminar L5-S1 epidural steroid injection by me on recommendation of Dr. Jacques. Unfortunately the pain relief lasted only 5 days. She reported that her mobility was not improved. Her past medical history significant for hypertension and obesity. Her past surgical history significant for right shoulder surgeries and carpal tunnel release bilaterally. She admits smoking 2 cigarettes a day, denies drinking alcohol, drinks coffee and caffeinated beverages and she denies recreational drugs. [facility] Medical History (Updated 06/08/25 @ 14:43 by Troy Nichole MD) Carpal tunnel syndrome RLS (restless legs syndrome) HTN (hypertension) Surgical History Hx of colonoscopy History of carpal tunnel surgery History of arthroscopy of right shoulder Family History Maternal Grandmother Mental health disorder Sister Diverticulitis Brother Colon polyp Brother S/P colostomy History of colostomy reversal Father Lung cancer Liver cancer Cancer of kidney Social History Household Members: Other Household Members Other:: on disability for shoulder injury , lives with a partner, 1 daughter, Housing: Apartment Are you a primary manager home healthcare to a significant other at home: No Patient Tobacco Use Status: Former Tobacco user Cigarettes Per Day: 8 Years Smoked: 20 e-Cigarette/Vaping Use: Never Used service: No 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al status: disabled 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 Cognitive needs: No Hearing needs: No Vision needs: Yes Review of Systems Const All systems reviewed & are unremarkable except as noted in HPI and below ENT Reports Normal hearing present Neuro Reports Normal hearing present, Denies Abnormal speech present, Denies confusion and Denies Sensory deficit (Neuro) Psych Denies confusion Physical Exam Vital Signs: Last Vital Signs Pulse 78 06/08/25 14:19 Resp 18 06/08/25 14:19 BP 120/59 L 06/08/25 14:19 Pulse Ox 98 06/08/25 14:19 Oxygen Delivery Method Room Air 06/08/25 14:19 BMI result Body Mass Index 32.1 Const General: no acute distress; No confusion Nutritional Appearance: obese morbidly obese Orientation/consciousness: patient oriented x3 and No confusion Eyes General: appearance normal, both eyes and all related structures Pupils: Equal, round and reactive pupils present EOM: EOMs intact bilaterally Neck Neck: Yes full ROM Chest Chest palpation & inspection: normal inspection of the chest Resp Effort & Inspection: normal respiratory effort, able to speak in complete sentences, normal respiratory pattern, no audible wheezes and no cough Cardio Jugular venous distension: no JVD GI Inspection: Yes normal to inspection Back/Spine/Pelvis Other: Exhibit normal strength of bilateral lower extremity able to stand on bilateral tiptoes in bilateral heels without difficulty. Flexing forward and flexing backwards both aggravate her pain however flexing backwards aggravate her pain more than flexing forward. Valsalva maneuver positive for pain increase. SLR is positive bilaterally. Rafael test is positive bilaterally. Pelvic compression test positive bilaterally. Pelvic distraction test is positive bilaterally. Fourteen finger test is positive bilaterally. Neuro General: patient oriented x3, gait normal and No confusion Cranial nerves: Yes CN's II-XII intact bilaterally, Yes Equal, round and reactive pupils present, Yes Normal hearing present and Yes Ability to bilat erally elevate shoulders present Speech: No Abnormal speech present Gait exam (Neuro): Normal gait present Motor exam (neuro): 5/5 motor strength present throughout Sensory Exam: No Sensory deficit (Neuro) Extrem General: No pedal edema Psych Speech and movement: Normal speech and movement present Affect: normal affect Attitude: cooperative Thought process: Normal thought process present Thought content: Normal thought content present Insight: Good insight present (Psych) Judgement: Good judgement present (Psych) Results Reviewed Results Reviewed: Ordering Physician: Sandra Jacques Date of Service: 01/21/25 Procedure(s): MR lumbar spine wo con Accession Number(s): [id number] cc: Valeria Horowitz MD; Sandra Jacques~ .EXAMINATION: MR LUMBAR SPINE WITHOUT CONTRAST CLINICAL INFORMATION: Radiculopathy, lumbar region. COMPARISON: None available. TECHNIQUE: MRI of the lumbar spine was obtained using routine sequences without contrast. FINDINGS: Last rib-bearing vertebra labeled T12. Bone marrow inhomogeneity. No bone marrow STIR signal abnormality. Disc desiccation at L4-5 and L5-S1. Hyperintense T2 signal in the posterior intervertebral discs L4-5 and L5-S1 likely annular fissure. There is normal alignment. Conus medullaris ends at superior endplate of L1 with normal signal. T12-L1: No disc herniation. No neuroforamina stenosis. L1-2: Broad-based disc bulging. No central spinal canal or neuroforamina stenosis. L2-3: No disc bulging. No compression upon neural elements. L3-4: Broad-based disc bulging. Facet joint hypertrophy. Reduced diameter of the neural foramina. No central spinal canal stenosis. L4-5: Broad-based central disc herniation and facet joint hypertrophy encroaching the L5 nerve root on the lateral recesses causing bilateral neuroforamina stenosis encroaching the L4 exiting nerve roots. Hypertrophy of the ligamentum flavum. Reduced AP diameter of the thecal sac. L5-S1: Central herniated disc abutting the S1 nerve roots on the lateral recesses. Facet joint hypertrophy. Bilateral neuroforamina narrowing encroaching the L4 exiting nerve roots. Fatty atrophy of the lumbar muscles at L5-S1. No prevertebral compartment hematoma, mass or fluid collection. 3 cm exophytic cystic lesion in the parapelvic left kidney. 5.5 cm hypointense T2 STIR and isointense T1 lesion in the uterus.. MR/MR lumbar spine wo con IMPRESSION: Central broad-based disc herniation herniated disc at L4-5 and spondylosis encroaching the L5 and L4 nerve roots. Central disc herniation L5-S1 encroaching the S1 nerve roots and to a lesser extent L5 secondary to spondylosis of the facet joints. 3 cm cyst, left kidney. Bone marrow inhomogeneity suggesting osteopenia versus osteoporosis versus calcium metabolic disorder. Probable 5.5 cm uterine fibroid. Electronically signed by: Warren Vinson MD 01/23/2025 11:20 AM [facility] Ordering Physician: Valeria Horowitz MD Date of Service: 06/17/24 Procedure(s): XR lumbar spine 2-3V Accession Number(s): [id number] cc: Valeria Horowitz MD~ EXAMINATION: XR LUMBOSACRAL SPINE CLINICAL INFORMATION: Low back pain. COMPARISON: Radiograph lumbar spine 06/21/2021. TECHNIQUE: Three views of the lumbosacral spine. FINDINGS: No evidence of acute compression deformity or subluxation. Mild intervertebral disc height loss of facet arthropathy at L5-S1, increased compared to 2020. SI joints are symmetric. No significant paraspinal soft tissue abnormality. A few pelvic phleboliths are seen. XR/XR lumbar spine 2-3V IMPRESSION: 1. No acute compression deformity or subluxation. 2. Mild lumbar spondylosis at L5-S1, increased compared to 2020. Assessment & Plan Assessment & Plan (1) Coccydynia: Code(s): M53.3 - Sacrococcygeal disorders, not elsewhere classified Category: Medical (2) Sacroiliitis: Code(s): M46.1 - Sacroiliitis, not elsewhere classified Category: Medical (3) Pain of both sacroiliac joints: Code(s): M53.3 - Sacrococcygeal disorders, not elsewhere classified Category: Medical (4) Spondylosis of lumbar region without myelopathy or radiculopathy: Code(s): M47.816 - Spondylosis without myelopathy or radiculopathy, lumbar region Category: Medical (5) Facet arthropathy, lumbar: Code(s): M47.816 - Spondylosis without myelopathy or radiculopathy, lumbar region Category: Medical (6) Disc degeneration, lumbar: Code(s): M51.369 - Other intervertebral disc degeneration, lumbar region without mention of lumbar back pain or lower extremity pain Category: Medical Plan The pain of this patient is most likely multifactorial, there is an element of radiculopathy, however her pain improvement lasted only 5 days. . Interventional interlaminar L5-S1 epidural steroid injection resulted in no pain improvement. Diagnostic sacroiliac joint injection resulted also in no pain improvement. I decided to offer to the patient medial branch block diagnostic L3, L4, dorsal ramus L5 bilateral. Patient agreed to go for the procedure. She also complains on coccydynia pain in the area of the coccyx. I will send her for x-ray of the pelvis to exclude possibility of previous fracture of the coccyx. She reports vague history of minor trauma in the coccyx. She will schedule appointment on or after July 14 because she will take care of her who needs surgery. Orders: Orders XR pelvis min 3V Today M53.3 - Sacrococcygeal disorders, not elsewhere classified Coding Level of Care Code Est Pt Level 3 (08083) Diagnoses Coccydynia M53.3 Sacroiliitis M46.1 Pain of both sacroiliac joints M53.3 Spondylosis of lumbar region without myelopathy or radiculopathy M47.816 Facet arthropathy, lumbar M47.816 Disc degeneration, lumbar M51.369
--- OUTSIDE RECORDS SUMMARY | 2025-06-08 14:43 | XMS_ITS | Clinical Summary ---
Author Organization [facility] Address [address] [place] [address] Care Team Providers Care Value Engineer Name Role Phone Thomas Cardoza Primary Care Provider [phone] Source Comments PLEASE NOTE, if this patient [...] mcg/actuation nasal sprayIndications: Nasal congestion Place 1 [place] in both nostrils once daily 16 g [...] Diabetes Screening 06/11/2024 06/11/2021, 0 06/11/2021, 09/19/2020 [id number] ( season) 2024 09/19/2021, 03/19/2021, 03/19/2021, Additional [...] 1:58 PM EDT) CLINICAL INFORMATION See Note [facility] Comment:None given LMP See Note [facility] Comment:[id number] PREV. PAP [facility] PREV. BX See Note [facility] Comment:NONE GIVEN SOURCE See Note [facility] Comment:Cervix, Endocervix STATEMENT OF ADEQUACY See Note [facility] Comment: Satisfactory for evaluation. Endocervical/transformation zone component present. INTERPRETATION/RESU LT See Note [facility] Comment:Negative for intraep ithelial lesion or malignancy. COMMENT See Note [facility] Comment: This Pap test has been evaluated with computer assisted technology. DICE TABLE PERSON See Note [facility] Comment: SL, CT(ASCP) CT screening location: [place] [address] COMMENT [facility] HPV MRNA E6/E7 Not Detected Not Detected [facility] Comment: Methodology: Land Clearer-Mediated Amplification This assay detects E6/E7 viral messenger RNA (mRNA) from 14 high-risk HPV types (16,18,31,33,35,39,45,51,52,56,58,59,66,68). The analytical performance characteristics of this assay have been determined by [email or web address]. The modifications have not been cleared or approved by the FDA. This assay has been validated pursuant to the CLIA regulations and is used for clinical purposes. For additional information, please refer to http://education.[employer]/faq/JGZ625c6 (This link if provided for information/ educational purposes only.) Swab Cervix uteri structure / Unknown 03/18/2022 1:58 PM EDT 03/19/2022 7:25 AM EDT Narrative [facility] - 03/21/2022 2:21 PM EDT EXPLANATORY NOTE: [...] - PATHOLOGY AND CYTOLOGY AMBULATORY Final Result [facility] [address] [address], [facility] [address] [address] * REFERRAL FOR MAMMOGRAM SCREENING (02/28/2022 3:00 AM EDT) 02/28/2022 3:00 AM EDT us Thomas BARNES Guzman RFL MAMMO Edited Result - Final * HEPATITIS C AB W/RFLX HCV RNA, QT, RT PCR (06/11/2021 10:44 AM EDT) HEPATITIS C ANTIBODY NON-REACT RADHA NON-REACT RADHA [facility] SIGNAL TO CUT-OFF 0.01 <1.00 [facility] Comment: HCV antibody was non-reactive. There is no laboratory evidence of HCV infection. In most cases, no further action is required. However, if recent HCV exposure is suspected, a test for HCV RNA (test code 62267) is suggested. For additional information please refer to http://[employer] Month.[employer]/faq/VTP00r1 (This link is being provided for informational/ educational purposes only.) Blood Blood / Unknown 06/11/2021 1 0:44 AM EDT 06/11/2021 10:44 AM EDT Narrative [facility] - 06/12/2021 11:29 AM EDT FASTING:YES Thomas BARNES LAB - BLOOD DRAW Edited Result - Final [facility] [address] [address], [facility] [address] [address] * HIV 1/2 AG & AB W/RFLX (4TH GEN) (06/11/2021 10:44 AM EDT) HIV AG/AB, 4TH GEN NON-REAC TIVE NON-REAC TIVE [facility] Comment: HIV-1 antigen and HIV-1/HIV-2 antibodies were [...] purpose. For additional information please refer to http://Sw[employer] Of [employer] Month.[employer]/faq/SXX363 (This link is being provided for informational/ educational purposes only.) The performance of this assay has not been clinically validated in patients less than 2 years old. Blood Blood / Unknown 06/11/2021 1 0:44 AM EDT 06/11/2021 10:44 AM EDT Narrative [facility] - 06/12/2021 11:29 AM EDT FASTING:YES us Thomas BARNES LAB - BLOOD DRAW Final Result [facility] [address] [address], [facility] [address] [address] * (ABNORMAL) LIPID PANEL (06/11/2021 10:44 AM EDT) [facility] CHOLESTEROL, TOTAL 175 <200 mg/dL [facility] HDL CHOLESTEROL 44 > OR = 40 mg/dL [facility] TRIGLYCERIDES 123 <150 mg/dL [facility] LDL-CHOLESTEROL 108(H) 99 mg/dL (calc) [facility] Comment: Reference range: <100 Desirable range <100 mg/dL for primary prevention; <70 mg/dL for patients with CHD or diabetic patients with > or = 2 CHD risk factors. LDL-C is now calculated using the Mitchell-Julio calculation, which is a validated novel method providing better accuracy than the Friedewald equation in the estimation of LDL-C. Mitchell SS et al. MAR. 2013;310(19): 0748-6133 (http://education.[employer]/faq/ZFQ674) CHOL/HDLC RATIO 4.0 <5.0 (calc) [facility] NON-HDL CHOLESTEROL 131(H) <130 mg/dL (calc) [facility] Comment: For patients with diabetes plus 1 major ASCVD risk factor, treating to a non-HDL-C goal of <100 mg/dL (LDL-C of <70 mg/dL) is considered a therapeutic option. Blood Blood / Unknown 06/11/2021 1 0:44 AM EDT 06/11/2021 10:44 AM EDT Narrative [facility] - 06/12/2021 11:29 AM EDT FASTING:YES us Thomas BARNES LAB - BLOOD DRAW Final Result [facility] [address] [address], [facility] [address] [address] * (ABNORMAL) COMPREHENSIVE METABOLIC PANEL (06/11/2021 10:44 AM EDT) GLUCOSE 78 65 - 99 mg/dL [facility] Comment: Fasting reference interval UREA NITROGEN (BUN) 11 7 - 25 mg/dL [facility] CREATININE (blood) 0.57(L) 0.60 - 1.35 mg/dL [facility] GFR ESTIMATED 121 > OR = 60 mL/min/1. 73m2 [facility] EGFR 140 > OR = 60 mL/min/1. 73m2 [facility] BUN/CREATININE RATIO 19 6 - 22 (calc) [facility] SODIUM 138 135 - 146 mmol/L [facility] POTASSIUM 4.4 3.5 - 5.3 mmol/L [facility] CHLORIDE 108 98 - 110 mmol/L [facility] CARBON DIOXIDE 23 20 - 32 mmol/L [facility] CALCIUM 8.9 8.6 - 10.3 mg/dL [facility] PROTEIN, TOTAL 6.7 6.1 - 8.1 g/dL [facility] ALBUMIN 4.1 3.6 - 5.1 g/dL [facility] GLOBULIN 2.6 1.9 - 3.7 g/dL (calc) [facility] ALBUMIN/GLOBULI N RATIO 1.6 1.0 - 2.5 (calc) [facility] BILIRUBIN, TOTAL 0.3 0.2 - 1.2 mg/dL [facility] ALKALINE PHOSPHATASE 81 36 - 130 U/L [facility] AST 12 10 - 40 U/L [facility] ALT 18 9 - 46 U/L [facility] Blood Blood / Unknown 06/11/2021 1 0:44 AM EDT 06/11/2021 10:44 AM EDT Narrative [facility] - 06/12/2021 11:29 AM EDT FASTING:YES Thomas BARNES [facility] - BLOOD DRAW Edited Result - Final [facility] [address] [facility] [address] [place] [address], [facility] [address] [address] from Last 3 Months or Most Recently Relevant to Health Maintenance Insurance [employer] Care Teams Value Engineer Relationship Specialty Start Date End Date Thomas Cardoza PA [address] [place] [address] PCP - General [facility] 11/12/21
== END 2025-06-08 14:36 | disposition home or self-care (01) ==
LOC: HO.PMC 13:57
PROVIDERS: PCP Internal Medicine; Visit Provider Anesthesiology
DX: M53.3 Sacrococcygeal disorders, not elsewhere classified (principal); M46.1 Sacroiliitis, not elsewhere classified; M47.816 Spondylosis without myelopathy or radiculopathy, lumbar region; M51.369 Other intervertebral disc degeneration, lumbar region without mention of lumbar back pain or lower extremity pain
CPT/HCPCS: 99213

== ENCOUNTER 2025-06-08 13:57 | Outpatient (REF) | payer MEDICARE, MEDICAID, SELFPAY ==
--- NOTE | ~2025-06-08 | XR_ITS ---
EXAMINATION: XR PELVIS CLINICAL INFORMATION: M53.3 - Sacrococcygeal disorders, not elsewhere classified COMPARISON: None available. TECHNIQUE: AP view of the pelvis. FINDINGS: No fracture. Hip joint spaces are maintained. Alignment is anatomic. Mild arthritic changes in both SI joints, similar to prior exams. No abnormal soft tissue calcifications. XR/XR pelvis 1-2V IMPRESSION: No acute bony abnormalities. Mild arthritic changes in both SI joints. Electronically signed by: Rolando Hagen MD 06/08/2025 03:09 PM EDT
== END 2025-06-08 13:58 | disposition home or self-care (01) ==
LOC: HO.XRAY 13:57
PROVIDERS: PCP Internal Medicine; Visit Provider Anesthesiology
DX: M47.816 Spondylosis without myelopathy or radiculopathy, lumbar region (principal); M53.3 Sacrococcygeal disorders, not elsewhere classified; M46.1 Sacroiliitis, not elsewhere classified; M51.369 Other intervertebral disc degeneration, lumbar region without mention of lumbar back pain or lower extremity pain
CPT/HCPCS: 72170; 99212

== ENCOUNTER → 2025-06-08 14:47 | Outpatient (BNV) | payer MEDICARE, MEDICAID, SELFPAY | PROVIDERS: PCP Internal Medicine; Visit Provider Radiology Diagnostic Radiology | DX: M53.3 Sacrococcygeal disorders, not elsewhere classified (principal) | CPT/HCPCS: 72170 ==

== ENCOUNTER 2025-06-15 08:31 | Outpatient (AMB) | payer MEDICARE, MEDICAID, SELFPAY ==
--- NOTE | 2025-06-15 08:33 | MHC.OFFVIS ---
Intake Visit Reasons: OV- Back and neck f/u s/p C Spine MRI Intake Note: Camila is a 54 year old female who presents today as a follow up for Back and neck pain s/p C -Spine MRI., 03/17/25. Patient states her 04/16 and 06/16 injections did not help. Allergies No Known Allergies Allergy (Verified 06/15/25 08:36) Medication List - Last Reconciled 06/15/25 by Sandra Robles MD duloxetine 20 mg PO BID gabapentin 900 mg PO BEDTIME ibuprofen 800 mg PO TID PRN lisinopril 20 mg PO DAILY omeprazole 20 mg PO DAILY psyllium husk (Metamucil) 1 tbsp PO DAILY 30 days tizanidine 2 mg PO TID PRN 30 days trazodone 100 mg PO BEDTIME PRN HPI Comments Details: I've seen Camila for cervicalgia/myofascial pain. We've tried trigger point injections without relief though. Still more left sided, radiate to left upper arm. Not to fingers. Hand numbness bilateral at night. EMG BUE 01/2024 showed bilateral CTS, already s/p bilateral CTR by Dr. Thompson. Been going to PT for neck pain, last visit was January 2025. It was temporary relief only. Last cervical MRI 2018, external, was told to have C3-4 and C5-6 bulging disk. Repeat MRI done February 2025, to discuss today. No spinal stenosis or nerve impingement. Showed spondylosis. As for back pain, she has been following with Pain Management for injections: Received interlaminar L5-S1 epidural steroid injection. Unfortunately the pain relief lasted only 5 days. diagnostic bilateral sacroiliac joint injection. She reports no pain for the 1st 2 hours after procedure only Scheduled for B/L DX L3-L4- L5 MBB 07/25/25 She does exercise at home as taught by PT, at least 4 times a week. She does this to relieve the pain left side that goes to the knees. Not sure if she does enough for the upper back pain but she mentions some exercises that she does for the neck. She still says some tingling on the hands when she picks up things despite CTR. Today her pain is lower back, midline/coccyx. She had shown pain management that already. Xray non remarkable for tailbone. Last night it radiates to left leg. But neck pain has not been bothering her so much, she ices it when she needs. [facility] Medical History (Updated 06/08/25 @ 14:43 by Troy Nichole MD) Carpal tunnel syndrome RLS (restless legs syndrome) HTN (hypertension) Surgical History Hx of colonoscopy History of carpal tunnel surgery History of arthroscopy of right shoulder Family History (Reviewed 12/30/24 @ 13:25 by Gayla Hernandez REPLACED BY [facility]) Maternal Grandmother Mental health disorder Sister Diverticulitis Brother Colon polyp Brother S/P colostomy History of colostomy reversal Father Lung cancer Liver cancer Cancer of kidney Social History Household Members: Other Household Members Other:: on disability for shoulder injury , lives with a partner, 1 daughter, Housing: Apartment Are you a primary acute care occupational therapist to a significant other at home: No Patient Tobacco Use Status: Former Tobacco user Cigarettes Per Day: 8 Years Smoked: 20 e-Cigarette/Vaping Use: Never Used service: No 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al status: disabled 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 Patient was appropriately conversant and oriented. Good historian. MSK: No specific abnormalities found on inspection of the spine and all extremities. Cervical range of motion still appears intact. Negative Spurling sign. Tenderness still on bilateral SI joints. Neurological: Neurologic examination of the upper and lower extremities was nonfocal with intact sensation, muscle stretch reflexes and without focal motor deficits . Lopez?s negative bilaterally. Gait is antalgic without loss of balance. Results Reviewed Results Reviewed: Ordering Physician: Troy Nichole MD Date of Service: 06/08/25 Procedure(s): XR pelvis 1-2V Accession Number(s): [id number] cc: Valeria Horowitz MD; Troy Nichole MD~ EXAMINATION: XR PELVIS CLINICAL INFORMATION: M53.3 - Sacrococcygeal disorders, not elsewhere classified COMPARISON: None available. TECHNIQUE: AP view of the pelvis. FINDINGS: No fracture. Hip joint spaces are maintained. Alignment is anatomic. Mild arthritic changes in both SI joints, similar to prior exams. No abnormal soft tissue calcifications. XR/XR pelvis 1-2V IMPRESSION: No acute bony abnormalities. Mild arthritic changes in both SI joints. Ordering Physician: Sandra Jacques Date of Service: 03/15/25 Procedure(s): MR cervical spine wo con Accession Number(s): [id number] cc: Valeria Horowitz MD; Sandra Jacques~ CLINICAL HISTORY: M54.12 - Radiculopathy, cervical region --- Additional Notes or Special Instructions: evaluate for left sided narrowing or disc herniation MR of the cervical spine without contrast. COMPARISON: None FINDINGS: Grade 1 anterolisthesis of C4 on C5, degenerative. Vertebral heights are maintained. Marrow signal is benign. Visualized posterior fossa is normal. No abnormal signal within the normal caliber cervical spinal cord. No syringomyelia or cervical epidural fluid collection. C2-C3: No significant neuroforaminal narrowing or spinal canal stenosis. C3-C4: No significant neuroforaminal narrowing or spinal canal stenosis. C4-C5: Mild posterior disc bulge indents the anterior subarachnoid space but does not abut or deform the cord. Mild uncovertebral joint hypertrophy. Moderate to severe left neural foraminal narrowing. Mild right neural foraminal narrowing. C5-C6: Mild posterior disc bulge indents the anterior subarachnoid space but does not abut or deform the cord. No significant neural foraminal narrowing. C6-C7: Mild posterior disc bulge indents the anterior subarachnoid space but does not abut or deform the cord. No significant neural foraminal narrowing. Visualized paraspinal soft tissues are unremarkable. IMPRESSION: 1. No evidence of acute injury to the cervical spine. 2. Grade 1 anterolisthesis of C4 on C5, degenerative. 3. Mild mid to lower cervical spondylosis with neural foraminal narrowing most pronounced on the left at C4-5. EMG UE 02/18/24 IMPRESSION: 1. This is an abnormal study. 2. There is electrodiagnostic evidence for left moderate-severe and right mild median neuropathy at the wrist, consistent with carpal tunnel syndrome. 3. There is no electrodiagnostic evidence for ulnar neuropathy, brachial plexopathy, or cervical radiculopathy. s/p Right Carpal Tunnel Release w/ AR DOS: 06/23/24 Left Carpal tunnel release 04/04/24 Ordering Physician: Sandra Jacques Date of Service: 01/21/25 Procedure(s): MR lumbar spine wo con Accession Number(s): [id number] cc: Valeria Horowitz MD; Sandra Jacques~ EXAMINATION: MR LUMBAR SPINE WITHOUT CONTRAST CLINICAL INFORMATION: Radiculopathy, lumbar region. COMPARISON: None available. TECHNIQUE: MRI of the lumbar spine was obtained using routine sequences without contrast. FINDINGS: Last rib-bearing vertebra labeled T12. Bone marrow inhomogeneity. No bone marrow STIR signal abnormality. Disc desiccation at L4-5 and L5-S1. Hyperintense T2 signal in the posterior intervertebral discs L4-5 and L5-S1 likely annular fissure. There is normal alignment. Conus medullaris ends at superior endplate of L1 with normal signal. T12-L1: No disc herniation. No neuroforamina stenosis. L1-2: Broad-based disc bulging. No central spinal canal or neuroforamina stenosis. L2-3: No disc bulging. No compression upon neural elements. L3-4: Broad-based disc bulging. Facet joint hypertrophy. Reduced diameter of the neural foramina. No central spinal canal stenosis. L4-5: Broad-based central disc herniation and facet joint hypertrophy encroaching the L5 nerve root on the lateral recesses causing bilateral neuroforamina stenosis encroaching the L4 exiting nerve roots. Hypertrophy of the ligamentum flavum. Reduced AP diameter of the thecal sac. L5-S1: Central herniated disc abutting the S1 nerve roots on the lateral recesses. Facet joint hypertrophy. Bilateral neuroforamina narrowing encroaching the L4 exiting nerve roots. Fatty atrophy of the lumbar muscles at L5-S1. No prevertebral compartment hematoma, mass or fluid collection. 3 cm exophytic cystic lesion in the parapelvic left kidney. 5.5 cm hypointense T2 STIR and isointense T1 lesion in the uterus.. MR/MR lumbar spine wo con IMPRESSION: Central broad-based disc herniation herniated disc at L4-5 and spondylosis encroaching the L5 and L4 nerve roots. Central disc herniation L5-S1 encroaching the S1 nerve roots and to a lesser extent L5 secondary to spondylosis of the facet joints. 3 cm cyst, left kidney. Bone marrow inhomogeneity suggesting osteopenia versus osteoporosis versus calcium metabolic disorder. Probable 5.5 cm uterine fibroid. Electronically signed by: Warren Vinson MD 01/23/2025 11:20 AM EST Ordering Physician: Valeria Horowitz MD Date of Service: 06/17/24 Procedure(s): XR lumbar spine 2-3V Accession Number(s): [id number] cc: Valeria Horowitz MD~ EXAMINATION: XR LUMBOSACRAL SPINE CLINICAL INFORMATION: Low back pain. COMPARISON: Radiograph lumbar spine 06/21/2021. TECHNIQUE: Three views of the lumbosacral spine. FINDINGS: No evidence of acute compression deformity or subluxation. Mild intervertebral disc height loss of facet arthropathy at L5-S1, increased compared to 2020. SI joints are symmetric. No significant paraspinal soft tissue abnormality. A few pelvic phleboliths are seen. XR/XR lumbar spine 2-3V IMPRESSION: 1. No acute compression deformity or subluxation. 2. Mild lumbar spondylosis at L5-S1, increased compared to 2020. Assessment & Plan Assessment & Plan (1) Myofascial pain: Code(s): M79.18 - Myalgia, other site Category: Medical (2) Cervical radiculitis: Code(s): M54.12 - Radiculopathy, cervical region Category: Medical (3) Sacroiliitis: Code(s): M46.1 - Sacroiliitis, not elsewhere classified Category: Medical (4) Lumbar disc herniation: Code(s): M51.26 - Other intervertebral disc displacement, lumbar region Category: Medical Plan Here to discuss cervical MRI. It did show spondylosis, but without significant disc herniation, spinal stenosis or nerve impingement. Lower back pain, still left side, also SI joint tender. Epidural and SI joint injections provided only partial relief. Scheduled for MBB under pain management. Bilateral CTR by Dr. Thompson. I agree with Dr. Nichole that her pain is most likely multifactorial: Cervical and lumbar spondylosis, myofascial pain, possibly even stress related. We discussed that injections will never give 100% cure. She needs to continue a healthy lifestyle with continued home exercises. Work on stress management if needed. As for her lower back pain that radiates to the left side, she wants to wait to try the MBB that is scheduled in July. If that does not help and she continues to have shooting pain down the left side, given that MRI did show a disc herniation, she would consider asking me for referral to neuro spine. Assessment and plan discussed with patient, and patient was agreeable. All questions were answered thoroughly. Follow up end of July. Total of 30 minutes spent today including chart review, results review, history taking, physical examination, discussion of assessment and plan, and coordination of care. Sandra Robles MD, JAMILAH Board Certified, [place] Board of [employer] Medicine and Rehabilitation (ABPMR) Board Certified, [place] Board of Electrodiagnostic Medicine (ABEM) Coding Level of Care Code Est Pt Level 4 (81154) Diagnoses Myofascial pain M79.18 Cervical radiculitis M54.12 Sacroiliitis M46.1 Lumbar disc herniation M51.26
--- OUTSIDE RECORDS SUMMARY | 2025-06-15 08:54 | XMS_ITS | Clinical Summary ---
Author Organization [facility] Address [address] [place] [address] Care Team Providers Care Veneer Department Manager Name Role Phone Thomas Cardoza Primary Care Provider [phone] Source Comments PLEASE NOTE, if this patient [...] mcg/actuation nasal sprayIndications: Nasal congestion Place 1 [place] in both nostrils once daily 16 g [...] Diabetes Screening 06/11/2024 06/11/2021, 0 06/11/2021, 09/19/2020 [id number] ( season) 2024 09/19/2021, 03/19/2021, 03/19/2021, Additional [...] 1:58 PM EDT) CLINICAL INFORMATION See Note [facility] Comment:None given LMP See Note [facility] Comment:[id number] PREV. PAP [facility] PREV. BX See Note [facility] Comment:NONE GIVEN SOURCE See Note [facility] Comment:Cervix, Endocervix STATEMENT OF ADEQUACY See Note [facility] Comment: Satisfactory for evaluation. Endocervical/transformation zone component present. INTERPRETATION/RESU LT See Note [facility] Comment:Negative for intraep ithelial lesion or malignancy. COMMENT See Note [facility] Comment: This Pap test has been evaluated with computer assisted technology. DOLL EYE SETTER See Note [facility] Comment: SL, CT(ASCP) CT screening location: [place] [address] COMMENT [facility] HPV MRNA E6/E7 Not Detected Not Detected [facility] Comment: Methodology: Storage Receipt Poster-Mediated Amplification This assay detects E6/E7 viral messenger RNA (mRNA) from 14 high-risk HPV types (16,18,31,33,35,39,45,51,52,56,58,59,66,68). The analytical performance characteristics of this assay have been determined by [employer]. The modifications have not been cleared or approved by the FDA. This assay has been validated pursuant to the CLIA regulations and is used for clinical purposes. For additional information, please refer to http://education.[employer]/faq/HZP083j4 (This link if provided for information/ educational purposes only.) Swab Cervix uteri structure / Unknown 03/18/2022 1:58 PM EDT 03/19/2022 7:25 AM EDT Narrative [facility] - 03/21/2022 2:21 PM EDT EXPLANATORY [...] - PATHOLOGY AND CYTOLOGY AMBULATORY Final Result [facility] [address] [address], [facility] [address] [address] * REFERRAL FOR MAMMOGRAM SCREENING (02/28/2022 3:00 AM EDT) 02/28/2022 3:00 AM EDT us Thomas BARNES Guzman RFL MAMMO Edited Result - Final * HEPATITIS C AB W/RFLX HCV RNA, QT, RT PCR (06/11/2021 10:44 AM EDT) HEPATITIS C ANTIBODY NON-REACT RADHA NON-REACT RADHA [facility] SIGNAL TO CUT-OFF 0.01 <1.00 [facility] Comment: HCV antibody was non-reactive. There is no laboratory evidence of HCV infection. In most cases, no further action is required. However, if recent HCV exposure is suspected, a test for HCV RNA (test code 91721) is suggested. For additional information please refer to http://[employer]/faq/WZT32j1 (This link is being provided for informational/ educational purposes only.) Blood Blood / Unknown 06/11/2021 1 0:44 AM EDT 06/11/2021 10:44 AM EDT Narrative [facility] - 06/12/2021 11:29 AM EDT FASTING:YES Thomas BARNES LAB - BLOOD DRAW Edited Result - Final [facility] [employer] [address] [address], [facility] [address] [address] * HIV 1/2 AG & AB W/RFLX (4TH GEN) (06/11/2021 10:44 AM EDT) HIV AG/AB, 4TH GEN NON-REAC TIVE NON-REAC TIVE [facility] Comment: HIV-1 antigen and HIV-1/HIV-2 antibodies were [...] purpose. For additional information please refer to http://Give[employer]/faq/NHB391 (This link is being provided for informational/ educational purposes only.) The performance of this assay has not been clinically validated in patients less than 2 years old. Blood Blood / Unknown 06/11/2021 1 0:44 AM EDT 06/11/2021 10:44 AM EDT Narrative [facility] - 06/12/2021 11:29 AM EDT FASTING:YES us Thomas BARNES LAB - BLOOD DRAW Final Result [facility] [address] [address], [facility] [address] [address] * (ABNORMAL) LIPID PANEL (06/11/2021 10:44 AM EDT) [facility] CHOLESTEROL, TOTAL 175 <200 mg/dL [facility] HDL CHOLESTEROL 44 > OR = 40 mg/dL [facility] TRIGLYCERIDES 123 <150 mg/dL [facility] LDL-CHOLESTEROL 108(H) 99 mg/dL (calc) [facility] Comment: Reference range: <100 Desirable range <100 mg/dL for primary prevention; <70 mg/dL for patients with CHD or diabetic patients with > or = 2 CHD risk factors. LDL-C is now calculated using the Mitchell-Julio calculation, which is a validated novel method providing better accuracy than the Friedewald equation in the estimation of LDL-C. Mitchell SS et al. MAR. 2013;310(19): 1786-1881 (http://education.[employer]/faq/VWI727) CHOL/HDLC RATIO 4.0 <5.0 (calc) [facility] NON-HDL CHOLESTEROL 131(H) <130 mg/dL (calc) [facility] Comment: For patients with diabetes plus 1 major ASCVD risk factor, treating to a non-HDL-C goal of <100 mg/dL (LDL-C of <70 mg/dL) is considered a therapeutic option. Blood Blood / Unknown 06/11/2021 1 0:44 AM EDT 06/11/2021 10:44 AM EDT Narrative [facility] [facility] - 06/12/2021 11:29 AM EDT FASTING:YES us Thomas BARNES [facility] - BLOOD DRAW Final Result [facility] [address] [address], [facility] [address] [address] * (ABNORMAL) COMPREHENSIVE METABOLIC PANEL (06/11/2021 10:44 AM EDT) GLUCOSE 78 65 - 99 mg/dL [facility] Comment: Fasting reference interval UREA NITROGEN (BUN) 11 7 - 25 mg/dL [facility] CREATININE (blood) 0.57(L) 0.60 - 1.35 mg/dL [facility] GFR ESTIMATED 121 > OR = 60 mL/min/1. 73m2 [facility] EGFR 140 > OR = 60 mL/min/1. 73m2 [facility] BUN/CREATININE RATIO 19 6 - 22 (calc) [facility] SODIUM 138 135 - 146 mmol/L [facility] POTASSIUM 4.4 3.5 - 5.3 mmol/L [facility] CHLORIDE 108 98 - 110 mmol/L [facility] CARBON DIOXIDE 23 20 - 32 mmol/L [facility] CALCIUM 8.9 8.6 - 10.3 mg/dL [facility] PROTEIN, TOTAL 6.7 6.1 - 8.1 g/dL [facility] ALBUMIN 4.1 3.6 - 5.1 g/dL [facility] GLOBULIN 2.6 1.9 - 3.7 g/dL (calc) [facility] ALBUMIN/GLOBULI N RATIO 1.6 1.0 - 2.5 (calc) [facility] BILIRUBIN, TOTAL 0.3 0.2 - 1.2 mg/dL [facility] ALKALINE PHOSPHATASE 81 36 - 130 U/L [facility] AST 12 10 - 40 U/L [facility] ALT 18 9 - 46 U/L [facility] Blood Blood / Unknown 06/11/2021 1 0:44 AM EDT 06/11/2021 10:44 AM EDT Narrative [facility] - 06/12/2021 11:29 AM EDT FASTING:YES Thomas BARNES [facility] - BLOOD DRAW Edited Result - Final [facility] [address] [facility] [address] [place] [address], [facility] [address] [address] from Last 3 Months or Most Recently Relevant to Health Maintenance Insurance [employer] Care Teams Veneer Department Manager Relationship Specialty Start Date End Date Thomas Cardoza PA [address] [place] [address] PCP - General FAMILY MEDICINE, [place] 11/12/21
--- OUTSIDE RECORDS SUMMARY | 2025-06-15 08:54 | XMS_ITS | Clinical Summary ---
Author Organization [facility] Address [address] [place] [address] Care Team Providers Care Analysis Mgr Name Role Phone Silvestre Espino Primary Care [...] 75+ series) 2046 Insurance [employer] Care Teams Analysis Mgr Relationship Specialty Start Date End Date Silvestre Espino PA [address] [place] [id number] PCP - General Family Medicine 10/27/19
== END 2025-06-15 09:00 | disposition home or self-care (01) ==
LOC: HO.HOS 08:32
PROVIDERS: PCP Internal Medicine; Visit Provider Physical Medicine & Rehabilitation
DX: M79.18 Myalgia, other site (principal); M54.12 Radiculopathy, cervical region; M46.1 Sacroiliitis, not elsewhere classified; M51.26 Other intervertebral disc displacement, lumbar region
CPT/HCPCS: 99214

== ENCOUNTER → 2025-06-15 08:31 | Outpatient (BNVA) | payer MEDICARE, MEDICAID, SELFPAY | PROVIDERS: PCP Internal Medicine; Visit Provider Physical Medicine & Rehabilitation | DX: M79.18 Myalgia, other site (principal); M54.12 Radiculopathy, cervical region; M46.1 Sacroiliitis, not elsewhere classified; M51.26 Other intervertebral disc displacement, lumbar region; Z79.52 Long term (current) use of systemic steroids; Z87.891 Personal history of nicotine dependence | CPT/HCPCS: 99212 ==

== ENCOUNTER 2025-07-25 06:15 | Outpatient (REF) | payer MEDICARE, MEDICAID, SELFPAY ==
--- NOTE | ~2025-07-25 | FL_ITS ---
EXAMINATION: XR FLUOROSCOPY WITH IMAGES CLINICAL INFORMATION: Lumbar pain management procedure. Spondylosis without myelopathy or radiculopathy, region. COMPARISON: None available. TECHNIQUE: Fluoroscopy provided to: Dr. Nichole Fluoroscopy time: 0.7 minutes DAP: 0.145 mGycm2 Images: 12 FINDINGS: 12 fluoroscopic spot images obtained during lumbar pain management procedure. Please refer to the full operative report for details. FL/FL guidance in treatment room IMPRESSION: Fluoroscopic guidance. Electronically signed by: Rolando Haegn MD 07/26/2025 10:44 AM EDT
--- OUTSIDE RECORDS SUMMARY | 2025-07-25 06:21 | XMS_ITS | Clinical Summary ---
Author Organization [facility] Address [address] [place] [address] Care Team Providers Care Doweling Machine Operator Name Role Phone Silvestre Espino Primary [...] 75+ series) 2046 Insurance [employer] Care Teams Doweling Machine Operator Relationship Specialty Start Date End Date Silvestre Espino PA [address] [place] [id number] PCP - General Family Medicine 10/27/19
--- OUTSIDE RECORDS SUMMARY | 2025-07-25 06:21 | XMS_ITS | Clinical Summary ---
Author Organization [facility] Address [address] [place] [address] Care Team Providers Care Director Funds Development Name Role Phone Thomas Cardoza Primary Care Provider [phone] Source Comments PLEASE NOTE, if this patient [...] mcg/actuation nasal sprayIndications: Nasal congestion Place 1 [place] in both nostrils once daily 16 g [...] Diabetes Screening 06/11/2024 06/11/2021, 0 06/11/2021, 09/19/2020 [id number] ( season) 2024 09/19/2021, 03/19/2021, 03/19/2021, Additional [...] 1:58 PM EDT) CLINICAL INFORMATION See Note [facility] Comment:None given LMP See Note [facility] Comment:[id number] PREV. PAP [place] PREV. BX See Note [facility] Comment:NONE GIVEN SOURCE See Note [facility] Comment:Cervix, Endocervix STATEMENT OF ADEQUACY See Note [facility] Comment: Satisfactory for evaluation. Endocervical/transformation zone component present. INTERPRETATION/RESU LT See Note [place] Comment:Negative for intraep ithelial lesion or malignancy. COMMENT See Note [place] Comment: This Pap test has been evaluated with computer assisted technology. INDUSTRIAL MACHINERY MECHANIC See Note [employer] Comment: SL, CT(ASCP) CT screening location: [place] [address] COMMENT [place] HPV MRNA E6/E7 Not Detected Not Detected [facility] Comment: Methodology: [employer] Setter-Mediated Amplification This assay detects E6/E7 viral messenger RNA (mRNA) from 14 high-risk HPV types (16,18,31,33,35,39,45,51,52,56,58,59,66,68). The analytical performance characteristics of this assay have been determined by [employer]. The modifications have not been cleared or approved by the FDA. This assay has been validated pursuant to the CLIA regulations and is used for clinical purposes. For additional information, please refer to http://education.Shaser/faq/IUN903q5 (This link if provided for information/ educational purposes only.) Swab Cervix uteri structure / Unknown 03/18/2022 1:58 PM EDT 03/19/2022 7:25 AM EDT Narrative [facility] - 03/21/2022 2:21 PM EDT EXPLANATORY [...] - PATHOLOGY AND CYTOLOGY AMBULATORY Final Result [facility] [address] [address], [facility] [address] [address] * REFERRAL FOR MAMMOGRAM SCREENING (02/28/2022 3:00 AM EDT) 02/28/2022 3:00 AM EDT us Thomas BARNES Guzman RFL MAMMO Edited Result - Final * HEPATITIS C AB W/RFLX HCV RNA, QT, RT PCR (06/11/2021 10:44 AM EDT) HEPATITIS C ANTIBODY NON-REACT RADHA NON-REACT RADHA [facility] SIGNAL TO CUT-OFF 0.01 <1.00 [facility] Comment: HCV antibody was non-reactive. There is no laboratory evidence of HCV infection. In most cases, no further action is required. However, if recent HCV exposure is suspected, a test for HCV RNA (test code 58374) is suggested. For additional information please refer to http://introNetworks.Shaser/faq/JVK11g9 (This link is being provided for informational/ educational purposes only.) Blood Blood / Unknown 06/11/2021 1 0:44 AM EDT 06/11/2021 10:44 AM EDT Narrative [facility] - 06/12/2021 11:29 AM EDT FASTING:YES Thomas BARNES [facility] - BLOOD DRAW Edited Result - Final [facility] [address] [address], [facility] [address] [address] * HIV 1/2 AG & AB W/RFLX (4TH GEN) (06/11/2021 10:44 AM EDT) HIV AG/AB, 4TH GEN NON-REAC TIVE NON-REAC TIVE [facility] Comment: HIV-1 antigen and HIV-1/HIV-2 antibodies were [...] purpose. For additional information please refer to http://introNetworks.Shaser/faq/ZOQ514 (This link is being provided for informational/ educational purposes only.) The performance of this assay has not been clinically validated in patients less than 2 years old. Blood Blood / Unknown 06/11/2021 1 0:44 AM EDT 06/11/2021 10:44 AM EDT Narrative [employer] [facility] - 06/12/2021 11:29 AM EDT FASTING:YES us Thomas BARNES LAB - BLOOD DRAW Final Result [facility] [address] [address], [facility] [address] [address] * (ABNORMAL) LIPID PANEL (06/11/2021 10:44 AM EDT) [facility] CHOLESTEROL, TOTAL 175 <200 mg/dL [facility] HDL CHOLESTEROL 44 > OR = 40 mg/dL [facility] TRIGLYCERIDES 123 <150 mg/dL [facility] LDL-CHOLESTEROL 108(H) 99 mg/dL (calc) [facility] Comment: Reference range: <100 Desirable range <100 mg/dL for primary prevention; <70 mg/dL for patients with CHD or diabetic patients with > or = 2 CHD risk factors. LDL-C is now calculated using the Mitchell-Julio calculation, which is a validated novel method providing better accuracy than the Friedewald equation in the estimation of LDL-C. Mitchell SS et al. MAR. 2013;310(19): 6379-3248 (http://education.DancingAnchovy/faq/UUH784) CHOL/HDLC RATIO 4.0 <5.0 (calc) [facility] NON-HDL CHOLESTEROL 131(H) <130 mg/dL (calc) [facility] Comment: For patients with diabetes plus 1 major ASCVD risk factor, treating to a non-HDL-C goal of <100 mg/dL (LDL-C of <70 mg/dL) is considered a therapeutic option. Blood Blood / Unknown 06/11/2021 1 0:44 AM EDT 06/11/2021 10:44 AM EDT Narrative [employer] [facility] - 06/12/2021 11:29 AM EDT FASTING:YES us Thomas BARNES [facility] - BLOOD DRAW Final Result [facility] [address] [address], [facility] [address] [address] * (ABNORMAL) COMPREHENSIVE METABOLIC PANEL (06/11/2021 10:44 AM EDT) GLUCOSE 78 65 - 99 mg/dL [facility] Comment: Fasting reference interval UREA NITROGEN (BUN) 11 7 - 25 mg/dL [facility] CREATININE (blood) 0.57(L) 0.60 - 1.35 mg/dL [facility] GFR ESTIMATED 121 > OR = 60 mL/min/1. 73m2 [facility] EGFR 140 > OR = 60 mL/min/1. 73m2 [facility] BUN/CREATININE RATIO 19 6 - 22 (calc) [facility] SODIUM 138 135 - 146 mmol/L [facility] POTASSIUM 4.4 3.5 - 5.3 mmol/L [facility] CHLORIDE 108 98 - 110 mmol/L [facility] CARBON DIOXIDE 23 20 - 32 mmol/L [facility] CALCIUM 8.9 8.6 - 10.3 mg/dL [facility] PROTEIN, TOTAL 6.7 6.1 - 8.1 g/dL [facility] ALBUMIN 4.1 3.6 - 5.1 g/dL [facility] GLOBULIN 2.6 1.9 - 3.7 g/dL (calc) [facility] ALBUMIN/GLOBULI N RATIO 1.6 1.0 - 2.5 (calc) [facility] BILIRUBIN, TOTAL 0.3 0.2 - 1.2 mg/dL [facility] ALKALINE PHOSPHATASE 81 36 - 130 U/L [facility] AST 12 10 - 40 U/L [facility] ALT 18 9 - 46 U/L [facility] Blood Blood / Unknown 06/11/2021 1 0:44 AM EDT 06/11/2021 10:44 AM EDT Narrative [facility] - 06/12/2021 11:29 AM EDT FASTING:YES Thomas BARNES LAB - BLOOD DRAW Edited Result - Final [facility] [address] [facility] [address] [place] [address], [facility] [address] [address] from Last 3 Months or Most Recently Relevant to Health Maintenance Insurance [employer] Care Teams Director Funds Development Relationship Specialty Start Date End Date Thomas Cardoza PA [address] [place] [address] PCP - General [facility] 11/12/21
== END 2025-07-25 06:16 | disposition home or self-care (01) ==
LOC: CF 06:15
PROVIDERS: Visit Provider Anesthesiology
DX: M47.816 Spondylosis without myelopathy or radiculopathy, lumbar region (principal)
CPT/HCPCS: 64493; 64494; J2003; J2795; Q9967

== ENCOUNTER 2025-07-25 12:36 | Outpatient (AMB) | payer MEDICARE, MEDICAID, SELFPAY ==
[2025-07-25 12:57] VITALS: BP 112/68; PULSE 83; RESP 18; O2SAT 96
--- NOTE | 2025-07-25 12:57 | A.OFFVIS_ITS ---
Vital Signs 07/25/25 12:57 Weight 172 lb BP 112/68 Blood Pressure Location Lt brachial Position Sitting Respiration 18 Pulse 83 Pulse Source Pulse Oximeter Pulse Oximetry (%) 96 Oxygen Delivery Method Room Air Intake Visit Reasons: Bilateral Diagnostic L3-L4-DR L5 MBB Electronics Scale Tester Required: No Allergies No Known Allergies Allergy (Verified 06/15/25 08:36) PFSH Medical History (Updated 06/08/25 @ 14:43 by Troy Nichole MD) Carpal tunnel syndrome RLS (restless legs syndrome) HTN (hypertension) Surgical History Hx of colonoscopy History of carpal tunnel surgery History of arthroscopy of right shoulder Family History Maternal Grandmother Mental health disorder Sister Diverticulitis Brother Colon polyp Brother S/P colostomy History of colostomy reversal Father Lung cancer Liver cancer Cancer of kidney Social History Household Members: Other Household Members Other:: on disability for shoulder injury , lives with a partner, 1 daughter, Housing: Apartment Are you a primary assisted living care manager to a significant other at home: No Patient Tobacco Use Status: Former Tobacco user Cigarettes Per Day: 8 Years Smoked: 20 e-Cigarette/Vaping Use: Never Used service: No 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al status: disabled 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 ? ?Informed consent was explained to the patient. All questions were explained and? answered.? The patient was taken inside the operating room where she was positioned prone on the operating table. Time-out was performed delineating correct site, side, the nature of the procedure, patient's allergy, . All operating room staff was participating in OR time-out procedure. ? ? The lower back was prepped with ChloraPrep and draped with sterile utility towels.? C-arm was brought over the operating field and sq picture of L4-, L5 vertebra and S1 AREA were delineated on the screen.? Point of interest were delineated as confluence of superior articular process of L4 and L5 vertebra bilaterally with corresponding transverse processes as well as confluence of the sacral alae bilaterally with superior articular process of S1.? The projection of the point of interest to the skin were injected with the small amount of local anesthetic lidocaine 2% mixed with ropivacaine 0.5% 1-1 approximately 1 cc.? After that 22 gauge 3.5 inch spinal needle was driven sequentially to the points of interest in tunnel vision fashion. After needles gently contacted the bone at the point of interests the needle was injected with small amount of the contrast.? The injection of the contrast did not demonstrate any intravascular or intrathecal spread of the contrast.? After that injection of the? ropivacaine 0.5%-1cc was performed at each needle location.?After that the needles were removed and Bandaids were applied. Orders: Orders FL guidance in treatment room Today M47.816 - Spondylosis without myelopathy or radiculopathy, lumbar region Coding Level of Care Code Procedure Only Diagnoses Spondylosis of lumbar region without myelopathy or radiculopathy M47.816
== END 2025-07-25 14:06 | disposition home or self-care (01) ==
LOC: HO.PMCPRC 12:36
PROVIDERS: PCP Internal Medicine; Visit Provider Anesthesiology
DX: M47.816 Spondylosis without myelopathy or radiculopathy, lumbar region (principal)
CPT/HCPCS: 64493; 64494

== ENCOUNTER 2025-07-27 10:49 | Outpatient (AMB) | payer MEDICARE, MEDICAID, SELFPAY ==
[2025-07-27 10:59] VITALS: BP 145/68; PULSE 75; RESP 18; O2SAT 97
--- NOTE | 2025-07-27 10:59 | A.OFFVIS_ITS ---
Vital Signs 07/27/25 10:59 Weight 180 lb BP 145/68 H Blood Pressure Location Lt brachial Position Sitting Respiration 18 Pulse 75 Pulse Source Pulse Oximeter Pulse Oximetry (%) 97 Oxygen Delivery Method Room Air Intake Visit Reasons: S/P Bilateral Diagnostic L3-L4-DR L5 MBB Repairer Pump Required: No Allergies No Known Allergies Allergy (Verified 07/27/25 10:59) HPI Comments Details: Camila is back in my office after diagnostic bilateral medial branch block L3, L4, dorsal ramus L5. Again this is not very promising results. She reports pain ranging from 10 out of 10 to 6/10 after the procedure. At 01:00 hour after the procedure she reported pain 0/10 but this was not long-lasting. Therefore I can not consider her pain to be a result of facet joint arthropathy. In the past we performed bilateral sacroiliac joint injection. She reports no pain for the 1st 2 hours after procedure only. She reports that she was not very active at that time and her pain usually is very low when she is not active. However when she started to move on 3rd 4th 5th and 6 hour she reported pain 5 to 8/10. Therefore I can not consider sacroiliac joints as her pain generators. She went for the x-ray of the coccyx and pelvis and it did not demonstrate any coccygeal fractures. The MRI of the lumbar spine was performed recently and it demonstrated facet arthritis and some L5-S1 nerve root abutment, I offered the patient treat meant with spinal cord stimulator. However because of the MRI changes I want to try bilateral transforaminal L5-S1 epidural steroid injection. The patient was given today spinal cord stimulator and a brochure about [employer] psychological evaluation. I will see this patient immediately after the procedure of transforaminal L5-S1 epidural steroid injection. I will see this patient after July 14, she reports that her goes for surgery and she will not be available with us before that. Prior: very pleasant 54 years old female who presents in my office with complains on axial back pain without radiation into bilateral lower extremities as well as pain in the electric shock-like sensation in bilateral anterior shins. She reports that prolonged sitting aggravate her pain. Valsalva maneuver aggravates her pain coughing and sneezing aggravate her pain. She reports that application of the heat or cold does not affects her pain. Because of her pain she can not sleep normally can not do activities of daily living can not take care of herself can not function normally she is on permanent disability. She reports that her pain started in 2018 when she was doing heavy lifting at her work. She is taking ibuprofen 800 mg and gabapentin 900 mg q.h.s. and it helps her to sleep little bit better however she still feels a lot of pain. She tried physical therapy last time in September 2024 and reported no results from physical therapy. She has an MRI performed on the lumbar spine which is dictated in below. Received interlaminar L5-S1 epidural steroid injection by me on recommendation of Dr. Jacques. Unfortunately the pain relief lasted only 5 days. She reported that her mobility was not improved. Her past medical history significant for hypertension and obesity. Her past surgical history significant for right shoulder surgeries and carpal tunnel release bilaterally. She admits smoking 2 cigarettes a day, denies drinking alcohol, drinks coffee and caffeinated beverages and she denies recreational drugs. [facility] Medical History (Updated 07/27/25 @ 11:59 by Troy Nichole MD) Carpal tunnel syndrome RLS (restless legs syndrome) HTN (hypertension) Surgical History Hx of colonoscopy History of carpal tunnel surgery History of arthroscopy of right shoulder Family History Maternal Grandmother Mental health disorder Sister Diverticulitis Brother Colon polyp Brother S/P colostomy History of colostomy reversal Father Lung cancer Liver cancer Cancer of kidney Social History Household Members: Other Household Members Other:: on disability for shoulder injury , lives with a partner, 1 daughter, Housing: Apartment Are you a primary care advocate to a significant other at home: No Patient Tobacco Use Status: Former Tobacco user Cigarettes Per Day: 8 Years Smoked: 20 e-Cigarette/Vaping Use: Never Used service: No 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al status: disabled 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 Cognitive needs: No Hearing needs: No Vision needs: Yes Review of Systems Const All systems reviewed & are unremarkable except as noted in HPI and below ENT Reports Normal hearing present Neuro Reports Normal hearing present, Denies Abnormal speech present, Denies confusion and Denies Sensory deficit (Neuro) Psych Denies confusion Physical Exam Vital Signs: Last Vital Signs Pulse 75 07/27/25 10:59 Resp 18 07/27/25 10:59 BP 145/68 H 07/27/25 10:59 Pulse Ox 97 07/27/25 10:59 Oxygen Delivery Method Room Air 07/27/25 10:59 Const General: no acute distress; No confusion Nutritional Appearance: obese morbidly obese Orientation/consciousness: patient oriented x3 and No confusion Eyes General: appearance normal, both eyes and all related structures Pupils: Equal, round and reactive pupils present EOM: EOMs intact bilaterally Neck Neck: Yes full ROM Chest Chest palpation & inspection: normal inspection of the chest Resp Effort & Inspection: normal respiratory effort, able to speak in complete sentences, normal respiratory pattern, no audible wheezes and no cough Cardio Jugular venous distension: no JVD GI Inspection: Yes normal to inspection Back/Spine/Pelvis Other: Exhibit normal strength of bilateral lower extremity able to stand on bilateral tiptoes in bilateral heels without difficulty. Flexing forward and flexing backwards both aggravate her pain however flexing backwards aggravate her pain more than flexing forward. Valsalva maneuver positive for pain increase. SLR is positive bilaterally. Rafael test is positive bilaterally. Pelvic compression test positive bilaterally. Pelvic distraction test is positive bilaterally. Fourteen finger test is positive bilaterally. SLR is positive bilaterally Neuro General: patient oriented x3, gait normal and No confusion Cranial nerves: Yes CN's II-XII intact bilaterally, Yes Equal, round and reactive pupils present, Yes Normal hearing present and Yes Ability to bilaterally elevate shoulders present Speech: No Abnormal speech present Gait exam (Neuro): Normal gait present Motor exam (neuro): 5/5 motor strength present throughout Sensory Exam: No Sensory deficit (Neuro) Extrem General: No pedal edema Psych Speech and movement: Normal speech and movement present Affect: normal affect Attitude: cooperative Thought process: Normal thought process present Thought content: Normal thought content present Insight: Good insight present (Psych) Judgement: Good judgement present (Psych) Results Reviewed Results Reviewed: Ordering Physician: Troy Nichole MD Date of Service: 06/08/25 Procedure(s): XR pelvis 1-2V Accession Number(s): [id number] cc: Valeria Horowitz MD; Troy Nichole MD~ EXAMINATION: XR PELVIS CLINICAL INFORMATION: M53.3 - Sacrococcygeal disorders, not elsewhere classified COMPARISON: None available. TECHNIQUE: AP view of the pelvis. FINDINGS: No fracture. Hip joint spaces are maintained. Alignment is anatomic. Mild arthritic changes in both SI joints, similar to prior exams. No abnormal soft tissue calcifications. XR/XR pelvis 1-2V IMPRESSION: No acute bony abnormalities. Mild arthritic changes in both SI joints. Ordering Physician: Sandra Jacques Date of Service: 03/15/25 Procedure(s): MR cervical spine wo con Accession Number(s): [id number] cc: Valeria Horowitz MD; Sandra aJcques~ CLINICAL HISTORY: M54.12 - Radiculopathy, cervical region --- Additional Notes or Special Instructions: evaluate for left sided narrowing or disc herniation MR of the cervical spine without contrast. COMPARISON: None FINDINGS: Grade 1 anterolisthesis of C4 on C5, degenerative. Vertebral heights are maintained. Marrow signal is benign. Visualized posterior fossa is normal. No abnormal signal within the normal caliber cervical spinal cord. No syringomyelia or cervical epidural fluid collection. C2-C3: No significant neuroforaminal narrowing or spinal canal stenosis. C3-C4: No significant neuroforaminal narrowing or spinal canal stenosis. C4-C5: Mild posterior disc bulge indents the anterior subarachnoid space but does not abut or deform the cord. Mild uncovertebral joint hypertrophy. Moderate to severe left neural foraminal narrowing. Mild right neural foraminal narrowing. C5-C6: Mild posterior disc bulge indents the anterior subarachnoid space but does not abut or deform the cord. No significant neural foraminal narrowing. C6-C7: Mild posterior disc bulge indents the anterior subarachnoid space but does not abut or deform the cord. No significant neural foraminal narrowing. Visualized paraspinal soft tissues are unremarkable. IMPRESSION: 1. No evidence of acute injury to the cervical spine. 2. Grade 1 anterolisthesis of C4 on C5, degenerative. 3. Mild mid to lower cervical spondylosis with neural foraminal narrowing most pronounced on the left at C4-5. EMG UE 02/18/24 IMPRESSION: 1. This is an abnormal study. 2. There is electrodiagnostic evidence for left moderate-severe and right mild median neuropathy at the wrist, consistent with carpal tunnel syndrome. 3. There is no electrodiagnostic evidence for ulnar neuropathy, brachial plexopathy, or cervical radiculopathy. s/p Right Carpal Tunnel Release w/ AR DOS: 06/23/24 Left Carpal tunnel release 04/04/24 Ordering Physician: Sandra Jacques Date of Service: 01/21/25 Procedure(s): MR lumbar spine wo con Accession Number(s): [id number] cc: Valeria Horowitz MD; Sandra Jacques~ EXAMINATION: MR LUMBAR SPINE WITHOUT CONTRAST CLINICAL INFORMATION: Radiculopathy, lumbar region. COMPARISON: None available. TECHNIQUE: MRI of the lumbar spine was obtained using routine sequences without contrast. FINDINGS: Last rib-bearing vertebra labeled T12. Bone marrow inhomogeneity. No bone marrow STIR signal abnormality. Disc desiccation at L4-5 and L5-S1. Hyperintense T2 signal in the posterior intervertebral discs L4-5 and L5-S1 likely annular fissure. There is normal alignment. Conus medullaris ends at superior endplate of L1 with normal signal. T12-L1: No disc herniation. No neuroforamina stenosis. L1-2: Broad-based disc bulging. No central spinal canal or neuroforamina stenosis. L2-3: No disc bulging. No compression upon neural elements. L3-4: Broad-based disc bulging. Facet joint hypertrophy. Reduced diameter of the neural foramina. No central spinal canal stenosis. L4-5: Broad-based central disc herniation and facet joint hypertrophy encroaching the L5 nerve root on the lateral recesses causing bilateral neuroforamina stenosis encroaching the L4 exiting nerve roots. Hypertrophy of the ligamentum flavum. Reduced AP diameter of the thecal sac. L5-S1: Central herniated disc abutting the S1 nerve roots on the lateral recesses. Facet joint hypertrophy. Bilateral neuroforamina narrowing encroaching the L4 exiting nerve roots. Fatty atrophy of the lumbar muscles at L5-S1. No prevertebral compartment hematoma, mass or fluid collection. 3 cm exophytic cystic lesion in the parapelvic left kidney. 5.5 cm hypointense T2 STIR and isointense T1 lesion in the uterus.. MR/MR lumbar spine wo con IMPRESSION: Central broad-based disc herniation herniated disc at L4-5 and spondylosis encroaching the L5 and L4 nerve roots. Central disc herniation L5-S1 encroaching the S1 nerve roots and to a lesser extent L5 secondary to spondylosis of the facet joints. 3 cm cyst, left kidney. Bone marrow inhomogeneity suggesting osteopenia versus osteoporosis versus calcium metabolic disorder. Probable 5.5 cm uterine fibroid. Electronically signed by: Warren Vinson MD 01/23/2025 11:20 AM EST Ordering Physician: Valeria Horowitz MD Date of Service: 06/17/24 Procedure(s): XR lumbar spine 2-3V Accession Number(s): [id number] cc: Valeria Horowitz MD~ EXAMINATION: XR LUMBOSACRAL SPINE CLINICAL INFORMATION: Low back pain. COMPARISON: Radiograph lumbar spine 06/21/2021. TECHNIQUE: Three views of the lumbosacral spine. FINDINGS: No evidence of acute compression deformity or subluxation. Mild intervertebral disc height loss of facet arthropathy at L5-S1, increased compared to 2020. SI joints are symmetric. No significant paraspinal soft tissue abnormality. A few pelvic phleboliths are seen. XR/XR lumbar spine 2-3V IMPRESSION: 1. No acute compression deformity or subluxation. 2. Mild lumbar spondylosis at L5-S1, increased compared to 2020. Assessment & Plan Assessment & Plan (1) Coccydynia: Code(s): M53.3 - Sacrococcygeal disorders, not elsewhere classified Category: Medical (2) Sacroiliitis: Code(s): M46.1 - Sacroiliitis, not elsewhere classified Category: Medical (3) Pain of both sacroiliac joints: Code(s): M53.3 - Sacrococcygeal disorders, not elsewhere classified Category: Medical (4) Spondylosis of lumbar region without myelopathy or radiculopathy: Code(s): M47.816 - Spondylosis without myelopathy or radiculopathy, lumbar region Category: Medical (5) Facet arthropathy, lumbar: Code(s): M47.816 - Spondylosis without myelopathy or radiculopathy, lumbar region Category: Medical (6) Disc degeneration, lumbar: Code(s): M51.369 - Other intervertebral disc degeneration, lumbar region without mention of lumbar back pain or lower extremity pain Category: Medical (7) Radiculopathy, lumbosacral region: Code(s): M54.17 - Radiculopathy, lumbosacral region Category: Medical Plan The pain of this patient is most likely multifactorial, there is an element of radiculopathy, however her pain improvement lasted only 5 days. . Interventional interlaminar L5-S1 epidural steroid injection resulted in no pain improvement. Diagnostic sacroiliac joint injection resulted also in no pain improvement. After that diagnostic L3, L4, dorsal ramus L5 bilateral resulted in no pain improvement. Today I re-examined the MRI and decided to try transforaminal epidural steroid injection L5-S1. However if this procedure will not help the patient we would need to consider spinal cord stimulator in for her. The brochure was given for her to read. [employer] spinal cord stimulator was explained to the patient. Also the brochure about psychological evaluation was given to the patient and the patient will be working on obtaining psychological evaluation.. Patient Instructions: I here by testify that I spent 32 minutes in conversation with this patient as well as planning her care and organizing this note. Coding Level of Care Code Est Pt Level 4 (76137) Diagnoses Coccydynia M53.3 Sacroiliitis M46.1 Pain of both sacroiliac joints M53.3 Spondylosis of lumbar region without myelopathy or radiculopathy M47.816 Facet arthropathy, lumbar M47.816 Disc degeneration, lumbar M51.369 Radiculopathy, lumbosacral region M54.17
--- OUTSIDE RECORDS SUMMARY | 2025-07-27 12:26 | XMS_ITS | Clinical Summary ---
Author Organization Located Within [facility] Address [address] [place] [address] Care Team Providers Care Mechanical Engineering Draftsperson Name Role Phone Silvestre Espino Primary Care Provider [phone] Allergies No known active allergies Medications traZODone [...] 75+ series) 2046 Insurance [employer] Care Teams Mechanical Engineering Draftsperson Relationship Specialty Start Date End Date Silvestre Espino PA [address] [place] [id number] PCP - General Family Medicine 10/27/19
== END 2025-07-27 11:16 | disposition home or self-care (01) ==
LOC: HO.PMC 10:50
PROVIDERS: PCP Internal Medicine; Visit Provider Anesthesiology
DX: M53.3 Sacrococcygeal disorders, not elsewhere classified (principal); M46.1 Sacroiliitis, not elsewhere classified; M47.816 Spondylosis without myelopathy or radiculopathy, lumbar region; M51.369 Other intervertebral disc degeneration, lumbar region without mention of lumbar back pain or lower extremity pain; M54.17 Radiculopathy, lumbosacral region
CPT/HCPCS: 99214

== ENCOUNTER → 2025-07-27 10:49 | Outpatient (BNVA) | payer MEDICARE, MEDICAID, SELFPAY | PROVIDERS: PCP Internal Medicine; Visit Provider Anesthesiology | DX: M53.3 Sacrococcygeal disorders, not elsewhere classified (principal); M46.1 Sacroiliitis, not elsewhere classified; M47.816 Spondylosis without myelopathy or radiculopathy, lumbar region; M51.369 Other intervertebral disc degeneration, lumbar region without mention of lumbar back pain or lower extremity pain; M54.17 Radiculopathy, lumbosacral region | CPT/HCPCS: 99212 ==

== ENCOUNTER 2025-08-07 09:35 | Day surgery (SDC) | payer MEDICARE, MEDICAID, SELFPAY ==
--- OUTSIDE RECORDS SUMMARY | 2025-08-02 16:45 | XMS_ITS | Clinical Summary ---
Author Organization [facility] Address [address] [place] [address] Care Team Providers Care Ham Pumper Name Role Phone Thomas Cardoza Primary Care Provider [phone] Source Comments PLEASE NOTE, if this patient [...] mcg/actuation nasal sprayIndications: Nasal congestion Place 1 [place] in both nostrils once daily 16 g [...] Diabetes Screening 06/11/2024 06/11/2021, 0 06/11/2021, 09/19/2020 Alcohol and Drug Screen 11/23/2024 02/18/2022, 06/03 Pap Smear 03/18/2025 03/18/2022 [id number] ( season) 2025 09/19/2021, 03/19/2021, 03/19/2021, Additional history exists Imm-Influenza (#1) 2025 10/12/2020 Lipid Screening 06/11/2026 06/11/2021, 09/19/2020 Cervical Cancer Screening 03/18/2027 Pap + HPV 03/18/2027 03/18/2022 Imm-DTaP/Tdap/Td (2 - Td or Tdap) 02/19/2032 022 HIV Screening Completed 06/11/2021 Hepatitis C Screening Completed 06/11/2021 Syphilis Screening Discontinued 06/11/2021 Cervical Ablation/Cold-Knife Conization Discontinued Cervical Cryotherapy [...] 10:44 AM EDT Routine adult health maintenance RPR (MONITOR) W/REFL TITER Routine 06/11/2021 10:44 AM EDT Routine adult [...] 1:58 PM EDT) CLINICAL INFORMATION See Note [facility] Comment:None given LMP See Note [facility] Comment:[id number] PREV. PAP [facility] PREV. BX See Note [facility] Comment:NONE GIVEN SOURCE See Note [facility] Comment:Cervix, Endocervix STATEMENT OF ADEQUACY See Note [facility] Comment: Satisfactory for evaluation. Endocervical/transformation zone component present. INTERPRETATION/RESU LT See Note [facility] Comment:Negative for intraep ithelial lesion or malignancy. COMMENT See Note [facility] Comment: This Pap test has been evaluated with computer assisted technology. MUSICAL INSTRUMENT SUPERVISOR See Note [employer] Comment: SL, CT(ASCP) CT screening location: [address] [address] COMMENT [employer] HPV MRNA E6/E7 Not Detected Not Detected [facility] [employer] [facility] Comment: Methodology: Telephone Operators Supervisor-Mediated Amplification This assay detects E6/E7 viral messenger RNA (mRNA) from 14 high-risk HPV types (16,18,31,33,35,39,45,51,52,56,58,59,66,68). The analytical performance characteristics of this assay have been determined by [employer]. The modifications have not been cleared or approved by the FDA. This assay has been validated pursuant to the CLIA regulations and is used for clinical purposes. For additional information, please refer to http://education.Friend.ly/faq/OAW052t7 (This link if provided for information/ educational purposes only.) Swab Cervix uteri structure / Unknown 03/18/2022 1:58 PM EDT 03/19/2022 7:25 AM EDT Narrative [facility] - 03/21/2022 2:21 PM EDT EXPLANATORY [...] - PATHOLOGY AND CYTOLOGY AMBULATORY Final Result [facility] [employer] [facility] [address] [address], [employer] [address] [address] * REFERRAL FOR MAMMOGRAM SCREENING (02/28/2022 3:00 AM EDT) 02/28/2022 3:00 AM EDT us Thomas BARNES IMG[employer]man RFL MAMMO Edited Result - Final * HEPATITIS C AB W/RFLX HCV RNA, QT, RT PCR (06/11/2021 10:44 AM EDT) HEPATITIS C ANTIBODY NON-REACT RADHA NON-REACT RADHA [facility] [employer] [facility] SIGNAL TO CUT-OFF 0.01 <1.00 [employer] [facility] Comment: HCV antibody was non-reactive. There is no laboratory evidence of HCV infection. In most cases, no further action is required. However, if recent HCV exposure is suspected, a test for HCV RNA (test code 00467) is suggested. For additional information please refer to http://[employer].Friend.ly/faq/IFI91r2 (This link is being provided for informational/ educational purposes only.) Blood Blood / Unknown 06/11/2021 1 0:44 AM EDT 06/11/2021 10:44 AM EDT Narrative [facility] - 06/12/2021 11:29 AM EDT FASTING:YES Thomas BARNES LAB - BLOOD DRAW Edited Result - Final [facility] [employer] [facility] [address] [address], Personal [employer] [address] [address] * HIV 1/2 AG & AB W/RFLX (4TH GEN) (06/11/2021 10:44 AM EDT) Pathologist [facility] HIV AG/AB, 4TH GEN NON-REAC TIVE NON-REAC TIVE [facility] [employer] [facility] Comment: HIV-1 antigen and HIV-1/HIV-2 antibodies were [...] purpose. For additional information please refer to http://education.Friend.ly/faq/FZW372 (This link is being provided for informational/ educational purposes only.) The performance of this assay has not been clinically validated in patients less than 2 years old. Blood Blood / Unknown 06/11/2021 1 0:44 AM EDT 06/11/2021 10:44 AM EDT Narrative [facility] - 06/12/2021 11:29 AM EDT FASTING:YES us Thomas BARNES LAB - BLOOD DRAW Final Result Performing Organization Address [facility]/ZIP Co de Phone Number [facility] [employer] [address] [address], [employer] [address] [address] * RPR (MONITOR) W/REFL TITER (06/11/2021 10:44 AM EDT) RPR (MONITOR) W/REFL TITER NON-REACT RADHA NON-REACT RADHA [facility] Blood Blood / Unknown 06/11/2021 1 0:44 AM EDT 06/11/2021 10:44 AM EDT Narrative [facility] [employer] [facility] - 06/12/2021 11:29 AM EDT FASTING:YES us Thomas BARNES LAB - BLOOD DRAW Edited Result - Final Performing Organization Address [facility] de Phone Number [facility] [employer] [address] [address], [employer] [address] [address] * (ABNORMAL) LIPID PANEL (06/11/2021 10:44 AM EDT) CHOLESTEROL, TOTAL 175 <200 mg/dL [facility] [employer] [facility] HDL CHOLESTEROL 44 > OR = 40 mg/dL [employer] TRIGLYCERIDES 123 <150 mg/dL [facility] [employer] [facility] LDL-CHOLESTEROL 108(H) 99 mg/dL (calc) [facility] [employer] [facility] Comment: Reference range: <100 Desirable range <100 mg/dL for primary prevention; <70 mg/dL for patients with CHD or diabetic patients with > or = 2 CHD risk factors. LDL-C is now calculated using the Ana calculation, which is a validated novel method providing better accuracy than the Friedewald equation in the estimation of LDL-C. Mitchell MIRANDA et al. MAR. 2013;310(19): 4854-6979 (http://education.Edmodo/faq/AEE539) CHOL/HDLC RATIO 4.0 <5.0 (calc) [facility] NON-HDL CHOLESTEROL 131(H) <130 mg/dL (calc) [facility] Comment: For patients with diabetes plus 1 major ASCVD risk factor, treating to a non-HDL-C goal of <100 mg/dL (LDL-C of <70 mg/dL) is considered a therapeutic option. Blood Blood / Unknown 06/11/2021 1 0:44 AM EDT 06/11/2021 10:44 AM EDT Narrative [facility] - 06/12/2021 11:29 AM EDT FASTING:YES Thomas BARNES LAB - BLOOD DRAW Final Result [facility] [address] [address], [employer] [address] [address] * (ABNORMAL) COMPREHENSIVE METABOLIC PANEL (06/11/2021 10:44 AM EDT) GLUCOSE 78 65 - 99 mg/dL [facility] [employer] [facility] Comment: Fasting reference interval UREA NITROGEN (BUN) 11 7 - 25 mg/dL [employer] [facility] CREATININE (blood) 0.57(L) 0.60 - 1.35 mg/dL [employer] [facility] GFR ESTIMATED 121 > OR = 60 mL/min/1. 73m2 [employer] [facility] EGFR 140 > OR = 60 mL/min/1. 73m2 [facility] BUN/CREATININE RATIO 19 6 - 22 (calc) [facility] [employer] [facility] SODIUM 138 135 - 146 mmol/L [facility] [employer] [facility] POTASSIUM 4.4 3.5 - 5.3 mmol/L [employer] [facility] CHLORIDE 108 98 - 110 mmol/L [employer] [facility] CARBON DIOXIDE 23 20 - 32 mmol/L [employer] CALCIUM 8.9 8.6 - 10.3 mg/dL [facility] [employer] [facility] PROTEIN, TOTAL 6.7 6.1 - 8.1 g/dL [facility] [employer] [facility] [place] [employer] ALBUMIN 4.1 3.6 - 5.1 g/dL [facility] [employer] [facility] [place] [employer] GLOBULIN 2.6 1.9 - 3.7 g/dL (calc) [facility] ALBUMIN/GLOBULI N RATIO 1.6 1.0 - 2.5 (calc) [facility] [employer] [facility] BILIRUBIN, TOTAL 0.3 0.2 - 1.2 mg/dL [facility] [employer] [facility] ALKALINE PHOSPHATASE 81 36 - 130 U/L [facility] AST 12 10 - 40 U/L [facility] [employer] [facility] ALT 18 9 - 46 U/L [facility] [employer] [facility] [place] [employer] Blood Blood / Unknown 06/11/2021 1 0:44 AM EDT 06/11/2021 10:44 AM EDT Narrative [facility] - 06/12/2021 11:29 AM EDT FASTING:YES Thomas BARNES LAB - BLOOD DRAW Edited Result - Final [facility] [address] [address], [facility] [address],[facility] [place] [address] from Last 3 Months or Most Recently Relevant to Health Maintenance Insurance [employer] Care Teams Ham Pumper Relationship Specialty Start Date End Date Thomas Cardoza PA [address] [place] [address] PCP - General FAMILY MEDICINEMOLLY 11/12/21
--- OUTSIDE RECORDS SUMMARY | 2025-08-02 16:45 | XMS_ITS | Clinical Summary ---
Author Organization [facility] Address [address] [place] [address] Care Team Providers Care Mushroom Picker Name Role Phone Silvestre Espino Primary Care Provider [phone] Allergies No known active allergies Medications traZODone [...] 01/11/202401/11 COVID-19 Vaccine ( - 2023- season) 2025 Influenza Vaccine (#1) 2025 10/12/2020 RSV Vaccine (SCDM) (1 - 1-do se 75+ series) 2046 Insurance [employer] Care Teams Mushroom Picker Relationship Specialty Start Date End Date Silvestre Espino PA [address] [place] [id number] PCP - General Family Medicine 10/27/19
--- NOTE | 2025-08-04 10:13 | HO.ANESPROP2 ---
Documented by User: Areli Catalan NP 08/04/25 10:14 HPI - Anesthesia Eval Consult details Narrative: 54yo F for Upper Endoscopy PMFSH Active Problems Active Problems: All Active Problems Radiculopathy, lumbosacral region (Acute) Coccydynia (Acute) Uterine fibroid (Acute) Disc degeneration, lumbar (Acute) Facet arthropathy, lumbar (Acute) Spondylosis of lumbar region without myelopathy or radiculopathy (Acute) Pain of both sacroiliac joints (Acute) Sacroiliitis (Acute) Vitamin D deficiency (Acute) Uterine fibroid (Acute) Renal cyst (Acute) Radiculopathy, lumbar region (Acute) Cervical radiculitis (Acute) Myofascial pain (Acute) Lumbar disc herniation (Acute) Bilateral leg numbness (Acute) Lumbar radiculitis (Acute) Lumbar spondylosis (Acute) Fibromyalgia syndrome (Acute) Normal Pap smear (Acute) Hx of colonoscopy (Acute) RUQ abdominal pain (Acute) Cervicogenic headache (Acute) Myofascial pain on right side (Acute) Osteoarthritis (Acute) Anxiety and depression (Acute) Lower back pain (Acute) Other family history of colon polyps (Acute) S/P rotator cuff repair (Acute) History of arthroscopy of right shoulder (Acute) Calcific tendonitis of left shoulder (Acute) Carpal tunnel syndrome on both sides (Acute) Shoulder pain, bilateral (Acute) Chronic ankle pain, bilateral (Acute) Annual physical exam (Acute) Hx of screening mammography (Acute) Normal pelvic exam (Acute) H/O shoulder surgery (Acute) Restless legs syndrome (RLS) (Acute) HTN (hypertension) (Acute) Past Medical History Medical History (Updated 08/07/25 @ 09:51 by Jazmyn Stoll RN) Lumbar herniated disc Low back pain GERD (gastroesophageal reflux disease) Fibromyalgia Carpal tunnel syndrome RLS (restless legs syndrome) HTN (hypertension) Family History Family History Maternal Grandmother Mental health disorder Sister Diverticulitis Brother Colon polyp Brother S/P colostomy History of colostomy reversal Father Lung cancer Liver cancer Cancer of kidney Surgical History Surgical History (Updated 08/07/25 @ 09:50 by Jazmyn Stoll RN) Hx of colonoscopy History of carpal tunnel surgery History of arthroscopy of right shoulder History of Problems with Anesthesia: No Social History Social History Household Members: Other Household Members Other:: on disability for shoulder injury , lives with a partner, 1 daughter, Housing: Apartment Are you a primary transitional care liaison to a significant other at home: No Patient Tobacco Use Status: Current everyday Tobacco user Tobacco use type: Cigarette Cigarettes Per Day: 7 Years Smoked: 20 e-Cigarette/Vaping Use: Never Used Use of substances other than those prescribed or required for medical reasons: No Are you DNR?: No Advance Directives: No Advance Directives Information Provided: Yes service: No 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al status: disabled 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 Cognitive needs: No Hearing needs: No Vision needs: Yes Meds Allergies Allergy/AdvReac Type Severity Reaction Status Date / Time No Known Allergies Allergy Verified 07/27/25 10:59 Home Medications ?Medication ?Instructions ?Recorded ?Confirmed ?Last Taken ?Type gabapentin 600 mg tablet 900 mg PO BEDTIME 12/29/24 08/07/25 Unknown History trazodone 50 mg tablet 100 mg PO BEDTIME PRN Insomnia 03/28/25 08/07/25 Unknown History Assessment and Plan Assessment Anesthesia Assessment: Chart Reviewed Final Anesthetic Review History of Problems with Anesthesia: No Documented by User: Troy Nichole MD 08/07/25 10:32 [facility] Past Medical History Medical History (Updated 08/07/25 @ 09:51 by Jazmyn Stoll RN) Lumbar herniated disc Low back pain GERD (gastroesophageal reflux disease) Fibromyalgia Carpal tunnel syndrome RLS (restless legs syndrome) HTN (hypertension) Family History Family History Maternal Grandmother Mental health disorder Sister Diverticulitis Brother Colon polyp Brother S/P colostomy History of colostomy reversal Father Lung cancer Liver cancer Cancer of kidney Family history of problems with anesthesia: No Surgical History Surgical History (Updated 08/07/25 @ 09:50 by Jazmyn Stoll RN) Hx of colonoscopy History of carpal tunnel surgery History of arthroscopy of right shoulder Social History Social History Household Members: Other Household Members Other:: on disability for shoulder injury , lives with a partner, 1 daughter, Housing: Apartment Are you a primary transitional care liaison to a significant other at home: No Patient Tobacco Use Status: Current everyday Tobacco user Tobacco use type: Cigarette Cigarettes Per Day: 7 Years Smoked: 20 e-Cigarette/Vaping Use: Never Used Use of substances other than those prescribed or required for medical reasons: No Are you DNR?: No Advance Directives: No Advance Directives Information Provided: Yes service: No 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al status: disabled 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 Cognitive needs: No Hearing needs: No Vision needs: Yes Meds Allergies Allergy/AdvReac Type Severity Reaction Status Date / Time No Known Allergies Allergy Verified 07/27/25 10:59 Home Medications ?Medication ?Instructions ?Recorded ?Confirmed ?Last Taken ?Type gabapentin 600 mg tablet 900 mg PO BEDTIME 12/29/24 08/07/25 Unknown History trazodone 50 mg tablet 100 mg PO BEDTIME PRN Insomnia 03/28/25 08/07/25 Unknown History Exam Airway Mallampati Class: III Neck ROM: Full Loose/Missing/Broken Teeth: No Heart: RRR Lungs: CTA Assessment and Plan Final Anesthetic Review Family History of Problems with Anesthesia: No NPO: Yes ASA Class: III Final Preanesthetic Review: No Changes in Pt Med Stat, Meds/Allgs Chart Reviewed, Consent Obtained/Reviewed and Anes Risks/Benef Reviewed Patient Risk: Low Procedure Risk: Low Anesthetic Plan Anesthetic Plan: MAC: Disposition: Standard PACU
[2025-08-07 09:56] VITALS: BMI 33.3
[2025-08-07 10:03] VITALS: BP 118/59; PULSE 79; RESP 15; TEMP 36.4; O2SAT 95
[2025-08-07] MEDS: Lactated Ringers 1,000 ML 100 ML IVCONT (10:07)
--- NOTE | 2025-08-07 10:24 | MHC.SHP ---
Pre-Procedural Eval Section A - 24 Hr Update-Section A only Date of Service: 08/07/25 The patient is an INPATIENT: No The patient has been examined within 24 hours of the surgical procedure. The History & Physical has been completed within 30 days and I have reviewed it.: No Section B - Complete if H&P > 30 days Chief Complaint: Right upper quadrant pain Relevant Family History (Specify if Yes): Yes Relevant Social History: Tobacco Use (Former smoker) Present Medications: see Short Stay Collaborative assessment Medical History: Significant History (Carpal tunnel syndrome RLS (restless legs syndrome) HTN (hypertension)) History of Previous Operations: Relevant previous surgery/procedure and date(s) (Hx of colonoscopy History of carpal tunnel surgery History of arthroscopy of right shoulder) Allergies: Allergies Allergy/AdvReac Type Severity Reaction Status Date / Time No Known Allergies Allergy Verified 07/27/25 10:59 Review of Systems Sugical H&P ROS: Negative: Constitution, Cardiovascular and Respiratory and Yes, Specify: Gastrointestinal (RUQ pain) Exam Surgical H&P Exam: Normal: Heart, Normal: Lungs, Normal: Extremities and Normal: Abdomen Plan Diagnosis/Plan: Unchanged I have reviewed the history and physical and performed a pertinent physical examination on my patient. No changes have occurred unless specified. Time Spent With Patient Time: Total time managing care of this patient today ____ minutes.
--- NOTE | 2025-08-07 10:28 | PC.NURSE ---
anesthesia made aware of question of right bbb. viewed rythym and no ekg needed and ok'd to proceed.
--- NOTE | 2025-08-07 10:56 | W.PM.OPN ---
Operative Note Operative Note Date of Service: 08/07/25 Narrative: FLEXIBLE TRANSORAL UPPER GASTROINTESTINAL ENDOSCOPY WITH BIOPSIES AND SNARE POLYPECTOMY OF DUODENAL POLYP Pre-op diagnosis: Right upper quadrant pain Post-op diagnosis: GERD, Gastritis, duodenal polyp Endoscopist:? Angelic Rogers MD Anesthesia:?MAC UPPER ENDOSCOPY Consent: Indications for the procedure and potential complications of bleeding, perforation, reaction to medications and missed diagnosis were discussed with the patient and informed consent was obtained. Instrument: Olympus GIF H 190 mid size upper endoscope Monitoring: Vital signs and clinical assessment, continuous EKG monitoring, Pulse oximetry, Carbon Dioxide monitoring and blood pressure monitoring were done throughout the procedure. Procedure: The patient was placed in the left lateral decubitis position and pre-procedure medications were administered and a bite block was placed. The endoscope was inserted into the mouth and advanced under direct vision to the third part of duodenum. A careful inspection was made as the upper endoscope was withdrawn including a retroflexed examination of the proximal stomach; Findings and interventions are described below. Findings: Larynx: Normal Esophagus: GE junction at 35 cms. Mild focal esophagitis at GE junction Stomach: Moderate diffuse gastric erythema with scattered superficial erosions- biopsies were obtained from the gastric body and antrum. Grade 2 flap valve on retroflexed examination of the cardia. Duodenum: A 10-12 mm adenomatous appearing polyp in at the apex of the bulb - removed with a hot snare. Polypectomy site was closed with 1 hemoclip and marked with Janice ink. Normal descending duodenum - biopsies were obtained from 3rd part of the duodenum to check for celiac sprue Intervention: Biopsies as noted above Impression and Post Procedure Diagnosis: Endoscopy Findings: ESOPHAGUS: Mild focal esophagitis at GE junction STOMACH: Moderate diffuse gastric erythema with scattered superficial erosions- biopsies were obtained from the gastric body and antrum. DUODENUM: A 10-12 mm adenomatous appearing polyp in at the apex of the bulb - removed with a hot snare. Polypectomy site was closed with 1 hemoclip and marked with Janice ink. Normal descending duodenum - biopsies were obtained from 3rd part of the duodenum to check for celiac sprue Plan: Pt has a FU appointment on 11/09/[address] Rogers. Above findings were reviewed with the patient and relevant handouts were given and the discharge area. BIOPSIES SHOWED: A. Small bowel, biopsy: Small bowel mucosa with preserved villi and no specific change; no evidence of celiac disease. B. Duodenal polyp: Polypoid chronic/non-specific duodenitis with prominent Hollie's gland hyperplasia; negative for dysplasia. C. Gastric antrum, biopsy: Gastric antral mucosa with mild reactive changes, focal ectatic vessels, and focal minimal chronic inactive inflammation; negative for H. pylori, intestinal metaplasia and dysplasia. D. Gastric body, biopsy: Gastric body mucosa with congestion and focal minimal chronic inactive inflammation; negative for H. pylori, intestinal metaplasia and dysplasia Pt advised to increase Omeprazole to 20 mg twice daily.
[2025-08-07 10:58] VITALS: BP 94/43; PULSE 81; RESP 20; TEMP 36.4; O2SAT 94
[2025-08-07 11:03] VITALS: BP 103/47
[2025-08-07 11:18] VITALS: BP 108/74; PULSE 73; RESP 16; TEMP 36.2; O2SAT 96
== END 2025-08-07 12:01 | disposition home or self-care (01) ==
PROVIDERS: PCP Internal Medicine; Visit Provider Internal Medicine Gastroenterology
PROC: 0DJ08ZZ Inspection of Upper Intestinal Tract, Via Natural or Artificial Opening Endoscopic (ICD-10-PCS; CPT 43235; principal; 2025-08-07 11:20)
DX: R10.11 Right upper quadrant pain (principal); K31.7 Polyp of stomach and duodenum; K29.60 Other gastritis without bleeding; K20.80 Other esophagitis without bleeding; K29.80 Duodenitis without bleeding; K21.9 Gastro-esophageal reflux disease without esophagitis; I10 Essential (primary) hypertension; Z87.891 Personal history of nicotine dependence
CPT/HCPCS: 43251; 43239; 43236; 88305; 88342; J2704

== ENCOUNTER → 2025-08-07 09:35 | Outpatient (BNV) | payer MEDICARE, MEDICAID, SELFPAY | PROVIDERS: PCP Internal Medicine; Visit Provider Internal Medicine Gastroenterology | DX: R10.11 Right upper quadrant pain (principal); K21.00 Gastro-esophageal reflux disease with esophagitis, without bleeding; K29.70 Gastritis, unspecified, without bleeding; K31.7 Polyp of stomach and duodenum | CPT/HCPCS: 43236; 43239; 43251 ==

== ENCOUNTER 2025-08-17 08:31 | Outpatient (AMB) | payer MEDICARE, MEDICAID, SELFPAY ==
--- NOTE | 2025-08-17 08:40 | MHC.OFFVIS ---
Intake Visit Reasons: OV- Follow up for neck and back pain,MBB F/up Intake Note: Camila is a 54 year old female who presents today as a follow up for neck and back pain. At last visit we discussed to send her to get her MBB and she had her appointment on 07/25/25 Bilateral Diagnostic L3-L4-DR L5 MBB. At today's visit she states that the pain in the left [place] is very intense and feels like electric shock that is very sporadic. Patient states that for the past month she is having sharp pain in her pelvic area, she noted that this is nothing new but wanted to bring it to today's visit. Allergies No Known Allergies Allergy (Verified 08/17/25 08:44) Medication List - Last Reconciled 08/17/25 by Sandra Robles MD duloxetine 20 mg PO BID gabapentin 900 mg PO BEDTIME ibuprofen 800 mg PO TID PRN lisinopril 20 mg PO DAILY omeprazole 20 mg PO DAILY 90 days psyllium husk (Metamucil) 1 tbsp PO DAILY 30 days tizanidine 2 mg PO TID PRN 30 days trazodone 100 mg PO BEDTIME PRN HPI Comments Details: I've seen Camila for cervicalgia/myofascial pain. We've tried trigger point injections without relief though. Still more left sided, radiate to left upper arm. Not to fingers. Hand numbness bilateral at night. EMG BUE 01/2024 showed bilateral CTS, already s/p bilateral CTR by Dr. Thompson. Last cervical MRI 2018, external, was told to have C3-4 and C5-6 bulging disk. Repeat MRI done February 2025, no spinal stenosis or nerve impingement. Showed spondylosis. As for back pain, she has been following with Pain Management for injections: Received interlaminar L5-S1 epidural steroid injection. Unfortunately the pain relief lasted only 5 days. Diagnostic bilateral sacroiliac joint injection. She reports no pain for the 1st 2 hours after procedure only She does exercise at home as taught by PT, at least 4 times a week. She does this to relieve the pain left side that goes to the knees. Not sure if she does enough for the upper back pain but she mentions some exercises that she does for the neck. Reviewed Dr. Nichole's notes, last seen 9/2 and 07/27. She had tried MBB with not promising results. Dr. Nichole has proposed to trial L5-S1 TFE, scheduled 09/05 and if still not effective, they did discuss PNS. Pain is still about the same per patient today. [facility] Medical History (Updated 08/07/25 @ 09:51 by Jazmyn Stoll, RN) Lumbar herniated disc Low back pain GERD (gastroesophageal reflux disease) Fibromyalgia Carpal tunnel syndrome RLS (restless legs syndrome) HTN (hypertension) Surgical History (Updated 08/07/25 @ 09:50 by Jazmyn Stoll RN) Hx of colonoscopy History of carpal tunnel surgery History of arthroscopy of right shoulder Family History (Reviewed 12/30/24 @ 13:25 by Gayla Hernandez [facility]) Maternal Grandmother Mental health disorder Sister Diverticulitis Brother Colon polyp Brother S/P colostomy History of colostomy reversal Father Lung cancer Liver cancer Cancer of kidney Social History Household Members: Other Household Members Other:: on disability for shoulder injury , lives with a partner, 1 daughter, Housing: Apartment Are you a primary career placement specialist to a significant other at home: No Patient Tobacco Use Status: Current everyday Tobacco user Tobacco use type: Cigarette Cigarettes Per Day: 7 Years Smoked: 20 e-Cigarette/Vaping Use: Never Used service: No 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al status: disabled 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 Patient was appropriately conversant and oriented. Good historian. MSK: Tender left medial elbow area but not on epicondyle or tendons specifically. No swelling or redness. Neurological: Neurologic examination of the upper and lower extremities was nonfocal with intact sensation, muscle stretch reflexes and without focal motor deficits . Gait is non antalgic without loss of balance. Results Reviewed Results Reviewed: Ordering Physician: Troy Nichole MD Date of Service: 06/08/25 Procedure(s): XR pelvis 1-2V Accession Number(s): [id number] cc: Valeria Horowitz MD; Troy Nichole MD~ EXAMINATION: XR PELVIS CLINICAL INFORMATION: M53.3 - Sacrococcygeal disorders, not elsewhere classified COMPARISON: None available. TECHNIQUE: AP view of the pelvis. FINDINGS: No fracture. Hip joint spaces are maintained. Alignment is anatomic. Mild arthritic changes in both SI joints, similar to prior exams. No abnormal soft tissue calcifications. XR/XR pelvis 1-2V IMPRESSION: No acute bony abnormalities. Mild arthritic changes in both SI joints. Ordering Physician: Sandra Jacques Date of Service: 03/15/25 Procedure(s): MR cervical spine wo con Accession Number(s): [id number] cc: Valeria Horowitz MD; Sandra Jacques~ CLINICAL HISTORY: M54.12 - Radiculopathy, cervical region --- Additional Notes or Special Instructions: evaluate for left sided narrowing or disc herniation MR of the cervical spine without contrast. COMPARISON: None FINDINGS: Grade 1 anterolisthesis of C4 on C5, degenerative. Vertebral heights are maintained. Marrow signal is benign. Visualized posterior fossa is normal. No abnormal signal within the normal caliber cervical spinal cord. No syringomyelia or cervical epidural fluid collection. C2-C3: No significant neuroforaminal narrowing or spinal canal stenosis. C3-C4: No significant neuroforaminal narrowing or spinal canal stenosis. C4-C5: Mild posterior disc bulge indents the anterior subarachnoid space but does not abut or deform the cord. Mild uncovertebral joint hypertrophy. Moderate to severe left neural foraminal narrowing. Mild right neural foraminal narrowing. C5-C6: Mild posterior disc bulge indents the anterior subarachnoid space but does not abut or deform the cord. No significant neural foraminal narrowing. C6-C7: Mild posterior disc bulge indents the anterior subarachnoid space but does not abut or deform the cord. No significant neural foraminal narrowing. Visualized paraspinal soft tissues are unremarkable. IMPRESSION: 1. No evidence of acute injury to the cervical spine. 2. Grade 1 anterolisthesis of C4 on C5, degenerative. 3. Mild mid to lower cervical spondylosis with neural foraminal narrowing most pronounced on the left at C4-5. EMG UE 02/18/24 IMPRESSION: 1. This is an abnormal study. 2. There is electrodiagnostic evidence for left moderate-severe and right mild median neuropathy at the wrist, consistent with carpal tunnel syndrome. 3. There is no electrodiagnostic evidence for ulnar neuropathy, brachial plexopathy, or cervical radiculopathy. s/p Right Carpal Tunnel Release w/ AR DOS: 06/23/24 Left Carpal tunnel release 04/04/24 Ordering Physician: Sandra Jacques Date of Service: 01/21/25 Procedure(s): MR lumbar spine wo con Accession Number(s): [id number] cc: Valeria Horowitz MD; Sandra Jacques~ EXAMINATION: MR LUMBAR SPINE WITHOUT CONTRAST CLINICAL INFORMATION: Radiculopathy, lumbar region. COMPARISON: None available. TECHNIQUE: MRI of the lumbar spine was obtained using routine sequences without contrast. FINDINGS: Last rib-bearing vertebra labeled T12. Bone marrow inhomogeneity. No bone marrow STIR signal abnormality. Disc desiccation at L4-5 and L5-S1. Hyperintense T2 signal in the posterior intervertebral discs L4-5 and L5-S1 likely annular fissure. There is normal alignment. Conus medullaris ends at superior endplate of L1 with normal signal. T12-L1: No disc herniation. No neuroforamina stenosis. L1-2: Broad-based disc bulging. No central spinal canal or neuroforamina stenosis. L2-3: No disc bulging. No compression upon neural elements. L3-4: Broad-based disc bulging. Facet joint hypertrophy. Reduced diameter of the neural foramina. No central spinal canal stenosis. L4-5: Broad-based central disc herniation and facet joint hypertrophy encroaching the L5 nerve root on the lateral recesses causing bilateral neuroforamina stenosis encroaching the L4 exiting nerve roots. Hypertrophy of the ligamentum flavum. Reduced AP diameter of the thecal sac. L5-S1: Central herniated disc abutting the S1 nerve roots on the lateral recesses. Facet joint hypertrophy. Bilateral neuroforamina narrowing encroaching the L4 exiting nerve roots. Fatty atrophy of the lumbar muscles at L5-S1. No prevertebral compartment hematoma, mass or fluid collection. 3 cm exophytic cystic lesion in the parapelvic left kidney. 5.5 cm hypointense T2 STIR and isointense T1 lesion in the uterus.. MR/MR lumbar spine wo con IMPRESSION: Central broad-based disc herniation herniated disc at L4-5 and spondylosis encroaching the L5 and L4 nerve roots. Central disc herniation L5-S1 encroaching the S1 nerve roots and to a lesser extent L5 secondary to spondylosis of the facet joints. 3 cm cyst, left kidney. Bone marrow inhomogeneity suggesting osteopenia versus osteoporosis versus calcium metabolic disorder. Probable 5.5 cm uterine fibroid. Electronically signed by: Warren Vinson MD 01/23/2025 11:20 AM EST Ordering Physician: Valeria Horowitz MD Date of Service: 06/17/24 Procedure(s): XR lumbar spine 2-3V Accession Number(s): [id number] cc: Valeria Horowitz MD~ EXAMINATION: XR LUMBOSACRAL SPINE CLINICAL INFORMATION: Low back pain. COMPARISON: Radiograph lumbar spine 06/21/2021. TECHNIQUE: Three views of the lumbosacral spine. FINDINGS: No evidence of acute compression deformity or subluxation. Mild intervertebral disc height loss of facet arthropathy at L5-S1, increased compared to 2020. SI joints are symmetric. No significant paraspinal soft tissue abnormality. A few pelvic phleboliths are seen. XR/XR lumbar spine 2-3V IMPRESSION: 1. No acute compression deformity or subluxation. 2. Mild lumbar spondylosis at L5-S1, increased compared to 2020. Assessment & Plan Assessment & Plan (1) Myofascial pain: Code(s): M79.18 - Myalgia, other site Category: Medical (2) Cervical radiculitis: Code(s): M54.12 - Radiculopathy, cervical region Category: Medical (3) Sacroiliitis: Code(s): M46.1 - Sacroiliitis, not elsewhere classified Category: Medical (4) Lumbar disc herniation: Code(s): M51.26 - Other intervertebral disc displacement, lumbar region Category: Medical Plan Same pain as before. Pain Management plans noted and reviewed with patient. She did want to return to PT for lower back. Referral placed. Try icy hot for left elbow pain. No signs of acute inflammation. History of fibromyalgia, taking gabapentin. Assessment and plan discussed with patient, and patient was agreeable. All questions were answered thoroughly. Sandra Robles MD, JAMILAH Board Certified, [place] Board of Physical Medicine and Rehabilitation (ABPMR) Board Certified, [place] Board of Electrodiagnostic Medicine (ABEM) Orders: Orders PT Evaluation and Treatment Today M47.816 - Spondylosis without myelopathy or radiculopathy, lumbar region, M53.3 - Sacrococcygeal disorders, not elsewhere classified, M54.50 - Low back pain, unspecified Coding Level of Care Code Est Pt Level 3 (67257) Diagnoses Myofascial pain M79.18 Cervical radiculitis M54.12 Sacroiliitis M46.1 Lumbar disc herniation M51.26
--- OUTSIDE RECORDS SUMMARY | 2025-08-17 09:05 | XMS_ITS | Clinical Summary ---
Author Organization [facility] Address [address] [place] [address] Care Team Providers Care Gas Burner Operator Name Role Phone Silvestre Espino Primary Care Provider [phone] Allergies No known active allergies Medications traZODone [...] 75+ series) 2046 Insurance [employer] Care Teams Gas Burner Operator Relationship Specialty Start Date End Date Silvestre Espino PA [address] [place] [id number] PCP - General Family Medicine 10/27/19
--- OUTSIDE RECORDS SUMMARY | 2025-08-17 09:05 | XMS_ITS | Clinical Summary ---
Author Organization [facility] Address [address] [place] [address] Care Team Providers Care Diesel Fleet Mechanic Name Role Phone Thomas Cardoza Primary Care Provider [phone] Source Comments PLEASE NOTE, if this patient [...] mcg/actuation nasal sprayIndications: Nasal congestion Place 1 Girard in both nostrils once daily 16 g [...] 11/23/2024 02/18/2022, 06/03 Pap Smear 03/18/2025 03/18/2022 [id number] ( season) 2025 09/19/2021, 03/19/2021, 03/19/2021, Additional [...] 1:58 PM EDT) CLINICAL INFORMATION See Note [facility] Comment:None given LMP See Note [facility] Comment:[id number] PREV. PAP [facility] PREV. BX See Note [facility] Comment:NONE GIVEN SOURCE See Note [facility] Comment:Cervix, Endocervix STATEMENT OF ADEQUACY See Note [facility] Comment: Satisfactory for evaluation. Endocervical/transformation zone component present. INTERPRETATION/RESU LT See Note [facility] Comment:Negative for intraep ithelial lesion or malignancy. COMMENT See Note [facility] Comment: This Pap test has been evaluated with computer assisted technology. DYEING MACHINE TENDER See Note [employer] [facility] Comment: SL, CT(ASCP) CT screening location: [address] [address] COMMENT [facility] HPV MRNA E6/E7 Not Detected Not Detected [facility] Comment: Methodology: Optical Instrument Specialist-Mediated Amplification This assay detects E6/E7 viral messenger RNA (mRNA) from 14 high-risk HPV types (16,18,31,33,35,39,45,51,52,56,58,59,66,68). The analytical performance characteristics of this assay have been determined by [employer]. The modifications have not been cleared or approved by the FDA. This assay has been validated pursuant to the CLIA regulations and is used for clinical purposes. For additional information, please refer to http://education.[employer]/faq/ELB831x8 (This link if provided for information/ educational purposes only.) Swab Cervix uteri structure / Unknown 03/18/2022 1:58 PM EDT 03/19/2022 7:25 AM EDT Narrative [facility] - 03/21/2022 2:21 PM [...] historic and current clinical information. us Ning Navrarete PA-C LAB - PATHOLOGY AND CYTOLOGY AMBULATORY Final Result [facility] [address] [address], [facility] [address] [address] * REFERRAL FOR MAMMOGRAM SCREENING (02/28/2022 3:00 AM EDT) 02/28/2022 3:00 AM EDT us Thomas BARENS [employer] RFL MAMMO Edited Result - Final * HEPATITIS C AB W/RFLX HCV RNA, QT, RT PCR (06/11/2021 10:44 AM EDT) HEPATITIS C ANTIBODY NON-REACT RADHA NON-REACT RADHA [facility] SIGNAL TO CUT-OFF 0.01 <1.00 [facility] Comment: HCV antibody was non-reactive. There is no laboratory evidence of HCV infection. In most cases, no further action is required. However, if recent HCV exposure is suspected, a test for HCV RNA (test code 48179) is suggested. For additional information please refer to http://POW.[employer]/faq/DEL04x3 (This link is being provided for informational/ educational purposes only.) Blood Blood / Unknown 06/11/2021 1 0:44 AM EDT 06/11/2021 10:44 AM EDT Narrative [facility] - 06/12/2021 11:29 AM EDT FASTING:YES Thomas BARNES LAB - BLOOD DRAW Edited Result - Final [facility] [address] [address], [facility] [address] [address] * HIV 1/2 AG & AB W/RFLX (4TH GEN) (06/11/2021 10:44 AM EDT) Pathologist [facility] HIV AG/AB, 4TH GEN NON-REAC TIVE NON-REAC TIVE [facility] Comment: HIV-1 antigen and HIV-1/HIV-2 antibodies were [...] purpose. For additional information please refer to http://education.[employer]/faq/UEJ637 (This link is being provided for informational/ educational purposes only.) The performance of this assay has not been clinically validated in patients less than 2 years old. Blood Blood / Unknown 06/11/2021 1 0:44 AM EDT 06/11/2021 10:44 AM EDT Narrative [facility] - 06/12/2021 11:29 AM EDT FASTING:YES us Thomas BARNES LAB - BLOOD DRAW Final Result Performing Organization Address [facility]/ZIP Co de Phone Number [facility] [address] [address], [employer] [address] [address] * RPR (MONITOR) W/REFL TITER (06/11/2021 10:44 AM EDT) RPR (MONITOR) W/REFL TITER NON-REACT RADHA NON-REACT RADHA [facility] Blood Blood / Unknown 06/11/2021 1 0:44 AM EDT 06/11/2021 10:44 AM EDT Narrative [facility] - 06/12/2021 11:29 AM EDT FASTING:YES us Thomas BARNES LAB - BLOOD DRAW Edited Result - Final Performing Organization Address [facility] de Phone Number [facility] [address] [address], [employer] [address] [address] * (ABNORMAL) LIPID PANEL (06/11/2021 10:44 AM EDT) CHOLESTEROL, TOTAL 175 <200 mg/dL [facility] HDL CHOLESTEROL 44 > OR = 40 mg/dL [facility] TRIGLYCERIDES 123 <150 mg/dL [facility] LDL-CHOLESTEROL 108(H) 99 mg/dL (calc) [facility] Comment: Reference range: <100 Desirable range <100 mg/dL for primary prevention; <70 mg/dL for patients with CHD or diabetic patients with > or = 2 CHD risk factors. LDL-C is now calculated using the Ana calculation, which is a validated novel method providing better accuracy than the Friedewald equation in the estimation of LDL-C. Mitchell MIRANDA et al. MAR. 2013;310(19): 8000-9090 (http://education.[employer]/faq/NPS501) CHOL/HDLC RATIO 4.0 <5.0 (calc) [facility] NON-HDL CHOLESTEROL 131(H) <130 mg/dL (calc) [facility] Comment: For patients with diabetes plus 1 major ASCVD risk factor, treating to a non-HDL-C goal of <100 mg/dL (LDL-C of <70 mg/dL) is considered a therapeutic option. Blood Blood / Unknown 06/11/2021 1 0:44 AM EDT 06/11/2021 10:44 AM EDT Narrative [facility] - 06/12/2021 11:29 AM EDT FASTING:YES Thomas BARNES LAB - BLOOD DRAW Final Result [facility] [address] [address], [employer] [address] [address] * (ABNORMAL) COMPREHENSIVE METABOLIC PANEL (06/11/2021 10:44 AM EDT) GLUCOSE 78 65 - 99 mg/dL [facility] Comment: Fasting reference interval UREA NITROGEN (BUN) 11 7 - 25 mg/dL [facility] CREATININE (blood) 0.57(L) 0.60 - 1.35 mg/dL [facility] GFR ESTIMATED 121 > OR = 60 mL/min/1. 73m2 [facility] EGFR 140 > OR = 60 mL/min/1. 73m2 [facility] BUN/CREATININE RATIO 19 6 - 22 (calc) [facility] SODIUM 138 135 - 146 mmol/L [facility] POTASSIUM 4.4 3.5 - 5.3 mmol/L [facility] CHLORIDE 108 98 - 110 mmol/L [employer] [facility] CARBON DIOXIDE 23 20 - 32 mmol/L [employer] CALCIUM 8.9 8.6 - 10.3 mg/dL [facility] PROTEIN, TOTAL 6.7 6.1 - 8.1 g/dL [facility] [place] [employer] ALBUMIN 4.1 3.6 - 5.1 g/dL [facility] [place] [employer] GLOBULIN 2.6 1.9 - 3.7 g/dL (calc) [facility] ALBUMIN/GLOBULI N RATIO 1.6 1.0 - 2.5 (calc) [facility] BILIRUBIN, TOTAL 0.3 0.2 - 1.2 mg/dL [facility] ALKALINE PHOSPHATASE 81 36 - 130 U/L [facility] AST 12 10 - 40 U/L [facility] ALT 18 9 - 46 U/L [facility] [place] [employer] Blood Blood / Unknown 06/11/2021 1 0:44 AM EDT 06/11/2021 10:44 AM EDT Narrative [facility] - 06/12/2021 11:29 AM EDT FASTING:YES Thomas BARNES LAB - BLOOD DRAW Edited Result - Final [facility] [address] [address], [facility] [address],[facility] [place] [address] from Last 3 Months or Most Recently Relevant to Health Maintenance Insurance [employer] Care Teams Diesel Fleet Mechanic Relationship Specialty Start Date End Date Thomas Cardoza PA [address] [place] [address] PCP - General FAMILY MEDICINEMOLLY 11/12/21
== END 2025-08-17 09:27 | disposition home or self-care (01) ==
LOC: HO.HOS 08:32
PROVIDERS: PCP Internal Medicine; Visit Provider Physical Medicine & Rehabilitation
DX: M79.18 Myalgia, other site (principal); M54.12 Radiculopathy, cervical region; M46.1 Sacroiliitis, not elsewhere classified; M51.26 Other intervertebral disc displacement, lumbar region
CPT/HCPCS: 99213

== ENCOUNTER → 2025-08-17 08:31 | Outpatient (BNVA) | payer MEDICARE, MEDICAID, SELFPAY | PROVIDERS: PCP Internal Medicine; Visit Provider Physical Medicine & Rehabilitation | DX: M79.18 Myalgia, other site (principal); M54.12 Radiculopathy, cervical region; M46.1 Sacroiliitis, not elsewhere classified; M51.26 Other intervertebral disc displacement, lumbar region | CPT/HCPCS: 99212 ==

== ENCOUNTER 2025-09-05 06:17 | Outpatient (REF) | payer MEDICARE, MEDICAID, SELFPAY ==
--- NOTE | ~2025-09-05 | FL_ITS ---
EXAMINATION: FL GUIDANCE ONLY HISTORY: M54.16 - Radiculopathy, lumbar region COMPARISON: None available. TECHNIQUE: Fluoroscopy time: 29.3 seconds. Cumulative Dose: 10.30 mGy. DAP: 3.734 Gycm2 Images: 3. FINDINGS: Fluoroscopic spot films of the lumbar spine demonstrate needles in the regions of the right L4-5 facet joint and at the left L4-5 and L5-S1 facet joints. FL/FL guidance in treatment room IMPRESSION: Fluoroscopy during procedure. Please see procedure report for additional information. Electronically signed by: Karri Moran MD 09/05/2025 03:43 PM EDT
--- OUTSIDE RECORDS SUMMARY | 2025-09-05 06:19 | XMS_ITS | Clinical Summary ---
Author Organization [facility] Address [address] [place] [address] Care Team Providers Care Garnisher Name Role Phone Thomas Cardoza Primary Care Provider [phone] Source Comments PLEASE NOTE, if this patient [...] mcg/actuation nasal sprayIndications: Nasal congestion Place 1 [place] in both nostrils once daily 16 g [...] 11/23/2024 02/18/2022, 06/03 Pap Smear 03/18/2025 03/18/2022 [id number] ( season) 2025 09/19/2021, 03/19/2021, 03/19/2021, Additional [...] 1:58 PM EDT) CLINICAL INFORMATION See Note [facility] Comment:None given LMP See Note [facility] Comment:[id number] PREV. PAP [facility] PREV. BX See Note [facility] Comment:NONE GIVEN SOURCE See Note [facility] Comment:Cervix, Endocervix STATEMENT OF ADEQUACY See Note [facility] Comment: Satisfactory for evaluation. Endocervical/transformation zone component present. INTERPRETATION/RESU LT See Note [facility] Comment:Negative for intraep ithelial lesion or malignancy. COMMENT See Note [facility] Comment: This Pap test has been evaluated with computer assisted technology. MEDICAL CLAIMS REPRESENTATIVE See Note [employer] [facility] Comment: SL, CT(ASCP) CT screening location: [address] [address] COMMENT [facility] HPV MRNA E6/E7 Not Detected Not Detected [facility] Comment: Methodology: Core Assembly Supervisor-Mediated Amplification This assay detects E6/E7 viral messenger RNA (mRNA) from 14 high-risk HPV types (16,18,31,33,35,39,45,51,52,56,58,59,66,68). The analytical performance characteristics of this assay have been determined by [employer]. The modifications have not been cleared or approved by the FDA. This assay has been validated pursuant to the CLIA regulations and is used for clinical purposes. For additional information, please refer to http://education.Earth Med/faq/LAV792b0 (This link if provided for information/ educational purposes only.) Swab Cervix uteri structure / Unknown 03/18/2022 1:58 PM EDT 03/19/2022 7:25 AM EDT Narrative [facility] - 03/21/2022 2:21 PM EDT [...] - PATHOLOGY AND CYTOLOGY AMBULATORY Final Result [facility] [address] [address], [facility] [address] [address] * REFERRAL FOR MAMMOGRAM SCREENING (02/28/2022 3:00 AM EDT) 02/28/2022 3:00 AM EDT us Thomas BARNES IMGuzman RFL MAMMO Edited Result - Final * HEPATITIS C AB W/RFLX HCV RNA, QT, RT PCR (06/11/2021 10:44 AM EDT) HEPATITIS C ANTIBODY NON-REACT RADHA NON-REACT RADHA [facility] SIGNAL TO CUT-OFF 0.01 <1.00 [facility] Comment: HCV antibody was non-reactive. There is no laboratory evidence of HCV infection. In most cases, no further action is required. However, if recent HCV exposure is suspected, a test for HCV RNA (test code 21764) is suggested. For additional information please refer to http://Plantiga.Earth Med/faq/APU32r1 (This link is being provided for informational/ educational purposes only.) Blood Blood / Unknown 06/11/2021 1 0:44 AM EDT 06/11/2021 10:44 AM EDT Narrative [facility] - 06/12/2021 11:29 AM EDT FASTING:YES Thomas BARNES LAB - BLOOD DRAW Edited Result - Final [facility] [address] [address], [facility] [address] [address] * HIV 1/2 AG & AB W/RFLX (4TH GEN) (06/11/2021 10:44 AM EDT) Pathologist [facility] HIV AG/AB, 4TH GEN NON-REAC TIVE NON-REAC TIVE [facility] Comment: HIV-1 antigen and HIV-1/HIV-2 antibodies [...] purpose. For additional information please refer to http://education.Earth Med/faq/ZCQ775 (This link is being provided for informational/ educational purposes only.) The performance of this assay has not been clinically validated in patients less than 2 years old. Blood Blood / Unknown 06/11/2021 1 0:44 AM EDT 06/11/2021 10:44 AM EDT Narrative [facility] - 06/12/2021 11:29 AM EDT FASTING:YES us Thomas BARNES LAB - BLOOD DRAW Final Result Performing Organization Address [facility]/ZIP Co de Phone Number [facility] [address] [address], [facility] [address] [address] * RPR (MONITOR) W/REFL TITER (06/11/2021 10:44 AM EDT) RPR (MONITOR) W/REFL TITER NON-REACT RADHA NON-REACT RADHA [facility] Blood Blood / Unknown 06/11/2021 1 0:44 AM EDT 06/11/2021 10:44 AM EDT Narrative [facility] - 06/12/2021 11:29 AM EDT FASTING:YES us Thomas BARNES LAB - BLOOD DRAW Edited Result - Final Performing Organization Address [facility] de Phone Number [facility] [address] [address], [facility] [address] [address] * (ABNORMAL) LIPID PANEL (06/11/2021 10:44 AM EDT) CHOLESTEROL, TOTAL 175 <200 mg/dL [facility] HDL CHOLESTEROL 44 > OR = 40 mg/dL [facility] TRIGLYCERIDES 123 <150 mg/dL [facility] LDL-CHOLESTEROL 108(H) 99 mg/dL (calc) [facility] Comment: Reference range: <100 Desirable range <100 mg/dL for primary prevention; <70 mg/dL for patients with CHD or diabetic patients with > or = 2 CHD risk factors. LDL-C is now calculated using the Ana calculation, which is a validated novel method providing better accuracy than the Friedewald equation in the estimation of LDL-C. Mitchell MIRANDA et al. MAR. 2013;310(19): 9373-0641 (http://education.Actions/faq/LZJ947) CHOL/HDLC RATIO 4.0 <5.0 (calc) [facility] NON-HDL CHOLESTEROL 131(H) <130 mg/dL (calc) [facility] Comment: For patients with diabetes plus 1 major ASCVD risk factor, treating to a non-HDL-C goal of <100 mg/dL (LDL-C of <70 mg/dL) is considered a therapeutic option. Blood Blood / Unknown 06/11/2021 1 0:44 AM EDT 06/11/2021 10:44 AM EDT Narrative [facility] - 06/12/2021 11:29 AM EDT FASTING:YES Thomas BARNES LAB - BLOOD DRAW Final Result [facility] [address] [address], [facility] [address] [address] * (ABNORMAL) COMPREHENSIVE METABOLIC PANEL (06/11/2021 10:44 AM EDT) GLUCOSE 78 65 - 99 mg/dL [facility] Comment: Fasting reference interval UREA NITROGEN (BUN) 11 7 - 25 mg/dL [facility] CREATININE (blood) 0.57(L) 0.60 - 1.35 mg/dL [facility] GFR ESTIMATED 121 > OR = 60 mL/min/1. 73m2 [facility] EGFR 140 > OR = 60 mL/min/1. 73m2 [facility] BUN/CREATININE RATIO 19 6 - 22 (calc) [facility] SODIUM 138 135 - 146 mmol/L [facility] POTASSIUM 4.4 3.5 - 5.3 mmol/L [facility] CHLORIDE 108 98 - 110 mmol/L [facility] CARBON DIOXIDE 23 20 - 32 mmol/L [facility] CALCIUM 8.9 8.6 - 10.3 mg/dL [facility] PROTEIN, TOTAL 6.7 6.1 - 8.1 g/dL [facility] ALBUMIN 4.1 3.6 - 5.1 g/dL [facility] GLOBULIN 2.6 1.9 - 3.7 g/dL (calc) [facility] ALBUMIN/GLOBULI N RATIO 1.6 1.0 - 2.5 (calc) [facility] BILIRUBIN, TOTAL 0.3 0.2 - 1.2 mg/dL [facility] ALKALINE PHOSPHATASE 81 36 - 130 U/L [facility] AST 12 10 - 40 U/L [facility] ALT 18 9 - 46 U/L [facility] Blood Blood / Unknown 06/11/2021 1 0:44 AM EDT 06/11/2021 10:44 AM EDT Narrative [facility] - 06/12/2021 11:29 AM EDT FASTING:YES Thomas BARNES LAB - BLOOD DRAW Edited Result - Final [facility] [address] [address], [facility] [address],[facility] [address] from Last 3 Months or Most Recently Relevant to Health Maintenance Insurance [employer] Care Teams Garnisher Relationship Specialty Start Date End Date Thomas Cardoza PA [address] [place] [address] PCP - General FAMILY MEDICINEMOLLY 11/12/21
--- OUTSIDE RECORDS SUMMARY | 2025-09-05 06:20 | XMS_ITS | Clinical Summary ---
Author Organization [facility] Address [address] [place] [address] Care Team Providers Care Grinder Set Up Operator Centerless Name Role Phone Silvestre Espino Primary Care Provider [phone] Allergies No known active allergies Medications traZODone [...] 75+ series) 2046 Insurance [employer] Care Teams Grinder Set Up Operator Centerless Relationship Specialty Start Date End Date Silvestre Espino PA [address] [place] [id number] PCP - General Family Medicine 10/27/19
== END 2025-09-05 06:18 | disposition home or self-care (01) ==
LOC: CF 06:17
PROVIDERS: Visit Provider Anesthesiology
DX: M54.17 Radiculopathy, lumbosacral region (principal)
CPT/HCPCS: 64483; J2003; J3301; Q9967

== ENCOUNTER 2025-09-05 09:37 | Outpatient (AMB) | payer MEDICARE, MEDICAID, SELFPAY ==
[2025-09-05 09:39] VITALS: BP 149/77; PULSE 81; RESP 16; O2SAT 97; BMI 33.3
--- NOTE | 2025-09-05 09:39 | A.OFFVIS_ITS ---
Vital Signs 09/05/25 09:39 09/05/25 10:25 Height 5 ft 1 in Weight 176 lb BMI 33.3 BP 149/77 H 135/68 Blood Pressure Location Lt brachial Lt brachial Position Sitting Sitting Respiration 16 16 Pulse 81 73 Pulse Source Pulse Oximeter Pulse Oximeter Pulse Oximetry (%) 97 98 Oxygen Delivery Method Room Air Room Air Intake Visit Reasons: Bilateral L5-S1 TFESI Allergies No Known Allergies Allergy (Verified 08/17/25 08:44) PFSH Medical History (Updated 08/07/25 @ 09:51 by Jazmyn Stoll, RN) Lumbar herniated disc Low back pain GERD (gastroesophageal reflux disease) Fibromyalgia Carpal tunnel syndrome RLS (restless legs syndrome) HTN (hypertension) Surgical History (Updated 08/07/25 @ 09:50 by Jazmyn Stoll, DIEGO) Hx of colonoscopy History of carpal tunnel surgery History of arthroscopy of right shoulder Family History Maternal Grandmother Mental health disorder Sister Diverticulitis Brother Colon polyp Brother S/P colostomy History of colostomy reversal Father Lung cancer Liver cancer Cancer of kidney Social History Household Members: Other Household Members Other:: on disability for shoulder injury , lives with a partner, 1 daughter, Housing: Apartment Are you a primary manager managed care to a significant other at home: No Patient Tobacco Use Status: Current everyday Tobacco user Tobacco use type: Cigarette Cigarettes Per Day: 7 Years Smoked: 20 e-Cigarette/Vaping Use: Never Used service: No 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al status: disabled 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 The patient came to the operating room.? He was positioned prone on operating table with a pillow under his abdomen.? Time-out was performed delineating correct site and side of the procedure, nature of the injection, name and date of of the patient. The lower back of the patient was prepped with ChloraPrep and draped with sterile utility towels.? C-arm was brought over the operating field and sq picture of L5 vertebra was demonstrated on the screen.? The right side was chosen as the side of the injection 1st.? Tilting machine ipsilateral to the left at the level of L5 the most prominent picture of the superior articular process of S1 pedicle was demonstrated on the screen. Lateral border of the top most portion of the superior articular process of S1 on the right projection to the skin small amount of lidocaine 1% 2 cc was injected to anesthetize the skin.? After that 5 in 22 gauge Quincke point needle was inserted through the skin wheal and was advanced toward the right L5-S1 foramina on anterior posterior , lateral and oblique views intermittently.? When tip of the needle gently touched lateral border of superior articular process of S1 on the left the needle was deviated slightly lateral and after that advanced 3 mm and deviated slightly medial. Injection of the contrast was performed demonstrating epidural spread and perineural of the contrast. No intravascular nor intrathecal spread of the contrast was noted. After that preservative-free lidocaine 1% 2 mL mixed with Kenalog 40 mg was injected into the needle. Upon completion of the injection on the right the needle was withdrawn and the procedure was repeated on the left in mirroring fashion. The patient tolerated the procedure well. No immediate complications were observed. Orders: Orders FL guidance in treatment room Today M54.16 - Radiculopathy, lumbar region Coding Level of Care Code Procedure Only Diagnoses Radiculopathy, lumbosacral region M54.17
[2025-09-05 10:25] VITALS: BP 135/68; PULSE 73; RESP 16; O2SAT 98
== END 2025-09-05 10:25 | disposition home or self-care (01) ==
LOC: HO.PMCPRC 09:37
PROVIDERS: PCP Internal Medicine; Visit Provider Anesthesiology
DX: M54.17 Radiculopathy, lumbosacral region (principal)
CPT/HCPCS: 64483

== ENCOUNTER 2025-09-19 09:56 | Outpatient (AMB) | payer MEDICARE, MEDICAID, SELFPAY ==
--- NOTE | 2025-09-19 10:12 | MHC.OFFVIS ---
Vital Signs 09/19/25 10:14 Height 5 ft 1 in Weight 173 lb BMI 32.7 BP 114/70 Intake Visit Reasons: Leiomyoma of uterus, unspecified Truck Shop Mechanic Required: No Information Interpreted: non-clinical & clinical Distillation Operator: Distillation Operator Present (Rossana CHUNG) Accompanied by: Self / Same As Patient Allergies No Known Allergies Allergy (Verified 09/19/25 10:15) Post menopausal: Yes HPI Comments Details: Presenting referred from [facility] regarding 2 episodes of postmenopausal bleeding over the last few months. In addition the patient was diagnose with uterine myoma in 05/17 complaining of pelvic pressure. 05/17 pelvic ultrasound: Uterus: The uterus is anteverted, anteflexed and bulky and measures 10.7 x 6.9 x 7.5. The double wall endometrial thickness is 0.3 cm. There are few cystic areas visualized. There are nabothian cysts and calcifications well and lower cervix. The uterus is smooth in contour and has normal myometrial echogenicity. There is an echogenic lesion with calcification measuring 5.6 x 4.8 x by 5.3 cm. Adnexa: Both ovaries are visualized. There is normal color flow to the adnexa. There is no ovarian torsion. There is no pelvic ascites or fluid collection. Right ovary measures 1 view 1.9 x 2.1 cm. Volume 6.9 mL. It appears unremarkable. Left ovary measures 4.5 x 2.2 x 3.0 cm cm. Volume 15.6 mL. There is a small anechoic cyst measuring 2.1 x 2.1 by 2.4 cm. There is no free fluid in the cul-de-sac Last Co testing in 12/16 was negative Last mammogram in 07/17 at [facility] was BI-RADS 1 [facility] Medical History Lumbar herniated disc Low back pain GERD (gastroesophageal reflux disease) Fibromyalgia Carpal tunnel syndrome RLS (restless legs syndrome) HTN (hypertension) Surgical History Hx of colonoscopy History of carpal tunnel surgery History of arthroscopy of right shoulder Family History Maternal Grandmother Mental health disorder Sister Diverticulitis Brother Colon polyp Brother S/P colostomy History of colostomy reversal Cancer of kidney Father Lung cancer Liver cancer Cancer of kidney Social History Household Members: Significant Other Household Members Other:: on disability for shoulder injury , lives with a partner, 1 daughter, Housing: Apartment Are you a primary personal caregiver to a significant other at home: No Alcohol intake: never Patient Tobacco Use Status: Current everyday Tobacco user Tobacco use type: Cigarette Cigarettes Per Day: 7 Years Smoked: 20 e-Cigarette/Vaping Use: Never Used service: No 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al status: disabled 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 Sexually active: Yes Sexual orientation: Straight/Heterosexual Gender identity: Female Cognitive needs: No Hearing needs: No Vision needs: Yes Female Reproductive History Menstrual Total pregnancies: 3 Full term: 1 Number of Living Children: 1 Ab spontaneous: 2 Date of last pap smear: 12/17/23 Date of Mammogram: 07/11/25 Review of Systems Const All systems reviewed & are unremarkable except as noted in HPI and below Physical Exam Vital Signs: Last Vital Signs BP 114/70 09/19/25 10:14 BMI result Body Mass Index 32.7 General: Yes no CVA tenderness External Female Exam: normal external appearance and normal appearance of the urethra Speculum Exam - Vagina: normal appearance of the vagina, normal palpation, no lesions and no masses Speculum Exam - Cervix: normal appearance of the cervix, normal palpation, no lesions, no masses and nontender Bimanual exam- vagina & uterus: normal bimanual exam, normal palpation, uterine size normal, normal palpation, uterine shape normal, No Cervical tenderness present and non-tender Bimanual Exam- Adnexa, other: normal adnexae Back/Spine/Pelvis Back: no CVA tenderness Office Procedures Endometrial Biopsy Details: The patient was counseled regarding the indication and benefits of endometrial sampling to rule out endometrial pathology including not limited to endometrial hyperplasia or endometrial cancer and others; The alternatives (Either do nothing vs. hysteroscopy D&C) & the risks were discussed with the patient including but not limited: pain, uterine perforation, bleeding, infection, possible injury to bladder, bowel, ureter, possible need for blood transfusion with all its possible risks. The patient verbalized understanding all questions answered and signed consent. The patient was placed into the dorsal lithotomy position; a speculum was inserted in the vagina. Using aseptic technique for the procedure, the cervix was cleansed with Betadine. The anterior lip of the cervix was grasped with a single tooth tenaculum. The uterus was sounded to 7 cm with a 4 mm Pipelle was used. Tissues samples were obtained and placed in formalin, in a patient labeled container and sent to the pathology department. At the end of the procedure, there was minimal bleeding noted The patient tolerated the procedure well and was discharged in good condition with the following instructions: Nothing in the vagina until the bleeding stops. No sex until the bleeding stops, to call if any of the following occurs: fever (>100.4), flu-like symptoms, abdominal pain, heavy bleeding, four smelling vaginal discharge. The patient was instructed to schedule a Follow up appointment in 2 weeks to discuss pathology results of the biopsy and treatment options. This note was generated with a voice recognition program. Some errors may have been overlooked during the review of this note. Sometimes these errors may affect the content or meaning of a given sentence. [id number] Biopsy Assessment & Plan Assessment & Plan (1) Uterine fibroid: Code(s): D25.9 - Leiomyoma of uterus, unspecified Category: Medical Plan: Discussed with the patient the findings on pelvic ultrasound & the risk of myosarcoma; in addition reviewed with the patient that malignancy and pre malignancy cannot be ruled out without hysterectomy for pathological evaluation ; furthermore, explained to the patient the limitation of pelvic ultrasound and endometrial biopsy in the setting. Discussed with the patient the typical symptoms that are caused by myomas including but not limited to pelvic pain, pressure symptoms, abnormal uterine bleeding. In addition discussed with the patient options of treatment for myomas including: Serial ultrasounds periodically to follow-up on the size of the myoma versus surgical treatment including hysterectomy All pros and cons, risks and benefits of all options were discussed with the patient. The patient understands that delay in surgical treatment in case of myosarcoma can affect her prognosis, after further discussion, the patient decided to think about it and get back to us next visit. Follow up Pelvic ultrasound ordered. Instructions given the patient to schedule follow-up appointment within 2 weeks (2) Postmenopausal bleeding: Comment: Recurrent Code(s): N95.0 - Postmenopausal bleeding Category: Medical Plan: Discussed with the patient the differential diagnosis of post menopausal bleeding with normal pelvic exam including but not limited to, endometrial hyperplasia, cancer, polyps and other causes; Recommended to the patient that the next step is an endometrial sampling via hysteroscopy D&C possible polypectomy versus endometrial biopsy to r/o endometrial pathology including hyperplasia or cancer. All the pros and cons risks and benefits of each approach were discussed with the patient, endometrial biopsy being less invasive, office procedure with less sensitivity and inability diagnose a polyp and removal versus hysteroscopy done under anesthesia more invasive more sensitive to endometrial cancer and possibility of diagnosing and endometrial polyp with the possibility of polypectomy. All questions were answered pt verbalized understanding and decided to proceed with endometrial biopsy. EMB done, see procedure note Orders: Orders Surgical Today N95.0 - Postmenopausal bleeding AMB Endometrial Biopsy Today N95.0 - Postmenopausal bleeding US pelvic and transvaginal Today D25.9 - Leiomyoma of uterus, unspecified Coding Level of Care Code New Pt Level 3 (71559) Procedure Only Diagnoses Uterine fibroid D25.9 Postmenopausal bleeding N95.0 CPT Codes Endometrial Biopsy - CPT: 65724-[id number] Biopsy ([id number])
[2025-09-19 10:14] VITALS: BP 114/70; BMI 32.7
--- OUTSIDE RECORDS SUMMARY | 2025-09-19 11:49 | XMS_ITS | Clinical Summary ---
Author Organization [facility] Address [address] [place] [address] Care Team Providers Care Tunnel Inspector Name Role Phone Silvestre Espino Primary Care [...] 1971 Hepatitis C Screening 1971 Sigmoidoscopy 1971 MMR Vaccines (1 of 1 - Stand yas series) 1972 PHQ-9 Depression Screen 1983 Complete Annual HRA 1989 DORIS-7 Anxiety Screen 1989 DTaP,Tdap,and Td Vaccines (1 - Tdap) 1990 Hepatitis B Vaccines (1 of 3 - 19+ 3-dose series) 1990 Pneumococcal Vaccine: 50+ Ye ars (1 of 2 - PCV) 1990 Mammogram 01/14/2021 01/14/2019, 01/14/2019 Zoster Vaccines (1 of 2) 2021 Annual Preventive Exam 06/03/2022 , 09/19/2020, 09/19/2020 Cervical Cancer Screening (Pap/HPV) 01/11/202401/11 COVID-19 Vaccine ( - season) 2025 Influenza Vaccine (#1) 2025 10/12/2020 RSV Vaccine (SCDM) (1 - 1-do se 75+ series) 2046 Insurance [employer] Care Teams Tunnel Inspector Relationship Specialty Start Date End Date Silvestre Espino PA [address] [place] [id number] PCP - General Family Medicine 10/27/19
== END 2025-09-19 11:20 | disposition home or self-care (01) ==
LOC: HO.HWS 09:59
PROVIDERS: PCP Internal Medicine; Visit Provider Obstetrics & Gynecology
DX: D25.9 Leiomyoma of uterus, unspecified (principal); N95.0 Postmenopausal bleeding
CPT/HCPCS: 58100; 99203

== ENCOUNTER 2025-09-19 09:56 | Outpatient (REF) | payer MEDICARE, MEDICAID, SELFPAY | END 2025-09-19 09:57 | disposition home or self-care (01) | LOC: HO.LNP 09:56 | PROVIDERS: PCP Internal Medicine; Visit Provider Obstetrics & Gynecology | DX: N95.0 Postmenopausal bleeding (principal); D25.9 Leiomyoma of uterus, unspecified | CPT/HCPCS: 58100; 88305; 99202 ==

== ENCOUNTER 2025-09-19 15:05 | Outpatient (REF) | payer MEDICARE, MEDICAID, SELFPAY ==
--- NOTE | ~2025-09-19 | US_ITS ---
EXAMINATION: US PELVIS CLINICAL INFORMATION: Uterine leiomyoma COMPARISON: Previous pelvic ultrasound most recent April 2025 and lumbar spine MRI January 2025 TECHNIQUE: Ultrasound of the pelvis is performed using both transabdominal and transvaginal transducers along with Doppler. Transvaginal imaging is performed due to inadequate visualization transabdominally. FINDINGS: Uterus: The uterus is anteverted and measures 9.2 x 5.2 x 6.5 cm. The double wall endometrial thickness is 2 mm. No endometrial fluid or mass There is a 6.4 x 6.1 x 5.8 cm posterior upper uterine body and fundal fibroid. This appears transmural abutting the endometrium and also subserosal altering the contour of the posterior uterus. This measured 5.6 x 4.8 x 5.3 cm on prior ultrasound April 2025 and 5.5 cm on prior MRI of the lumbar spine January 2025 and may be slightly increased. Small subcentimeter myometrial cyst. Nabothian cyst and echogenic foci questionable for small calcifications in the cervix, unchanged. Adnexa: Both ovaries are visualized. There is normal color flow to the adnexa. There is no ovarian torsion. There is no pelvic ascites or fluid collection. Right ovary measures 3 x 2.1 x 1.9 cm. Left ovary measures 4.1 x 1.7 x 2.1 cm. Small simple cyst measuring 1.8 x 0.9 x 1.5 cm, previous 3.1 x 2.1 x 2.4 cm. US/US pelvic and transvaginal IMPRESSION: Large posterior upper uterine body fibroid. This may be slightly increased in size from prior exams. Normal thickness endometrium. 1.5 x 1.9 cm simple left ovarian cyst. Annual ultrasound follow-up orally recommended for ovarian cysts greater than 1 cm in a postmenopausal patient. Normal right ovary.. Electronically signed by: Jolly Nichols MD 09/19/2025 04:48 PM EDT
== END 2025-09-19 15:06 | disposition home or self-care (01) ==
LOC: HO.US 15:05
PROVIDERS: PCP Internal Medicine; Visit Provider Obstetrics & Gynecology
DX: D25.9 Leiomyoma of uterus, unspecified (principal)
CPT/HCPCS: 76830; 76856

== ENCOUNTER → 2025-09-19 15:08 | Outpatient (BNV) | payer MEDICARE, MEDICAID, SELFPAY | PROVIDERS: PCP Internal Medicine; Visit Provider Radiology Diagnostic Radiology | DX: D25.9 Leiomyoma of uterus, unspecified (principal); N83.202 Unspecified ovarian cyst, left side | CPT/HCPCS: 76830; 76856 ==

== ENCOUNTER 2025-09-27 09:41 | Outpatient (REF) | payer MEDICARE, MEDICAID, SELFPAY ==
--- OUTSIDE RECORDS SUMMARY | 2025-09-27 10:53 | XMS_ITS | Clinical Summary ---
Author Organization [facility] Address [address] [place] [address] Care Team Providers Care Custom Garment Designer Name Role Phone Silvestre Espino Primary Care Provider [phone] Allergies No known active allergies Medications traZODone [...] 75+ series) 2046 Insurance [employer] Care Teams Custom Garment Designer Relationship Specialty Start Date End Date Silvestre Espino PA [address] [place] [id number] PCP - General Family Medicine 10/27/19
--- OUTSIDE RECORDS SUMMARY | 2025-09-27 10:53 | XMS_ITS | Clinical Summary ---
Author Organization [facility] Address [address] [place] [address] Care Team Providers Care Woodworking Shop Hand Name Role Phone Thomas Cardoza Primary Care Provider [phone] Source Comments PLEASE NOTE, if this patient [...] mcg/actuation nasal sprayIndications: Nasal congestion Place 1 [place] in both nostrils once daily 16 g [...] Done Comments Anxiety Screening 1971 HPV Screening (self-collect) 1971 HPV Screening 1971 Imm-Hepatitis B (1 [...] 11/23/2024 02/18/2022, 06/03 Pap Smear 03/18/2025 03/18/2022 [id number] ( season) 2025 09/19/2021, 03/19/2021, 03/19/2021, Additional history exists Imm-Influenza (#1) 2025 10/12/2020 Lipid Screening 06/11/2026 06/11/2021, 09/19/2020 Cervical Cancer Screening 03/18/2027 Pap + HPV 03/18/2027 03/18/2022 Imm-DTaP/Tdap/Td (2 - Td or Tdap) 02/19/2032 022 HIV Screening Completed 06/11/2021 Hepatitis C Screening Completed 06/11/2021 Syphilis Screening Discontinued 06/11/2021 Cervical Ablation/Cold-Knife Conization Discontinued Cervical Cryotherapy Discontinued Colposcopy Discontinued Excision/Leep Discontinued HPV Genotyping Discontinued Vaginal [...] 1:58 PM EDT) CLINICAL INFORMATION See Note [employer] Comment:None given LMP See Note [employer] Comment:[id number] PREV. PAP [employer] PREV. BX See Note [employer] Comment:NONE GIVEN SOURCE See Note [employer] Comment:Cervix, Endocervix STATEMENT OF ADEQUACY See Note [employer] Comment: Satisfactory for evaluation. Endocervical/transformation zone component present. INTERPRETATION/RESU LT See Note [employer] Comment:Negative for intraep ithelial lesion or malignancy. COMMENT See Note [employer] Comment: This Pap test has been evaluated with computer assisted technology. TEST DEVELOPMENT ENGINEER See Note [facility] [employer] [facility] Comment: SL, CT(ASCP) CT screening location: [place] [address] COMMENT [facility] HPV MRNA E6/E7 Not Detected Not Detected [facility] Comment: Methodology: Senior It Engineer-Mediated Amplification This assay detects E6/E7 viral messenger RNA (mRNA) from 14 high-risk HPV types (16,18,31,33,35,39,45,51,52,56,58,59,66,68). The analytical performance characteristics of this assay have been determined by [employer]. The modifications have not been cleared or approved by the FDA. This assay has been validated pursuant to the CLIA regulations and is used for clinical purposes. For additional information, please refer to http://education.[employer]/faq/EBK582p6 (This link if provided for information/ educational purposes only.) Swab Cervix uteri structure / Unknown 03/18/2022 1:58 PM EDT 03/19/2022 7:25 AM EDT Narrative [employer] [facility] - 03/21/2022 2:21 PM EDT EXPLANATORY NOTE: [...] - PATHOLOGY AND CYTOLOGY AMBULATORY Final Result [facility] [address] [address], [facility] [address] [address] * REFERRAL FOR MAMMOGRAM SCREENING (02/28/2022 3:00 AM EDT) 02/28/2022 3:00 AM EDT us Thomas SOLIS RFL MAMMO Edited Result - Final * HEPATITIS C AB W/RFLX HCV RNA, QT, RT PCR (06/11/2021 10:44 AM EDT) HEPATITIS C ANTIBODY NON-REACT RADHA NON-REACT RADHA [facility] SIGNAL TO CUT-OFF 0.01 <1.00 [employer] Comment: HCV antibody was non-reactive. There is no laboratory evidence of HCV infection. In most cases, no further action is required. However, if recent HCV exposure is suspected, a test for HCV RNA (test code 72069) is suggested. For additional information please refer to http://Merry[employer]ry.[employer]/faq/LSN87v0 (This link is being provided for informational/ educational purposes only.) Blood Blood / Unknown 06/11/2021 1 0:44 AM EDT 06/11/2021 10:44 AM EDT Narrative [facility] - 06/12/2021 11:29 AM EDT FASTING:YES Thomas BARNES [facility] - BLOOD DRAW Edited Result - Final [facility] [address] [address], [employer] [address] [address] * HIV 1/2 AG & AB W/RFLX (4TH GEN) (06/11/2021 10:44 AM EDT) Pathologist [facility] HIV AG/AB, 4TH GEN NON-REAC TIVE NON-REAC TIVE [employer] Comment: HIV-1 antigen and HIV-1/HIV-2 antibodies were [...] purpose. For additional information please refer to http://education.[employer]/faq/KPN553 (This link is being provided for informational/ educational purposes only.) The performance of this assay has not been clinically validated in patients less than 2 years old. Blood Blood / Unknown 06/11/2021 1 0:44 AM EDT 06/11/2021 10:44 AM EDT Narrative [employer] [facility] - 06/12/2021 11:29 AM EDT FASTING:YES us Thomas [facility]ES [facility] - BLOOD DRAW Final Result Performing Organization Address [facility] [employer] de Phone Number [employer] [address] [address], [facility] [address] [address] * RPR (MONITOR) W/REFL TITER (06/11/2021 10:44 AM EDT) RPR (MONITOR) W/REFL TITER NON-REACT RADHA NON-REACT RADHA [facility] Blood Blood / Unknown 06/11/2021 1 0:44 AM EDT 06/11/2021 10:44 AM EDT Narrative [employer] [facility] - 06/12/2021 11:29 AM EDT FASTING:YES us Thomas [facility] - BLOOD DRAW Edited Result - Final Performing Organization Address [facility] de Phone Number [facility] [address] [address], [facility] [address] [address] * (ABNORMAL) LIPID PANEL (06/11/2021 10:44 AM EDT) CHOLESTEROL, TOTAL 175 <200 mg/dL [facility] HDL CHOLESTEROL 44 > OR = 40 mg/dL [facility] TRIGLYCERIDES 123 <150 mg/dL [facility] LDL-CHOLESTEROL 108(H) 99 mg/dL (calc) [facility] Comment: Reference range: <100 Desirable range <100 mg/dL for primary prevention; <70 mg/dL for patients with CHD or diabetic patients with > or = 2 CHD risk factors. LDL-C is now calculated using the Ana calculation, which is a validated novel method providing better accuracy than the Friedewald equation in the estimation of LDL-C. Mitchell MIRANDA et al. MAR. 2013;310(19): 2656-2986 (http://education.Pipeline/faq/CNU471) CHOL/HDLC RATIO 4.0 <5.0 (calc) [facility] NON-HDL CHOLESTEROL 131(H) <130 mg/dL (calc) [employer] Comment: For patients with diabetes plus 1 major ASCVD risk factor, treating to a non-HDL-C goal of <100 mg/dL (LDL-C of <70 mg/dL) is considered a therapeutic option. Blood Blood / Unknown 06/11/2021 1 0:44 AM EDT 06/11/2021 10:44 AM EDT Narrative [employer] [facility] - 06/12/2021 11:29 AM EDT FASTING:YES Thomas [facility] - BLOOD DRAW Final Result [employer] [facility] [address] [address], [facility] [address] [address] * (ABNORMAL) COMPREHENSIVE METABOLIC PANEL (06/11/2021 10:44 AM EDT) GLUCOSE 78 65 - 99 mg/dL [facility] Comment: Fasting reference interval UREA NITROGEN (BUN) 11 7 - 25 mg/dL [facility] CREATININE (blood) 0.57(L) 0.60 - 1.35 mg/dL [facility] GFR ESTIMATED 121 > OR = 60 mL/min/1. 73m2 [facility] EGFR 140 > OR = 60 mL/min/1. 73m2 [facility] BUN/CREATININE RATIO 19 6 - 22 (calc) [facility] SODIUM 138 135 - 146 mmol/L [facility] POTASSIUM 4.4 3.5 - 5.3 mmol/L [facility] CHLORIDE 108 98 - 110 mmol/L [facility] CARBON DIOXIDE 23 20 - 32 mmol/L [facility] CALCIUM 8.9 8.6 - 10.3 mg/dL [facility] PROTEIN, TOTAL 6.7 6.1 - 8.1 g/dL [facility] ALBUMIN 4.1 3.6 - 5.1 g/dL [facility] GLOBULIN 2.6 1.9 - 3.7 g/dL (calc) [facility] ALBUMIN/GLOBULI N RATIO 1.6 1.0 - 2.5 (calc) [facility] BILIRUBIN, TOTAL 0.3 0.2 - 1.2 mg/dL [facility] ALKALINE PHOSPHATASE 81 36 - 130 U/L [facility] AST 12 10 - 40 U/L [facility] ALT 18 9 - 46 U/L [facility] Blood Blood / Unknown 06/11/2021 1 0:44 AM EDT 06/11/2021 10:44 AM EDT Narrative [employer] [facility] - 06/12/2021 11:29 AM EDT FASTING:YES Thomas [facility] - BLOOD DRAW Edited Result - Final [facility] [address] [address], [employer] [facility] [address],[facility] [address] from Last 3 Months or Most Recently Relevant to Health Maintenance Insurance [employer] Care Teams Woodworking Shop Hand Relationship Specialty Start Date End Date Thomas Cardoza PA PCP - General FAMILY MEDICINEMOLLY 11/12/21
[2025-09-27 13:33] LABS: MANUAL DIFF FLAG NO
[2025-09-27 13:43] LABS: Hematocrit 48.5 % (37.0-47.0); Hemoglobin 15.8 g/dl (12.0-16.0); Imm Gran Abs Auto 0.03 X10*3/uL (0.00-0.03); Imm Gran Pct Auto 0.4 % (0.0-0.4); Lymphocytes Absolute Auto 2.4 X10*3/uL (1.2-4.9); Mean Corpuscular HGB Conc 32.6 g/dl (31.0-35.0); Mean Corpuscular Hemoglobin 29.4 pg (27.0-33.0); Mean Corpuscular Volume 90.3 fL (80.0-98.0); NRBC Abs Auto 0.000 X10*3/uL (0.0-0.012); NRBC Pct Auto 0.0 /100WBC (0.0-0.2); Platelet Count 251 X10*3/uL (160-400); Red Blood Count 5.37 X10*6/uL (4.20-5.50); White Blood Count 7.5 X10*3/uL (4.8-10.8)
[2025-09-27 14:05] LABS: Alanine Aminotransferase 25 U/L (0-31); Albumin Level 4.2 g/dL (3.5-5.0); Alkaline Phosphatase 74 U/L (39-117); Anion Gap 10 (12-20); Aspartate Amino Transferase 22 U/L (5-31); Blood Urea Nitrogen 14 mg/dL (9-16); Calcium 9.0 mg/dL (8.4-10.2); Carbon Dioxide 29 mmol/L (22-29); Chloride 107 mmol/L (96-108); Cholesterol 195 mg/dL (<200); Estimated Glomerular Filt Rate > 60; HDL Cholesterol 46 mg/dL (>40); Potassium 4.9 mmol/L (3.3-5.1); Sodium 141 mmol/L (135-145); Total Protein 6.9 g/dL (6.5-8.0); Triglycerides 118 mg/dL (<150)
== END 2025-09-27 09:42 | disposition home or self-care (01) ==
LOC: HO.HMGCLDS 09:41
PROVIDERS: PCP Internal Medicine; Visit Provider Internal Medicine
DX: Z00.00 Encounter for general adult medical examination without abnormal findings (principal); I10 Essential (primary) hypertension; E55.9 Vitamin D deficiency, unspecified
CPT/HCPCS: 36415; 80053; 80061; 82306; 84443; 85025

== ENCOUNTER 2025-09-29 09:52 | Outpatient (AMB) | payer MEDICARE, MEDICAID, SELFPAY ==
--- NOTE | 2025-09-29 09:54 | MHC.PC.OV ---
Vital Signs 09/29/25 09:56 Height 5 ft 1 in Weight 176 lb BMI 33.3 BP 124/76 Blood Pressure Location Lt brachial Position Sitting Respiration 15 Pulse 86 Pulse Source Pulse Oximeter Temp 97.9 F Temp Source Oral Pulse Oximetry (%) 97 Oxygen Delivery Method Room Air Intake Visit Reasons: 6m follow up Intake Note: Pt is here today for 6 months follow up visit. Allergies No Known Allergies Allergy (Verified 09/29/25 09:56) Tobacco use date assessed: 09/29/25 Dental Screening Dental Screen Date: 12/30/24 HPI 6m follow up HPI Details Pt presents for HTN, anxiety and depression established with psychiatry, chronic LBP, established with pain management we will have spinal stimulator trial. Patient complains of chronic hearing loss on the right ear getting progressively worse. Patient denies any pain in the ear or discharge. She has a strong family history of hearing loss. [facility] Medical History Hearing loss Lumbar herniated disc Low back pain GERD (gastroesophageal reflux disease) Fibromyalgia Carpal tunnel syndrome RLS (restless legs syndrome) HTN (hypertension) Surgical History Hx of colonoscopy History of carpal tunnel surgery History of arthroscopy of right shoulder Family History Maternal Grandmother Mental health disorder Sister Diverticulitis Brother Colon polyp Brother S/P colostomy History of colostomy reversal Cancer of kidney Father Lung cancer Liver cancer Cancer of kidney Social History Household Members: Significant Other Household Members Other:: on disability for shoulder injury , lives with a partner, 1 daughter, Housing: Apartment Are you a primary manager intensive care unit to a significant other at home: No Alcohol intake: never Patient Tobacco Use Status: Current everyday Tobacco user Tobacco use type: Cigarette Cigarettes Per Day: 7 Years Smoked: 20 e-Cigarette/Vaping Use: Never Used service: No 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al status: disabled 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 1. Little interest or pleasure in doing things: several days 2. Feeling down, depressed, or hopeless: more than half the days 3. Trouble falling or staying asleep, or sleeping too much: nearly every day 4. Feeling tired or having little energy: nearly every day 5. Poor appetite or overeating: nearly every day 6. Feeling bad about yourself - or that you are a failure or have let yourself or your family down: more than half the days 7. Trouble concentrating on things, such as reading the newspaper or watching television: nearly every day 8. Moving or speaking so slowly that other people could have noticed. Or the opposite - being so fidgety or restless that you have been moving around a lot more than usual: nearly every day 9. Thoughts that you would be better off or of hurting yourself in some way: not at all Total score: 20 Depression Screening Interpretation: Positive (Patient is established with a psychiatrist and counselor, increased dose of Duloxetine) Depression Screening Follow-up: Existing condition and In treatment Depression Screening Done: Yes Source: Developed by Drs. Karri Plata, Perla Xie, Carroll Guevara and colleagues, with an educational manpreet from [employer]. Thrive Questionnaire Date Thrive assessed: 12/23/24 I am a: Patient What is your living situation today?: I have a steady place to live Within the past 12 months, did the food you bought not last and you didn't have the money to get more?: Often true Within the past 12 months, did you worry whether your food would run out before you got money to buy more?: Often true Do you have trouble paying for medicines?: No Do you have trouble getting transportation to medical appointments?: No Do you have trouble paying your heating and electricity bill?: I choose not to answer this question Do you have trouble taking care of your child, family member or friend?: No Do you have trouble with day-to-day activities such as bathing, preparing meals, shopping, managing finances, etc.?: Yes Are you currently unemployed and looking for a job?: No Are you interested in more education?: No Please select the resources that you would like help with: None Currently or been in a relationship where the following occur: No concerns reported THRIVE Score: 2 DORIS-7 AMB Questionnaire DORIS-7 Date DORIS - 7 assessed: 03/28/25 Feeling nervous, anxious, or on edge: 3 = Nearly every day Not being able to stop or control worryin = Nearly every day Worrying too much about different things: 3 = Nearly every day Trouble relaxin = More than half the days Being so restless that it is hard to sit still: 3 = Nearly every day Becoming easily annoyed or irritable: 3 = Nearly every day Feeling afraid as if something awful might happen: 3 = Nearly every day Total DORIS-7 score (0-4 normal; 5-9 mild; 10-14 moderate; 15-21 severe): 20 Source: Developed by Drs. Karir Plata, Perla Xie, Carroll Guevara and colleagues, with an educational manpreet from [employer]. Review of Systems Const All systems reviewed & are unremarkable except as noted in HPI and below ENT Reports no additional complaints Card Reports no additional complaints Resp Reports no additional complaints GI Reports no additional complaints Reports no additional complaints Physical exam (Primary Care) Vital Signs: Last Vital Signs Temp 97.9 F 09/29/25 09:56 Pulse 86 09/29/25 09:56 Resp 15 09/29/25 09:56 BP 124/76 09/29/25 09:56 Pulse Ox 97 09/29/25 09:56 Oxygen Delivery Method Room Air 09/29/25 09:56 BMI result Body Mass Index 33.3 Tobacco/Smoking Status: Tobacco use Status Tobacco use date assessed 09/29/25 09/29/25 10:00 Patient Tobacco Use Status Current everyday Tobacco 09/29/25 10:00 Tobacco use type Cigarette 09/29/25 10:00 e-Cigarette/Vaping Use Never Used 09/29/25 10:00 PHQ-9: PHQ-9 Score PHQ-9: Total score 20 09/29/25 10:05 Depression Screening Interpretation: Positive (Patient is established with a psychiatrist and counselor, increased dose of Duloxetine) Depression Screening Follow-up: Existing condition and In treatment Thrive Assessment: Date of Thrive Assessment Date Thrive assessed 12/23/24 09/29/25 10:00 Currently or been in a relationship where the following occur: No concerns reported Const General: no acute distress HENMT Head: Yes normal to inspection Ears: TM's normal bilaterally Face and sinus: Yes normal facial exam Eyes General: appearance normal, both eyes and all related structures Neck Neck: Yes supple Resp Effort & Inspection: normal respiratory effort Auscultation: clear to auscultation bilaterally Cardio Rhythm: regular rhythm Heart sounds: S1 normal heart sound present and S2 normal heart sound present Coding Level of Care Code Est Pt Level 4 (77850) Diagnoses Anxiety and depression F41.9; F32.A HTN (hypertension) I10 Hearing loss H91.90 Spondylosis of lumbar region without myelopathy or radiculopathy M47.816 Assessment & Plan Assessment & Plan (1) Anxiety and depression: Comment: Established with a counselor and Psychiatry Code(s): F41.9 - Anxiety disorder, unspecified; F32.A - Depression, unspecified Category: Medical Plan: Continue current medication follow-up with psychiatry (2) HTN (hypertension): Code(s): I10 - Essential (primary) hypertension Category: Medical Plan: Continue Lisinopril (3) Hearing loss: Comment: R ear Code(s): H91.90 - Unspecified hearing loss, unspecified ear Category: Medical Plan: Referred for hearing test (4) Spondylosis of lumbar region without myelopathy or radiculopathy: Code(s): M47.816 - Spondylosis without myelopathy or radiculopathy, lumbar region Category: Medical Plan: Follow-up with pain management Orders: Orders UA w Microscopic 6 Months E55.9 - Vitamin D deficiency, unspecified, I10 - Essential (primary) hypertension Comprehensive [place]. Panel Fast 6 Months E55.9 - Vitamin D deficiency, unspecified, I10 - Essential (primary) hypertension Complete Blood Count Auto Diff 6 Months E55.9 - Vitamin D deficiency, unspecified, I10 - Essential (primary) hypertension Lipid Panel 6 Months E55.9 - Vitamin D deficiency, unspecified, I10 - Essential (primary) hypertension Vitamin D 25-OH Total 6 Months E55.9 - Vitamin D deficiency, unspecified, I10 - Essential (primary) hypertension Referrals Speech and Hearing Referral H91.90 - Unspecified hearing loss, unspecified ear
[2025-09-29 09:56] VITALS: BP 124/76; PULSE 86; RESP 15; TEMP 36.6; O2SAT 97; BMI 33.3
--- OUTSIDE RECORDS SUMMARY | 2025-09-29 11:24 | XMS_ITS | Clinical Summary ---
Author Organization [facility] Address [address] [place] [address] Care Team Providers Care Can Reconditioner Name Role Phone Thomas Cardoza Primary Care Provider Source Comments PLEASE NOTE, if this patient [...] mcg/actuation nasal sprayIndications: Nasal congestion Place 1 [place] in both nostrils once daily 16 g [...] 11/23/2024 02/18/2022, 06/03 Pap Smear 03/18/2025 03/18/2022 [id number] ( season) 2025 09/19/2021, 03/19/2021, 03/19/2021, Additional [...] 1:58 PM EDT) CLINICAL INFORMATION See Note [facility] Comment:None given LMP See Note [facility] Comment:[id number] PREV. PAP [facility] PREV. BX See Note [facility] Comment:NONE GIVEN SOURCE See Note [facility] Comment:Cervix, Endocervix STATEMENT OF ADEQUACY See Note [facility] Comment: Satisfactory for evaluation. Endocervical/transformation zone component present. INTERPRETATION/RESU LT See Note [facility] Comment:Negative for intraep ithelial lesion or malignancy. COMMENT See Note [facility] Comment: This Pap test has been evaluated with computer assisted technology. FOOD SERVICE ORDER CLERK See Note QUE LMN-1 [facility] Comment: SL, CT(ASCP) CT screening location: [place] [address] COMMENT [facility] HPV MRNA E6/E7 Not Detected Not Detected [facility] Comment: Methodology: Behavioral Health Assistant-Mediated Amplification This assay detects E6/E7 viral messenger RNA (mRNA) from 14 high-risk HPV types (16,18,31,33,35,39,45,51,52,56,58,59,66,68). The analytical performance characteristics of this assay have been determined by [employer]. The modifications have not been cleared or approved by the FDA. This assay has been validated pursuant to the CLIA regulations and is used for clinical purposes. For additional information, please refer to http://education.[employer]/faq/NVE143i4 (This link if provided for information/ educational purposes only.) Swab Cervix uteri structure / Unknown 03/18/2022 1:58 PM EDT 03/19/2022 7:25 AM EDT Narrative [facility] - 03/21/2022 2:21 PM EDT [...] - PATHOLOGY AND CYTOLOGY AMBULATORY Final Result [facility] [address] [address], [facility] [address] [address] * REFERRAL FOR MAMMOGRAM SCREENING (02/28/2022 3:00 AM EDT) 02/28/2022 3:00 AM EDT us Thomas SOLIS RFL MAMMO Edited Result - Final * HEPATITIS C AB W/RFLX HCV RNA, QT, RT PCR (06/11/2021 10:44 AM EDT) HEPATITIS C ANTIBODY NON-REACT RADHA NON-REACT RADHA [facility] SIGNAL TO CUT-OFF 0.01 <1.00 [facility] Comment: HCV antibody was non-reactive. There is no laboratory evidence of HCV infection. In most cases, no further action is required. However, if recent HCV exposure is suspected, a test for HCV RNA (test code 22953) is suggested. For additional information please refer to http://[employer]/faq/NMT62g6 (This link is being provided for informational/ educational purposes only.) Blood Blood / Unknown 06/11/2021 1 0:44 AM EDT 06/11/2021 10:44 AM EDT Narrative [facility] - 06/12/2021 11:29 AM EDT FASTING:YES Thomas [facility] - BLOOD DRAW Edited Result - Final [facility] [address] [address], [facility] [address] [address] * HIV 1/2 AG & AB W/RFLX (4TH GEN) (06/11/2021 10:44 AM EDT) Pathologist [facility] HIV AG/AB, 4TH GEN NON-REAC TIVE NON-REAC TIVE [facility] Comment: HIV-1 antigen and HIV-1/HIV-2 antibodies [...] purpose. For additional information please refer to http://education.[employer]/faq/LYL507 (This link is being provided for informational/ educational purposes only.) The performance of this assay has not been clinically validated in patients less than 2 years old. Blood Blood / Unknown 06/11/2021 1 0:44 AM EDT 06/11/2021 10:44 AM EDT Narrative [facility] - 06/12/2021 11:29 AM EDT FASTING:YES us Thomas [facility] - BLOOD DRAW Final Result Performing Organization Address [facility] Co de Phone Number [facility] [address] [address], [facility] [address] [address] * RPR (MONITOR) W/REFL TITER (06/11/2021 10:44 AM EDT) RPR (MONITOR) W/REFL TITER NON-REACT RADHA NON-REACT RADHA [facility] Blood Blood / Unknown 06/11/2021 1 0:44 AM EDT 06/11/2021 10:44 AM EDT Narrative [facility] - 06/12/2021 11:29 AM EDT FASTING:YES us Thomas [facility] - BLOOD DRAW Edited Result - Final Performing Organization Address [facility] de Phone Number [facility] [address] [address], [facility] [address] [address] * (ABNORMAL) LIPID PANEL (06/11/2021 10:44 AM EDT) CHOLESTEROL, TOTAL 175 <200 mg/dL [facility] HDL CHOLESTEROL 44 > OR = 40 mg/dL [facility] TRIGLYCERIDES 123 <150 mg/dL [facility] LDL-CHOLESTEROL 108(H) 99 mg/dL (calc) [facility] Comment: Reference range: <100 Desirable range <100 mg/dL for primary prevention; <70 mg/dL for patients with CHD or diabetic patients with > or = 2 CHD risk factors. LDL-C is now calculated using the Ana calculation, which is a validated novel method providing better accuracy than the Friedewald equation in the estimation of LDL-C. Mitchell MIRANDA et al. MAR. 2013;310(19): 2376-1943 (http://education.[employer]/faq/FNI861) CHOL/HDLC RATIO 4.0 <5.0 (calc) [facility] NON-HDL CHOLESTEROL 131(H) <130 mg/dL (calc) [facility] Comment: For patients with diabetes plus 1 major ASCVD risk factor, treating to a non-HDL-C goal of <100 mg/dL (LDL-C of <70 mg/dL) is considered a therapeutic option. Blood Blood / Unknown 06/11/2021 1 0:44 AM EDT 06/11/2021 10:44 AM EDT Narrative [facility] - 06/12/2021 11:29 AM EDT FASTING:YES Thomas [facility] - BLOOD DRAW Final Result [facility] [address] [address], [facility] [address] [address] * (ABNORMAL) COMPREHENSIVE METABOLIC PANEL (06/11/2021 10:44 AM EDT) GLUCOSE 78 65 - 99 mg/dL [facility] Comment: Fasting reference interval UREA NITROGEN (BUN) 11 7 - 25 mg/dL [facility] CREATININE (blood) 0.57(L) 0.60 - 1.35 mg/dL [facility] GFR ESTIMATED 121 > OR = 60 mL/min/1. 73m2 [facility] EGFR 140 > OR = 60 mL/min/1. 73m2 [facility] BUN/CREATININE RATIO 19 6 - 22 (calc) [facility] SODIUM 138 135 - 146 mmol/L [facility] POTASSIUM 4.4 3.5 - 5.3 mmol/L [facility] CHLORIDE 108 98 - 110 mmol/L [facility] CARBON DIOXIDE 23 20 - 32 mmol/L [facility] CALCIUM 8.9 8.6 - 10.3 mg/dL [facility] PROTEIN, TOTAL 6.7 6.1 - 8.1 g/dL [facility] ALBUMIN 4.1 3.6 - 5.1 g/dL [facility] GLOBULIN 2.6 1.9 - 3.7 g/dL (calc) [facility] ALBUMIN/GLOBULI N RATIO 1.6 1.0 - 2.5 (calc) [facility] BILIRUBIN, TOTAL 0.3 0.2 - 1.2 mg/dL [facility] ALKALINE PHOSPHATASE 81 36 - 130 U/L [facility] AST 12 10 - 40 U/L [facility] ALT 18 9 - 46 U/L [facility] Blood Blood / Unknown 06/11/2021 1 0:44 AM EDT 06/11/2021 10:44 AM EDT Narrative [facility] - 06/12/2021 11:29 AM EDT FASTING:YES Thomas [facility] - BLOOD DRAW Edited Result - Final [facility] [address] [address], [facility] [address],[facility] [place] [address] from Last 3 Months or Most Recently Relevant to Health Maintenance Insurance [employer] Care Teams Can Reconditioner Relationship Specialty Start Date End Date Thomas Cardoza PA PCP - General FAMILY MEDICINEMOLLY 11/12/21
--- OUTSIDE RECORDS SUMMARY | 2025-09-29 11:24 | XMS_ITS | Clinical Summary ---
Author Organization [facility] Address [address] [place] [address] Care Team Providers Care Regional Safety Manager Name Role Phone Silvestre Espino Primary Care Provider [phone] Allergies No known active allergies Medications traZODone [...] 75+ series) 2046 Insurance [employer] Care Teams Regional Safety Manager Relationship Specialty Start Date End Date Silvestre Espino PA [address] [place] [id number] PCP - General Family Medicine 10/27/19
== END 2025-09-29 10:24 | disposition home or self-care (01) ==
LOC: HO.HMCC 09:52
PROVIDERS: PCP Internal Medicine; Visit Provider Internal Medicine
DX: F41.9 Anxiety disorder, unspecified (principal); F32.A Depression, unspecified; I10 Essential (primary) hypertension; H91.90 Unspecified hearing loss, unspecified ear; M47.816 Spondylosis without myelopathy or radiculopathy, lumbar region

== ENCOUNTER → 2025-09-29 09:52 | Outpatient (BNVA) | payer MEDICARE, MEDICAID, SELFPAY | PROVIDERS: PCP Internal Medicine; Visit Provider Internal Medicine | DX: N28.1 Cyst of kidney, acquired (principal); D25.9 Leiomyoma of uterus, unspecified; F41.9 Anxiety disorder, unspecified; F32.A Depression, unspecified; I10 Essential (primary) hypertension; H91.90 Unspecified hearing loss, unspecified ear; M47.816 Spondylosis without myelopathy or radiculopathy, lumbar region | CPT/HCPCS: 99212 ==

== ENCOUNTER 2025-10-04 09:13 | Outpatient (AMB) | payer MEDICARE, MEDICAID, SELFPAY ==
--- NOTE | 2025-10-04 09:15 | A.OFFVIS_ITS ---
Vital Signs 10/04/25 09:16 Height 5 ft 1 in Weight 177 lb BMI 33.4 BP 140/68 H Blood Pressure Location Lt brachial Position Sitting Respiration 16 Pulse 92 Pulse Source Pulse Oximeter Pulse Oximetry (%) 96 Oxygen Delivery Method Room Air Intake Visit Reasons: S/P Bilateral L5-S1 TFESI Accompanied by: Child Allergies No Known Allergies Allergy (Verified 10/04/25 09:18) Medication List - Last Reconciled 10/04/25 by Elsy Paulino LPN duloxetine 60 mg PO DAILY gabapentin 900 mg PO BEDTIME ibuprofen 800 mg PO TID PRN lisinopril 20 mg PO DAILY omeprazole 20 mg PO DAILY 90 days psyllium husk (Metamucil) 1 tbsp PO DAILY 30 days tizanidine 2 mg PO TID PRN 30 days trazodone 100 mg PO BEDTIME PRN HPI Comments Details: Camila is back in my office after bilateral L5-S1 transforaminal epidural steroid injection. Patient reported 1 day of very profound pain relief after the procedure. It is unfortunate that the pain of the patient next day came back to pre-injection level. We exhausted all the injections possible to help the pain of this patient. She has chronic pain syndrome she is suffering from radiculopathy bilateral and she is suffering from lumbar spine disc degeneration. I offered this patient has spinal cord stimulator [employer] trial to see if this will help the pain of this patient. Patient completed psychological evaluation with [facility], this evaluation was favorable for neuromodulation trial. Patient agreed to go for the procedure. Prior: The diagnostic bilateral medial branch block L3, L4, dorsal ramus L5. Again this is not very promising results. She reports pain ranging from 10 out of 10 to 6/10 after the procedure. At 01:00 hour after the procedure she reported pain 0/10 but this was not long-lasting. Therefore I can not consider her pain to be a result of facet joint arthropathy. In the past we performed bilateral sacroiliac joint injection. She reports no pain for the 1st 2 hours after procedure only. She reports that she was not very active at that time and her pain usually is very low when she is not active. However when she started to move on 3rd 4th 5th and 6 hour she reported pain 5 to 8/10. Therefore I can not consider sacroiliac joints as her pain generators. She went for the x-ray of the coccyx and pelvis and it did not demonstrate any coccygeal fractures. The MRI of the lumbar spine was performed recently and it demonstrated facet arthritis and some L5-S1 nerve root abutment,. However because of the MRI changes I want to try bilateral transforaminal L5-S1 epidural steroid injection. Prior: very pleasant 54 years old female who presents in my office with complains on axial back pain without radiation into bilateral lower extremities as well as pain in the electric shock-like sensation in bilateral anterior shins. She reports that prolonged sitting aggravate her pain. Valsalva maneuver aggravates her pain coughing and sneezing aggravate her pain. She reports that application of the heat or cold does not affects her pain. Because of her pain she can not sleep normally can not do activities of daily living can not take care of herself can not function normally she is on permanent disability. She reports that her pain started in 2018 when she was doing heavy lifting at her work. She is taking ibuprofen 800 mg and gabapentin 900 mg q.h.s. and it helps her to sleep little bit better however she still feels a lot of pain. She tried physical therapy last time in September 2024 and reported no results from physical therapy. She has an MRI performed on the lumbar spine which is dictated in below. Received interlaminar L5-S1 epidural steroid injection by me on recommendation of Dr. Jacques. Unfortunately the pain relief lasted only 5 days. She reported that her mobility was not improved. Her past medical history significant for hypertension and obesity. Her past surgical history significant for right shoulder surgeries and carpal tunnel release bilaterally. She admits smoking 2 cigarettes a day, denies drinking alcohol, drinks coffee and caffeinated beverages and she denies recreational drugs. [facility] Medical History Hearing loss Lumbar herniated disc Low back pain GERD (gastroesophageal reflux disease) Fibromyalgia Carpal tunnel syndrome RLS (restless legs syndrome) HTN (hypertension) Surgical History Hx of colonoscopy History of carpal tunnel surgery History of arthroscopy of right shoulder Family History Maternal Grandmother Mental health disorder Sister Diverticulitis Brother Colon polyp Brother S/P colostomy History of colostomy reversal Cancer of kidney Father Lung cancer Liver cancer Cancer of kidney Social History Household Members: Significant Other Household Members Other:: on disability for shoulder injury , lives with a partner, 1 daughter, Housing: Apartment Are you a primary care provider to a significant other at home: No Alcohol intake: never Patient Tobacco Use Status: Current everyday Tobacco user Tobacco use type: Cigarette Cigarettes Per Day: 7 Years Smoked: 20 e-Cigarette/Vaping Use: Never Used service: No 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al status: disabled 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 Sexual orientation: Straight/Heterosexual Gender identity: Female Cognitive needs: No Hearing needs: No Vision needs: Yes Review of Systems Const All systems reviewed & are unremarkable except as noted in HPI and below ENT Reports Normal hearing present Neuro Reports Normal hearing present, Denies Abnormal speech present, Denies confusion and Denies Sensory deficit (Neuro) Psych Denies confusion Physical Exam Vital Signs: Last Vital Signs Pulse 92 10/04/25 09:16 Resp 16 10/04/25 09:16 BP 140/68 H 10/04/25 09:16 Pulse Ox 96 10/04/25 09:16 Oxygen Delivery Method Room Air 10/04/25 09:16 BMI result Body Mass Index 33.4 Const General: no acute distress; No confusion Nutritional Appearance: obese morbidly obese Orientation/consciousness: patient oriented x3 and No confusion Eyes General: appearance normal, both eyes and all related structures Pupils: Equal, round and reactive pupils present EOM: EOMs intact bilaterally Neck Neck: Yes full ROM Chest Chest palpation & inspection: normal inspection of the chest Resp Effort & Inspection: normal respiratory effort, able to speak in complete sentences, normal respiratory pattern, no audible wheezes and no cough Cardio Jugular venous distension: no JVD GI Inspection: Yes normal to inspection Back/Spine/Pelvis Other: Exhibit normal strength of bilateral lower extremity able to stand on bilateral tiptoes in bilateral heels without difficulty. Flexing forward and flexing backwards both aggravate her pain however flexing backwards aggravate her pain more than flexing forward. Valsalva maneuver positive for pain increase. SLR is positive bilaterally. Rafael test is positive bilaterally. Pelvic compression test positive bilaterally. Pelvic distraction test is positive bilaterally. Fourteen finger test is positive bilaterally. SLR is positive bilaterally Neuro General: patient oriented x3, gait normal and No confusion Cranial nerves: Yes CN's II-XII intact bilaterally, Yes Equal, round and reactive pupils present, Yes Normal hearing present and Yes Ability to bilaterally elevate shoulders present Speech: No Abnormal speech present Gait exam (Neuro): Normal gait present Motor exam (neuro): 5/5 motor strength present throughout Sensory Exam: No Sensory deficit (Neuro) Extrem General: No pedal edema Psych Speech and movement: Normal speech and movement present Affect: normal affect Attitude: cooperative Thought process: Normal thought process present Thought content: Normal thought content present Insight: Good insight present (Psych) Judgement: Good judgement present (Psych) Results Reviewed Results Reviewed: Ordering Physician: Troy Nichole MD Date of Service: 06/08/25 Procedure(s): XR pelvis 1-2V Accession Number(s): [id number] cc: Valeria Horowitz MD; Troy Nichole MD~ EXAMINATION: XR PELVIS CLINICAL INFORMATION: M53.3 - Sacrococcygeal disorders, not elsewhere classified COMPARISON: None available. TECHNIQUE: AP view of the pelvis. FINDINGS: No fracture. Hip joint spaces are maintained. Alignment is anatomic. Mild arthritic changes in both SI joints, similar to prior exams. No abnormal soft tissue calcifications. XR/XR pelvis 1-2V IMPRESSION: No acute bony abnormalities. Mild arthritic changes in both SI joints. Ordering Physician: Sandra Jacques Date of Service: 03/15/25 Procedure(s): MR cervical spine wo con Accession Number(s): [id number] cc: Valeria Horowitz MD; Sandra Jacques~ CLINICAL HISTORY: M54.12 - Radiculopathy, cervical region --- Additional Notes or Special Instructions: evaluate for left sided narrowing or disc herniation MR of the cervical spine without contrast. COMPARISON: None FINDINGS: Grade 1 anterolisthesis of C4 on C5, degenerative. Vertebral heights are maintained. Marrow signal is benign. Visualized posterior fossa is normal. No abnormal signal within the normal caliber cervical spinal cord. No syringomyelia or cervical epidural fluid collection. C2-C3: No significant neuroforaminal narrowing or spinal canal stenosis. C3-C4: No significant neuroforaminal narrowing or spinal canal stenosis. C4-C5: Mild posterior disc bulge indents the anterior subarachnoid space but does not abut or deform the cord. Mild uncovertebral joint hypertrophy. Moderate to severe left neural foraminal narrowing. Mild right neural foraminal narrowing. C5-C6: Mild posterior disc bulge indents the anterior subarachnoid space but does not abut or deform the cord. No significant neural foraminal narrowing. C6-C7: Mild posterior disc bulge indents the anterior subarachnoid space but does not abut or deform the cord. No significant neural foraminal narrowing. Visualized paraspinal soft tissues are unremarkable. IMPRESSION: 1. No evidence of acute injury to the cervical spine. 2. Grade 1 anterolisthesis of C4 on C5, degenerative. 3. Mild mid to lower cervical spondylosis with neural foraminal narrowing most pronounced on the left at C4-5. EMG UE 02/18/24 IMPRESSION: 1. This is an abnormal study. 2. There is electrodiagnostic evidence for left moderate-severe and right mild median neuropathy at the wrist, consistent with carpal tunnel syndrome. 3. There is no electrodiagnostic evidence for ulnar neuropathy, brachial plexopathy, or cervical radiculopathy. s/p Right Carpal Tunnel Release w/ AR DOS: 06/23/24 Left Carpal tunnel release 04/04/24 Ordering Physician: Sandra Jacques Date of Service: 01/21/25 Procedure(s): MR lumbar spine wo con Accession Number(s): [id number] cc: Valeria Horowitz MD; Sandra Jacques~ EXAMINATION: MR LUMBAR SPINE WITHOUT CONTRAST CLINICAL INFORMATION: Radiculopathy, lumbar region. COMPARISON: None available. TECHNIQUE: MRI of the lumbar spine was obtained using routine sequences without contrast. FINDINGS: Last rib-bearing vertebra labeled T12. Bone marrow inhomogeneity. No bone marrow STIR signal abnormality. Disc desiccation at L4-5 and L5-S1. Hyperintense T2 signal in the posterior intervertebral discs L4-5 and L5-S1 likely annular fissure. There is normal alignment. Conus medullaris ends at superior endplate of L1 with normal signal. T12-L1: No disc herniation. No neuroforamina stenosis. L1-2: Broad-based disc bulging. No central spinal canal or neuroforamina stenosis. L2-3: No disc bulging. No compression upon neural elements. L3-4: Broad-based disc bulging. Facet joint hypertrophy. Reduced diameter of the neural foramina. No central spinal canal stenosis. L4-5: Broad-based central disc herniation and facet joint hypertrophy encroaching the L5 nerve root on the lateral recesses causing bilateral neuroforamina stenosis encroaching the L4 exiting nerve roots. Hypertrophy of the ligamentum flavum. Reduced AP diameter of the thecal sac. L5-S1: Central herniated disc abutting the S1 nerve roots on the lateral recesses. Facet joint hypertrophy. Bilateral neuroforamina narrowing encroaching the L4 exiting nerve roots. Fatty atrophy of the lumbar muscles at L5-S1. No prevertebral compartment hematoma, mass or fluid collection. 3 cm exophytic cystic lesion in the parapelvic left kidney. 5.5 cm hypointense T2 STIR and isointense T1 lesion in the uterus.. MR/MR lumbar spine wo con IMPRESSION: Central broad-based disc herniation herniated disc at L4-5 and spondylosis encroaching the L5 and L4 nerve roots. Central disc herniation L5-S1 encroaching the S1 nerve roots and to a lesser extent L5 secondary to spondylosis of the facet joints. 3 cm cyst, left kidney. Bone marrow inhomogeneity suggesting osteopenia versus osteoporosis versus calcium metabolic disorder. Probable 5.5 cm uterine fibroid. Electronically signed by: Warren Vinson MD 01/23/2025 11:20 AM EST Ordering Physician: Valeria Horowitz MD Date of Service: 06/17/24 Procedure(s): XR lumbar spine 2-3V Accession Number(s): [id number] cc: Valeria Horowitz MD~ EXAMINATION: XR LUMBOSACRAL SPINE CLINICAL INFORMATION: Low back pain. COMPARISON: Radiograph lumbar spine 06/21/2021. TECHNIQUE: Three views of the lumbosacral spine. FINDINGS: No evidence of acute compression deformity or subluxation. Mild intervertebral disc height loss of facet arthropathy at L5-S1, increased compared to 2020. SI joints are symmetric. No significant paraspinal soft tissue abnormality. A few pelvic phleboliths are seen. XR/XR lumbar spine 2-3V IMPRESSION: 1. No acute compression deformity or subluxation. 2. Mild lumbar spondylosis at L5-S1, increased compared to 2021. Assessment & Plan Assessment & Plan (1) Coccydynia: Code(s): M53.3 - Sacrococcygeal disorders, not elsewhere classified Category: Medical (2) Sacroiliitis: Code(s): M46.1 - Sacroiliitis, not elsewhere classified Category: Medical (3) Pain of both sacroiliac joints: Code(s): M53.3 - Sacrococcygeal disorders, not elsewhere classified Category: Medical (4) Spondylosis of lumbar region without myelopathy or radiculopathy: Code(s): M47.816 - Spondylosis without myelopathy or radiculopathy, lumbar region Category: Medical (5) Facet arthropathy, lumbar: Code(s): M47.816 - Spondylosis without myelopathy or radiculopathy, lumbar region Category: Medical (6) Disc degeneration, lumbar: Code(s): M51.369 - Other intervertebral disc degeneration, lumbar region without mention of lumbar back pain or lower extremity pain Category: Medical (7) Radiculopathy, lumbosacral region: Code(s): M54.17 - Radiculopathy, lumbosacral region Category: Medical (8) Chronic pain syndrome: Code(s): G89.4 - Chronic pain syndrome Category: Medical Plan The pain of this patient is most likely multifactorial, there is an element of radiculopathy, however her pain improvement lasted only 5 days. . Interventional interlaminar L5-S1 epidural steroid injection resulted in no pain improvement. Diagnostic sacroiliac joint injection resulted also in no pain improvement. After that diagnostic L3, L4, dorsal ramus L5 bilateral resulted in no pain improvement. After I re-examined the MRI and decided to try transforaminal epidural steroid injection L5-S1. Unfortunately transforaminal epidural steroid injection resulted in no pain improvement for the patient. I decided to schedule this patient for spinal cord stimulator [employer]. She pass psychological evaluation with [facility]. Coding Level of Care Code Est Pt Level 3 (74398) Diagnoses Coccydynia M53.3 Sacroiliitis M46.1 Pain of both sacroiliac joints M53.3 Spondylosis of lumbar region without myelopathy or radiculopathy M47.816 Facet arthropathy, lumbar M47.816 Disc degeneration, lumbar M51.369 Radiculopathy, lumbosacral region M54.17 Chronic pain syndrome G89.4
[2025-10-04 09:16] VITALS: BP 140/68; PULSE 92; RESP 16; O2SAT 96; BMI 33.4
--- OUTSIDE RECORDS SUMMARY | 2025-10-04 10:03 | XMS_ITS | Clinical Summary ---
Author Organization [facility] Address [address] [place] [address] Care Team Providers Care Production Miner Name Role Phone Silvestre Espino Primary Care Provider [phone] Allergies No known active allergies Medications traZODone [...] 75+ series) 2046 Insurance [employer] Care Teams Production Miner Relationship Specialty Start Date End Date Silvestre Espino PA [address] [place] [id number] PCP - General Family Medicine 10/27/19
--- OUTSIDE RECORDS SUMMARY | 2025-10-04 10:03 | XMS_ITS | Clinical Summary ---
Author Organization [facility] Address [address] [place] [address] Care Team Providers Care Peer Health Promoter Name Role Phone Thomas Cardoza Primary Care Provider [phone] Source Comments PLEASE NOTE, if this patient [...] mcg/actuation nasal sprayIndications: Nasal congestion Place 1 Schulter in both nostrils once daily 16 g [...] 11/23/2024 02/18/2022, 06/03 Pap Smear 03/18/2025 03/18/2022 [id number] ( season) 2025 09/19/2021, 03/19/2021, 03/19/2021, Additional [...] 1:58 PM EDT) CLINICAL INFORMATION See Note [facility] Comment:None given LMP See Note [facility] Comment:[id number] PREV. PAP [facility] PREV. BX See Note [facility] Comment:NONE GIVEN SOURCE See Note [facility] Comment:Cervix, Endocervix STATEMENT OF ADEQUACY See Note [facility] Comment: Satisfactory for evaluation. Endocervical/transformation zone component present. INTERPRETATION/RESU LT See Note [facility] Comment:Negative for intraep ithelial lesion or malignancy. COMMENT See Note [facility] Comment: This Pap test has been evaluated with computer assisted technology. BOTTOM CAGER See Note QUE [facility] Comment: SL, CT(ASCP) CT screening location: [place] [address] COMMENT [facility] HPV MRNA E6/E7 Not Detected Not Detected [facility] Comment: Methodology: Manganese Heater-Mediated Amplification This assay detects E6/E7 viral messenger RNA (mRNA) from 14 high-risk HPV types (16,18,31,33,35,39,45,51,52,56,58,59,66,68). The analytical performance characteristics of this assay have been determined by [employer]. The modifications have not been cleared or approved by the FDA. This assay has been validated pursuant to the CLIA regulations and is used for clinical purposes. For additional information, please refer to http://education.Kabooza/faq/DLZ034n7 (This link if provided for information/ educational purposes only.) Swab Cervix uteri structure / Unknown 03/18/2022 1:58 PM EDT 03/19/2022 7:25 AM EDT Narrative [employer] [facility] - 03/21/2022 2:21 PM EDT EXPLANATORY [...] - PATHOLOGY AND CYTOLOGY AMBULATORY Final Result [facility] [address] [address], [facility] [address] [address] * REFERRAL FOR MAMMOGRAM SCREENING (02/28/2022 3:00 AM EDT) 02/28/2022 3:00 AM EDT us Thomas SOLIS RFL MAMMO Edited Result - Final * HEPATITIS C AB W/RFLX HCV RNA, QT, RT PCR (06/11/2021 10:44 AM EDT) HEPATITIS C ANTIBODY NON-REACT RADHA NON-REACT RADHA [facility] SIGNAL TO CUT-OFF 0.01 <1.[address] [facility] Comment: HCV antibody was non-reactive. There is no laboratory evidence of HCV infection. In most cases, no further action is required. However, if recent HCV exposure is suspected, a test for HCV RNA (test code 17082) is suggested. For additional information please refer to http://IPNetVoice.Kabooza/faq/LZN91i0 (This link is being provided for informational/ educational purposes only.) Blood Blood / Unknown 06/11/2021 1 0:44 AM EDT 06/11/2021 10:44 AM EDT Narrative [facility] - 06/12/2021 11:29 AM EDT FASTING:YES Thomas [facility] - BLOOD DRAW Edited Result - Final [facility] [address] [address], [facility] [address] [address] * HIV 1/2 AG & AB W/RFLX (4TH GEN) (06/11/2021 10:44 AM EDT) Pathologist [facility] HIV AG/AB, 4TH GEN NON-REAC TIVE NON-REAC TIVE [facility] Comment: HIV-1 antigen and HIV-1/HIV-2 antibodies [...] purpose. For additional information please refer to http://education.Kabooza/faq/MWX937 (This link is being provided for informational/ educational purposes only.) The performance of this assay has not been clinically validated in patients less than 2 years old. Blood Blood / Unknown 06/11/2021 1 0:44 AM EDT 06/11/2021 10:44 AM EDT Narrative [employer] [facility] - 06/12/2021 11:29 AM EDT FASTING:YES us Thomas [facility] - BLOOD DRAW Final Result Performing Organization Address [facility] Co de Phone Number [facility] [address] [address], [place] [address] [address] * RPR (MONITOR) W/REFL TITER (06/11/2021 10:44 AM EDT) RPR (MONITOR) W/REFL TITER NON-REACT RADHA NON-REACT RADHA [facility] Blood Blood / Unknown 06/11/2021 1 0:44 AM EDT 06/11/2021 10:44 AM EDT Narrative [facility] [facility] - 06/12/2021 11:29 AM EDT FASTING:YES us Thomas [facility] - BLOOD DRAW Edited Result - Final Performing Organization Address [facility] de Phone Number [facility] [address] [address], [place] [address] [address] * (ABNORMAL) LIPID PANEL (06/11/2021 10:44 AM EDT) CHOLESTEROL, TOTAL 175 <200 mg/dL [facility] HDL CHOLESTEROL 44 > OR = 40 mg/dL [facility] TRIGLYCERIDES 123 <150 mg/dL [facility] LDL-CHOLESTEROL 108(H) 99 mg/dL (calc) [facility] Comment: Reference range: <100 Desirable range <100 mg/dL for primary prevention; <70 mg/dL for patients with CHD or diabetic patients with > or = 2 CHD risk factors. LDL-C is now calculated using the Ana calculation, which is a validated novel method providing better accuracy than the Friedewald equation in the estimation of LDL-C. Mitchell MIRANDA et al. MAR. 2013;310(19): 3403-2528 (http://education.[employer]/faq/OUX847) CHOL/HDLC RATIO 4.0 <5.0 (calc) [facility] NON-HDL CHOLESTEROL 131(H) <130 mg/dL (calc) [facility] Comment: For patients with diabetes plus 1 major ASCVD risk factor, treating to a non-HDL-C goal of <100 mg/dL (LDL-C of <70 mg/dL) is considered a therapeutic option. Blood Blood / Unknown 06/11/2021 1 0:44 AM EDT 06/11/2021 10:44 AM EDT Narrative [facility] [facility] - 06/12/2021 11:29 AM EDT FASTING:YES Thomas [facility] - BLOOD DRAW Final Result [facility] [facility] [address] [address], [facility] [address] [address] * (ABNORMAL) COMPREHENSIVE METABOLIC PANEL (06/11/2021 10:44 AM EDT) GLUCOSE 78 65 - 99 mg/dL [facility] Comment: Fasting reference interval UREA NITROGEN (BUN) 11 7 - 25 mg/dL [facility] CREATININE (blood) 0.57(L) 0.60 - 1.35 mg/dL [facility] GFR ESTIMATED 121 > OR = 60 mL/min/1. 73m2 [facility] EGFR 140 > OR = 60 mL/min/1. 73m2 [facility] BUN/CREATININE RATIO 19 6 - 22 (calc) [facility] SODIUM 138 135 - 146 mmol/L [facility] POTASSIUM 4.4 3.5 - 5.3 mmol/L [facility] CHLORIDE 108 98 - 110 mmol/L [facility] CARBON DIOXIDE 23 20 - 32 mmol/L [facility] CALCIUM 8.9 8.6 - 10.3 mg/dL [facility] PROTEIN, TOTAL 6.7 6.1 - 8.1 g/dL [facility] ALBUMIN 4.1 3.6 - 5.1 g/dL [facility] GLOBULIN 2.6 1.9 - 3.7 g/dL (calc) [facility] ALBUMIN/GLOBULI N RATIO 1.6 1.0 - 2.5 (calc) [facility] BILIRUBIN, TOTAL 0.3 0.2 - 1.2 mg/dL [facility] ALKALINE PHOSPHATASE 81 36 - 130 U/L [facility] AST 12 10 - 40 U/L [facility] ALT 18 9 - 46 U/L [facility] Blood Blood / Unknown 06/11/2021 1 0:44 AM EDT 06/11/2021 10:44 AM EDT Narrative [facility] [facility] - 06/12/2021 11:29 AM EDT FASTING:YES Thomas [facility] - BLOOD DRAW Edited Result - Final [facility] [address] [address], [facility] [address],[facility] [place] [address] from Last 3 Months or Most Recently Relevant to Health Maintenance Insurance [employer] Care Teams Peer Health Promoter Relationship Specialty Start Date End Date Thomas Cardoza PA PCP - General FAMILY MEDICINEMOLLY 11/12/21
== END 2025-10-04 09:51 | disposition home or self-care (01) ==
LOC: HO.PMC 09:14
PROVIDERS: PCP Internal Medicine; Visit Provider Anesthesiology
DX: M53.3 Sacrococcygeal disorders, not elsewhere classified (principal); M46.1 Sacroiliitis, not elsewhere classified; M47.816 Spondylosis without myelopathy or radiculopathy, lumbar region; G89.4 Chronic pain syndrome; M51.360 Other intervertebral disc degeneration, lumbar region with discogenic back pain only
CPT/HCPCS: 99213

== ENCOUNTER → 2025-10-04 09:13 | Outpatient (BNVA) | payer MEDICARE, MEDICAID, SELFPAY | PROVIDERS: PCP Internal Medicine; Visit Provider Anesthesiology | DX: M47.816 Spondylosis without myelopathy or radiculopathy, lumbar region (principal); M46.1 Sacroiliitis, not elsewhere classified; M53.3 Sacrococcygeal disorders, not elsewhere classified; M51.369 Other intervertebral disc degeneration, lumbar region without mention of lumbar back pain or lower extremity pain; M54.17 Radiculopathy, lumbosacral region; G89.4 Chronic pain syndrome; Z72.0 Tobacco use | CPT/HCPCS: 99212 ==

== ENCOUNTER 2025-10-12 14:51 | Outpatient (AMB) | payer MEDICARE, MEDICAID, SELFPAY ==
[2025-10-12 15:06] VITALS: BP 130/80; BMI 33.4
--- NOTE | 2025-10-12 15:06 | MHC.OFFVIS ---
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 The patient is complaining of constant pelvic pressure and pain and urinary frequency EMB pathology showed the following: Abundant blood and fragments of inactive endometrium with stromal and glandular breakdown (lytic endometrium); negative for atypia, hyperplasia or malignancy. Pelvic ultrasound done on 09/19/2025 showed the following: Uterus: The uterus is anteverted and measures 9.2 x 5.2 x 6.5 cm. The double wall endometrial thickness is 2 mm. No endometrial fluid or mass There is a 6.4 x 6.1 x 5.8 cm posterior upper uterine body and fundal fibroid. This appears transmural abutting the endometrium and also subserosal altering the contour of the posterior uterus. This measured 5.6 x 4.8 x 5.3 cm on prior ultrasound April 2025 and 5.5 cm on prior MRI of the lumbar spine January 2025 and may be slightly increased. Small subcentimeter myometrial cyst. Nabothian cyst and echogenic foci questionable for small calcifications in the cervix, unchanged. Adnexa: Both ovaries are visualized. There is normal color flow to the adnexa. There is no ovarian torsion. There is no pelvic ascites or fluid collection. Right ovary measures 3 x 2.1 x 1.9 cm. Left ovary measures 4.1 x 1.7 x 2.1 cm. Small simple cyst measuring 1.8 x 0.9 x 1.5 cm, previous 3.1 x 2.1 x 2.4 cm. [facility] Medical History Hearing loss Lumbar herniated disc Low back pain GERD (gastroesophageal reflux disease) Fibromyalgia Carpal tunnel syndrome RLS (restless legs syndrome) HTN (hypertension) Surgical History Hx of colonoscopy History of carpal tunnel surgery History of arthroscopy of right shoulder Family History Maternal Grandmother Mental health disorder Sister Diverticulitis Brother Colon polyp Brother S/P colostomy History of colostomy reversal Cancer of kidney Father Lung cancer Liver cancer Cancer of kidney Social History Household Members: Significant Other Household Members Other:: on disability for shoulder injury , lives with a partner, 1 daughter, Housing: Apartment Are you a primary clinical care manager to a significant other at home: No Alcohol intake: never Patient Tobacco Use Status: Current everyday Tobacco user Tobacco use type: Cigarette Cigarettes Per Day: 7 Years Smoked: 20 e-Cigarette/Vaping Use: Never Used service: No 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al status: disabled 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 Sexual orientation: Straight/Heterosexual Gender identity: Female Cognitive needs: No Hearing needs: No Vision needs: Yes Review of Systems Const All systems reviewed & are unremarkable except as noted in HPI and below Reports as per HPI and Reports no additional complaints GI Reports no additional complaints Reports no additional complaints Physical Exam Vital Signs: Last Vital Signs BP 130/80 10/12/25 15:06 BMI result Body Mass Index 33.4 Assessment & Plan Assessment & Plan (1) Postmenopausal bleeding: Code(s): N95.0 - Postmenopausal bleeding Category: Medical Plan: Discussed with the patient the results of the endometrial biopsy. Discussed with the patient the sensitivity, specificity, positive and negative predictive value, of endometrial biopsy in detecting endometrial pathology including but not limited to endometrial hyperplasia, cancer and other pathology; instructed the patient to call in case vaginal bleeding recurs, the next step will be to proceed with a diagnostic hysteroscopy/D&C for further endometrial sampling evaluation to rule out endometrial pathology. All questions answered and the patient verbalized understanding and agreed with the plan. (2) Uterine fibroid: Code(s): D25.9 - Leiomyoma of uterus, unspecified Category: Medical Plan: Discussed with the patient the findings on pelvic ultrasound & the risk of myosarcoma; in addition reviewed with the patient that malignancy and pre malignancy cannot be ruled out without hysterectomy for pathological evaluation ; furthermore, explained to the patient the limitation of pelvic ultrasound and endometrial biopsy in the setting. Discussed with the patient the options of treatment including expectant management versus hysterectomy; the pros and cons, risks benefits of each approach were discussed with the patient the patient decided to proceed with surgical management . Discussed with the patient the different types of hysterectomies including, vaginal, laparoscopic assisted vaginal, robotic assisted laparoscopic,& abdominal with BSO. All pros, cons, r/b of each approach were discussed the patient including evidence that morbidity is less and recovery is shorter with minimally invasive approaches to hysterectomy. Discussed with the patient the lack of availability of the robot DaVinci robot and/or minimally invasive manager personnel selection specialist at [facility]. Will refer to [facility] minimally invasive aircraft structural design engineer surgery. Instructed the patient to call our office back in case a referral appointment is not scheduled, missed or canceled so that we will assist on rescheduling another appointment, the patient verbalized understanding agreed with the plan. (3) Ovarian cyst: Code(s): N83.209 - Unspecified ovarian cyst, unspecified side Category: Medical Plan: Discussed with the patient the ovarian cyst by ultrasound. Discussed with the patient the Ultrasound findings, the main limitation of transvaginal ultrasonography alone as a diagnostic tool to distinguish benign from malignant masses relates to its lack of specificity and low positive predictive value for cancer. The differential diagnosis discussed with the patient includes the following but not limited to: benign and malignant gynecological and non-gynecological causes. Will order Serum tumor marker CA 125 . Since the patient is referred for surgical management, recommended the patient intra operatively ovarian cyst will be evaluated. In case the patient does not have ovarian cystectomy/oophorectomy will repeat ultrasound in few months. All questions answered the patient verbalized understanding Orders: Orders CA-125 Today N83.209 - Unspecified ovarian cyst, unspecified side Coding Level of Care Code Est Pt Level 3 (61547) Diagnoses Postmenopausal bleeding N95.0 Uterine fibroid D25.9 Ovarian cyst N83.209
--- OUTSIDE RECORDS SUMMARY | 2025-10-12 20:21 | XMS_ITS | Clinical Summary ---
Author Organization [facility] Address [address] [place] [address] Care Team Providers Care Care Management Associate Name Role Phone Silvestre Espino Primary Care [...] [phone]) [phone] Insurance [employer] Care Teams Care Management Associate Relationship Specialty Start Date End Date Silvestre Espino PA [address] [place] [id number] PCP - General Family Medicine 10/27/19
== END 2025-10-12 16:21 | disposition home or self-care (01) ==
LOC: HO.HWS 14:52
PROVIDERS: PCP Internal Medicine; Visit Provider Obstetrics & Gynecology
DX: N95.0 Postmenopausal bleeding (principal); D25.9 Leiomyoma of uterus, unspecified; N83.209 Unspecified ovarian cyst, unspecified side
CPT/HCPCS: 99213

== ENCOUNTER 2025-10-12 14:51 | Outpatient (REF) | payer MEDICARE, MEDICAID, SELFPAY ==
[2025-10-13 13:18] LABS: CA-125 13 U/mL (<35)
== END 2025-10-12 14:52 | disposition home or self-care (01) ==
LOC: HO.LAB 14:51
PROVIDERS: PCP Internal Medicine; Visit Provider Obstetrics & Gynecology
DX: N95.0 Postmenopausal bleeding (principal); D25.9 Leiomyoma of uterus, unspecified; N83.292 Other ovarian cyst, left side
CPT/HCPCS: 36415; 86304; 99212

== ENCOUNTER 2025-11-01 11:01 | Outpatient (RCR) | payer MEDICARE, MEDICAID, SELFPAY ==
--- NOTE | 2025-11-01 13:23 | MHC.PT.DC ---
[facility] [place] Office [place] Office [place] Office [address] Cheryl Brito [address] [phone] F: [phone] F: [phone] F: [phone] F: [phone] Physical Therapy Discharge Report Diagnosis: pain of both SI joints, LBP Date of Surgery: n/a Date of Evaluation: 11/01/25 Date of Discharge: 11/01/25 Treatments to Date: Cancellations to Date: No Shows to Date: Discharge Status: Discharge Summary: Pt presented to her evaluation for LBP. During subjective portion, pt brought up concerns regarding her MRI results. She is concerned that she has had 4 injections without improvement and that the recommendation for a spine stimulator isn't going to fix the disc hernaition. I educated her on the lumbar anatomy and that she is correct that the stimulator is not going to change the herniation but may help with sx/pain. She has not yet seen a archives specialist. Since she has reservations on moving forward with the stimulator I recommend she get a consult from the spine center to discuss if there are any other options. She is in agreement that this is a good idea and states she does not want to do another round of PT as she has already done this multiple times without success and instead actually had worsening of pain/sx. Therefore we will hold off on formal PT for now while she pursues a consult with the spine center. Electronically signed by: Gypsy Lan, PT, DPT, ATC Please sign and return to therapist. Thank you for your referral.
== END 2025-11-01 13:24 | disposition home or self-care (01) ==
LOC: HO.PTCHIC 11:01
PROVIDERS: PCP Internal Medicine; Visit Provider Physical Medicine & Rehabilitation
DX: M53.3 Sacrococcygeal disorders, not elsewhere classified (principal); M54.50 Low back pain, unspecified; M47.816 Spondylosis without myelopathy or radiculopathy, lumbar region

== ENCOUNTER 2025-11-09 11:31 | Outpatient (AMB) | payer MEDICARE, MEDICAID, SELFPAY ==
--- NOTE | 2025-11-09 11:34 | MHC.OFFVIS ---
Vital Signs 11/09/25 11:35 Height 5 ft 1 in Weight 178 lb 9.191 oz BMI 33.7 BP 126/67 Blood Pressure Location Lt brachial Position Sitting Pulse 80 Intake Visit Reasons: follow up/GERD Intake Note: Camila presents in the office as a follow up for GERD. CC: She states that she has no concerns today - GERD at times but not as often. Relief Captain Required: No Allergies No Known Allergies Allergy (Verified 11/09/25 11:42) Medication List - Last Reconciled 11/09/25 by Angelic Rogers MD duloxetine 60 mg PO DAILY gabapentin 900 mg PO BEDTIME ibuprofen 800 mg PO TID PRN lisinopril 20 mg PO DAILY omeprazole 20 mg PO DAILY 90 days psyllium husk (Metamucil) 1 tbsp PO DAILY 30 days tizanidine 2 mg PO TID PRN 30 days trazodone 100 mg PO BEDTIME HPI HPI follow up/GERD: Details: GI clinic visit for this 54 YF with hypertension, carpal tunnel syndrome and RLS for evaluation of abdominal pain TODAY'S VISIT: Pt reports that she has no concerns today - GERD at times but not as often. Complains of chronic constipation - for the past 3 months Takes metamucil daily Continues to have RUQ pain - feels sore when she pushes on the lower ribs Takes Ibuprofen for back pain when back pain is really bad PAST VISITS: Complains of RUQ pain (without radiation) for the past 2 months Pain is intermittent and is squeezing (if something is tight in there) and can wake up at night due to pain. Does not eat just drinks water due to fear the pain will get worse after eating Pain can last 4-6 hrs - takes Ibuprofen 3 times a day for neck, shoulder and low back pain Denies nausea, vomiting, fever or chills with pain Patient denies symptoms of heartburn, dysphagia, nausea, vomiting, change in appetite. Complains of diarrhea alternating with constipation for several years - 4 days of diarrhea and 3 days of constipation in a week. Admits to weight gain of 9 lbs Denies recent change in bowel habits, black stools or rectal bleeding. Patient admits to having HTn and denies major cardiac or pulmonary problems. Admits to loud snoring and sleep study in 2020 showed periodic limb disorder Denies problems with anesthesia in the past. Denies being on chronic anticoagulation. 31y/o brother- colostomy for perforated diverticulum - had a bag for 9 months followed by reversal Mother and older brother- 50s colon polyps LABS [facility] : Reviewed IMAGING STUDIES: No recent GI imaging studies in [facility] ENDOSCOPIC STUDIES: 08/07/25 EGD SHOWED: ESOPHAGUS: Mild focal esophagitis at GE junction STOMACH: Moderate diffuse gastric erythema with scattered superficial erosions- biopsies were obtained from the gastric body and antrum. DUODENUM: A 10-12 mm adenomatous appearing polyp in at the apex of the bulb - removed with a hot snare. Polypectomy site was closed with 1 hemoclip and marked with Janice ink. Normal descending duodenum - biopsies were obtained from 3rd part of the duodenum to check for celiac sprue Plan: Above findings were reviewed with the patient and relevant handouts were given and the discharge area. BIOPSIES SHOWED: A. Small bowel, biopsy: Small bowel mucosa with preserved villi and no specific change; no evidence of celiac disease. B. Duodenal polyp: Polypoid chronic/non-specific duodenitis with prominent Hollie's gland hyperplasia; negative for dysplasia. C. Gastric antrum, biopsy: Gastric antral mucosa with mild reactive changes, focal ectatic vessels, and focal minimal chronic inactive inflammation; negative for H. pylori, intestinal metaplasia and dysplasia. D. Gastric body, biopsy: Gastric body mucosa with congestion and focal minimal chronic inactive inflammation; negative for H. pylori, intestinal metaplasia and dysplasia Pt advised to increase Omeprazole to 20 mg twice daily. 09/2024 COLONOSCOPY SHOWED: Colonoscopy Findings: Two small polyps were removed Moderate diverticulosis seen in the left colon Moderate hemorrhoids on retroflexed exam. Plan: Repeat Colonoscopy in 3-5 years if polyps are adenomatous and due to family hx of colon polyps. Above findings were reviewed with the patient and relevant handouts were given and the discharge area. BIOPSIES SHOWED: A. Colon, sigmoid, polypectomy: Inflammatory polyp. B. Colon, sigmoid, biopsy: Colonic mucosa with mild expansion of lamina propria chronic inflammatory cells, vascular congestion, focal hemosiderin deposition and focally denuded surface epithelium. See comment. C. Rectum, polypectomy: Hyperplastic mucosal polyp. Comment (B): The findings are nonspecific and may be sequelae of prior injury; please correlate with clinical and colonoscopic findings. Letter sent advising repeat colon in 5 yrs Pt was placed on the colonoscopy recall list. PAST GI HISTORY BY REVIEW OF MEDICAL RECORDS: 03/2024 PATIENT WAS SEEN BY MOLLY DRISCOLL: 53 y/o female- restless leg-alternating stool- hemorrhoids occ rectal bleeding. She has a good appetite Sleeps well- no AMELIA- 31y/o brother- colostopmy- perforated divertic Mother and brother- 50s colon polyps No respiratory or cardiac issue- No N/V/D abdominal pain- fever or chills PFSH Medical History Hearing loss Lumbar herniated disc Low back pain GERD (gastroesophageal reflux disease) Fibromyalgia Carpal tunnel syndrome RLS (restless legs syndrome) HTN (hypertension) Surgical History History of esophagogastroduodenoscopy (EGD) Hx of colonoscopy History of carpal tunnel surgery History of arthroscopy of right shoulder Family History Maternal Grandmother Mental health disorder Sister Diverticulitis Brother Colon polyp Brother S/P colostomy History of colostomy reversal Cancer of kidney Father Lung cancer Liver cancer Cancer of kidney Social History Household Members: Significant Other Household Members Other:: on disability for shoulder injury , lives with a partner, 1 daughter, Housing: Apartment Are you a primary child day care teacher to a significant other at home: No Alcohol intake: never Patient Tobacco Use Status: Current everyday Tobacco user Tobacco use type: Cigarette Cigarettes Per Day: 7 Years Smoked: 20 e-Cigarette/Vaping Use: Never Used service: No 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al status: disabled 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 Sexual orientation: Straight/Heterosexual Gender identity: Female Cognitive needs: No Hearing needs: No Vision needs: Yes Review of Systems Const All systems reviewed & are unremarkable except as noted in HPI and below Physical Exam Vital Signs: Last Vital Signs Pulse 80 11/09/25 11:35 BP 126/67 11/09/25 11:35 BMI result Body Mass Index 33.7 Const General: healthy appearing and no acute distress Orientation/consciousness: patient oriented x3 Limitations: no limitations HEENT Head: Yes normal to inspection Ears: hearing grossly normal bilaterally Eyes Sclerae: sclerae normal Pupils: Equal, round and reactive pupils present Neck Neck: Yes normal visual inspection Chest Chest palpation & inspection: normal inspection of the chest Resp Effort & Inspection: normal respiratory effort Auscultation: clear to auscultation bilaterally Cardio Palpation: normal PMI Rate: regular rate Rhythm: regular rhythm Heart sounds: S1 normal heart sound present, S2 normal heart sound present and no murmurs GI Palpation (GI): Soft to palpation, nontender and No hepatosplenomegaly present Auscultation: normal bowel sounds Rectal Exam - Female: deferred Skin General skin exam: no rashes or lesions noted Neuro General: patient oriented x3, gait normal and moves all extremities Cranial nerves: Yes Equal, round and reactive pupils present Psych Appearance: grossly normal Mental Status: mental status grossly normal Assessment & Plan Assessment & Plan (1) Other family history of colon polyps: Comment: mother and brother-50s Code(s): Z83.718 - Family history of other colon polyps Category: Medical (2) Hx of colonoscopy: Comment: Dr. Rogers, 2 polyps no TA Code(s): Z98.890 - Other specified postprocedural states Category: Surgical (3) RUQ abdominal pain: Code(s): R10.11 - Right upper quadrant pain Category: Medical (4) Chronic constipation: Code(s): K59.09 - Other constipation Category: Medical Plan 54 YF with hypertension, carpal tunnel syndrome and RLS for evaluation of right upper abdominal pain x 2 months. She also has a hx of diarrhea alternating with constipation and takes a a fiber pill with good results - advised to take it daily instead of every other day.. Pt advised to schedule an abdominal ultrasound to rule out pancreatic or biliary source of pain. Patient will be scheduled for an upper endoscopy to rule out peptic ulcer disease (takes Ibuprofen 800 mg three times daily) [place] of Omeprazole 20 mg every morning to see if abdominal pain improves 11/09/25 Complains of chronic constipation - for the past 3 months Takes metamucil daily Patient advised to take senna 1-2 capsules at bedtime for constipation. Handout on constipation given to the patient. She was advised to call/message if symptoms did not improve. FU in 6 months - scheduled 05/10/26 Medications: New sennosides-docusate sodium 8.6-50 mg (Laxative Stool Softener With Senna) 2 tab-caps (2 x 8.6-50 mg) PO BEDTIME 60 tabs 3RF 30 days K59.09 - Other constipation Coding Level of Care Code Est Pt Level 3 (49187) Diagnoses Other family history of colon polyps Z83.718 Hx of colonoscopy Z98.890 RUQ abdominal pain R10.11 Chronic constipation K59.09 Time Spent (min) 18
[2025-11-09 11:35] VITALS: BP 126/67; PULSE 80; BMI 33.7
--- OUTSIDE RECORDS SUMMARY | 2025-11-09 15:13 | XMS_ITS | Clinical Summary ---
Author Organization [facility] Address [address] [place] [address] Care Team Providers Care Warm In Worker Name Role Phone Silvestre Espino Primary Care Provider [phone] Allergies No known active allergies Medications traZODone [...] 75+ series) 2046 Insurance [employer] Care Teams Warm In Worker Relationship Specialty Start Date End Date Silvestre Espino PA [address] [place] [id number] PCP - General Family Medicine 10/27/19
== END 2025-11-09 12:16 | disposition home or self-care (01) ==
LOC: HO.HGI 11:32
PROVIDERS: PCP Internal Medicine; Visit Provider Internal Medicine Gastroenterology
DX: Z83.718 Family history of other colon polyps (principal); Z98.890 Other specified postprocedural states; R10.11 Right upper quadrant pain; K59.09 Other constipation
CPT/HCPCS: 99213

== ENCOUNTER → 2025-11-09 11:31 | Outpatient (BNVA) | payer MEDICARE, MEDICAID, SELFPAY | PROVIDERS: PCP Internal Medicine; Visit Provider Internal Medicine Gastroenterology | DX: K21.9 Gastro-esophageal reflux disease without esophagitis (principal); K59.09 Other constipation; R10.11 Right upper quadrant pain; F17.210 Nicotine dependence, cigarettes, uncomplicated; Z83.718 Family history of other colon polyps | CPT/HCPCS: 99212 ==